=== PATIENT | male | born 1945 | race Caucasian/White ===

== ENCOUNTER 2020-12-05 18:53 | Inpatient (IN) | payer MEDICARE, SELFPAY ==
--- NOTE | ~2020-12-05 | XR_ITS ---
EXAMINATION: XR CHEST CLINICAL INFORMATION: Confusion, smoker, wheezing COMPARISON: None TECHNIQUE: Frontal view of the chest was obtained. FINDINGS: The lungs are clear. The vascularity is normal. There is no hyperinflation. The costophrenic sulci are clear. The heart is normal in size. The hilar and mediastinal contours are normal. No visible acute bony abnormality. XR/XR chest 1V IMPRESSION: Unremarkable examination.
--- NOTE | ~2020-12-05 | CT_ITS ---
EXAMINATION: CT HEAD WITHOUT CONTRAST CLINICAL INFORMATION: Confusion. Altered mental status. COMPARISON: None TECHNIQUE: Contiguous axial imaging was performed from the skull base to vertex without intravenous administration of contrast. This CT examination was performed using dose optimization techniques as appropriate, variously including the following: *Automated exposure control *Adjustment of mA and/or kV according to patient size (this includes techniques or standardized protocols for targeted exams where dose is matched to indication/reason for exam; i.e. extremities or head) *Use of iterative reconstruction technique DLP: 768 mGy-cm FINDINGS: There is no evidence of an extra-axial collection. There is no evidence for intra-axial or extra-axial hemorrhage. There is a 1.2 cm area of low attenuation seen in the left external capsule/claustrum questionable for subacute infarct. The ventricles and extra-axial CSF spaces are slightly prominent suggestive of mild generalized atrophy. There is mild nonspecific periventricular white matter disease. There are small polyps or cysts in the maxillary sinuses. Paranasal sinuses, mastoid air cells and middle ears are clear. There is mild generalized increased sclerosis of the skull. This may be related to metabolic bone disease or possibly anemia. No fracture or focal lesion is seen. CT/CT head/brain wo con IMPRESSION: 1.2 cm area of decreased attenuation seen in the left external capsule/claustrum questionable for subacute infarct. Mild generalized atrophy and nonspecific periventricular white matter disease.
--- NOTE | ~2020-12-05 | XR_ITS ---
EXAMINATION: XR ABDOMEN XR PELVIS CLINICAL INFORMATION: Pre-MRI COMPARISON: None TECHNIQUE: 1 view, 2 images of the abdomen. Single view of the pelvis. FINDINGS: Normal bowel gas pattern. No dilated loops of bowel. Gas and stool throughout the colon. The lung bases are clear. Degenerative changes of the spine. Degenerative changes of both hips with sclerosis noted. The pelvic rim is intact. There are no unexpected radiopaque foreign bodies in the abdomen or pelvis. XR/XR pelvis 1-2V IMPRESSION: No unexpected radiopaque foreign body.
--- NOTE | ~2020-12-05 | XR_ITS ---
EXAMINATION: XR ABDOMEN XR PELVIS CLINICAL INFORMATION: Pre-MRI COMPARISON: None TECHNIQUE: 1 view, 2 images of the abdomen. Single view of the pelvis. FINDINGS: Normal bowel gas pattern. No dilated loops of bowel. Gas and stool throughout the colon. The lung bases are clear. Degenerative changes of the spine. Degenerative changes of both hips with sclerosis noted. The pelvic rim is intact. There are no unexpected radiopaque foreign bodies in the abdomen or pelvis. XR/XR abdomen 1V IMPRESSION: No unexpected radiopaque foreign body.
--- NOTE | ~2020-12-05 | US_ITS ---
EXAMINATION: US EXTRACRANIAL CAROTID DUPLEX, BILATERAL CLINICAL INFORMATION: CVA. Confusion and altered mental status. COMPARISON: None TECHNIQUE: Real-time ultrasound and Doppler techniques (integrating B-mode 2-D vascular images, Doppler spectral analysis and color-flow Doppler imaging) were utilized to interrogate the extracranial carotid arteries, the vertebral arteries and proximal subclavian arteries bilaterally. The degree of stenosis is determined by criteria similar to NASCET. FINDINGS: Right Side: 1. There is mild atherosclerotic plaque seen in the bifurcation/proximal ICA region. 2. The common carotid artery PSV proximally is 100 cm/s and distally 91 cm/s. 3. The proximal internal carotid artery velocities are 63 cm/s systolic and 13 cm/s diastolic. 4. The proximal external carotid artery PSV is 116 cm/s. 5. The vertebral artery shows normal flow. 6. The subclavian artery waveforms are antegrade. Left Side: 1. There is mild atherosclerotic plaque seen in the bifurcation/proximal ICA region. 2. The common carotid artery PSV proximally is 95 cm/s and distally 63 cm/s. 3. The proximal internal carotid artery velocities are 53 cm/s systolic and 19 cm/s diastolic. 4. The proximal external carotid artery PSV is 77 cm/s. 5. The vertebral artery shows antegrade flow. 6. The subclavian artery waveforms are normal. US/US carotid duplex BI IMPRESSION: 1. RIGHT: Mild atherosclerotic plaque. 0-49% right ICA stenosis. 2. LEFT: Mild atherosclerotic plaque. 0-49% left ICA stenosis.
--- NOTE | ~2020-12-05 | MR_ITS ---
EXAMINATION: MR BRAIN WITHOUT AND WITH CONTRAST CLINICAL INFORMATION: Encephalopathy. COMPARISON: Head CT 12/06/2020. TECHNIQUE: Multiplanar, multisequence imaging of the brain was performed before and after the intravenous administration of 6 mL of Gadavist. FINDINGS: There is no acute infarction, mass, hemorrhage, or extra-axial collection. No abnormal or unexpected intracranial enhancement is seen. The ventricles and sulci are commensurate compatible with mild degree of diffuse brain parenchymal volume loss. A few minimal nonspecific foci of T2 hyperintensity are seen within the bilateral cerebral white matter. No definite external capsule abnormality is seen. The flow voids of the major intracranial arteries appear intact. The bones and extracranial soft tissues are within normal limits. There is prominent polypoid soft tissue in the right and left palatine tonsillar fossa with apparent small cystic lesions best defined on axial T2 series 8 image 06/30. A small retention cyst is seen within the right aspect of the nasopharynx. There is mild paranasal sinus mucosal thickening without fluid levels. The mastoids are clear. MR/MR head/brain wo/w con IMPRESSION: No mass lesion, acute infarction, or abnormal intracranial enhancement. Mild degree of diffuse brain parenchymal volume loss. Prominent polypoid soft tissue is seen within the right and left sided palatine tonsillar fossa for which direct visual inspection/ENT evaluation is recommended. Small mucosal retention cyst seen within the right aspect of the nasopharynx.
[2020-12-05 19:03] VITALS: BP 126/58; PULSE 64; O2SAT 99
[2020-12-05 19:05] VITALS: BP 112/55; PULSE 56; RESP 18; TEMP 36.7; O2SAT 98; BMI 18.9
--- NOTE | 2020-12-05 19:31 | ED_ITS ---
HPI - Medical Clearance General Chief complaint: Medical Clearance Stated complaint: evaluation Time Seen by Provider: 12/05/20 19:31 Source: patient and EMS Mode of arrival: EMS Limitations: no limitations History of Present Illness HPI Narrative: Patient is 75 years old male with no diagnosis of dementia or mental problems lives in a house which is very unkept police been to their house at least 3 - 4 times in last 1 year for patient's wellness found 1 month of cat's litter in the garage, 2 bodies of cats patient does not have any running water,throwing the feces in his back yard according to his neighbor please have tried elderly care services so for no placement. Patient is confabulating denies such stories says everything is fine at home Related Information Home Medications Medication Instructions Recorded Confirmed No Known Home Meds 12/05/20 12/05/20 Allergies Allergy/AdvReac Type Severity Reaction Status Date / Time No Known Allergies Allergy Verified 12/05/20 19:06 Review of Systems Review of Systems: Yes all other systems are reviewed and are negative PMFSH Past Medical History Medical History No acute medical problems Surgical History H/O knee surgery Social History Social History Alcohol intake: never Patient Tobacco Use Status: Refuse Tobacco use screen Use of substances other than those prescribed or required for medical reasons: No Advance Directives: No Physical Exam Vital Signs: Vital Signs: Last Vital Signs Temp 98.1 F 12/05/20 19:05 Pulse 48 L 12/05/20 21:56 Resp 18 12/06/20 01:49 BP 131/64 12/05/20 21:56 Pulse Ox 98 12/05/20 21:56 Body Mass Index 18.9 Appearance: Alert. Oriented X3. No acute distress unkept, Eyes: PERRLA, No Nystagmus, no pallor or icterus ENT: Pharynx normal. Oral Mucosa moist Neck: Normal inspection. Neck supple. CVS: Normal heart rate and rhythm. Pulses normal. Respiratory: No respiratory distress. Equal air entry bilateral, no wheezing/rales/rhonchi Abdomen: Soft and nontender. Bowel sounds are present, no mass palpable, no CVA tenderness Skin: Skin warm and dry. Normal skin color. Normal skin turgor. Extremities: No lower extremity edema. No calf tenderness Neuro: Oriented X 3. No motor deficit. No sensory deficit.No cerebellar signs , cranial nerves II-XII intact MDM - Medical Clearance MDM Narrative Medical decision making narrative: Patient to be seen by psychiatrist to check his mental capacity as he is not understanding the situation at home denies a problem at home unable to place him so far. Case management is involved in the case Lab Data Attestation: I reviewed the patient's lab results. Labs: Lab Results 12/05/20 Range/Units 22:43 Urine Color DARK YELLOW Urine Appearance CLEAR Urine pH 6.0 (5.0-8.0) Ur Specific [place] >= 1.030 H (1.005-1.025) Urine Protein NEG (NEG-TRACE) MG/DL Urine Glucose (UA) NEG (NEG) MG/DL Urine Ketones NEG (NEG) MG/DL Urine Blood NEG (NEG) Urine Nitrite NEG (NEG) Ur Leukocyte Esterase NEG (NEG) Discharge Plan Discharge Clinical Impression: Mental confusion Prescriptions: No Action No Known Home Meds RF: 0
--- NOTE | 2020-12-05 20:49 | PC.NURSE ---
AT APPROXIMATELY 2044; ERT APPROACHED THIS RN AND TOLD ME THE PATIENT WAS NO LONGER IN BED. ALL BATHROOMS IN ED CHECKED. NO SIGN OF PATIENT.
--- NOTE | 2020-12-05 20:51 | PC.NURSE ---
MARINE MACHINIST SUBSEUQENTLY NOTIFED.
--- NOTE | 2020-12-05 20:51 | PC.NURSE ---
AT APPROXIMATELY 2049, PT RETURNED TO ED PER PATIENT AND CM, PT BECAME CONFUSED AND BELIEVED HE ARRIVED [place] [facility] [place]. PT WAS FOUND BY CM WITH SECURITY SEEKING HELP TO FIND PRIVATE VEHICLE. PT DENIED TRAUMA. AT THIS TIME PT IS MEETING WITH CM. SALES SERVICE REPRESENTATIVE [email or web address].E
--- NOTE | 2020-12-05 21:15 | PC.NURSE ---
PT MOVED INTO DIRECT VIEW OF NURSES STATION AND PLACED ON BED ALARM.
--- NOTE | 2020-12-05 21:22 | PC.NURSE ---
PROVIDER AND CM AT BEDSIDE TO EXPLAIN THAT HE IS UNSAFE TO GO HOME.
--- NOTE | 2020-12-05 21:32 | PC.NURSE ---
ELOPEMENT TEACHING DISCUSSED WITH PATIENT. PT APPEARS TO BE INTERMITTENTLY CONFUSED, BUT ABLE TO VERBALIZE TEACHING.
--- NOTE | 2020-12-05 21:37 | PC.NURSE ---
LATE ENTRY 1955: CONTACT MADE TO [facility] REGARDING WHY PT WAS TRANSPORTED BY EMS. 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 REPORTEDLY PT HAS NO RUNNING WATER AT HOME. THERE HAVE BEEN FREQUENT 911 CALLS. [facility] HAS BEEN INVOLVED AND HAS MADE MULTIPLE UNSUCCESSFUL ATTEMPTS TO GET AHOLD OF THE PATIENT. HOUSE APPEARS TO BE UNSANITARY WITH FECES IN THE HOUSE. THIS RN WAS THEN TRANSFERRED TO OFFICER HECTOR WHO RESPONDED ON SCENE. PER OFFICER, THE PATIENT IS NOT QUITE THERE, HE CAN JOKE AND PUT ON A GOOD SHOW, BUT SOMETHING IS NOT RIGHT . THERE HAVE BEEN MULTIPLE CALLS FROM THE BANK IN [facility] WITH THE PATIENT ATTEMPTING TO WITHDRAW MONEY FROM HIS ACCOUNT. THESE BEHAVIORS HAVE INCREASED OVER THE LAST TWO- THREE WEEKS. THERE IS NO MONEY IN THIS ACCOUNT AND IT IS CLEARLY IN THE NEGATIVE. PT APPEARS TO HAVE NO DECERNABLE WAY TO OBTAIN INCOME. PER THE OFFICER, PT BELIEVES THAT THE CURRENT MONTH IS SEPTEMBER. PT HAS NOT BEEN ABLE TO TAKE CARE OF HIMSELF AND IT IS UNKNOWN WHEN HE LAST BATHED. THE OFFICER THEN FURTHER CONFIRMED THAT THE PATIENT DOES NOT HAVE RUNNING WATER, USE OF A TOILET. THERE ARE CONCERNS ABOUT THE PATIENT HAVING ACTIVE ELECTRICITY IN THE HOME. IT WAS FURTHER REPORTED THAT THE PATIENT HAS NOT ACCESS TO THESE SERVICES IN 5-7 YEARS[address] PT DOES NOT HAVE MEALS AT HOME. THERE IS NO FAMILY INVOLVED. PER OFFICER [facility] WAS TO ATTEMPT TO MAKE CONTACT AT 1 PM ON 12/06. PT APPEARS TO BE MALNOURISHED, DIRT CAKED UNDER HIS NAILS ON BOTH HIS HANDS AND FEET. THERE ARE OBVIOUS WHITEHEAD OF DIRT AND DISCOLORATION FROM LACK OF BATHING. HAIR IS UNKEPT AND GREASY IN APPEARANCE. DURING INITIAL SURFACER SKIN WAS NOTED TO BE INTACT AND NO EVIDENCE OF BRUSING OR ANY RECENT TRAUMA. PT OFFERED BATH CLOTHES TO WIPE HANDS FACE AND PT REFUSED.
[2020-12-05 21:56] VITALS: BP 131/64; PULSE 48; RESP 14; O2SAT 98
[2020-12-05 22:00] VITALS: RESP 18
--- NOTE | 2020-12-05 22:28 | PC.NURSE ---
PT MOVED TO HOSPITAL BED. RAILS UP X3 CALL BARRAZA IN HAND. LOCKED IN LOWEST POSITION
--- NOTE | 2020-12-05 22:33 | MHC.CM.ED ---
CM found patient in the waiting room with security. Pt convinced that his car has been stolen. Pt had eloped and was looking for his car. Went to security to report stolen car. CM alerted security that pt left without seeing MD. Explained to patient that the [facility] brought [facility] to the hospital, and that his car is at home. Pt did not remember that he came to the ED via ambulance.Pt escorted by CM back to his room. Cynthia RAY present. CM met with patient. Pt is very confused and cannot remember what he has told CM from one minute to the next. Pt is very unkept, with dirty clothing and greasy, stringy hair. Pt initially told CM that he had water at home, then upon further investigation, pt admitted that his water does not work in the house or in the bathroom toilet or shower. Pt tells me he has bottled water. Pt states he has electricity and a home phone. Pt states he has food in the home and cooks, however, pt is very thin. Pt denies having any family or children. Also denies having any friends. There is no contact information for this patient. Pt states he does not have any insurance and when he went through his wallet with CM, there was only a license and hair coupons. Pt does not have a HCP, nor does he want to complete one. Pt does not have a PCP and tells CM that he is very healthy. Denies taking any medications. Admits to occasional smoking and drinking [employer] . This data analyst report writer is concerned regarding pt capacity to make medical decisions and ability to accurately answer CM questions. This data analyst report writer called the [facility] to verify information and to learn more about this patient. Per Madeline Griggs, this patient is known to the police, but over the past year has become more confused and more unkept. The patient has been calling [employer] in [facility] daily to withdraw money. Sgt. Griggs is unsure if pt has funds to withdraw. He states the [employer] is concerned about this patient. Sgt. Griggs tells CM that [facility] has been contact at least twice in regards to this patients self-neglect, but [facility]'s attempts to reach him by phone have been unsuccessful. [facility] is supposed to visit the home tomorrow, 9/1/21 at 1pm. Sgt Griggs tells CM that in September, [facility] reported months of cat feces in the home on the floor to the [facility]. Sgt Griggs tells CM he has not heard back from [facility]. Sgt. Griggs tells CM that he visited the home recently and the stench coming from the garage was horrendous. He discovered 2 decomposed cats, to the point that bones were visible. In last month, pt has been wearing the same clothes. Sgt Griggs can verify that pt does have electricity and a working phone in the home. There is no running water. According to Sgt Griggs, the patient has been emptying stool and urine in a bucket on the lawn. Sgt. Griggs will check with water department to see if the water has been shut off and will call CM with any other information. Contact information given to [facility]. [facility] aware that pt will remain in ED and will have psych consult for capacity to make medical decisions. CORY and Dr. Sandoval aware of above. Dr. Sandoval met with pt with CM and CORY Marie. He explained that pt would stay overnight and could not go home if he has no running water and cat feces everywhere. Explained to pt that Doctor would meet with him tomorrow to see what we could do to help him. Pt moved to Bed 17 for more visibility and chair alarm placed on patient by Cynthia RAY. NORMA suggested to Dr. Sandoval that a psychiatry consult be made to determine capacity. May need to petition for guardianship for this patient. CM to follow for d/c needs.
[2020-12-05 22:49] LABS: Glucose Urine UA NEG (NEG); Leukocyte Esterase Urine NEG (NEG); Nitrite Urine NEG (NEG); Specific Gravity - Urine >= 1.030 (1.005-1.025); Urine Blood NEG (NEG); Urine Ketones NEG (NEG); Urine Protein NEG (NEG-TRACE)
[2020-12-05 22:50] LABS: Appearance Urine CLEAR; Color Urine DARK YELLOW
[2020-12-06] VITALS (9 sets, daily range): BP systolic 118–163; BP diastolic 64–78; PULSE 55–72; RESP 15–18; TEMP 36.1–37.1; O2SAT 99–100
--- NOTE | 2020-12-06 00:34 | PC.NURSE ---
PT FREQUENTLY ATTEMPTS TO GET OUT OF BED- PT BELIEVES AT THIS TIME THAT HE IS 26 YEARS OLD AND THAT HIS CATS ARE ALIVE. MULTIPLE ATTEMPTS ARE MADE TO REORIENTATE PATIENT, BUT HE IS HYPERFIXATED ON HIS CATS STARVING TO . EARLIER IN THE NIGHT, CM CONFIRMED THAT THERE ARE NO LIVE CATS ON THE PREMISIS. FLIGHT OF IDEAS CAN BE NOTED IN CONVERSATION, THE PATIENT IS EASILY DISTRACTED AND WILL FREQUENTLY LOSE HIS TRAIN OF THOUGHT MID SENTENCE. PT WILL PROVIDE WRONG ANSWERS AND THEN SAY HEY, I'M JUST JOKING . PT IS ENCOURAGED TO USE HIS CALL BARRAZA. BED ALARM IS ON AND 3 SIDE RAILS ARE UP AND LOCKED INTO POSITION.
[2020-12-06] MEDS: diphenhydrAMINE HCL 25 MG TABLET 50 MG PO (02:02)
[2020-12-06] MEDS: LORazepam 1 MG TABLET PO (02:42)
[2020-12-06 08:54] LABS: MANUAL DIFF FLAG NO
[2020-12-06 08:57] LABS: Basophils Percent Auto 0.3 % (0-2); Eosinophils Absolute Auto 0.1 X10*3/uL (0.0-0.4); Eosinophils Percent Auto 0.9 % (0-4); Hemoglobin 14.5 g/dl (14.0-18.0); Imm Gran Abs Auto 0.03 X10*3/uL (0.00-0.03); Imm Gran Pct Auto 0.3 % (0.0-0.4); Lymphocytes Absolute Auto 1.7 X10*3/uL (1.2-4.9); Lymphocytes Percent Auto 18.2 % (20-40); Mean Corpuscular Hemoglobin 30.7 pg (27.0-33.0); Mean Platelet Volume 11.7 fL (9.4-12.4); Monocytes Absolute Auto 0.8 X10*3/uL (0.1-1.2); Monocytes Percent Auto 8.3 % (2-11); Neutrophils Absolute Auto 6.9 X10*3/uL (2.0-8.3); Platelet Count 163 X10*3/uL (160-400); Red Blood Count 4.73 X10*6/uL (4.60-5.80); Red Cell Distribution Width 15.4 % (11.0-16.0); White Blood Count 9.6 X10*3/uL (4.8-10.8)
[2020-12-06 09:09] LABS: COVID-19 Test Negative (Negative)
[2020-12-06 09:14] LABS: Alanine Aminotransferase 8 U/L (0-40); Albumin Level 4.4 g/dL (3.5-5.0); Alkaline Phosphatase 63 U/L (39-117); Anion Gap 13 (12-20); Aspartate Amino Transferase 12 U/L (5-37); Bilirubin Direct 0.3 mg/dL (0.0-0.5); Bilirubin Total 0.8 mg/dL (0.0-1.0); Blood Urea Nitrogen 15 mg/dL (9-16); Calcium 9.3 mg/dL (8.4-10.2); Carbon Dioxide 26 mmol/L (22-29); Chloride 104 mmol/L (96-108); Creatinine Clr Calc Pharmacy 67.4; Estimated Glomerular Filt Rate > 60; Glucose Random 102 mg/dL (60-115); Magnesium 2.4 mg/dL (1.6-2.6); Potassium 4.5 mmol/L (3.3-5.1); Sodium 138 mmol/L (135-145)
[2020-12-06] MEDS: QUEtiapine Fumarate 25 MG TABLET PO ×2 (09:57→20:29)
--- NOTE | 2020-12-06 10:15 | MHC.CM.ED ---
Patient remains in ER. Waiting for psych consult to see if patient has capacity to make his own decisions. Karley Islas, Ase Certified Technician aware guardianship may be needed. Continue to monitor for d/c needs.
--- NOTE | 2020-12-06 10:41 | PC.NURSE ---
Elsi from [facility] called for update on patient. she can be reached at [phone] extension [phone].
--- NOTE | 2020-12-06 11:11 | MHC.CARE ---
CARE Team meets with pt, at the request of psychiatry. He is seemingly oriented to person, and otherwise disoriented. Responses to questions are nonsensical. He is mildly agitated and expresses a desire to leave. He has no insight regarding what brought him to the ED. He is well engaged with CARE Team, and is hyperverbal, though there is little content. CARE Team speaks with DARLENE Calzada, who reports it was just identified that pt has had a stroke. CARE Team communicates with Dr. Aguero from psychiatry about this, as he has also been consulted on this case.
[2020-12-06 11:59] LABS: Amphetamine Screen Urine Not Detected (Not Detect); Barbiturates, Urine Not Detected (Not Detect); Benzodiazepines Screen Urine Not Detected (Not Detect); Cannabinoid Screen Urine Not Detected (Not Detect); Cocaine Screen Urine Not Detected (Not Detect); Fentanyl, urine Not Detected (Not Detect); Opiate Screen Urine Not Detected (Not Detect); Phencyclidine Screen Urine Not Detected (Not Detect)
--- NOTE | 2020-12-06 12:00 | PM.IMHP ---
History of Present Illness Date of Service: 12/06/20 Patient is an unreliable historian due to his mental status. When I interview him, he is unsure as to why is here and wants to leave. He knows his name, states he is in a scientific facility , and thinks it is July 2020 . He has no relatives per CM report. He tells me he has a stepmother but refuses to give me her phone number. as per ED provider documentation 12/05-12/06/20: Patient is 75 years old male with no diagnosis of dementia or mental problems lives in a house which is very unkept police been to their house at least 3 - 4 times in last 1 year for patient's wellness found 1 month of cat's litter in the garage, 2 bodies of cats patient does not have any running water,throwing the feces in his back yard according to his neighbor please have tried elderly care services so for no placement.? Patient is confabulating denies such stories says everything is fine at home... ...Physician observation started last night at 9pm. He is confused and disoriented. He is focused on getting a price. He was reoriented twice and still cannot recall where he is. His VS are stable. He is steady on his feet, speaking in complete sentences. UA was negative for infection last night. Will get basic labs, COVID swab, CT head and CXR. Patient is pending psych evaluation. He was given Benadryl & Ativan overnight with apparent worsening of his confusion. Will avoid Benadryl and Ativan for now. Will start Seroquel 25 BID. Case management pending but patient needs to be medically cleared first... ... Labs are unremarkable. CT head done showing 1.2 cm area of decreased attenuation seen in the left external capsule/claustrum questionable for subacute infarct. Mild generalized atrophy and nonspecific periventricular white matter disease. Will plan to admit for further workup and monitoring. I do not appreciate any focal weakness. He is ambulatory. No documented medical problems. He says something about an Achilles tendon surgery but points to his abdomen, which has no surgical scars. He says he smokes a half pack a day. He is unclear about alcohol, stating he drinks 4 gallons of beer an hour but then recanting. Review of Systems Review of Systems: Yes Unobtainable due to mental status [facility] Medical History No acute medical problems Pertinent family history: unable to obtain Surgical History H/O knee surgery Social History Household Members: None Housing: House Do you presently have visiting nurse or other home services: No Alcohol intake: never Patient Tobacco Use Status: Refuse Tobacco use screen Use of substances other than those prescribed or required for medical reasons: Yes Substance Use Type: Marijuana Substance Use Frequency: Occasionally Currently Displaying Signs/Symptoms of Drug Intoxication Withdrawal: No Any prior treatment program specific to substance use: No Advance Directives: No Do you have thoughts of harming others: None Do you have a plan to hurt others: No Plan Recently lost weight without trying: Unsure Nutrition Risks: No Nutritional Risk Poor oral hygiene: No Meds Allergies Allergy/AdvReac Type Severity Reaction Status Date / Time No Known Allergies Allergy Verified 12/05/20 19:06 Active Medications: Current Medications Generic Name Dose Route Start Last Admin Trade Name Freq PRN Reason Stop Dose Admin Acetaminophen 650 mg 12/06/20 11:55 Acetaminophen 325 Mg Tablet PO Q6H PRN Pain, Mild (Pain Scale 1-3) Docusate Sodium 100 mg 12/06/20 11:55 Docusate Sodium 100 Mg Capsule PO BID PRN Constipation Enoxaparin Sodium 40 mg 12/06/20 12:00 Enoxaparin Sodium 40 Mg/0.4 Ml Syringe SUBCUT Q24H [facility] Pharmacy Consult 1 each 12/06/20 11:09 Consult Rx Perform Med Rec MISCELLANE ONCE PRN Consult order Quetiapine Fumarate 25 mg 12/06/20 09:00 12/06/20 09:57 Quetiapine Fumarate 25 Mg Tablet PO 25 mg BID AGGIE Administration Sodium Chloride 3 ml 12/06/20 16:00 0.9 % Sodium Chloride Flush 3 Ml Syringe IVFLUSH QSHIFT [facility] Home Medications Medication Instructions Recorded Confirmed Last Taken Type No Known Home Meds 12/05/20 12/05/20 Unknown History Physical Exam Vital Signs and Narrative: Vital Signs: Last Vital Signs Temp 97.6 F 12/06/20 11:26 Pulse 63 12/06/20 11:50 Resp 16 12/06/20 11:26 BP 132/78 12/06/20 11:50 Pulse Ox 99 12/06/20 11:50 Body Mass Index 18.9 Gen: in no acute distress, bitemporal wasting, somewhat unkempt HEENT: sclera anicteric, moist mucus membranes Neck: supple Lungs: clear to auscultation bilaterally Heart: regular rate and rhythm, no murmurs Abd: soft, non-tender, non-distended Ext: no edema Skin: warm/well-perfused Neuro: alert, disoriented, no pronator drift, no focal weakness, no incoordination Psych: impaired insight Results Labs CBC and Chem 7: 12/06/20 08:48 12/06/20 08:48 Labs: Laboratory Results - last 24 hr 12/05/20 12/06/20 12/06/20 22:43 08:48 08:48 MCV 93.0 MCH 30.7 MCHC 33.0 RDW 15.4 Plt Count 163 MPV 11.7 Immature Gran % (Auto) 0.3 Neut % (Auto) 72.0 Lymph % (Auto) 18.2 L [place] % (Auto) 8.3 Eos % (Auto) 0.9 Baso % (Auto) 0.3 Lymph # (Auto) 1.7 [place] # (Auto) 0.8 Eos # (Auto) 0.1 Baso # (Auto) 0.0 Abs Immat Gran (auto) 0.03 Absolute Neuts (auto) 6.9 Absolute Nucleated RBC 0.000 Nucleated RBC % (auto) 0.0 Anion Gap 13 Estim Creat Clear Calc 67.4 Estimated GFR > 60 Random Glucose 102 Calcium 9.3 Magnesium 2.4 Total Bilirubin 0.8 Direct Bilirubin 0.3 AST 12 ALT 8 Alkaline Phosphatase 63 Total Protein 7.0 Albumin 4.4 Urine Color DARK YELLOW Urine Appearance CLEAR Urine pH 6.0 Ur Specific [place] >= 1.030 H Urine Protein NEG Urine Glucose (UA) NEG Urine Ketones NEG Urine Blood NEG Urine Nitrite NEG Ur Leukocyte Esterase NEG Urine Opiates Screen Urine Fentanyl Screen Ur Barbiturates Screen Ur Phencyclidine Scrn Ur Amphetamines Screen U Benzodiazepines Scrn Urine Cocaine Screen U Marijuana (THC) Screen COVID-19 (FLORIAN) COVID-19 Clin Com 12/06/20 12/06/20 08:50 11:33 MCV MCH MCHC RDW Plt Count MPV Immature Gran % (Auto) Neut % (Auto) Lymph % (Auto) [place] % (Auto) Eos % (Auto) Baso % (Auto) Lymph # (Auto) [place] # (Auto) Eos # (Auto) Baso # (Auto) Abs Immat Gran (auto) Absolute Neuts (auto) Absolute Nucleated RBC Nucleated RBC % (auto) Anion Gap Estim Creat Clear Calc Estimated GFR Random Glucose Calcium Magnesium Total Bilirubin Direct Bilirubin AST ALT Alkaline Phosphatase Total Protein Albumin Urine Color Urine Appearance Urine pH Ur Specific [place] Urine Protein Urine Glucose (UA) Urine Ketones Urine Blood Urine Nitrite Ur Leukocyte Esterase Urine Opiates Screen Not Detected Urine Fentanyl Screen Not Detected Ur Barbiturates Screen Not Detected Ur Phencyclidine Scrn Not Detected Ur Amphetamines Screen Not Detected U Benzodiazepines Scrn Not Detected Urine Cocaine Screen Not Detected U Marijuana (THC) Screen Not Detected COVID-19 (FLORIAN) Negative COVID-19 Clin Com See Note Imaging Radiologist's Impressions: Impressions Chest X-Ray 12/06/20 08:17 IMPRESSION: Unremarkable examination. Head CT 12/06/20 08:25 IMPRESSION: 1.2 cm area of decreased attenuation seen in the left external capsule/claustrum questionable for subacute infarct. Mild generalized atrophy and nonspecific periventricular white matter disease. Assessment and Plan (1) Dementia: Status: Acute (2) Unable to care for self: Status: Acute (3) Stroke: Status: Acute 75yo male with no known medical history sent in for inadequate self-care, living in [facility], found to have CT evidence of subacute CVA. # subacute CVA - admit to IMC, EKG, telemetry, TTE, lipid panel. secondary prevention with ASA + atorvastatin # inadequate self-care # possible dementia - TSH normal. check thiamine, B12, T palldium EIA, HIV. neuro + psych consults # tobacco abuse - NRT # ?EtOH abuse - unable to corroborrate hx. no signs of withdrawal. follow CIWA scale. 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
[2020-12-06 12:07] LABS: Estimated Average Glucose 105 mg/dL; Hemoglobin A1c % 5.3 %
--- NOTE | 2020-12-06 12:09 | MHC.STROKE ---
Addendum entered by Emperatriz Aguero RN 12/08/20 13:55: MRI RESULTS FROM TODAY, NO ACUTE STROKE, REVIEW MRI REPORT. SEE DR ROMERO'S NOTE FROM 12/07/20. Original Note: 12/06/20 PATIENT BEING ADMITTED FOR SUBACUTE STROKE, NIHSS = 1, SOME CONFUSION. NO FOCAL NEURO DEFICITS. CONFIRMED THAT HE PASSED SWALLOW PRIOR TO PO MED AT 0200. SEE CASE MANAGEMENT NOTES/PSYCH. I WILL CONTINUE TO FOLLOW.
--- NOTE | 2020-12-06 12:11 | MHC.CM.ED ---
Patient will be admitted for subacute CVA. Psych consult still pending. Guardianship intake paperwork started and faxed to Main. Continue to monitor for d/c needs.
[2020-12-06 12:14] LABS: Thyroid Stimulating Hormone 0.88 uIU/mL (0.32-4.0)
--- NOTE | 2020-12-06 13:10 | PHA.MEDREC ---
Pharmacy Consult ? Medication Reconciliation Pharmacy has completed the medication reconciliation. Patient was not able to give a history of any medications, there is no contacts of family, outpatient pharmacy records or insurance companies/primary care office that I could call in order to obtain a history. Elsi Islas, PharmD [phone]
[2020-12-06] MEDS: Thiamine HCL 500 MG in 0.9 % Sodium Chloride 100 ML 210 MG IV ×2 (14:01→20:29)
--- NOTE | 2020-12-06 14:16 | MHC.SL.SWA ---
Speech Pathologist Impression: Risk of Aspiration Oral Phase Dysphagia Risk of Aspiration Due to: Neurological Condition Dysphasia Diet Status: Downgrade Liquid Consistency and Strategies for Safe Swallow: Liquid Intake Recommendation: Thin Liquid Intake Strategies: Small Sips Solid Food Consistency: Dietary Recommendations: Grnd/Mech Altered (NDD2) Additional Modifications to Solid Foods: No overt s/s of aspiration. Recommend soft diet due to oral phase dysphagia which is secondary to edentulous state and ill fitting dentures. Patient appeared to mash solids better without dentures as dentures were loose and often obstructed patient's ability to chew. Recommend food to be moistened in sauce and gravy. Recommend avoid tough and sticky consistencies. Aspiration precautions apply. Oral Medication Intake: Whole with Liquid Compensatory Strategies and Precautions to be Taken for Safe Swallow: Sitting Upright (90 deg) Small Bites and Sips Alternate Liquids/Solids Rate of Ingestion Change Avoid Specific Foods Supervision While Eating and Drinking for Safe Swallow: Intermittent Supervision Foods to Avoid: tough/sticky foods Swallowing Recommended Treatments: Compens. Strategy Educat. Recommendation for Speech: Inpatient Speech Therapy Comment: OUTPATIENT SCHEDULER will follow up 1x time Utility Bill Collection Clerk Clinican/Clinical Fellow: No Supervisory Statement: I have reviewed and agree with the student/clinical fellow's documentation: N/A Speech Language Pathologist: Ny Montesinos M.A., [facility]-OUTPATIENT SCHEDULER
[2020-12-06 14:36] LABS: Vitamin B12 245 pg/mL (200-900)
--- NOTE | 2020-12-06 14:38 | P.CNPS_ITS ---
History of Present Illness Date of Service: today Chief Complaint: Subacute CVA Reason for Consult: CTSP for capacity. HPI Narrative: on brief interview, pt was unable to indicate why he was at the hospital except in order to eat (he was interviewed during lunch) or because he works here (he does not). he denied any medical problems and reported he feels great. he confabulated throughout the interview and spontaneously [place] sometimes getting on the platform and harassing people. at one point he appeared to indicate that the burger he was eating was made from bear. in any event, in light of his subacute stroke and current mental status, pt is unable to make medical decisions for himself. he is unable to appreciate his current medical circumstance and is therefore necessarily lacking in capacity to manage it. Medical Evaluation Reviewed: Yes [facility] Medical History No acute medical problems Surgical History H/O knee surgery Diagnostics Vital Signs (24Hr): Vital Signs - 24 hr 12/05/20 19:05 12/05/20 21:56 12/05/20 22:00 Temperature 98.1 F Pulse Rate 56 48 L Respiratory Rate 18 14 18 Blood Pressure 112/55 L 131/64 Pulse Oximetry 98 98 12/06/20 01:49 12/06/20 09:56 12/06/20 11:26 Temperature 97.6 F Pulse Rate 55 63 Respiratory Rate 18 16 16 Blood Pressure 138/67 132/78 Pulse Oximetry 100 99 12/06/20 11:50 12/06/20 13:55 Temperature 97.3 F Pulse Rate 63 57 Respiratory Rate 16 Blood Pressure 132/78 140/72 H Pulse Oximetry 99 Body Mass Index 18.9 Labs Results: 12/06/20 08:48 12/06/20 08:48 Labs: Laboratory Results - last 48 hr 12/05/20 12/06/20 12/06/20 22:43 08:48 08:48 WBC 9.6 RBC 4.73 Hgb 14.5 Hct 44.0 MCV 93.0 MCH 30.7 MCHC 33.0 RDW 15.4 Plt Count 163 MPV 11.7 Immature Gran % (Auto) 0.3 Neut % (Auto) 72.0 Lymph % (Auto) 18.2 L [place] % (Auto) 8.3 Eos % (Auto) 0.9 Baso % (Auto) 0.3 Lymph # (Auto) 1.7 [place] # (Auto) 0.8 Eos # (Auto) 0.1 Baso # (Auto) 0.0 Abs Immat Gran (auto) 0.03 Absolute Neuts (auto) 6.9 Absolute Nucleated RBC 0.000 Nucleated RBC % (auto) 0.0 Sodium 138 Potassium 4.5 Chloride 104 Carbon Dioxide 26 Anion Gap 13 BUN 15 Creatinine 0.80 Estim Creat Clear Calc 67.4 Estimated GFR > 60 Random Glucose 102 Estimat Average Glucose Hemoglobin A1c % Calcium 9.3 Magnesium 2.4 Total Bilirubin 0.8 Direct Bilirubin 0.3 AST 12 ALT 8 Alkaline Phosphatase 63 Total Protein 7.0 Albumin 4.4 TSH 0.88 Urine Color DARK YELLOW Urine Appearance CLEAR Urine pH 6.0 Ur Specific [place] >= 1.030 H Urine Protein NEG Urine Glucose (UA) NEG Urine Ketones NEG Urine Blood NEG Urine Nitrite NEG Ur Leukocyte Esterase NEG Urine Opiates Screen Urine Fentanyl Screen Ur Barbiturates Screen Ur Phencyclidine Scrn Ur Amphetamines Screen U Benzodiazepines Scrn Urine Cocaine Screen U Marijuana (THC) Screen COVID-19 (FLORIAN) COVID-19 Clin Com 12/06/20 12/06/20 12/06/20 08:48 08:50 11:33 WBC RBC Hgb Hct MCV MCH MCHC RDW Plt Count MPV Immature Gran % (Auto) Neut % (Auto) Lymph % (Auto) [place] % (Auto) Eos % (Auto) Baso % (Auto) Lymph # (Auto) [place] # (Auto) Eos # (Auto) Baso # (Auto) Abs Immat Gran (auto) Absolute Neuts (auto) Absolute Nucleated RBC Nucleated RBC % (auto) Sodium Potassium Chloride Carbon Dioxide Anion Gap BUN Creatinine Estim Creat Clear Calc Estimated GFR Random Glucose Estimat Average Glucose 105 Hemoglobin A1c % 5.3 Calcium Magnesium Total Bilirubin Direct Bilirubin AST ALT Alkaline Phosphatase Total Protein Albumin TSH Urine Color Urine Appearance Urine pH Ur Specific [place] Urine Protein Urine Glucose (UA) Urine Ketones Urine Blood Urine Nitrite Ur Leukocyte Esterase Urine Opiates Screen Not Detected Urine Fentanyl Screen Not Detected Ur Barbiturates Screen Not Detected Ur Phencyclidine Scrn Not Detected Ur Amphetamines Screen Not Detected U Benzodiazepines Scrn Not Detected Urine Cocaine Screen Not Detected U Marijuana (THC) Screen Not Detected COVID-19 (FLORIAN) Negative COVID-19 Clin Com See Note Imaging Radiology Impressions: ITS Impressions Chest X-Ray 12/06/20 08:17 IMPRESSION: Unremarkable examination. Head CT 12/06/20 08:25 IMPRESSION: 1.2 cm area of decreased attenuation seen in the left external capsule/claustrum questionable for subacute infarct. Mild generalized atrophy and nonspecific periventricular white matter disease. Mental Status Exam Mental Status Exam Narrative: disheveled. cooperative. no PMA/PMR. speech fluent, voluble. thoughts tangential. confabulatory. affect flexible, appropriate, min-labile in a playful way (feigning shock at seeing MD appear in mask and respirator, feigning anger at end of conversation). mood mildly euphoric. no SI/HI/AVH expressed. Medications Medications Current Medications Generic Name Dose Route Start Last Admin Trade Name Freq PRN Reason Stop Dose Admin Acetaminophen 650 mg 12/06/20 11:55 Acetaminophen 325 Mg Tablet PO Q6H PRN Pain, Mild (Pain Scale 1-3) Aspirin 81 mg 12/06/20 12:45 Aspirin 81 Mg Tab.Chew PO DAILY [facility] Atorvastatin Calcium 40 mg 12/06/20 21:00 Atorvastatin Calcium 40 Mg Tablet PO BEDTIME [facility] Docusate Sodium 100 mg 12/06/20 11:55 Docusate Sodium 100 Mg Capsule PO BID PRN Constipation Enoxaparin Sodium 40 mg 12/06/20 12:00 Enoxaparin Sodium 40 Mg/0.4 Ml Syringe SUBCUT Q24H [facility] Thiamine HCl 500 mg/ Sodium 105 mls @ 210 mls/hr 12/06/20 12:45 12/06/20 14:01 Chloride IV 12/08/20 05:14 210 mls/hr Q8H [facility] Administration Thiamine HCl 250 mg/ Sodium 102.5 mls @ 202 mls/hr 12/08/20 09:00 Chloride IV 12/12/20 09:31 DAILY [facility] Multivitamins/Vitamin C 1 tab 12/06/20 12:45 Multivitamin Tablet PO DAILY [facility] Pharmacy Consult 1 each 12/06/20 11:09 Consult Rx Perform Med Rec MISCELLANE ONCE PRN Consult order Quetiapine Fumarate 25 mg 12/06/20 09:00 12/06/20 09:57 Quetiapine Fumarate 25 Mg Tablet PO 25 mg BID AGGIE Administration Sodium Chloride 3 ml 12/06/20 16:00 0.9 % Sodium Chloride Flush 3 Ml Syringe IVFLUSH QSHIFT [facility] Thiamine HCl 100 mg 12/13/20 09:00 Thiamine Hcl 100 Mg Tablet PO DAILY AGGIE Allergies Allergies Allergy/AdvReac Type Severity Reaction Status Date / Time No Known Allergies Allergy Verified 12/05/20 19:06 Assessment & Plan Assessment & Plan (1) Stroke: Status: Acute Code(s): I63.9 - Cerebral infarction, unspecified Assessment and Plan: per medical team/neurology (2) Delirium due to another medical condition: Status: Acute Code(s): F05 - Delirium due to known physiological condition Assessment and Plan: treat underlying medical cause. defer to neurology for management of pt experiencing subacute stroke Greater than 50% of the session was spent on counseling and/or coordination of care
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
[2020-12-06] MEDS: Aspirin 81 MG TAB.CHEW PO (15:54)
[2020-12-06] MEDS: Multivitamin TABLET 1 TAB PO (15:54)
[2020-12-06] MEDS: 0.9 % Sodium Chloride Flush 3 ML SYRINGE IVFLUSH ×2 (15:55→20:29)
[2020-12-06] MEDS: Enoxaparin Sodium 40 MG/0.4 ML SYRINGE SUBCUT (15:56)
--- NOTE | 2020-12-06 17:32 | PC.NURSE ---
Pt confused, taking off his cardiac care nurse and arjun in the room. Difficult to re-direct and restless at times.
[2020-12-06] MEDS: Atorvastatin Calcium 40 MG TABLET PO (20:29)
[2020-12-07] MEDS: Melatonin 3 MG TABLET 6 MG PO (00:15)
--- NOTE | 2020-12-07 01:30 | PC.NURSE ---
Addendum entered by Leah Drake RN 12/07/20 05:12: pt up oob being aggressive towards staff, security to the bedside, pt walking hallways entering other patients rooms, asking to staff to leave his house shutting door on staff, made aware, new order for po trazadone pt suspicious of staff and refusing trazadone. md up to see patient. no new orders. sitter remains with patient. Original Note: pt restless up out of bed constantly, leaving room, entering other patients room becoming aggressive with sitter when attempting to redirect. made aware, new order for 6mg melatonin PO,. admin as ordered. pt removed iv, refusing to wear monitoring manager. will continue to monitor
--- NOTE | 2020-12-07 09:31 | MHC.SLORD ---
Speech Language Pathology Order Status: MEDICAL FIELD REPRESENTATIVE spoke with RN and reviewed documentation. Patient is reportedly combative and noncompliant. There are no reported concerns regarding patient's current diet consistency [facility] (NDD2) solids and THIN liquids. Patient was sleeping when MEDICAL FIELD REPRESENTATIVE arrived and is not appropriate for PO trials. Recommend 1x follow up to ensure tolerance. Patient displays oral phase dysphagia.
--- NOTE | 2020-12-07 09:51 | P.CDIC_ITS ---
CDI Concurrent Query Service Date: 12/07/20 Documentation Clarification: Please clarify if you are treating a proba ble/suspected/likely or confirmed: Could you clarify which, if any of the following, is the most likely etiology of the confusion/altered mental status? -Encephalopathy - indicate type such as metabolic, toxic, septic, alcoholic, hypertensive, etc. -Dementia - indicate type of dementia, such as Alzheimer's, senile, vascular, Lewy body, etc. -Acute delirium - indicate known or suspected etiology, such as postoperative, due to narcotics or other drugs, etc. -Baseline dementia - indicate type, such as Alzheimer's, senile, vascular, Lewy body, etc., and any associated behavioral disturbances (aggressive, combative, or violent behavior) -Acute or subacute confusional state due to (specify known or suspected etiology) -Other -Unable to determine Use of terms such as suspected, likely, concern for, or probable (associated with a specific diagnosis that is being evaluated, monitored, or treated as if it exists) are acceptable and can be coded in the inpatient setting, when documented at the time of discharge. Provider Response: Other Other Diagnosis: unable to determine PLEASE DO NOT DELETE/MODIFY EXISTING CONTENT Additional information is needed in order to code to the highest accuracy and appropriate Severity of Illness (SOI). Please clarify the information noted below in your progress notes and discharge summary. Risk Factors/Clinical Indicators/Treatments 75 year old male admit with confusion, disoriented, unkept, home environment with cats, no running water CT Head: ? Subacute Infarct ED Impression: Mental confusion. Given Seroquel. Per H&P: Acute possible Dementia, Subacute CVA Per Psych: lacks decision making, delirium due to another medical condition. CDS: Teresa Overton RN Contact Number: [phone] Please Review the information above and exercise your independent professional judgment in responding to the query. If you concur, pleas document in the PROGRESS NOTES and DISCHARGE SUMMARY. If you do not agree with the query, please document in the query above. THIS QUERY IS PART OF THE PERMANENT MEDICAL RECORD
--- NOTE | 2020-12-07 10:00 | P.CDIC_ITS ---
CDI Concurrent Query Service Date: 12/07/20 Documentation Clarification: Please clarify if you are treating a proba ble/suspected/likely or confirmed: - Malnutrition (specify if mild, moderate, or severe) - Protein calorie malnutrition (specify if mild, moderate, or severe) - Cachexia without malnutrition - No nutritional deficiency - Other (please specify) - Unable to determine Use of terms such as suspected, likely, concern for, or probable (associated with a specific diagnosis that is being evaluated, monitored, or treated as if it exists) are acceptable and can be coded in the inpatient setting, when documented at the time of discharge. Provider Response: Moderate Protein-Calorie Malnutrition PLEASE DO NOT DELETE/MODIFY EXISTING CONTENT Additional information is needed in order to code to the highest accuracy and appropriate Severity of Illness (SOI). Please clarify the information noted below in your progress notes and discharge summary. Risk Factors/Clinical Indicators/Treatments HT 5'11 WT 61.7 BMI 19.0 Per MD note, bitemporal wasting No Nutrition Assessment in EMR CDS: Teresa Overton RN Contact Number: [phone] Please Review the information above and exercise your independent professional judgment in responding to the query. If you concur, pleas document in the PROGRESS NOTES and DISCHARGE SUMMARY. If you do not agree with the query, please document in the query above. THIS QUERY IS PART OF THE PERMANENT MEDICAL RECORD
[2020-12-07 10:26] LABS: Hematocrit 41.5 % (42-52); Hemoglobin 13.6 g/dl (14.0-18.0); Mean Corpuscular HGB Conc 32.8 g/dl (31.0-36.0); Mean Corpuscular Hemoglobin 30.3 pg (27.0-33.0); Mean Corpuscular Volume 92.4 fL (80-98); Mean Platelet Volume 11.8 fL (9.4-12.4); Platelet Count 158 X10*3/uL (160-400); Red Blood Count 4.49 X10*6/uL (4.60-5.80); Red Cell Distribution Width 15.3 % (11.0-16.0)
[2020-12-07 10:27] LABS: WBC ABN SCTR FOR CBC 1
[2020-12-07 10:42] LABS: Anion Gap 13 (12-20); Blood Urea Nitrogen 18 mg/dL (9-16); Calcium 9.1 mg/dL (8.4-10.2); Carbon Dioxide 24 mmol/L (22-29); Chloride 106 mmol/L (96-108); Cholesterol 118 mg/dL; Creatinine Clr Calc Pharmacy 67.4; Estimated Glomerular Filt Rate > 60; Glucose Random 91 mg/dL (60-115); HDL Cholesterol 42 mg/dL; LDL Cholesterol Calculated 62 mg/dl; Potassium 4.4 mmol/L (3.3-5.1); Sodium 139 mmol/L (135-145); Triglycerides 71 mg/dL
[2020-12-07 11:04] VITALS: BMI 18.9
[2020-12-07 11:06] VITALS: BP 123/66; PULSE 62; RESP 18; TEMP 36.3; O2SAT 100
--- NOTE | 2020-12-07 11:09 | MHC.CLN ---
PT IS MODERATELY MALNOURISHED PT WITH MILDLY DEPLETED SUBCUTANEOUS FAT AND MUSCLE MASS, BMI 18.9 WITH DEMENTIA AND CHRONIC POOR LIVING CONDITIONS. DIET RX: GRD M/S-APPROPRIATE MAINTENANCE MECHANIC TELEPHONE IS FOLLOWING FOR APPROPRIATE DIET CONSISTENCY RECOMMEND ADDING ENSURE TID TO INCREASE KCALS MONITOR PO INTAKE CLOSELY SEE ALSO CLINICAL NUTRITION ASSESSMENT
[2020-12-07] MEDS: QUEtiapine Fumarate 25 MG TABLET PO ×2 (11:15→20:04)
[2020-12-07] MEDS: Aspirin 81 MG TAB.CHEW PO (11:15)
[2020-12-07] MEDS: Multivitamin TABLET 1 TAB PO (11:15)
--- NOTE | 2020-12-07 11:25 | P.PNIM_ITS ---
Subjective Subjective Date of Service: 12/07/20 Interval History: Confused Confabulating Refusing IV Review of Systems Review of Systems: Yes Unobtainable due to mental status Physical Exam 2 Vital Signs: Vital Signs: Last Vital Signs Temp 97.4 F 12/07/20 11:06 Pulse 62 12/07/20 11:06 Resp 18 12/07/20 11:06 BP 123/66 12/07/20 11:06 Pulse Ox 100 12/07/20 11:06 Body Mass Index 18.9 Gen: in no acute distress, bitemporal wasting Neck: supple Lungs: clear to auscultation bilaterally Heart: regular rate and rhythm, no murmurs Abd: soft, non-tender, non-distended Ext: no edema Skin: warm/well-perfused Neuro: alert, disoriented, no pronator drift, no focal weakness, no incoordination Psych: impaired insight Objective Data Active Medications Acetaminophen (Acetaminophen 325 Mg Tablet) 650 mg PO Q6H PRN PRN Reason: Pain, Mild (Pain Scale 1-3) Aspirin (Aspirin 81 Mg Tab.Chew) 81 mg PO DAILY [facility] Last Admin: 12/07/20 11:15 Dose: 81 mg Documented by: ROSCOE Atorvastatin Calcium (Atorvastatin Calcium 40 Mg Tablet) 40 mg PO BEDTIME [facility] Last Admin: 12/06/20 20:29 Dose: 40 mg Documented by: NICOLE Docusate Sodium (Docusate Sodium 100 Mg Capsule) 100 mg PO BID PRN PRN Reason: Constipation Enoxaparin Sodium (Enoxaparin Sodium 40 Mg/0.4 Ml Syringe) 40 mg SUBCUT Q24H [facility] Last Admin: 12/06/20 15:56 Dose: 40 mg Documented by: EFRAIN Multivitamins/Vitamin C (Multivitamin Tablet) 1 tab PO DAILY [facility] Last Admin: 12/07/20 11:15 Dose: 1 tab Documented by: ROSCOE Pharmacy Consult (Consult Rx Perform Med Rec) 1 each MISCELLANE ONCE PRN PRN Reason: Consult order Quetiapine Fumarate (Quetiapine Fumarate 25 Mg Tablet) 25 mg PO BID [facility] Last Admin: 12/07/20 11:15 Dose: 25 mg Documented by: ROSCOE Sodium Chloride (0.9 % Sodium Chloride Flush 3 Ml Syringe) 3 ml IVFLUSH QSHIFT [facility] Last Admin: 12/07/20 11:15 Dose: Not Given Documented by: ROSCOE Non-Admin Reason: No Access Thiamine HCl (Thiamine Hcl 100 Mg Tablet) 100 mg PO DAILY [facility] Thiamine HCl (Thiamine Hcl 200 Mg/2 Ml Vial) 250 mg IM DAILY [facility] Labs CBC & Chem 7: 12/07/20 10:19 12/07/20 10:19 Labs: Laboratory Results - last 24 hr 12/06/20 12/06/20 12/06/20 08:48 08:48 08:48 MCV MCH MCHC RDW Plt Count MPV Immature Gran % (Auto) Neut % (Auto) Lymph % (Auto) Mcdonough % (Auto) Eos % (Auto) Baso % (Auto) Lymph # (Auto) Mcdonough # (Auto) Eos # (Auto) Baso # (Auto) Abs Immat Gran (auto) Absolute Neuts (auto) Absolute Nucleated RBC Nucleated RBC % (auto) Anion Gap Estim Creat Clear Calc Estimated GFR Random Glucose Estimat Average Glucose 105 Hemoglobin A1c % 5.3 Calcium Triglycerides Cholesterol LDL Cholesterol, Calc HDL Cholesterol Vitamin B12 245 TSH 0.88 Urine Opiates Screen Urine Fentanyl Screen Ur Barbiturates Screen Ur Phencyclidine Scrn Ur Amphetamines Screen U Benzodiazepines Scrn Urine Cocaine Screen U Marijuana (THC) Screen 12/06/20 12/07/20 12/07/20 11:33 10:19 10:19 MCV 92.4 MCH 30.3 MCHC 32.8 RDW 15.3 Plt Count 158 L MPV 11.8 Immature Gran % (Auto) Cancelled Neut % (Auto) Cancelled Lymph % (Auto) Cancelled Mcdonough % (Auto) Cancelled Eos % (Auto) Cancelled Baso % (Auto) Cancelled Lymph # (Auto) Cancelled Mcdonough # (Auto) Cancelled Eos # (Auto) Cancelled Baso # (Auto) Cancelled Abs Immat Gran (auto) Cancelled Absolute Neuts (auto) Cancelled Absolute Nucleated RBC 0.000 Nucleated RBC % (auto) 0.0 Anion Gap 13 Estim Creat Clear Calc 67.4 Estimated GFR > 60 Random Glucose 91 Estimat Average Glucose Hemoglobin A1c % Calcium 9.1 Triglycerides 71 Cholesterol 118 LDL Cholesterol, Calc 62 HDL Cholesterol 42 Vitamin B12 TSH Urine Opiates Screen Not Detected Urine Fentanyl Screen Not Detected Ur Barbiturates Screen Not Detected Ur Phencyclidine Scrn Not Detected Ur Amphetamines Screen Not Detected U Benzodiazepines Scrn Not Detected Urine Cocaine Screen Not Detected U Marijuana (THC) Screen Not Detected Assessment and Plan (1) Unable to care for self: Status: Acute (2) Dementia: Status: Acute (3) Mental confusion: Status: Acute Assessment and Plan: hospital d#2 75yo male with no known medical history sent in for inadequate self-care, living in [facility], found to have CT evidence of subacute CVA though no neurologic deficit appreciated # subacute CVA - refusing telemetry. pending: TTE, carotid dopplers, neuro consult. 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 ? no signs of withdrawal.? follow CIWA scale.? multivitamin + thiamine as above # moderate protein/calorie malnutrition - Ensure tid, multivitamin # VTE ppx - SCDs, LMWH Quality Stroke Does the patient have a stroke diagnosis?: Yes Reason for No Anti-thrombotic by Day Two: N/A - Med Ordered VTE Prior VTE?: No VTE Risk Level:: Medical - moderate - high VTE Device Contraindication: N/A - Device Ordered VTE Drug Contraindication: N/A - Med Ordered
[2020-12-07 12:05] LABS: Band Neutrophils Percent 8 % (3-5); Lymphocytes Percent Manual 21 % (20-40); Monocytes Percent Manual 5 % (2-11); Neutrophils Percent Manual 66 % (45-73); RBC Morphology NOTED
[2020-12-07 12:06] LABS: Acanthocytes 3+ (>5) /OIF
--- NOTE | 2020-12-07 12:19 | MHC.CM.PN ---
Medical Certificate for guardianship completed and sent to [facility]
--- NOTE | 2020-12-07 12:35 | PM.NEUROCN ---
History of Present Illness Data of Consult Service Date: 12/07/20 Primary Care Provider: None Physician 75 years old man I was asked to see for change in mental status. He was not a good historian and unable to provide any meaningful history. Apparently he was brought by police from home as he was unable to keep himself in help the situation. Details were listed on HPI. He was not known to have or at least there was no documentation of dementia. He said that he was seeing a physician but he could not name his primary care. He said that he did not have any relatives. Review of Systems Review of Systems: Unclear but no recent seizure trauma or cold or flu-like illness PMFSH Past Medical History Medical History No acute medical problems Surgical History Surgical History H/O knee surgery Social History Social History Household Members: None Housing: House Do you presently have visiting nurse or other home services: No Alcohol intake: never Patient Tobacco Use Status: Refuse Tobacco use screen Use of substances other than those prescribed or required for medical reasons: Yes Substance Use Type: Marijuana Substance Use Frequency: Occasionally Currently Displaying Signs/Symptoms of Drug Intoxication Withdrawal: No Any prior treatment program specific to substance use: No Advance Directives: No Do you have thoughts of harming others: None Do you have a plan to hurt others: No Plan Recently lost weight without trying: Unsure Nutrition Risks: No Nutritional Risk Poor oral hygiene: No service: No Current occupational status: disabled Meds Allergies Allergy/AdvReac Type Severity Reaction Status Date / Time No Known Allergies Allergy Verified 12/05/20 19:06 Active Medications: Current Medications Generic Name Dose Route Start Last Admin Trade Name Freq PRN Reason Stop Dose Admin Acetaminophen 650 mg 12/06/20 11:55 Acetaminophen 325 Mg Tablet PO Q6H PRN Pain, Mild (Pain Scale 1-3) Aspirin 81 mg 12/06/20 12:45 12/07/20 11:15 Aspirin 81 Mg Tab.Chew PO 81 mg DAILY AGGIE Administration Atorvastatin Calcium 40 mg 12/06/20 21:00 12/06/20 20:29 Atorvastatin Calcium 40 Mg Tablet PO 40 mg BEDTIME AGGIE Administration Docusate Sodium 100 mg 12/06/20 11:55 Docusate Sodium 100 Mg Capsule PO BID PRN Constipation Enoxaparin Sodium 40 mg 12/06/20 16:00 12/06/20 15:56 Enoxaparin Sodium 40 Mg/0.4 Ml Syringe SUBCUT 40 mg Q24H AGGIE Administration Thiamine HCl 250 mg/ Sodium 102.5 mls @ 202 mls/hr 12/07/20 12:00 Chloride IV DAILY AGGIE Melatonin 3 mg 12/07/20 21:00 Melatonin 3 Mg Tablet PO BEDTIME AGGIE Multivitamins/Vitamin C 1 tab 12/06/20 12:45 12/07/20 11:15 Multivitamin Tablet PO 1 tab DAILY AGGIE Administration Pharmacy Consult 1 each 12/06/20 11:09 Consult Rx Perform Med Rec MISCELLANE ONCE PRN Consult order Quetiapine Fumarate 25 mg 12/06/20 09:00 12/07/20 11:15 Quetiapine Fumarate 25 Mg Tablet PO 25 mg BID AGGIE Administration Sodium Chloride 3 ml 12/06/20 16:00 12/07/20 11:15 0.9 % Sodium Chloride Flush 3 Ml Syringe IVFLUSH Not Given QSHIFT AGGIE Thiamine HCl 100 mg 12/13/20 09:00 Thiamine Hcl 100 Mg Tablet PO DAILY AGGIE Trazodone HCl 25 mg 12/07/20 11:30 Trazodone Hcl 25 Mg Halftab PO BEDTIME PRN insomnia Home Medications Medication Instructions Recorded Confirmed Last Taken Type No Known Home Meds 12/05/20 12/05/20 Unknown History Physical Exam Vital Signs: Vital Signs: Last Vital Signs Temp 97.4 F 12/07/20 11:06 Pulse 62 12/07/20 11:06 Resp 18 12/07/20 11:06 BP 123/66 12/07/20 11:06 Pulse Ox 100 12/07/20 11:06 Body Mass Index 18.9 Neuro: Other: He was alert and awake with normal spontaneity of speech fluency comprehension and wake affect. He was able to follow simple commands and answered simple questions. He did not know the correct year and exactly where he was. He told me that he did not have any children and was never . He had not been working. Face was symmetrical. Extraocular muscles were intact. Visual cifunetes are full. There was no obvious focal weakness. Deep tendon reflexes were trace to absent with equivocal plantars. The skin was quite dirty. Results Labs CBC & Chem 7: 12/07/20 10:19 12/07/20 10:19 Labs: Short CBC 12/07/20 Range/Units 10:19 Hgb 13.6 L (14.0-18.0) g/dl Hct 41.5 L (42-52) % Plt Count 158 L (160-400) X10*3/uL BMP 12/07/20 10:19 Sodium 139 Potassium 4.4 Chloride 106 Carbon Dioxide 24 BUN 18 H Creatinine 0.80 Calcium 9.[address] revealed couple of hypodense signal abnormalities suggestive of chronic small ischemic infarctions, 1 in left frontoparietal area and the other 1 and right parieto-occipital area. Assessment and Plan (1) Encephalopathy: Status: Acute 75 years old man who was unable to take care of himself and his surroundings was brought to hospital by police. Precise history was unclear in apparently did not have any major and relatives. He was confused within mental status examination is suggestive of either chronic dementia or atypical encephalopathy. There was no focal finding. His head CT revealed minimal atrophy and couple of small hypodense lesions, which would not explain his mental status. I would recommend ruling out any treatable causes of encephalopathy and dementia and in that regard I suggest an MRI of brain with and without contrast, test for Lyme, syphilis, HIV, and lupus. Depending upon his testing, we might also consider lumbar puncture. An EEG is also recommended. Procedures Date of Service Date of Service: 12/07/20
[2020-12-07 12:57] LABS: Platelet Estimate SLIGHTLY DECREASED (NORMAL); Platelet Morphology Comment NORMAL
[2020-12-07 13:06] LABS: Lymphocytes Absolute Manual 1.8 X10*3/uL (0.6-4.8); Monocytes Absolute Manual 0.4 X10*3/uL (0.0-1.2); Neutrophils Absolute Manual 6.2 X10*3/uL (2.2-7.9); White Blood Count 8.4 X10*3/uL (4.8-10.8)
[2020-12-07] MEDS: Thiamine HCL 250 MG in 0.9 % Sodium Chloride 100 ML 202 MG IV (13:06)
[2020-12-07 14:00] VITALS: PULSE 29
[2020-12-07 14:08] VITALS: BP 98/55; PULSE 50; O2SAT 100
[2020-12-07 15:19] VITALS: BP 127/65; PULSE 56; RESP 18; TEMP 36.2; O2SAT 100
--- NOTE | 2020-12-07 15:51 | MHC.CM.PN ---
Per call received by administration from [facility] patient's home has been condemned.
[2020-12-07] MEDS: Enoxaparin Sodium 40 MG/0.4 ML SYRINGE SUBCUT (16:05)
[2020-12-07] MEDS: 0.9 % Sodium Chloride Flush 3 ML SYRINGE IVFLUSH ×2 (16:06→20:05)
[2020-12-07 19:11] VITALS: BP 139/55; PULSE 64; RESP 18; TEMP 36.2; O2SAT 100
--- NOTE | 2020-12-07 19:24 | PC.NURSE ---
pt went to get US of his carotid today, prior to leaving unit he was cleared to to be off unit without a nurse. While pt was in US he became bradycardic (junctional escape on tele) with HR of 29. Both myself and CORY Voss ran to check on his status. Upon arrival pt was asleep; Vitals were checked and pt was asymptomatic. MD was made aware and he noted that it maybe have been some hypersensitivity to the US on his carotid. pt HR did increase and he returned to has room still asymptomatic.
[2020-12-07] MEDS: Atorvastatin Calcium 40 MG TABLET PO (20:04)
[2020-12-07] MEDS: Melatonin 3 MG TABLET PO (20:04)
[2020-12-07] MEDS: traZODone HCL 25 MG HALFTAB PO (21:52)
[2020-12-08] VITALS: BP 94/59; PULSE 66; RESP 18; O2SAT 98
--- NOTE | 2020-12-08 | EEG_ITS ---
This is a 16-channel EEG with an EKG lead. The patient is reported awake and drowsy during the tracing. Background EEG rhythm is low amplitude, mixed theta, beta with no obvious asymmetry or paroxysmal tendency. Photic stimulation does not provide any driving. Hyperventilation is not performed. Cardiac lead does not reveal any significant abnormality. No sharp wave spikes or paroxysmal tendency noted. IMPRESSION: No significant abnormality noted other than mild slowing. MD KEIKO Hernandez/EMELI / [id number]
--- NOTE | 2020-12-08 07:56 | P.PNIM_ITS ---
Subjective Subjective Date of Service: 12/08/20 Interval History: encephalopathy-unclear etiology. Review of Systems Patient seems more awake today could able to tell his name, also that it is daytime now Denies any chest pain or shortness of breath or abdominal pain or fever or chills. Physical Exam Vital Signs: Vital Signs: Last Vital Signs Temp 97.2 F 12/07/20 19:11 Pulse 66 12/08/20 00:00 Resp 18 12/08/20 00:00 BP 94/59 L 12/08/20 00:00 Pulse Ox 98 12/08/20 00:00 Body Mass Index 18.9 Physical exam: Cvs: rrr, [id number] , no murmur res: clear to auscultation ,no rhonchii or wheezing abd: no rebound or guarding ,nt, bs present. ext pulses present , no cyanosis neuro:alert, disoriented, no pronator drift, no focal weakness, no incoordination Psych: impaired insight ? Objective Data Active Medications Acetaminophen (Acetaminophen 325 Mg Tablet) 650 mg PO Q6H PRN PRN Reason: Pain, Mild (Pain Scale 1-3) Aspirin (Aspirin 81 Mg Tab.Chew) 81 mg PO DAILY [facility] Last Admin: 12/07/20 11:15 Dose: 81 mg Documented by: ROSCOE Atorvastatin Calcium (Atorvastatin Calcium 40 Mg Tablet) 40 mg PO BEDTIME [facility] Last Admin: 12/07/20 20:04 Dose: 40 mg Documented by: FREDY Docusate Sodium (Docusate Sodium 100 Mg Capsule) 100 mg PO BID PRN PRN Reason: Constipation Enoxaparin Sodium (Enoxaparin Sodium 40 Mg/0.4 Ml Syringe) 40 mg SUBCUT Q24H [facility] Last Admin: 12/07/20 16:05 Dose: 40 mg Documented by: ROSCOE Thiamine HCl 250 mg/ Sodium (Chloride) 102.5 mls @ 202 mls/hr IV DAILY [facility] Last Infusion: 12/07/20 14:17 Dose: 0 mls/hr Documented by: ROSCOE Melatonin (Melatonin 3 Mg Tablet) 3 mg PO BEDTIME [facility] Last Admin: 12/07/20 20:04 Dose: 3 mg Documented by: FREDY Multivitamins/Vitamin C (Multivitamin Tablet) 1 tab PO DAILY [facility] Last Admin: 12/07/20 11:15 Dose: 1 tab Documented by: ROSCOE Pharmacy Consult (Consult Rx Perform Med Rec) 1 each MISCELLANE ONCE PRN PRN Reason: Consult order Quetiapine Fumarate (Quetiapine Fumarate 25 Mg Tablet) 25 mg PO BID [facility] Last Admin: 12/07/20 20:04 Dose: 25 mg Documented by: FREDY Sodium Chloride (0.9 % Sodium Chloride Flush 3 Ml Syringe) 3 ml IVFLUSH QSHIFT [facility] Last Admin: 12/07/20 20:05 Dose: 3 ml Documented by: FREDY Thiamine HCl (Thiamine Hcl 100 Mg Tablet) 100 mg PO DAILY [facility] Trazodone HCl (Trazodone Hcl 25 Mg Halftab) 25 mg PO BEDTIME PRN PRN Reason: insomnia Last Admin: 12/07/20 21:52 Dose: 25 mg Documented by: FREDY Labs CBC & Chem 7: 12/07/20 10:19 12/07/20 10:19 Labs: Laboratory Results - last 24 hr 12/07/20 12/07/20 10:19 10:19 MCV 92.4 MCH 30.3 MCHC 32.8 RDW 15.3 Plt Count 158 L MPV 11.8 Immature Gran % (Auto) Cancelled Neut % (Auto) Cancelled Lymph % (Auto) Cancelled Kimball % (Auto) Cancelled Eos % (Auto) Cancelled Baso % (Auto) Cancelled Lymph # (Auto) Cancelled Kimball # (Auto) Cancelled Eos # (Auto) Cancelled Baso # (Auto) Cancelled Abs Immat Gran (auto) Cancelled Absolute Neuts (auto) Cancelled Absolute Nucleated RBC 0.000 Nucleated RBC % (auto) 0.0 Neutrophils % (Manual) 66 Band Neutrophils % 8 H Lymphocytes % (Manual) 21 Monocytes % (Manual) 5 Abs Neuts (Manual) 6.2 Lymphocytes # (Manual) 1.8 Monocytes # (Manual) 0.4 Platelet Estimate SLIGHTLY DECREASED Plt Morphology Comment NORMAL RBC Morphology NOTED Acanthocytes (Spur) 3+ (>5) Anion Gap 13 Estim Creat Clear Calc 67.4 Estimated GFR > 60 Random Glucose 91 Calcium 9.1 Triglycerides 71 Cholesterol 118 LDL Cholesterol, Calc 62 HDL Cholesterol 42 Assessment and Plan (1) Encephalopathy: Status: Acute (2) Delirium due to another medical condition: Status: Acute Assessment and Plan: 75yo male with no known medical history sent in for inadequate self-care, living in [facility], found to have CT evidence of subacute CVA though no neurologic deficit appreciated 1.encephalopathy unclear etio vs subacute CVA - pending: TTE, carotid dopplers-seems fine , echo ,eeg, mri pending? cntinue ASA + atorvastatin Neuro evaluation noted-workup for encephalopathy including?T pallidum EIA, HIV, SARAH added 2. 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 ?EtOH abuse - unable to corroborrate hx. ? no signs of withdrawal.? follow CIWA scale.? mu ltivitamin + thiamine as above 5. moderate protein/calorie malnutrition - Ensure tid, multivitamin # VTE ppx - SCDs, LMWH Quality Stroke Does the patient have a stroke diagnosis?: Yes Reason for No Anti-thrombotic by Day Two: N/A - Med Ordered VTE Prior VTE?: No VTE Risk Level:: Medical - moderate - high VTE Device Contraindication: N/A - Device Ordered VTE Drug Contraindication: N/A - Med Ordered
[2020-12-08 08:00] VITALS: BP 115/54; PULSE 60; RESP 20; TEMP 36; O2SAT 99
[2020-12-08] MEDS: QUEtiapine Fumarate 25 MG TABLET PO ×2 (08:36→20:17)
[2020-12-08] MEDS: Multivitamin TABLET 1 TAB PO (08:36)
[2020-12-08] MEDS: Aspirin 81 MG TAB.CHEW PO (08:36)
[2020-12-08] MEDS: 0.9 % Sodium Chloride Flush 3 ML SYRINGE IVFLUSH (08:37)
[2020-12-08 08:57] LABS: HIV AB/AG Nonreactive (Nonreactive)
[2020-12-08 09:36] LABS: Lyme Abs Screen <0.90 index
[2020-12-08 10:14] LABS: HIV Num 1 0.08 S/CO (0.00-0.99)
[2020-12-08] MEDS: Thiamine HCL 250 MG in 0.9 % Sodium Chloride 100 ML 202 MG IV (10:34)
[2020-12-08] MEDS: Lactated Ringers 500 ML 80 ML IV (10:35)
[2020-12-08 10:58] VITALS: BP 109/57; PULSE 59; RESP 20; TEMP 36.4; O2SAT 99
--- NOTE | 2020-12-08 11:01 | MHC.CLN ---
F/U PO INTAKE 100% DIET RX: GRD M/S-APPROPRIATE SEWING TEACHER IS FOLLOWING FOR APPROPRIATE DIET CONSISTENCY PT RECEIVING ENSURE TID TO INCREASE KCALS PROVIDES 1050KCALS, 60G PROTEIN MONITOR PO INTAKE CLOSELY
--- NOTE | 2020-12-08 12:48 | MHC.CM.PN ---
CM is pursuing Guardianship and Conservatorship. Patient's house was condemned on 12/07/20. Patient appears like LTC placement will be needed and CM will follow for dc planning/changing needs.
[2020-12-08 15:16] VITALS: BP 141/72; PULSE 60; RESP 18; TEMP 36.9; O2SAT 98
--- NOTE | 2020-12-08 18:23 | P.EN_ITS ---
Event Note Date of Service: 12/08/20 Event Note: patient scoring 13 on CIWA, unclear if this is agitation or ETOH w ithdrawal as unable to give history, will empircially treat as etoh withdrawal and start phenobarbital
[2020-12-08] MEDS: PHENobarbitaL sodium 130 MG/ML VIAL 247 MG IM (18:56)
[2020-12-08 20:00] VITALS: BP 136/69; PULSE 54; RESP 18; TEMP 36.6; O2SAT 100
[2020-12-08] MEDS: Atorvastatin Calcium 40 MG TABLET PO (20:16)
[2020-12-08] MEDS: Melatonin 3 MG TABLET PO (20:17)
[2020-12-08] MEDS: PHENobarbitaL sodium 130 MG/ML VIAL 185 MG IM (22:13)
[2020-12-08 23:59] VITALS: BP 134/65; PULSE 58; RESP 18; TEMP 36.8; O2SAT 100
[2020-12-09] MEDS: PHENobarbitaL sodium 130 MG/ML VIAL 185 MG IM (00:54)
[2020-12-09 04:00] VITALS: BP 108/56; PULSE 58; RESP 18; TEMP 36.6; O2SAT 98
[2020-12-09 07:16] LABS: Anion Gap 12 (12-20); Blood Urea Nitrogen 17 mg/dL (9-16); Calcium 8.4 mg/dL (8.4-10.2); Carbon Dioxide 26 mmol/L (22-29); Chloride 106 mmol/L (96-108); Estimated Glomerular Filt Rate > 60; Glucose Random 72 mg/dL (60-115); Potassium 4.1 mmol/L (3.3-5.1); Sodium 140 mmol/L (135-145)
[2020-12-09 08:00] VITALS: BP 107/56; PULSE 63; RESP 18; TEMP 36.4; O2SAT 98
[2020-12-09] MEDS: PHENobarbitaL 15 MG TABLET 45 MG PO ×2 (10:30→21:08)
[2020-12-09] MEDS: Aspirin 81 MG TAB.CHEW PO (10:32)
[2020-12-09] MEDS: QUEtiapine Fumarate 25 MG TABLET PO ×2 (10:32→21:09)
[2020-12-09] MEDS: Multivitamin TABLET 1 TAB PO (10:32)
--- NOTE | 2020-12-09 13:00 | CA_ITS ---
Transthoracic Echocardiogram Patient (Last, First, Middle): Ole Perdomo, Gender: Male Date of : 1945 Age: 75 Procedure Date: 12/09/2020 Procedure Type: Transthoracic [place] [facility] [place]: 180.34 cm Weight: 61.69 kg BSA: 1.79 m2 Heart Rate: bpm BP: 132 / 78 mmHg Parking Meter Servicer: JULIAN Sharp MD: Alex Booker MD Solutions Market Consultant: Yung Ramirez MD Symptoms: cva Study Quality: Fair ECG Rhythm: Sinus Conclusions: - 1. Systolic function with impaired relaxation filling pattern with inferobasal wall motion abnormality 2. Mild to moderate aortic stenosis 3. Normal RV systolic pressure 4. no pericardial effusion Findings Left Ventricle Normal left ventricular size, thickness, and systolic function. The visually estimated ejection fraction is between 60-65%. Spectral Doppler is indicative of an impaired relaxation filling pattern. E/E prime ratio is between 8 and 15 consistent with indeterminate filling pressures. Wall Motion Rest Echo Findings The basal inferior segment is akinetic. All other scored wall segments showed normal motion. Right Ventricle Normal right ventricular cavity size and systolic function. Atria Both atria are normal in size. There is lipomatous hypertrophy of the interatrial septum. Interatrial shunt cannot be excluded. Aortic Valve There is mild calcification of the aortic valve. There is moderate thickening of the aortic valve. There is mild to moderate aortic valve stenosis. There is trace (trivial) aortic valve regurgitation. Mitral Valve There is mild anterior and posterior mitral leaflet thickening. There is mild mitral annular calcification. There is trace mitral valve regurgitation. There is no mitral valve stenosis. Pulmonic Valve The pulmonic valve was not well visualized. Tricuspid Valve Likely normal tricuspid valve structure and function. There is trace tricuspid valve regurgitation. The right ventricular systolic pressure is normal. The right ventricular systolic pressure is 22 mmHg. Normal right atrial pressure. There is no evidence of pulmonary hypertension. Great Vessels All visible segments of the aorta are normal in size. The pulmonary artery was not well visualized. Venous The inferior vena cava is normal in size and collapses greater than 50% with inspiration. Pericardium/Pleural There is no evidence of pericardial effusion. Prior Study Comparison No prior study available for comparison. Recommendations, Care & Conclusions Recommend contrast study to evaluate intracardiac shunting. Measurements 2D Linear Measurements IVSd: 1.08 0.6-0.9/0.6-1.0 cm LVIDd: 4.17 3.9-5.3/4.2-5.9 cm LVIDd Index: 2.33 2.4-3.2/2.2-3.1 cm/m2 LVIDs: 2.89 2.0-3.6 cm LVPWd: 1.11 0.7-1.1 cm Ao Root: 4.00 2.1-3.5 cm LA Diam: 3.10 2.7-3.8/3.0-4.0 cm LAIDs Index: 1.73 1.5-2.3 cm/m2 LV Mass: 192.14 67-162/88-224 g LV Mass Index: 107.34 43-95/49-115 g/m2 LVOT Diam: 2.40 3.0+(-)1.3 cm 2D Systolic Function EF 4C: 69.80 >55% EF 2C: 66.70 >55% EF BiP: 69.30 >55% Mitral Valve MV Pk E: 0.70 MV PK A: 0.86 MV Decel Time: 405.00 E/A: 0.80 E'Lateral: 9.46 E'Medial: 7.18 E/E' Med: 9.80 E/E' Lat: 7.40 PHT: 119.00 MVA PHT: 1.85 Decel [place]: 1.74 Aortic Valve AoV Pk Mode: 2.65 AoV Mn Mode: 1.72 AoV VTI: 0.55 AoV Pk Grad: 28.00 Aov Mn Grad: 14.00 JULEE Cont.VTI: 1.57 LVOT LVOT Pk Mode: 0.81 LVOT Mn Mode: 0.61 LVOT VTI: 0.19 LVOT Pk Grad: 3.00 LVOT Mn Grad: 2.00 LVOT Diam: 2.40 LVOT Area: 4.52 Diastolic Function MV Pk E: 0.70 MV Pk A: 0.86 E/A: 0.80 E'Medial: 7.18 E/E' Med: 9.80 E' Laterial: 9.46 E/E' Lat: 7.40 Right Ventricle TAPSE (mm): 2.44 TVS' Mode: 15.00 Tricuspid Valve TR Pk Mode: 2.19 TR Pk Grad: 19.00 RA Press: 3.00 RVSP: 22.00 Great Vessels Aorta Ao Root-2D: 4.00 2.0-3.7 cm Ao Asc: 4.20 2.1-3.4 cm Updated in Other Vendor System with Status of Final Yung Ramirez MD electronically signed on 12/09/2020 12:06:25 PM with status of Final
--- NOTE | 2020-12-09 13:44 | HO.PM.IMPN ---
Subjective Subjective Date of Service: 12/09/20 Interval History: seen in f/u for confusion, still with some confusion and some agiation Review of Systems Review of Systems: Yes Unobtainable due to mental status Physical Exam Vital Signs: Vital Signs: Last Vital Signs Temp 97.5 F 12/09/20 08:00 Pulse 63 12/09/20 08:00 Resp 18 12/09/20 08:00 BP 107/56 L 12/09/20 08:00 Pulse Ox 98 12/09/20 08:00 Body Mass Index 18.9 Objective Data Active Medications Acetaminophen (Acetaminophen 325 Mg Tablet) 650 mg PO Q6H PRN PRN Reason: Pain, Mild (Pain Scale 1-3) Aspirin (Aspirin 81 Mg Tab.Chew) 81 mg PO DAILY [facility] Last Admin: 12/09/20 10:32 Dose: 81 mg Documented by: HARDIK Atorvastatin Calcium (Atorvastatin Calcium 40 Mg Tablet) 40 mg PO BEDTIME [facility] Last Admin: 12/08/20 20:16 Dose: 40 mg Documented by: CARLA Docusate Sodium (Docusate Sodium 100 Mg Capsule) 100 mg PO BID PRN PRN Reason: Constipation Enoxaparin Sodium (Enoxaparin Sodium 40 Mg/0.4 Ml Syringe) 40 mg SUBCUT Q24H [facility] Last Admin: 12/08/20 17:45 Dose: Not Given Documented by: HUBER Non-Admin Reason: Patient Refused Thiamine HCl 250 mg/ Sodium (Chloride) 102.5 mls @ 202 mls/hr IV BID [facility] Last Admin: 12/09/20 10:33 Dose: Not Given Documented by: HARDIK Non-Admin Reason: Physician Approved Melatonin (Melatonin 3 Mg Tablet) 3 mg PO BEDTIME [facility] Last Admin: 12/08/20 20:17 Dose: 3 mg Documented by: CARLA Multivitamins/Vitamin C (Multivitamin Tablet) 1 tab PO DAILY [facility] Last Admin: 12/09/20 10:32 Dose: 1 tab Documented by: HARDIK Pharmacy Consult (Consult Rx Perform Med Rec) 1 each MISCELLANE ONCE PRN PRN Reason: Consult order Phenobarbital (Phenobarbital 15 Mg Tablet) 45 mg PO BID [facility]; Protocol Stop: 12/10/20 21:01 Last Admin: 12/09/20 10:30 Dose: 45 mg Documented by: HARDIK Phenobarbital (Phenobarbital 15 Mg Tablet) 15 mg PO BID [facility]; Protocol Stop: 12/12/20 21:01 Phenobarbital (Phenobarbital 15 Mg Tablet) 15 mg PO DAILY [facility]; Protocol Stop: 12/14/20 09:01 Quetiapine Fumarate (Quetiapine Fumarate 25 Mg Tablet) 25 mg PO BID [facility] Last Admin: 12/09/20 10:32 Dose: 25 mg Documented by: HARDIK Sodium Chloride (0.9 % Sodium Chloride Flush 3 Ml Syringe) 3 ml IVFLUSH QSHIFT [facility] Last Admin: 12/09/20 10:33 Dose: Not Given Documented by: HARDIK Non-Admin Reason: No Access Thiamine HCl (Thiamine Hcl 100 Mg Tablet) 100 mg PO DAILY [facility] Trazodone HCl (Trazodone Hcl 25 Mg Halftab) 25 mg PO BEDTIME PRN PRN Reason: insomnia Last Admin: 12/07/20 21:52 Dose: 25 mg Documented by: FREDY Labs CBC & Chem 7: 12/07/20 10:19 12/09/20 05:14 Labs: Laboratory Results - last 24 hr 12/09/20 05:14 Anion Gap 12 Estim Creat Clear Calc 76.0 Estimated GFR > 60 Random Glucose 72 Calcium 8.4 D Assessment and Plan (1) Encephalopathy: Status: Acute (2) Delirium due to another medical condition: Status: Acute Assessment and Plan: 75yo male with no known medical history sent in for inadequate self-care, living in [facility], found to have CT evidence of subacute CVA though no neurologic deficit appreciated 1.encephalopathy unclear etio vs subacute CVA - pending: TTE, carotid dopplers-seems fine , echo ,eeg, mri 12/08 No mass lesion, acute infarction, or abnormal intracranial enhancement. Mild degree of diffuse brain parenchymal volume loss. cntinue ASA + atorvastatin Neuro evaluation noted-workup for encephalopathy including?T pallidum EIA, HIV, SARAH added 2. 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 ?EtOH abuse - unable to corroborrate hx. ? no signs of withdrawal.? follow CIWA scale.? multivitamin + thiamine as above 5. moderate protein/calorie malnutrition - Ensure tid, multivitamin # VTE ppx - SCDs, LMWH Quality Stroke Does the patient have a stroke diagnosis?: Yes Reason for No Anti-thrombotic by Day Two: N/A - Med Ordered VTE Prior VTE?: No VTE Risk Level:: Medical - moderate - high VTE Device Contraindication: N/A - Device Ordered VTE Drug Contraindication: N/A - Med Ordered
[2020-12-09 15:21] VITALS: BP 112/52; PULSE 58; RESP 20; TEMP 36.7; O2SAT 97
[2020-12-09] MEDS: Enoxaparin Sodium 40 MG/0.4 ML SYRINGE SUBCUT (16:11)
[2020-12-09] MEDS: 0.9 % Sodium Chloride Flush 3 ML SYRINGE IVFLUSH (16:11)
[2020-12-09 20:00] VITALS: BP 142/66; PULSE 63; RESP 18; TEMP 36.8; O2SAT 99
[2020-12-09] MEDS: Thiamine HCL 100 MG TABLET 250 MG PO (21:09)
[2020-12-09] MEDS: Atorvastatin Calcium 40 MG TABLET PO (21:09)
[2020-12-09] MEDS: Melatonin 3 MG TABLET PO (21:09)
[2020-12-10 04:00] VITALS: BP 120/56; PULSE 61; RESP 18; TEMP 36.6; O2SAT 100
[2020-12-10 07:10] VITALS: BP 128/71; PULSE 52; RESP 16; O2SAT 100
[2020-12-10] MEDS: PHENobarbitaL 15 MG TABLET 45 MG PO ×2 (09:00→21:19)
[2020-12-10] MEDS: Thiamine HCL 100 MG TABLET 250 MG PO ×2 (09:01→21:20)
[2020-12-10] MEDS: QUEtiapine Fumarate 25 MG TABLET PO ×2 (09:01→21:20)
[2020-12-10] MEDS: Aspirin 81 MG TAB.CHEW PO (09:01)
[2020-12-10 10:10] LABS: Vitamin B1 <6 nmol/L (8-30)
[2020-12-10 11:48] VITALS: BP 133/59; PULSE 60; RESP 16; TEMP 36.6; O2SAT 99
--- NOTE | 2020-12-10 12:20 | HO.PM.IMPN ---
Subjective Subjective Date of Service: 12/10/20 Interval History: seen in f/u for confusion, still with some confusion and some agiation Review of Systems confused Physical Exam Vital Signs: Vital Signs: Last Vital Signs Temp 97.9 F 12/10/20 11:48 Pulse 60 12/10/20 11:48 Resp 16 12/10/20 11:48 BP 133/59 L 12/10/20 11:48 Pulse Ox 99 12/10/20 11:48 Body Mass Index 18.9 General: seem more calm today, Resp: CTA bilateral CVS: S1,S2,RRR GI: +BS, NT, no distention Skin: No rash Neuro: motor grossly intact Psych: flat affectg Objective Data Active Medications Acetaminophen (Acetaminophen 325 Mg Tablet) 650 mg PO Q6H PRN PRN Reason: Pain, Mild (Pain Scale 1-3) Aspirin (Aspirin 81 Mg Tab.Chew) 81 mg PO DAILY [facility] Last Admin: 12/10/20 09:01 Dose: 81 mg Documented by: ASYA Atorvastatin Calcium (Atorvastatin Calcium 40 Mg Tablet) 40 mg PO BEDTIME [facility] Last Admin: 12/09/20 21:09 Dose: 40 mg Documented by: CARLA Docusate Sodium (Docusate Sodium 100 Mg Capsule) 100 mg PO BID PRN PRN Reason: Constipation Enoxaparin Sodium (Enoxaparin Sodium 40 Mg/0.4 Ml Syringe) 40 mg SUBCUT Q24H [facility] Last Admin: 12/09/20 16:11 Dose: 40 mg Documented by: HARDIK Melatonin (Melatonin 3 Mg Tablet) 3 mg PO BEDTIME [facility] Last Admin: 12/09/20 21:09 Dose: 3 mg Documented by: CARLA Pharmacy Consult (Consult Rx Perform Med Rec) 1 each MISCELLANE ONCE PRN PRN Reason: Consult order Phenobarbital (Phenobarbital 15 Mg Tablet) 45 mg PO BID [facility]; Protocol Stop: 12/10/20 21:01 Last Admin: 12/10/20 09:00 Dose: 45 mg Documented by: ASYA Phenobarbital (Phenobarbital 15 Mg Tablet) 15 mg PO BID [facility]; Protocol Stop: 12/12/20 21:01 Phenobarbital (Phenobarbital 15 Mg Tablet) 15 mg PO DAILY [facility]; Protocol Stop: 12/14/20 09:01 Quetiapine Fumarate (Quetiapine Fumarate 25 Mg Tablet) 25 mg PO BID [facility] Last Admin: 12/10/20 09:01 Dose: 25 mg Documented by: ASYA Sodium Chloride (0.9 % Sodium Chloride Flush 3 Ml Syringe) 3 ml IVFLUSH QSHIFT [facility] Last Admin: 12/10/20 09:07 Dose: Not Given Documented by: ASYA Non-Admin Reason: No Access Thiamine HCl (Thiamine Hcl 100 Mg Tablet) 250 mg PO BID [facility] Stop: 12/10/20 21:01 Last Admin: 12/10/20 09:01 Dose: 250 mg Documented by: ASYA Trazodone HCl (Trazodone Hcl 25 Mg Halftab) 25 mg PO BEDTIME PRN PRN Reason: insomnia Last Admin: 12/07/20 21:52 Dose: 25 mg Documented by: FREDY Labs CBC & Chem 7: 12/07/20 10:19 12/09/20 05:14 Labs: Laboratory Results - last 24 hr 12/06/20 12/07/20 12:58 16:20 Vitamin B1 <6 L Lyme Progressive Test TNP Assessment and Plan (1) Encephalopathy: Status: Acute (2) Delirium due to another medical condition: Status: Acute Assessment and Plan: 75yo male with no known medical history sent in for inadequate self-care, living in [facility], found to have CT evidence of subacute CVA though no neurologic deficit appreciated 1.encephalopathy unclear etio vs subacute CVA - Echo: ?1. Systolic function with impaired relaxation filling pattern? with inferobasal wall motion abnormality ? 2. Mild to moderate aortic stenosis? 3. Normal RV systolic pressure ? 4. no pericardial effusion ? ? ? carotid dopplers-seems fine , echo ,eeg, mri 12/08 No mass lesion, acute infarction, or abnormal intracranial enhancement. Mild degree of diffuse brain parenchymal volume loss. cntinue ASA + atorvastatin Neuro evaluation noted-workup for encephalopathy including?T pallidum EIA, HIV, SARAH added 2. inadequate self-care- possible dementia, unable to determine cause vs possible Wernicke-Korsakoff encephalopathy might be contributing - TSH, B12 normal - pending: T pallidum EIA. negative HIV - treat empirically for Wernicke-Korsakoff with parenteral -> PO thiamine; B1 level pending - quetiapine, melatonin, prn trazodone 3.tobacco abuse - NRT 4. ?EtOH abuse - unable to corroborrate hx. ? no signs of withdrawal.? follow CIWA scale.? multivitamin + thiamine as above 5. moderate protein/calorie malnutrition - Ensure tid, multivitamin # VTE ppx - SCDs, LMWH Quality Stroke Does the patient have a stroke diagnosis?: Yes Reason for No Anti-thrombotic by Day Two: N/A - Med Ordered VTE Prior VTE?: No VTE Risk Level:: Medical - moderate - high VTE Device Contraindication: N/A - Device Ordered VTE Drug Contraindication: N/A - Med Ordered
[2020-12-10 15:49] VITALS: BP 128/63; PULSE 56; RESP 18; TEMP 36.9; O2SAT 100
[2020-12-10 19:32] VITALS: BP 109/66; PULSE 62; RESP 18; TEMP 37.6; O2SAT 97
[2020-12-10] MEDS: Atorvastatin Calcium 40 MG TABLET PO (21:19)
[2020-12-10] MEDS: Melatonin 3 MG TABLET PO (21:19)
[2020-12-10 22:27] LABS: Anti Nuclear Antibody Screen NEGATIVE (NEGATIVE)
[2020-12-11 04:00] VITALS: BP 148/76; PULSE 75; RESP 20; TEMP 36.8; O2SAT 98
[2020-12-11 06:56] VITALS: BP 126/69; PULSE 52; RESP 18; TEMP 36.6; O2SAT 100
[2020-12-11] MEDS: Aspirin 81 MG TAB.CHEW PO (10:12)
[2020-12-11] MEDS: PHENobarbitaL 15 MG TABLET PO ×2 (10:13→20:41)
[2020-12-11] MEDS: QUEtiapine Fumarate 25 MG TABLET PO ×2 (10:13→20:41)
[2020-12-11 10:56] VITALS: BP 98/50; PULSE 74; RESP 20; TEMP 36.1; O2SAT 96
--- NOTE | 2020-12-11 11:14 | HO.PM.IMPN ---
Subjective Subjective Date of Service: 12/11/20 Interval History: seen in f/u for confusion, still with some confusion, no agitation and fixated on going home Review of Systems no fever no sob Physical Exam Vital Signs: Vital Signs: Last Vital Signs Temp 97 F 12/11/20 10:56 Pulse 74 12/11/20 10:56 Resp 20 12/11/20 10:56 BP 98/50 L 12/11/20 10:56 Pulse Ox 96 12/11/20 10:56 Body Mass Index 18.9 General: AO X 1, no acute distress Resp: CTA bilateral CVS: S1,S2,RRR GI: +BS, NT, no distention Skin: No rash Neuro: motor grossly intact Psych: appropriate affect Objective Data Active Medications Acetaminophen (Acetaminophen 325 Mg Tablet) 650 mg PO Q6H PRN PRN Reason: Pain, Mild (Pain Scale 1-3) Aspirin (Aspirin 81 Mg Tab.Chew) 81 mg PO DAILY [facility] Last Admin: 12/11/20 10:12 Dose: 81 mg Documented by: DELPHINE Atorvastatin Calcium (Atorvastatin Calcium 40 Mg Tablet) 40 mg PO BEDTIME [facility] Last Admin: 12/10/20 21:19 Dose: 40 mg Documented by: CARLA Docusate Sodium (Docusate Sodium 100 Mg Capsule) 100 mg PO BID PRN PRN Reason: Constipation Enoxaparin Sodium (Enoxaparin Sodium 40 Mg/0.4 Ml Syringe) 40 mg SUBCUT Q24H [facility] Last Admin: 12/10/20 16:39 Dose: Not Given Documented by: ASYA Non-Admin Reason: Patient Refused Melatonin (Melatonin 3 Mg Tablet) 3 mg PO BEDTIME [facility] Last Admin: 12/10/20 21:19 Dose: 3 mg Documented by: CARLA Pharmacy Consult (Consult Rx Perform Med Rec) 1 each MISCELLANE ONCE PRN PRN Reason: Consult order Phenobarbital (Phenobarbital 15 Mg Tablet) 15 mg PO BID [facility]; Protocol Stop: 12/12/20 21:01 Last Admin: 12/11/20 10:13 Dose: 15 mg Documented by: DELPHINE Phenobarbital (Phenobarbital 15 Mg Tablet) 15 mg PO DAILY [facility]; Protocol Stop: 12/14/20 09:01 Quetiapine Fumarate (Quetiapine Fumarate 25 Mg Tablet) 25 mg PO BID [facility] Last Admin: 12/11/20 10:13 Dose: 25 mg Documented by: DELPHINE Sodium Chloride (0.9 % Sodium Chloride Flush 3 Ml Syringe) 3 ml IVFLUSH QSHIFT [facility] Last Admin: 12/11/20 10:15 Dose: Not Given Documented by: DELPHINE Non-Admin Reason: no IV access Trazodone HCl (Trazodone Hcl 25 Mg Halftab) 25 mg PO BEDTIME PRN PRN Reason: insomnia Last Admin: 12/07/20 21:52 Dose: 25 mg Documented by: FREDY Labs CBC & Chem 7: 12/07/20 10:19 12/09/20 05:14 Labs: Laboratory Results - last 24 hr 12/07/20 16:20 SARAH Screen NEGATIVE Assessment and Plan (1) Encephalopathy: Status: Acute (2) Delirium due to another medical condition: Status: Acute Assessment and Plan: 75yo male with no known medical history sent in for inadequate self-care, living in [facility], found to have CT evidence of subacute CVA though no neurologic deficit appreciated 1.encephalopathy unclear etio vs subacute CVA - Echo: ?1. Systolic function with impaired relaxation filling pattern? with inferobasal wall motion abnormality ? 2. Mild to moderate aortic stenosis? 3. Normal RV systolic pressure ? 4. no pericardial effusion ? ? ? carotid dopplers-seems fine , echo ,eeg, mri 12/08 No mass lesion, acute infarction, or abnormal intracranial enhancement. Mild degree of diffuse brain parenchymal volume loss. cntinue ASA + atorvastatin Neuro evaluation noted-workup for encephalopathy including?T pallidum EIA, HIV, SARAH added 2. Inadequate self-care- possible dementia, unable to determine cause vs possible Wernicke-Korsakoff encephalopathy might be contributing - TSH, B12 normal - pending: T pallidum EIA. negative HIV - treat empirically for Wernicke-Korsakoff with parenteral -> PO thiamine; B1 level is low at 6 - quetiapine, melatonin, prn trazodone 3.tobacco abuse - NRT 4. EtOH abuse - unable to corroborrate hx. ? no signs of withdrawal.? follow CIWA scale.? multivitamin + thiamine as above 5. moderate protein/calorie malnutrition - Ensure tid, multivitamin # VTE ppx - SCDs, LMWH Quality Stroke Does the patient have a stroke diagnosis?: Yes Reason for No Anti-thrombotic by Day Two: N/A - Med Ordered VTE Prior VTE?: No VTE Risk Level:: Medical - moderate - high VTE Device Contraindication: N/A - Device Ordered VTE Drug Contraindication: N/A - Med Ordered
[2020-12-11 16:02] LABS: Treponema pallidum Ab FTA ABS Nonreactive (Nonreactive)
[2020-12-11] MEDS: Enoxaparin Sodium 40 MG/0.4 ML SYRINGE SUBCUT (17:35)
[2020-12-11 19:25] VITALS: BP 116/80; PULSE 76; RESP 18; TEMP 36.7; O2SAT 98
[2020-12-11] MEDS: Melatonin 3 MG TABLET PO (20:41)
[2020-12-11] MEDS: Atorvastatin Calcium 40 MG TABLET PO (20:41)
[2020-12-11 23:13] VITALS: BP 110/54; PULSE 76; RESP 18; TEMP 37; O2SAT 98
[2020-12-12 06:46] VITALS: BP 139/61; PULSE 54; RESP 16; TEMP 36.1; O2SAT 98
[2020-12-12] MEDS: PHENobarbitaL 15 MG TABLET PO ×2 (09:52→20:33)
[2020-12-12] MEDS: Aspirin 81 MG TAB.CHEW PO (09:52)
[2020-12-12] MEDS: QUEtiapine Fumarate 25 MG TABLET PO ×2 (09:54→20:33)
--- NOTE | 2020-12-12 10:14 | P.PNIM_ITS ---
Subjective Subjective Date of Service: 12/12/20 Interval History: Seen in f/u for confusion, still with some confusion, no agitation and fixated on going home Review of Systems cooperative still confused Physical Exam Vital Signs: Vital Signs: Last Vital Signs Temp 97 F 12/12/20 06:46 Pulse 54 12/12/20 06:46 Resp 16 12/12/20 06:46 BP 139/61 12/12/20 06:46 Pulse Ox 98 12/12/20 06:46 Body Mass Index 18.9 General: AO X? 1, no acute distress Resp:? CTA bilateral CVS: S1,S2,RRR GI: +BS, NT, no distention Skin: No rash Neuro:? motor grossly intact Psych: appropriate affect Objective Data Active Medications Acetaminophen (Acetaminophen 325 Mg Tablet) 650 mg PO Q6H PRN PRN Reason: Pain, Mild (Pain Scale 1-3) Aspirin (Aspirin 81 Mg Tab.Chew) 81 mg PO DAILY [facility] Last Admin: 12/12/20 09:52 Dose: 81 mg Documented by: YARA Atorvastatin Calcium (Atorvastatin Calcium 40 Mg Tablet) 40 mg PO BEDTIME [facility] Last Admin: 12/11/20 20:41 Dose: 40 mg Documented by: VENKATESH Docusate Sodium (Docusate Sodium 100 Mg Capsule) 100 mg PO BID PRN PRN Reason: Constipation Enoxaparin Sodium (Enoxaparin Sodium 40 Mg/0.4 Ml Syringe) 40 mg SUBCUT Q24H [facility] Last Admin: 12/11/20 17:35 Dose: 40 mg Documented by: DELPHINE Melatonin (Melatonin 3 Mg Tablet) 3 mg PO BEDTIME [facility] Last Admin: 12/11/20 20:41 Dose: 3 mg Documented by: VENKATESH Pharmacy Consult (Consult Rx Perform Med Rec) 1 each MISCELLANE ONCE PRN PRN Reason: Consult order Phenobarbital (Phenobarbital 15 Mg Tablet) 15 mg PO BID [facility]; Protocol Stop: 12/12/20 21:01 Last Admin: 12/12/20 09:52 Dose: 15 mg Documented by: YARA Phenobarbital (Phenobarbital 15 Mg Tablet) 15 mg PO DAILY [facility]; Protocol Stop: 12/14/20 09:01 Quetiapine Fumarate (Quetiapine Fumarate 25 Mg Tablet) 25 mg PO BID [facility] Last Admin: 09/07/21 09:54 Dose: 25 mg Documented by: YARA Sodium Chloride (0.9 % Sodium Chloride Flush 3 Ml Syringe) 3 ml IVFLUSH QSHIFT [facility] Last Admin: 12/12/20 07:55 Dose: Not Given Documented by: YARA Non-Admin Reason: No Access Trazodone HCl (Trazodone Hcl 25 Mg Halftab) 25 mg PO BEDTIME PRN PRN Reason: insomnia Last Admin: 12/07/20 21:52 Dose: 25 mg Documented by: FREDY Labs CBC & Chem 7: 12/07/20 10:19 12/09/20 05:14 Labs: Laboratory Results - last 24 hr 12/07/20 12/07/20 10:19 16:20 SARHA Titer TNP SARAH Titer 2 TNP SARAH Titer 3 TNP SARAH Pattern TNP SARAH Pattern 2 TNP SARAH Pattern 3 TNP T.pallidum Ab (FTA-ABS) Nonreactive Assessment and Plan (1) Encephalopathy: Status: Acute (2) Delirium due to another medical condition: Status: Acute Assessment and Plan: 75yo male with no known medical history sent in for inadequate self-care, living in [facility], found to have CT evidence of subacute CVA though no neurologic deficit appreciated 1.encephalopathy unclear etio vs subacute CVA - Echo: ?1. Systolic function with impaired relaxation filling pattern? with inferobasal wall motion abnormality ? 2. Mild to moderate aortic stenosis? 3. Normal RV systolic pressure ? 4. no pericardial effusion ? ? ? carotid dopplers-seems fine , echo ,eeg, mri 12/08 No mass lesion, acute infarction, or abnormal intracranial enhancement. Mild degree of diffuse brain parenchymal volume loss. cntinue ASA + atorvastatin Neuro evaluation noted-workup for encephalopathy including?T pallidum EIA, HIV, SARAH added 2. Inadequate self-care- possible dementia, unable to determine cause vs possible Wernicke-Korsakoff encephalopathy might be contributing - TSH, B12 normal - pending: T pallidum EIA. negative HIV - treat empirically for Wernicke-Korsakoff with parenteral -> PO thiamine; B1 level is low at 6 - quetiapine, melatonin, prn trazodon -Thiamine deficiency--Oral replacement, has had IV earlie 3.tobacco abuse - NRT 4. EtOH abuse - unable to corroborrate hx. ? no signs of withdrawal.? follow CIWA scale.? multivitamin + thiamine as above 5. moderate protein/calorie malnutrition - Ensure tid, multivitamin Need guardianship # VTE ppx - SCDs, LMWH Quality Stroke Does the patient have a stroke diagnosis?: Yes Reason for No Anti-thrombotic by Day Two: N/A - Med Ordered VTE Prior VTE?: No VTE Risk Level:: Medical - moderate - high VTE Device Contraindication: N/A - Device Ordered VTE Drug Contraindication: N/A - Med Ordered
[2020-12-12 10:56] VITALS: BP 123/64; PULSE 52; RESP 16; O2SAT 99
--- NOTE | 2020-12-12 11:52 | MHC.SL.SWA ---
Speech Pathologist Impression: Risk of Aspiration Oral Phase Dysphagia Risk of Aspiration Due to: Neurological Condition Dysphasia Diet Status: No Change Liquid Consistency and Strategies for Safe Swallow: Liquid Intake Recommendation: Thin Liquid Intake Strategies: Small Sips Solid Food Consistency: Dietary Recommendations: Grnd/Mech Altered (NDD2) Additional Modifications to Solid Foods: No overt s/s of aspiration. Recommend soft diet due to oral phase dysphagia which is secondary to edentulous state and ill fitting dentures. Patient appeared to mash solids better without dentures as dentures were loose and often obstructed patient's ability to chew. Recommend food to be moistened in sauce and gravy. Recommend avoid tough and sticky consistencies. Aspiration precautions apply. Oral Medication Intake: Whole with Liquid Compensatory Strategies and Precautions to be Taken for Safe Swallow: Sitting Upright (90 deg) Small Bites and Sips Alternate Liquids/Solids Avoid Specific Foods Supervision While Eating and Drinking for Safe Swallow: None Needed Foods to Avoid: tough/sticky foods Recommendation for Speech: Further ST intervention is no longer warranted. Accounting Lecturer Clinican/Clinical Fellow: No Supervisory Statement: I have reviewed and agree with the student/clinical fellow's documentation: N/A Speech Language Pathologist: Ny Montesinos M.A., CCC-PSYCHOLOGY ASSISTANT
--- NOTE | 2020-12-12 13:14 | MHC.CLN ---
F/U PATIENT APPEARS TO BE EATING WELL, 100% MANY MEALS. SEEN BY ELECTRONIC NEWS GATHERING EDITOR 12/12 WITH RECOMMENDATION FOR NDD2 CONSISTENCY, THIN LIQUIDS. CONTINUE ENSURE [address] WILL FOLLOW.
[2020-12-12 15:02] VITALS: BP 148/69; PULSE 52; RESP 18; TEMP 36.6; O2SAT 100
[2020-12-12] MEDS: Enoxaparin Sodium 40 MG/0.4 ML SYRINGE SUBCUT (17:11)
[2020-12-12 19:08] VITALS: BP 118/54; PULSE 63; RESP 18; TEMP 36.6; O2SAT 100
[2020-12-12] MEDS: Melatonin 3 MG TABLET PO (20:33)
[2020-12-12] MEDS: Atorvastatin Calcium 40 MG TABLET PO (20:33)
[2020-12-12 23:33] VITALS: BP 86/48; PULSE 54; RESP 18; TEMP 36.6; O2SAT 97
[2020-12-13 03:16] VITALS: BP 96/59; PULSE 62; RESP 16; TEMP 36.6; O2SAT 97
[2020-12-13 06:56] VITALS: BP 123/58; PULSE 58; RESP 18; TEMP 36.6; O2SAT 96
[2020-12-13] MEDS: PHENobarbitaL 15 MG TABLET PO (08:30)
[2020-12-13] MEDS: QUEtiapine Fumarate 25 MG TABLET PO ×2 (08:31→21:14)
[2020-12-13] MEDS: Aspirin 81 MG TAB.CHEW PO (08:31)
--- NOTE | 2020-12-13 10:49 | P.PNIM_ITS ---
Subjective Subjective Date of Service: 12/13/20 Interval History: Seen in f/u for confusion, still with some confusion, cooperative this morning, no new issues. Review of Systems no fever confusion --baseline Physical Exam Vital Signs: Vital Signs: Last Vital Signs Temp 98 F 12/13/20 06:56 Pulse 58 12/13/20 06:56 Resp 18 12/13/20 06:56 BP 123/58 L 12/13/20 06:56 Pulse Ox 96 12/13/20 06:56 Body Mass Index 18.9 General: Oriented to self, aware of being in hospital, not sure why Resp:? CTA bilateral CVS: S1,S2,RRR GI: +BS, NT, no distention Skin: No rash Neuro:? motor grossly intact Psych: appropriate affect Objective Data Active Medications Acetaminophen (Acetaminophen 325 Mg Tablet) 650 mg PO Q6H PRN PRN Reason: Pain, Mild (Pain Scale 1-3) Aspirin (Aspirin 81 Mg Tab.Chew) 81 mg PO DAILY [facility] Last Admin: 12/13/20 08:31 Dose: 81 mg Documented by: YUMIKO Atorvastatin Calcium (Atorvastatin Calcium 40 Mg Tablet) 40 mg PO BEDTIME [facility] Last Admin: 12/12/20 20:33 Dose: 40 mg Documented by: BRYN Docusate Sodium (Docusate Sodium 100 Mg Capsule) 100 mg PO BID PRN PRN Reason: Constipation Enoxaparin Sodium (Enoxaparin Sodium 40 Mg/0.4 Ml Syringe) 40 mg SUBCUT Q24H [facility] Last Admin: 12/12/20 17:11 Dose: 40 mg Documented by: YARA Melatonin (Melatonin 3 Mg Tablet) 3 mg PO BEDTIME [facility] Last Admin: 12/12/20 20:33 Dose: 3 mg Documented by: BRYN Pharmacy Consult (Consult Rx Perform Med Rec) 1 each MISCELLANE ONCE PRN PRN Reason: Consult order Phenobarbital (Phenobarbital 15 Mg Tablet) 15 mg PO DAILY [facility]; Protocol Stop: 12/14/20 09:01 Last Admin: 12/13/20 08:30 Dose: 15 mg Documented by: YUMIKO Quetiapine Fumarate (Quetiapine Fumarate 25 Mg Tablet) 25 mg PO BID [facility] Last Admin: 12/13/20 08:31 Dose: 25 mg Documented by: YUMIKO Sodium Chloride (0.9 % Sodium Chloride Flush 3 Ml Syringe) 3 ml IVFLUSH QSHIFT [facility] Last Admin: 12/13/20 07:08 Dose: Not Given Documented by: YUMIKO Non-Admin Reason: No Access Trazodone HCl (Trazodone Hcl 25 Mg Halftab) 25 mg PO BEDTIME PRN PRN Reason: insomnia Last Admin: 12/07/20 21:52 Dose: 25 mg Documented by: FREDY Labs CBC & Chem 7: 12/07/20 10:19 12/09/20 05:14 Assessment and Plan (1) Encephalopathy: Status: Acute (2) Delirium due to another medical condition: Status: Acute Assessment and Plan: 75yo male with no known medical history sent in for inadequate self-care, living in [facility], found to have CT evidence of subacute CVA though no neurologic deficit appreciated 1.encephalopathy unclear etio vs subacute CVA vs Wernicke-Korsakoff - Echo: ? 1. Systolic function with impaired relaxation filling pattern? with inferobasal wall motion abnormality ? 2. Mild to moderate aortic stenosis? 3. Normal RV systolic pressure ? 4. no pericardial effusion ? ? ? carotid dopplers-seems fine mri 12/08 No mass lesion, acute infarction, or abnormal intracranial enhancement. Mild degree of diffuse brain parenchymal volume loss. EEG 12/08 no seizure cntinue ASA + atorvastatin Neuro evaluation noted-workup for encephalopathy including?T pallidum EIA, HIV, SARAH added-->all negative 2. Inadequate self-care- possible dementia, unable to determine cause vs possible Wernicke-Korsakoff encephalopathy might be contributing - TSH, B12 normal - treated empirically for Wernicke-Korsakoff with parenteral -> PO thiamine; B1 level is low at 6 - quetiapine for agiation, melatonin, prn trazodone 3-Thiamine deficiency--Oral replacement, has had IV earlier 3.tobacco abuse - NRT 4. EtOH abuse - unable to corroborrate hx. ? no signs of withdrawal.? follow CIWA scale.? mu ltivitamin + thiamine as above 5. moderate protein/calorie malnutrition - Ensure tid, multivitamin Need guardianship, in progress # VTE ppx - SCDs, LMWH Quality Stroke Does the patient have a stroke diagnosis?: Yes Reason for No Anti-thrombotic by Day Two: N/A - Med Ordered VTE Prior VTE?: No VTE Risk Level:: Medical - moderate - high VTE Device Contraindication: N/A - Device Ordered VTE Drug Contraindication: N/A - Med Ordered
[2020-12-13 10:56] VITALS: BP 122/64; PULSE 69; RESP 20; TEMP 36; O2SAT 100
--- NOTE | 2020-12-13 11:08 | MHC.CM.PN ---
Pursuit of Guardianship and Conservatory is in progress. House has been condemned and will need to be sold. LTC placement still appears likely. CM will follow.
--- NOTE | 2020-12-13 13:26 | MHC.CLN ---
F/U DIET CONTINUES NDD2, THIN LIQUIDS. ENSURE 20 ML TID PROVIDES 1050 KCAL, 60 G PROTEIN. INTAKE AT MEALS APPEARS GOOD, 50-100%. CONTINUE TO FOLLOW.
--- NOTE | 2020-12-13 14:54 | MHC.CM.PN ---
Per CM Administration, the hearing for Guardianship/Conservatorship is scheduled for 12/26/20 at 2PM. CM will follow.
[2020-12-13 15:14] VITALS: BP 104/60; PULSE 64; RESP 15; TEMP 37.2; O2SAT 98
[2020-12-13] MEDS: Enoxaparin Sodium 40 MG/0.4 ML SYRINGE SUBCUT (17:29)
[2020-12-13 19:16] VITALS: BP 138/72; PULSE 60; RESP 18; TEMP 36.8; O2SAT 100
[2020-12-13] MEDS: Melatonin 3 MG TABLET PO (21:14)
[2020-12-13] MEDS: Atorvastatin Calcium 40 MG TABLET PO (21:14)
[2020-12-13 23:48] VITALS: BP 139/64; PULSE 60; RESP 16; TEMP 36.2; O2SAT 99
[2020-12-13] MEDS: 0.9 % Sodium Chloride Flush 3 ML SYRINGE IVFLUSH (23:49)
[2020-12-14 03:15] VITALS: BP 106/49; PULSE 55; RESP 18; TEMP 36.2; O2SAT 99
[2020-12-14 07:17] VITALS: BP 110/64; PULSE 68; RESP 19; TEMP 36.4; O2SAT 98
[2020-12-14] MEDS: PHENobarbitaL 15 MG TABLET PO (09:55)
[2020-12-14] MEDS: QUEtiapine Fumarate 25 MG TABLET PO ×2 (09:55→20:39)
[2020-12-14] MEDS: Aspirin 81 MG TAB.CHEW PO (09:55)
[2020-12-14 11:04] VITALS: BP 133/71; PULSE 55; RESP 18; TEMP 36.4; O2SAT 100
--- NOTE | 2020-12-14 12:37 | HO.PM.IMPN ---
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 No specific complaints this morning Review of Systems Review of Systems: Yes all other systems are reviewed and are negative Constitutional Constitutional: Denies chills and Denies fever(s) Cardiovascular Cardiovascular: Denies chest pain Respiratory Respiratory: Denies cough Gastrointestinal Gastrointestinal: Denies abdominal pain Physical Exam Vital Signs: Vital Signs: Last Vital Signs Temp 97.6 F 12/14/20 11:04 Pulse 55 12/14/20 11:04 Resp 18 12/14/20 11:04 BP 133/71 12/14/20 11:04 Pulse Ox 100 12/14/20 11:04 Body Mass Index 18.9 Const: General: comfortable, alert and awake Nutritional Appearance: thin HENMT: Head: Yes normocephalic and Yes atraumatic Eyes: Sclerae: sclerae normal Chest: Chest palpation & inspection: normal inspection of the chest Resp: Effort & Inspection: normal respiratory effort and no respiratory distress Cardio: Rate: regular rate Rhythm: regular rhythm GI: Palpation (GI): Soft to palpation and nontender Neuro: Cranial nerves: Yes CN's II-XII intact bilaterally and Yes Bilaterally intact EOM present Objective Data Active Medications Acetaminophen (Acetaminophen 325 Mg Tablet) 650 mg PO Q6H PRN PRN Reason: Pain, Mild (Pain Scale 1-3) Aspirin (Aspirin 81 Mg Tab.Chew) 81 mg PO DAILY [facility] Last Admin: 12/14/20 09:55 Dose: 81 mg Documented by: AILYN Atorvastatin Calcium (Atorvastatin Calcium 40 Mg Tablet) 40 mg PO BEDTIME [facility] Last Admin: 12/13/20 21:14 Dose: 40 mg Documented by: VENKATESH Docusate Sodium (Docusate Sodium 100 Mg Capsule) 100 mg PO BID PRN PRN Reason: Constipation Enoxaparin Sodium (Enoxaparin Sodium 40 Mg/0.4 Ml Syringe) 40 mg SUBCUT Q24H [facility] Last Admin: 12/13/20 17:29 Dose: 40 mg Documented by: VENKATESH Melatonin (Melatonin 3 Mg Tablet) 3 mg PO BEDTIME [facility] Last Admin: 12/13/20 21:14 Dose: 3 mg Documented by: VENKATESH Pharmacy Consult (Consult Rx Perform Med Rec) 1 each MISCELLANE ONCE PRN PRN Reason: Consult order Quetiapine Fumarate (Quetiapine Fumarate 25 Mg Tablet) 25 mg PO BID [facility] Last Admin: 12/14/20 09:55 Dose: 25 mg Documented by: AILYN Sodium Chloride (0.9 % Sodium Chloride Flush 3 Ml Syringe) 3 ml IVFLUSH QSHIFT [facility] Last Admin: 12/14/20 09:55 Dose: Not Given Documented by: AILYN Non-Admin Reason: No Access Trazodone HCl (Trazodone Hcl 25 Mg Halftab) 25 mg PO BEDTIME PRN PRN Reason: insomnia Last Admin: 12/07/20 21:52 Dose: 25 mg Documented by: FREDY Labs CBC & Chem 7: 12/07/20 10:19 12/09/20 05:14 Assessment and Plan (1) Dementia: Status: Acute Assessment and Plan: 75yo male with no known medical history sent in for inadequate self-care, living in [facility], found to have CT evidence of subacute CVA though no neurologic deficit appreciated Inadequate self-care- possible dementia, unable to determine cause vs 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 ? carotid dopplers-no significant carotid disease echo done 12/09 with preserved EF MRI brain 12/08 No mass lesion, acute infarction, or abnormal intracranial enhancement. Mild degree of diffuse brain parenchymal volume loss. EEG 12/08 no seizure activity Seen by Neuro -workup including?T pallidum EIA, HIV, SARAH all negative Continue aspirin, statin Thiamine deficiency Oral replacement, s/p IV replacement tobacco abuse NRT EtOH abuse unable to corroborrate hx. ? no signs of withdrawal.?multivitamin + thiamine as above Status post treatment with phenobarbital moderate protein/calorie malnutrition Ensure tid, multivitamin Seen by psych. Does not have capacity to make medical decisions. Needs guardianship, in progress. Guardianship hearing scheduled for December 26. Case management following VTE ppx SCDs, LMWH Attending-Dr. Jay Quality Stroke Does the patient have a stroke diagnosis?: Yes Reason for No Anti-thrombotic by Day Two: N/A - Med Ordered VTE Prior VTE?: No VTE Risk Level:: Medical - moderate - high VTE Device Contraindication: N/A - Device Ordered VTE Drug Contraindication: N/A - Med Ordered
[2020-12-14 15:10] VITALS: BP 128/62; PULSE 60; RESP 18; TEMP 36.6; O2SAT 100
[2020-12-14] MEDS: Enoxaparin Sodium 40 MG/0.4 ML SYRINGE SUBCUT (15:22)
[2020-12-14 19:26] VITALS: BP 126/52; PULSE 60; RESP 18; TEMP 36.6; O2SAT 100
[2020-12-14] MEDS: Atorvastatin Calcium 40 MG TABLET PO (20:39)
[2020-12-14] MEDS: Melatonin 3 MG TABLET PO (20:39)
[2020-12-14] MEDS: 0.9 % Sodium Chloride Flush 3 ML SYRINGE IVFLUSH (20:39)
[2020-12-14 23:20] VITALS: BP 94/56; PULSE 55; RESP 18; TEMP 36.9; O2SAT 97
--- NOTE | 2020-12-15 | ECG_ITS ---
Test Reason : abnormal echo Blood Pressure : / mmHG Vent. Rate : 054 BPM Atrial Rate : 054 BPM P-R Int : 198 ms QRS Dur : 088 ms QT Int : 408 ms P-R-T Axes : 070 081 077 degrees QTc Int : 386 ms Sinus bradycardia Otherwise normal ECG No previous ECGs available Referred By: Brigida Moscoso Electronically Signed By:FRANKLIN DE JESUS
[2020-12-15 04:00] VITALS: BP 121/57; PULSE 56; RESP 18; TEMP 36.6; O2SAT 100
[2020-12-15 07:50] VITALS: BP 136/59; PULSE 56; RESP 20; TEMP 36.8; O2SAT 98
[2020-12-15 08:50] LABS: Hemoglobin 11.4 g/dl (14.0-18.0); Red Cell Distribution Width 15.8 % (11.0-16.0)
[2020-12-15 08:56] LABS: Hematocrit 34.9 % (42-52); Mean Corpuscular HGB Conc 32.7 g/dl (31.0-36.0); Mean Corpuscular Hemoglobin 30.6 pg (27.0-33.0); Mean Corpuscular Volume 93.6 fL (80-98); Mean Platelet Volume 12.4 fL (9.4-12.4); Platelet Count 163 X10*3/uL (160-400); Red Blood Count 3.73 X10*6/uL (4.60-5.80); White Blood Count 7.7 X10*3/uL (4.8-10.8)
[2020-12-15 09:15] LABS: Anion Gap 9 (12-20); Blood Urea Nitrogen 24 mg/dL (9-16); Calcium 8.6 mg/dL (8.4-10.2); Carbon Dioxide 28 mmol/L (22-29); Chloride 107 mmol/L (96-108); Creatinine Clr Calc Pharmacy 73.9; Estimated Glomerular Filt Rate > 60; Glucose Random 131 mg/dL (60-115); Potassium 4.4 mmol/L (3.3-5.1); Sodium 140 mmol/L (135-145)
[2020-12-15] MEDS: QUEtiapine Fumarate 25 MG TABLET PO ×2 (09:55→21:46)
[2020-12-15] MEDS: Aspirin 81 MG TAB.CHEW PO (09:55)
[2020-12-15] MEDS: Thiamine HCL 100 MG TABLET PO (09:55)
[2020-12-15 11:28] VITALS: BP 120/61; PULSE 60; RESP 20; TEMP 36.8; O2SAT 97
--- NOTE | 2020-12-15 13:03 | MHC.CM.PN ---
CM INFORMED NAWAF AMBROCIO WILL LIKELY BE ASSIGNED PTS GUARDIAN AT HIS UPCOMING COURT HEARING. NURYS RIOS WILL BE HIS LEGAL LICENSED NUCLEAR CONTROL ROOM OPERATOR AT THESE PROCEEDINGS.
--- NOTE | 2020-12-15 13:16 | MHC.CLN ---
F/U PO INTAKE EXCELLENT DIET RX: GRD M/S-APPROPRIATE PT RECEIVING ENSURE TID TO INCREASE KCALS PROVIDES 1050KCALS, 60G PROTEIN MONITOR PO INTAKE CLOSELY WEEKLY WEIGHTS
--- NOTE | 2020-12-15 14:56 | P.PNIM_ITS ---
Subjective Subjective Date of Service: 12/15/20 Interval History: seen and examined this morning awaiting guardianship Patient states that he feels great and that there is nothing wrong. Review of Systems Review of Systems: Yes all other systems are reviewed and are negative Constitutional Constitutional: Denies chills and Denies fever(s) Cardiovascular Cardiovascular: Denies chest pain Respiratory Respiratory: Denies cough Gastrointestinal Gastrointestinal: Denies abdominal pain Physical Exam Vital Signs: Vital Signs: Last Vital Signs Temp 98.3 F 12/15/20 11:28 Pulse 60 12/15/20 11:28 Resp 20 12/15/20 11:28 BP 120/61 12/15/20 11:28 Pulse Ox 97 12/15/20 11:28 Body Mass Index 18.9 Const: General: comfortable, alert and awake Nutritional Appearance: thin HENMT: Head: Yes normocephalic and Yes atraumatic Eyes: Sclerae: sclerae normal Chest: Chest palpation & inspection: normal inspection of the chest Resp: Effort & Inspection: normal respiratory effort and no respiratory di stress Cardio: Rate: regular rate Rhythm: regular rhythm GI: Palpation (GI): Soft to palpation and nontender Neuro: Cranial nerves: Yes CN's II-XII intact bilaterally and Yes Bilaterally intact EOM present Objective Data Active Medications Acetaminophen (Acetaminophen 325 Mg Tablet) 650 mg PO Q6H PRN PRN Reason: Pain, Mild (Pain Scale 1-3) Aspirin (Aspirin 81 Mg Tab.Chew) 81 mg PO DAILY [facility] Last Admin: 12/15/20 09:55 Dose: 81 mg Documented by: HUBER Atorvastatin Calcium (Atorvastatin Calcium 40 Mg Tablet) 40 mg PO BEDTIME [facility] Last Admin: 12/14/20 20:39 Dose: 40 mg Documented by: STEFAN Docusate Sodium (Docusate Sodium 100 Mg Capsule) 100 mg PO BID PRN PRN Reason: Constipation Enoxaparin Sodium (Enoxaparin Sodium 40 Mg/0.4 Ml Syringe) 40 mg SUBCUT Q24H [facility] Last Admin: 12/14/20 15:22 Dose: 40 mg Documented by: AILYN Melatonin (Melatonin 3 Mg Tablet) 3 mg PO BEDTIME [facility] Last Admin: 12/14/20 20:39 Dose: 3 mg Documented by: STEFAN Pharmacy Consult (Consult Rx Perform Med Rec) 1 each MISCELLANE ONCE PRN PRN Reason: Consult order Quetiapine Fumarate (Quetiapine Fumarate 25 Mg Tablet) 25 mg PO BID [facility] Last Admin: 12/15/20 09:55 Dose: 25 mg Documented by: HUBER Sodium Chloride (0.9 % Sodium Chloride Flush 3 Ml Syringe) 3 ml IVFLUSH QSHIFT [facility] Last Admin: 12/15/20 09:55 Dose: Not Given Documented by: HUBER Non-Admin Reason: No Access Thiamine HCl (Thiamine Hcl 100 Mg Tablet) 100 mg PO DAILY [facility] Last Admin: 12/15/20 09:55 Dose: 100 mg Documented by: HUBER Trazodone HCl (Trazodone Hcl 25 Mg Halftab) 25 mg PO BEDTIME PRN PRN Reason: insomnia Last Admin: 12/07/20 21:52 Dose: 25 mg Documented by: FREDY Labs CBC & Chem 7: 12/15/20 08:26 12/15/20 08:26 Labs: Laboratory Results - last 24 hr 12/15/20 12/15/20 08:26 08:26 MCV 93.6 MCH 30.6 MCHC 32.7 RDW 15.8 Plt Count 163 MPV 12.4 Absolute Nucleated RBC 0.000 Nucleated RBC % (auto) 0.0 Anion Gap 9 L Estim Creat Clear Calc 73.9 Estimated GFR > 60 Random Glucose 131 H D Calcium 8.6 Assessment and Plan (1) Unable to care for self: Status: Acute (2) Dementia: Status: Acute Assessment and Plan: 75yo male with no known medical history sent in for inadequate self-care, living in [facility], found to have CT evidence of subacute CVA though no neurologic deficit appreciated Inadequate self-care- possible dementia, unable to determine cause vs 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 ? carotid dopplers-no significant carotid disease echo done 12/09 with preserved EF MRI brain 12/08 No mass lesion, acute infarction, or abnormal intracranial enhancement. Mild degree of diffuse brain parenchymal volume loss. EEG 12/08 no seizure activity Seen by Neuro -workup including?T pallidum EIA, HIV, SARAH all negative Continue aspirin, statin Thiamine deficiency Oral replacement, s/p IV replacement tobacco abuse NRT EtOH abuse unable to corroborrate hx. ? no signs of withdrawal.?multivitamin + thiamine as above Status post treatment with phenobarbital moderate protein/calorie malnutrition Ensure tid, multivitamin Seen by psych. Does not have capacity to make medical decisions. Needs guardianship, in progress. Guardianship hearing scheduled for December 26. Case management following VTE ppx SCDs, LMWH Attending-Dr. Jay Quality Stroke Does the patient have a stroke diagnosis?: Yes Reason for No Anti-thrombotic by Day Two: N/A - Med Ordered VTE Prior VTE?: No VTE Risk Level:: Medical - moderate - high VTE Device Contraindication: N/A - Device Ordered VTE Drug Contraindication: N/A - Med Ordered
[2020-12-15 15:53] VITALS: BP 118/56; PULSE 60; RESP 15; TEMP 36.6; O2SAT 100
[2020-12-15] MEDS: Enoxaparin Sodium 40 MG/0.4 ML SYRINGE SUBCUT (18:03)
[2020-12-15 19:59] VITALS: BP 122/54; PULSE 56; RESP 18; TEMP 36.6; O2SAT 100
[2020-12-15] MEDS: Melatonin 3 MG TABLET PO (21:46)
[2020-12-15] MEDS: Atorvastatin Calcium 40 MG TABLET PO (21:46)
[2020-12-15 23:28] VITALS: BP 141/62; PULSE 50; RESP 18; TEMP 36.4; O2SAT 100
[2020-12-16 03:42] VITALS: BP 125/66; PULSE 50; RESP 18; TEMP 36.2; O2SAT 100
[2020-12-16 08:00] VITALS: BP 117/65; PULSE 57; RESP 17; TEMP 37; O2SAT 97
[2020-12-16] MEDS: QUEtiapine Fumarate 25 MG TABLET PO ×2 (09:08→20:24)
[2020-12-16] MEDS: Thiamine HCL 100 MG TABLET PO (09:08)
[2020-12-16] MEDS: Aspirin 81 MG TAB.CHEW PO (09:08)
[2020-12-16] MEDS: 0.9 % Sodium Chloride Flush 3 ML SYRINGE IVFLUSH ×2 (09:09→20:29)
[2020-12-16 12:00] VITALS: BP 131/60; PULSE 61; RESP 17; TEMP 36.4; O2SAT 100
--- NOTE | 2020-12-16 14:09 | P.PNIM_ITS ---
Subjective Subjective Date of Service: 12/16/20 Interval History: Seen and examined this morning No overnight events. No complaints this morning. Awaiting guardianship hearing Review of Systems Review of Systems: Yes all other systems are reviewed and are negative Constitutional Constitutional: Denies chills and Denies fever(s) Cardiovascular Cardiovascular: Denies chest pain Respiratory Respiratory: Denies cough Gastrointestinal Gastrointestinal: Denies abdominal pain Physical Exam Vital Signs: Vital Signs: Last Vital Signs Temp 97.5 F 12/16/20 12:00 Pulse 61 12/16/20 12:00 Resp 17 12/16/20 12:00 BP 131/60 12/16/20 12:00 Pulse Ox 100 12/16/20 12:00 Body Mass Index 18.9 Const: General: comfortable, alert and awake Nutritional Appearance: thin HENMT: Head: Yes normocephalic and Yes atraumatic Eyes: Sclerae: sclerae normal Chest: Chest palpation & inspection: normal inspection of the chest Resp: Effort & Inspection: normal respiratory effort and no respiratory distress Cardio: Rate: regular rate Rhythm: regular rhythm GI: Palpation (GI): Soft to palpation and nontender Neuro: Cranial nerves: Yes CN's II-XII intact bilaterally and Yes Bilaterally intact EOM present Objective Data Active Medications Acetaminophen (Acetaminophen 325 Mg Tablet) 650 mg PO Q6H PRN PRN Reason: Pain, Mild (Pain Scale 1-3) Aspirin (Aspirin 81 Mg Tab.Chew) 81 mg PO DAILY [facility] Last Admin: 12/16/20 09:08 Dose: 81 mg Documented by: KULWINDER Atorvastatin Calcium (Atorvastatin Calcium 40 Mg Tablet) 40 mg PO BEDTIME [facility] Last Admin: 12/15/20 21:46 Dose: 40 mg Documented by: BRYN Docusate Sodium (Docusate Sodium 100 Mg Capsule) 100 mg PO BID PRN PRN Reason: Constipation Enoxaparin Sodium (Enoxaparin Sodium 40 Mg/0.4 Ml Syringe) 40 mg SUBCUT Q24H [facility] Last Admin: 12/15/20 18:03 Dose: 40 mg Documented by: HUBER Melatonin (Melatonin 3 Mg Tablet) 3 mg PO BEDTIME [facility] Last Admin: 12/15/20 21:46 Dose: 3 mg Documented by: BRYN Pharmacy Consult (Consult Rx Perform Med Rec) 1 each MISCELLANE ONCE PRN PRN Reason: Consult order Quetiapine Fumarate (Quetiapine Fumarate 25 Mg Tablet) 25 mg PO BID [facility] Last Admin: 12/16/20 09:08 Dose: 25 mg Documented by: KULWINDER Sodium Chloride (0.9 % Sodium Chloride Flush 3 Ml Syringe) 3 ml IVFLUSH QSHIFT [facility] Last Admin: 12/16/20 09:09 Dose: 3 ml Documented by: KULWINDER Thiamine HCl (Thiamine Hcl 100 Mg Tablet) 100 mg PO DAILY [facility] Last Admin: 12/16/20 09:08 Dose: 100 mg Documented by: KULWINDER Trazodone HCl (Trazodone Hcl 25 Mg Halftab) 25 mg PO BEDTIME PRN PRN Reason: insomnia Last Admin: 12/07/20 21:52 Dose: 25 mg Documented by: FREDY Labs CBC & Chem 7: 12/15/20 08:26 12/15/20 08:26 Assessment and Plan (1) Stroke: Status: Acute (2) Unable to care for self: Status: Acute (3) Dementia: Status: Acute Assessment and Plan: 75yo male with no known medical history sent in for inadequate self-care, living in [facility], found to have CT evidence of subacute CVA though no neurologic deficit appreciated, deemed to not have capacity to make medical conditions and now awaiting guardianship hearing Inadequate self-care- possible dementia, unable to determine cause vs 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 ? carotid dopplers-no significant carotid disease echo done 12/09 with preserved EF, does show WMA - no chest pain, EKG changes. consider outpatient follow up MRI brain 12/08 No mass lesion, acute infarction, or abnormal intracranial enhancement. Mild degree of diffuse brain parenchymal volume loss. EEG 12/08 no seizure activity Seen by Neuro -workup including?T pallidum EIA, HIV, SARAH all negative Continue aspirin, statin Thiamine deficiency Oral replacement, s/p IV replacement tobacco abuse NRT EtOH abuse unable to corroborrate hx. ? no signs of withdrawal.?multivitamin + thiamine as above Status post treatment with phenobarbital moderate protein/calorie malnutrition Ensure tid, multivitamin Seen by psych. Does not have capacity to make medical decisions. Needs guardianship, in progress. Guardianship hearing scheduled for December 26. Case management following VTE ppx SCDs, LMWH Attending-Dr. Dubois Quality Stroke Does the patient have a stroke diagnosis?: Yes Reason for No Anti-thrombotic by Day Two: N/A - Med Ordered VTE Prior VTE?: No VTE Risk Level:: Medical - moderate - high VTE Device Contraindication: N/A - Device Ordered VTE Drug Contraindication: N/A - Med Ordered
[2020-12-16 15:35] VITALS: BP 101/61; PULSE 101; RESP 18; TEMP 36.7; O2SAT 100
[2020-12-16] MEDS: Enoxaparin Sodium 40 MG/0.4 ML SYRINGE SUBCUT (18:00)
[2020-12-16 19:47] VITALS: BP 147/77; PULSE 55; RESP 19; TEMP 37.1; O2SAT 100
[2020-12-16] MEDS: Melatonin 3 MG TABLET PO (20:24)
[2020-12-16] MEDS: Atorvastatin Calcium 40 MG TABLET PO (20:24)
[2020-12-17 03:40] VITALS: BP 112/69; PULSE 63; RESP 18; TEMP 36.4; O2SAT 100
[2020-12-17 07:10] VITALS: BP 108/56; PULSE 52; RESP 18; TEMP 36.3; O2SAT 98
[2020-12-17] MEDS: Aspirin 81 MG TAB.CHEW PO (08:16)
[2020-12-17] MEDS: Thiamine HCL 100 MG TABLET PO (08:16)
[2020-12-17] MEDS: QUEtiapine Fumarate 25 MG TABLET PO ×2 (08:16→20:16)
--- NOTE | 2020-12-17 10:43 | HO.PM.IMPN ---
Subjective Subjective Date of Service: 12/17/20 Interval History: seen and examined this morning Guardianship pending No overnight events. Patient reports feeling well this morning Worried about his car and his cats Review of Systems Review of Systems: Yes all other systems are reviewed and are negative Constitutional Constitutional: Denies chills and Denies fever(s) Cardiovascular Cardiovascular: Denies chest pain Respiratory Respiratory: Denies cough Gastrointestinal Gastrointestinal: Denies abdominal pain Physical Exam Vital Signs: Vital Signs: Last Vital Signs Temp 97.3 F 12/17/20 07:10 Pulse 52 12/17/20 07:10 Resp 18 12/17/20 07:10 BP 108/56 L 12/17/20 07:10 Pulse Ox 98 12/17/20 07:10 Body Mass Index 18.9 Const: General: comfortable, alert and awake Nutritional Appearance: thin HENMT: Head: Yes normocephalic and Yes atraumatic Eyes: Sclerae: sclerae normal Chest: Chest palpation & inspection: normal inspection of the chest Resp: Effort & Inspection: normal respiratory effort and no respiratory distress Cardio: Rate: regular rate Rhythm: regular rhythm GI: Palpation (GI): Soft to palpation and nontender Neuro: Cranial nerves: Yes CN's II-XII intact bilaterally and Yes Bilaterally intact EOM present Objective Data Active Medications Acetaminophen (Acetaminophen 325 Mg Tablet) 650 mg PO Q6H PRN PRN Reason: Pain, Mild (Pain Scale 1-3) Aspirin (Aspirin 81 Mg Tab.Chew) 81 mg PO DAILY [facility] Last Admin: 12/17/20 08:16 Dose: 81 mg Documented by: AILYN Atorvastatin Calcium (Atorvastatin Calcium 40 Mg Tablet) 40 mg PO BEDTIME [facility] Last Admin: 12/16/20 20:24 Dose: 40 mg Documented by: SONIDO Docusate Sodium (Docusate Sodium 100 Mg Capsule) 100 mg PO BID PRN PRN Reason: Constipation Enoxaparin Sodium (Enoxaparin Sodium 40 Mg/0.4 Ml Syringe) 40 mg SUBCUT Q24H [facility] Last Admin: 12/16/20 18:00 Dose: 40 mg Documented by: KULWINDER Melatonin (Melatonin 3 Mg Tablet) 3 mg PO BEDTIME [facility] Last Admin: 12/16/20 20:24 Dose: 3 mg Documented by: SONIDO Pharmacy Consult (Consult Rx Perform Med Rec) 1 each MISCELLANE ONCE PRN PRN Reason: Consult order Quetiapine Fumarate (Quetiapine Fumarate 25 Mg Tablet) 25 mg PO BID [facility] Last Admin: 12/17/20 08:16 Dose: 25 mg Documented by: AILYN Sodium Chloride (0.9 % Sodium Chloride Flush 3 Ml Syringe) 3 ml IVFLUSH QSHIFT [facility] Last Admin: 12/17/20 08:18 Dose: Not Given Documented by: AILYN Non-Admin Reason: No Access Thiamine HCl (Thiamine Hcl 100 Mg Tablet) 100 mg PO DAILY [facility] Last Admin: 12/17/20 08:16 Dose: 100 mg Documented by: AILYN Trazodone HCl (Trazodone Hcl 25 Mg Halftab) 25 mg PO BEDTIME PRN PRN Reason: insomnia Last Admin: 12/07/20 21:52 Dose: 25 mg Documented by: FREDY Labs CBC & Chem 7: 12/15/20 08:26 12/15/20 08:26 Assessment and Plan (1) Dementia: Status: Acute (2) Unable to care for self: Status: Acute Assessment and Plan: 75yo male with no known medical history sent in for inadequate self-care, living in [facility], found to have CT evidence of subacute CVA though no neurologic deficit appreciated, deemed to not have capacity to make medical conditions and now awaiting guardianship hearing Inadequate self-care- possible dementia, unable to determine cause vs 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 ? carotid dopplers-no significant carotid disease echo done 12/09 with preserved EF, with basal inferior segment akinesis. no chest pain, no EKG changes. - recommend outpatient cardiology follow up MRI brain 12/08 No mass lesion, acute infarction, or abnormal intracranial enhancement. Mild degree of diffuse brain parenchymal volume loss. EEG 12/08 no seizure activity Seen by Neuro -workup including?T pallidum EIA, HIV, SARAH all negative Continue aspirin, statin Thiamine deficiency Oral replacement, s/p IV replacement tobacco abuse NRT EtOH abuse unable to corroborrate hx. ? no signs of withdrawal.?multivitamin + thiamine as above Status post treatment with phenobarbital moderate protein/calorie malnutrition Ensure tid, multivitamin Prominent polypoid soft tissue is seen within the right and left sided palatine tonsillar fossa for which direct visual inspection/ENT evaluation is recommended Seen by psych. Does not have capacity to make medical decisions. Needs guardianship, in progress. Guardianship hearing scheduled for December 26. Case management following VTE ppx SCDs, LMWH Attending-Dr. Dubois Quality Stroke Does the patient have a stroke diagnosis?: Yes Reason for No Anti-thrombotic by Day Two: N/A - Med Ordered VTE Prior VTE?: No VTE Risk Level:: Medical - moderate - high VTE Device Contraindication: N/A - Device Ordered VTE Drug Contraindication: N/A - Med Ordered
[2020-12-17 10:56] VITALS: BP 142/66; PULSE 58; RESP 18; TEMP 36.4; O2SAT 98
[2020-12-17 15:03] VITALS: BP 111/62; PULSE 76; RESP 20; TEMP 36.6; O2SAT 98
[2020-12-17] MEDS: Enoxaparin Sodium 40 MG/0.4 ML SYRINGE SUBCUT (16:51)
[2020-12-17 19:00] VITALS: BP 131/62; PULSE 63; RESP 18; TEMP 36.6; O2SAT 100
[2020-12-17] MEDS: Atorvastatin Calcium 40 MG TABLET PO (20:16)
[2020-12-17] MEDS: 0.9 % Sodium Chloride Flush 3 ML SYRINGE IVFLUSH (20:16)
[2020-12-17] MEDS: traZODone HCL 25 MG HALFTAB PO (20:16)
[2020-12-17] MEDS: Melatonin 3 MG TABLET PO (20:16)
[2020-12-17 23:14] VITALS: BP 114/59; PULSE 55; RESP 17; TEMP 36.2; O2SAT 98
[2020-12-18 04:00] VITALS: RESP 18
[2020-12-18 06:57] VITALS: BP 115/58; PULSE 52; RESP 18; TEMP 36.9; O2SAT 99
[2020-12-18] MEDS: QUEtiapine Fumarate 25 MG TABLET PO ×2 (10:35→21:17)
[2020-12-18] MEDS: Aspirin 81 MG TAB.CHEW PO (10:35)
[2020-12-18] MEDS: Thiamine HCL 100 MG TABLET PO (10:35)
[2020-12-18 10:52] VITALS: BP 114/55; PULSE 61; RESP 18; TEMP 36.7; O2SAT 96
--- NOTE | 2020-12-18 11:47 | PM.IMPN ---
Progress Note: A&P (1) Encephalopathy: Status: Acute (2) Stroke: Status: Acute (3) Thiamine deficiency: Status: Acute Assessment and Plan: 75yo male with no known medical history sent in for inadequate self-care, living in [facility], found to have CT evidence of subacute CVA though no neurologic deficit appreciated, deemed to not have capacity to make medical conditions and now awaiting guardianship hearing Inadequate self-care- possible dementia, unable to determine cause vs? 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 ? carotid dopplers-no significant carotid disease echo done 12/09 with preserved EF, with basal inferior segment akinesis. no chest pain, no EKG changes. - recommend outpatient cardiology follow up MRI brain 12/08?No mass lesion, acute infarction, or abnormal intracranial enhancement. Mild degree of diffuse brain parenchymal volume loss. EEG 12/08 no seizure activity Seen by Neuro -workup including?T pallidum EIA, HIV, SARAH all negative Continue aspirin, statin Thiamine deficiency Oral replacement, s/p IV replacement ? tobacco abuse NRT EtOH abuse unable to corroborrate hx. ? no signs of withdrawal.?multivitamin + thiamine as above Status post treatment with phenobarbital moderate protein/calorie malnutrition Ensure tid, multivitamin Prominent polypoid soft tissue is seen within the right and left sided palatine tonsillar fossa for which direct visual inspection/ENT evaluation is recommended Seen by psych.? Does not have capacity to make medical decisions. Needs guardianship, in progress.? Guardianship hearing scheduled for December 26.? Case management following VTE ppx SCDs, LMWH Attending-Dr. Jay Subjective Subjective Date of Service: 12/18/20 Review of Systems Follow up alcohol related encephalopathy patient states that he feels well and everything is fine however he also feels like his hospital room is his home and he is worried about his cats Denies chest pain, shortness of breath, abdominal pain All other systems are reviewed and are negative Physical Exam Vital Signs: Vital Signs: Last Vital Signs Temp 98.0 F 12/18/20 10:52 Pulse 61 12/18/20 10:52 Resp 18 12/18/20 10:52 BP 114/55 L 09/13/21 10:52 Pulse Ox 96 12/18/20 10:52 Body Mass Index 18.9 Appearing in no acute distress lung sounds are clear to auscultation heart regular rate rhythm, clear S1, S2 positive bowel sounds, abdomen is soft, nontender neuro patient is alert x3, no focal deficits Objective Data Current Medications Generic Name Dose Route Start Last Admin Trade Name Freq PRN Reason Stop Dose Admin Acetaminophen 650 mg 12/06/20 11:55 Acetaminophen 325 Mg Tablet PO Q6H PRN Pain, Mild (Pain Scale 1-3) Aspirin 81 mg 12/06/20 12:45 12/18/20 10:35 Aspirin 81 Mg Tab.Chew PO 81 mg DAILY AGGIE Administration Atorvastatin Calcium 40 mg 12/06/20 21:00 12/17/20 20:16 Atorvastatin Calcium 40 Mg Tablet PO 40 mg BEDTIME AGGIE Administration Docusate Sodium 100 mg 12/06/20 11:55 Docusate Sodium 100 Mg Capsule PO BID PRN Constipation Enoxaparin Sodium 40 mg 12/06/20 16:00 12/17/20 16:51 Enoxaparin Sodium 40 Mg/0.4 Ml Syringe SUBCUT 40 mg Q24H AGGIE Administration Melatonin 3 mg 12/07/20 21:00 12/17/20 20:16 Melatonin 3 Mg Tablet PO 3 mg BEDTIME AGGIE Administration Pharmacy Consult 1 each 12/06/20 11:09 Consult Rx Perform Med Rec MISCELLANE ONCE PRN Consult order Quetiapine Fumarate 25 mg 12/06/20 09:00 12/18/20 10:35 Quetiapine Fumarate 25 Mg Tablet PO 25 mg BID AGGIE Administration Sodium Chloride 3 ml 12/06/20 16:00 12/18/20 10:36 0.9 % Sodium Chloride Flush 3 Ml Syringe IVFLUSH Not Given QSHIFT AGGIE Thiamine HCl 100 mg 12/15/20 09:00 12/18/20 10:35 Thiamine Hcl 100 Mg Tablet PO 100 mg DAILY AGGIE Administration Trazodone HCl 25 mg 12/07/20 11:30 12/17/20 20:16 Trazodone Hcl 25 Mg Halftab PO 25 mg BEDTIME PRN Administration insomnia Labs CBC & Chem 7: 12/15/20 08:26 12/15/20 08:26 Quality Stroke Does the patient have a stroke diagnosis?: Yes Reason for No Anti-thrombotic by Day Two: N/A - Med Ordered VTE Prior VTE?: No VTE Risk Level:: Medical - moderate - high VTE Device Contraindication: N/A - Device Ordered VTE Drug Contraindication: N/A - Med Ordered
--- NOTE | 2020-12-18 12:18 | MHC.CLN ---
F/U PO INTAKE REMAINS EXCELLENT DIET RX: GRD M/S-APPROPRIATE PT RECEIVING ENSURE TID TO INCREASE KCALS PROVIDES 1050KCALS, 60G PROTEIN MONITOR PO INTAKE CLOSELY CONTINUE WEEKLY WEIGHTS
[2020-12-18] MEDS: Enoxaparin Sodium 40 MG/0.4 ML SYRINGE SUBCUT (15:17)
[2020-12-18 15:30] VITALS: BP 117/56; PULSE 56; RESP 18; TEMP 36.9; O2SAT 99
[2020-12-18 19:03] VITALS: BP 114/61; PULSE 53; RESP 18; TEMP 36.9; O2SAT 100
[2020-12-18] MEDS: Atorvastatin Calcium 40 MG TABLET PO (21:17)
[2020-12-18] MEDS: 0.9 % Sodium Chloride Flush 3 ML SYRINGE IVFLUSH (21:17)
[2020-12-18] MEDS: Melatonin 3 MG TABLET PO (21:17)
[2020-12-18 23:18] VITALS: BP 128/57; PULSE 68; RESP 18; TEMP 37.2; O2SAT 98
[2020-12-19 03:36] VITALS: RESP 18
[2020-12-19 07:24] VITALS: BP 118/56; PULSE 56; RESP 20; TEMP 36.9; O2SAT 100
[2020-12-19] MEDS: QUEtiapine Fumarate 25 MG TABLET PO ×2 (08:40→20:54)
[2020-12-19] MEDS: Aspirin 81 MG TAB.CHEW PO (08:40)
[2020-12-19] MEDS: Thiamine HCL 100 MG TABLET PO (08:40)
[2020-12-19 10:46] VITALS: BP 122/58; PULSE 60; RESP 20; TEMP 36.6; O2SAT 100
--- NOTE | 2020-12-19 11:08 | PC.NURSE ---
Skin assessment completed today. Patient has bruising to bilateral arms and dry skin. No other skin issues noted at this time.
--- NOTE | 2020-12-19 11:40 | P.PNIM_ITS ---
Progress Note: A&P (1) Encephalopathy: Status: Acute (2) Stroke: Status: Acute (3) Dementia: Status: Acute Assessment and Plan: 75yo male with no known medical history sent in for inadequate self-care, living in [facility], found to have CT evidence of subacute CVA though no neurologic deficit appreciated, deemed to not have capacity to make medical conditions and now awaiting guardianship hearing Inadequate self-care- possible dementia, unable to determine cause vs? 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 ? carotid dopplers-no significant carotid disease echo done 12/09 with preserved EF, with basal inferior segment akinesis. no chest pain, no EKG changes. - recommend outpatient cardiology follow up MRI brain 12/08?No mass lesion, acute infarction, or abnormal intracranial enhancement. Mild degree of diffuse brain parenchymal volume loss. EEG 12/08 no seizure activity Seen by Neuro -workup including?T pallidum EIA, HIV, SARAH all negative Continue aspirin, statin Thiamine deficiency Oral replacement, s/p IV replacement ? tobacco abuse NRT EtOH abuse unable to corroborrate hx. ? no signs of withdrawal.?multivitamin + thiamine as above Status post treatment with phenobarbital moderate protein/calorie malnutrition Ensure tid, multivitamin Prominent polypoid soft tissue is seen within the right and left sided palatine tonsillar fossa for which direct visual inspection/ENT evaluation is recommended Seen by psych.? Does not have capacity to make medical decisions. Needs guardianship, in progress.? Guardianship hearing scheduled for December 26.? Case management following VTE ppx SCDs, LMWH Attending-Dr. Jay Subjective Subjective Date of Service: 12/19/20 Review of Systems Follow up? 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 Physical Exam Vital Signs: Vital Signs: Last Vital Signs Temp 97.8 F 12/19/20 10:46 Pulse 60 12/19/20 10:46 Resp 20 12/19/20 10:46 BP 122/58 L 12/19/20 10:46 Pulse Ox 100 12/19/20 10:46 Body Mass Index 18.9 Appearing in no acute distress lung sounds are clear to auscultation heart regular rate rhythm, clear S1, S2 positive bowel sounds, abdomen is soft, nontender neuro patient is alert, confused Objective Data Current Medications Generic Name Dose Route Start Last Admin Trade Name Hunterq PRN Reason Stop Dose Admin Acetaminophen 650 mg 12/06/20 11:55 Acetaminophen 325 Mg Tablet PO Q6H PRN Pain, Mild (Pain Scale 1-3) Aspirin 81 mg 12/06/20 12:45 12/19/20 08:40 Aspirin 81 Mg Tab.Chew PO 81 mg DAILY AGGIE Administration Atorvastatin Calcium 40 mg 12/06/20 21:00 12/18/20 21:17 Atorvastatin Calcium 40 Mg Tablet PO 40 mg BEDTIME AGGIE Administration Docusate Sodium 100 mg 12/06/20 11:55 Docusate Sodium 100 Mg Capsule PO BID PRN Constipation Enoxaparin Sodium 40 mg 12/06/20 16:00 12/18/20 15:17 Enoxaparin Sodium 40 Mg/0.4 Ml Syringe SUBCUT 40 mg Q24H AGGIE Administration Melatonin 3 mg 12/07/20 21:00 12/18/20 21:17 Melatonin 3 Mg Tablet PO 3 mg BEDTIME AGGIE Administration Pharmacy Consult 1 each 12/06/20 11:09 Consult Rx Perform Med Rec MISCELLANE ONCE PRN Consult order Quetiapine Fumarate 25 mg 12/06/20 09:00 12/19/20 08:40 Quetiapine Fumarate 25 Mg Tablet PO 25 mg BID AGGIE Administration Sodium Chloride 3 ml 12/06/20 16:00 12/19/20 08:40 0.9 % Sodium Chloride Flush 3 Ml Syringe IVFLUSH Not Given QSHIFT AGGIE Thiamine HCl 100 mg 12/15/20 09:00 12/19/20 08:40 Thiamine Hcl 100 Mg Tablet PO 100 mg DAILY AGGIE Administration Trazodone HCl 25 mg 12/07/20 11:30 12/17/20 20:16 Trazodone Hcl 25 Mg Halftab PO 25 mg BEDTIME PRN Administration insomnia Labs CBC & Chem 7: 12/15/20 08:26 12/15/20 08:26 Quality Stroke Does the patient have a stroke diagnosis?: Yes Reason for No Anti-thrombotic by Day Two: N/A - Med Ordered VTE Prior VTE?: No VTE Risk Level:: Medical - moderate - high VTE Device Contraindication: N/A - Device Ordered VTE Drug Contraindication: N/A - Med Ordered
[2020-12-19 15:14] VITALS: BP 129/60; PULSE 56; RESP 18; TEMP 36.6; O2SAT 99
[2020-12-19] MEDS: Enoxaparin Sodium 40 MG/0.4 ML SYRINGE SUBCUT (16:34)
[2020-12-19 19:57] VITALS: BP 125/60; PULSE 65; RESP 18; TEMP 36.6; O2SAT 99
[2020-12-19] MEDS: Atorvastatin Calcium 40 MG TABLET PO (20:54)
[2020-12-19] MEDS: Melatonin 3 MG TABLET PO (20:54)
[2020-12-20] MEDS: traZODone HCL 25 MG HALFTAB PO ×2 (02:18→20:39)
[2020-12-20 04:00] VITALS: PULSE 68; RESP 18
[2020-12-20 07:17] LABS: Hematocrit 34.4 % (42-52); Hemoglobin 11.3 g/dl (14.0-18.0); Mean Corpuscular HGB Conc 32.8 g/dl (31.0-36.0); Mean Corpuscular Hemoglobin 30.5 pg (27.0-33.0); Mean Corpuscular Volume 92.7 fL (80-98); Mean Platelet Volume 12.2 fL (9.4-12.4); Platelet Count 184 X10*3/uL (160-400); Red Blood Count 3.71 X10*6/uL (4.60-5.80); Red Cell Distribution Width 15.7 % (11.0-16.0); White Blood Count 7.5 X10*3/uL (4.8-10.8)
[2020-12-20 07:33] LABS: Anion Gap 11 (12-20); Blood Urea Nitrogen 24 mg/dL (9-16); Calcium 8.3 mg/dL (8.4-10.2); Carbon Dioxide 25 mmol/L (22-29); Chloride 107 mmol/L (96-108); Creatinine Clr Calc Pharmacy 68.3; Estimated Glomerular Filt Rate > 60; Glucose Random 131 mg/dL (60-115); Potassium 3.9 mmol/L (3.3-5.1); Sodium 139 mmol/L (135-145)
[2020-12-20 08:00] VITALS: BP 105/51; PULSE 56; RESP 18; TEMP 36.6; O2SAT 100
[2020-12-20] MEDS: Thiamine HCL 100 MG TABLET PO (08:25)
[2020-12-20] MEDS: QUEtiapine Fumarate 25 MG TABLET PO ×2 (08:25→20:39)
[2020-12-20] MEDS: Aspirin 81 MG TAB.CHEW PO (08:25)
--- NOTE | 2020-12-20 09:57 | P.PNIM_ITS ---
Progress Note: A&P (1) Encephalopathy: Status: Acute (2) Dementia: Status: Acute Assessment and Plan: 75yo male with no known medical history sent in for inadequate self-care, living in [facility], found to have CT evidence of subacute CVA though no neurologic deficit appreciated, deemed to not have capacity to make medical conditions and now awaiting guardianship hearing Inadequate self-care- possible dementia, unable to determine cause vs? 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 ? carotid dopplers-no significant carotid disease echo done 12/09 with preserved EF, with basal inferior segment akinesis. no chest pain, no EKG changes. - recommend outpatient cardiology follow up MRI brain 12/08?No mass lesion, acute infarction, or abnormal intracranial enhancement. Mild degree of diffuse brain parenchymal volume loss. EEG 12/08 no seizure activity Seen by Neuro -workup including?T pallidum EIA, HIV, SARAH all negative Continue aspirin, statin Thiamine deficiency Oral replacement, s/p IV replacement ? tobacco abuse NRT EtOH abuse unable to corroborrate hx. ? no signs of withdrawal.?multivitamin + thiamine as above Status post treatment with phenobarbital moderate protein/calorie malnutrition Ensure tid, multivitamin Prominent polypoid soft tissue is seen within the right and left sided palatine tonsillar fossa for which direct visual inspection/ENT evaluation is recommended Seen by psych.? Does not have capacity to make medical decisions. Needs guardianship, in progress.? Guardianship hearing scheduled for December 26.? Case management following VTE ppx SCDs, LMWH Attending-Dr. Jay Subjective Subjective Date of Service: 12/20/20 Review of Systems Follow up? alcohol related encephalopathy patient states that he feels well and everything is fine however he also feels like his hospital room is his home and he is worried about his cats Denies chest pain, shortness of breath, abdominal pain All other systems are reviewed and are negative Physical Exam Vital Signs: Vital Signs: Last Vital Signs Temp 97.8 F 12/20/20 08:00 Pulse 56 12/20/20 08:00 Resp 18 12/20/20 08:00 BP 105/51 L 12/20/20 08:00 Pulse Ox 100 12/20/20 08:00 Body Mass Index 18.9 Appearing in no acute distress lung sounds are clear to auscultation heart regular rate rhythm, clear S1, S2 positive bowel sounds, abdomen is soft, nontender neuro patient is alert x3, no focal deficits Objective Data Current Medications Generic Name Dose Route Start Last Admin Trade Name Iesha PRN Reason Stop Dose Admin Acetaminophen 650 mg 12/06/20 11:55 Acetaminophen 325 Mg Tablet PO Q6H PRN Pain, Mild (Pain Scale 1-3) Aspirin 81 mg 12/06/20 12:45 12/20/20 08:25 Aspirin 81 Mg Tab.Chew PO 81 mg DAILY AGGIE Administration Atorvastatin Calcium 40 mg 12/06/20 21:00 12/19/20 20:54 Atorvastatin Calcium 40 Mg Tablet PO 40 mg BEDTIME AGGIE Administration Docusate Sodium 100 mg 12/06/20 11:55 Docusate Sodium 100 Mg Capsule PO BID PRN Constipation Enoxaparin Sodium 40 mg 12/06/20 16:00 12/19/20 16:34 Enoxaparin Sodium 40 Mg/0.4 Ml Syringe SUBCUT 40 mg Q24H AGGIE Administration Melatonin 3 mg 12/07/20 21:00 12/19/20 20:54 Melatonin 3 Mg Tablet PO 3 mg BEDTIME AGGIE Administration Pharmacy Consult 1 each 12/06/20 11:09 Consult Rx Perform Med Rec MISCELLANE ONCE PRN Consult order Quetiapine Fumarate 25 mg 12/06/20 09:00 12/20/20 08:25 Quetiapine Fumarate 25 Mg Tablet PO 25 mg BID AGGIE Administration Sodium Chloride 3 ml 12/06/20 16:00 12/20/20 08:25 0.9 % Sodium Chloride Flush 3 Ml Syringe IVFLUSH Not Given QSHIFT AGGIE Thiamine HCl 100 mg 12/15/20 09:00 12/20/20 08:25 Thiamine Hcl 100 Mg Tablet PO 100 mg DAILY AGGIE Administration Trazodone HCl 25 mg 12/07/20 11:30 12/20/20 02:18 Trazodone Hcl 25 Mg Halftab PO 25 mg BEDTIME PRN Administration insomnia Labs CBC & Chem 7: 12/20/20 06:20 12/20/20 06:20 Labs: Laboratory Results - last 24 hr 12/20/20 12/20/20 06:20 06:20 MCV 92.7 MCH 30.5 MCHC 32.8 RDW 15.7 Plt Count 184 MPV 12.2 Absolute Nucleated RBC 0.000 Nucleated RBC % (auto) 0.0 Anion Gap 11 L Estim Creat Clear Calc 68.3 Estimated GFR > 60 Random Glucose 131 H Calcium 8.3 L Quality Stroke Does the patient have a stroke diagnosis?: Yes Reason for No Anti-thrombotic by Day Two: N/A - Med Ordered VTE Prior VTE?: No VTE Risk Level:: Medical - moderate - high VTE Device Contraindication: N/A - Device Ordered VTE Drug Contraindication: N/A - Med Ordered
[2020-12-20 11:46] VITALS: BP 112/60; PULSE 60; RESP 20; TEMP 35.9; O2SAT 98
--- NOTE | 2020-12-20 14:44 | MHC.CM.PN ---
Male 75 DX Sub acute CVA. A Guardianship is being sought. Court date later this month (December2020) CM will continue to follow.
[2020-12-20] MEDS: Enoxaparin Sodium 40 MG/0.4 ML SYRINGE SUBCUT (14:47)
[2020-12-20 15:18] VITALS: BP 145/64; PULSE 54; RESP 18; TEMP 36; O2SAT 100
--- NOTE | 2020-12-20 15:26 | MHC.CM.PN ---
This handbook writer spoke with Attn Earl Jeter. Patient's [employer] Grade [employer] representation for guardianship. He will be in tomorrow to meet with patient- late morning early afternoon.
[2020-12-20 19:41] VITALS: BP 120/60; PULSE 60; RESP 18; TEMP 36.6; O2SAT 99
[2020-12-20] MEDS: Atorvastatin Calcium 40 MG TABLET PO (20:39)
[2020-12-20] MEDS: Melatonin 3 MG TABLET PO (20:39)
[2020-12-21] VITALS (7 sets, daily range): BP systolic 105–131; BP diastolic 58–78; PULSE 58–69; RESP 18–20; TEMP 36.2–36.7; O2SAT 97–100
--- NOTE | 2020-12-21 09:29 | P.PNIM_ITS ---
Subjective Subjective Date of Service: 12/22/20 Interval History: F/u on confusio, no new issues Review of Systems no fever baseline confusion Physical Exam Vital Signs: Vital Signs: Last Vital Signs Temp 97.9 F 12/21/20 07:49 Pulse 58 12/21/20 07:49 Resp 20 12/21/20 07:49 BP 112/66 12/21/20 07:49 Pulse Ox 99 12/21/20 07:49 Body Mass Index 18.9 No acute distress, no agitation ?lung sounds are clear to auscultation ?heart regular rate rhythm, clear? S1, S2 ?positive bowel sounds, abdomen is soft, nontender ?neuro patient is alert x3, no focal deficits Objective Data Active Medications Acetaminophen (Acetaminophen 325 Mg Tablet) 650 mg PO Q6H PRN PRN Reason: Pain, Mild (Pain Scale 1-3) Aspirin (Aspirin 81 Mg Tab.Chew) 81 mg PO DAILY [facility] Last Admin: 12/20/20 08:25 Dose: 81 mg Documented by: MARILOU Atorvastatin Calcium (Atorvastatin Calcium 40 Mg Tablet) 40 mg PO BEDTIME [facility] Last Admin: 12/20/20 20:39 Dose: 40 mg Documented by: BRYN Docusate Sodium (Docusate Sodium 100 Mg Capsule) 100 mg PO BID PRN PRN Reason: Constipation Enoxaparin Sodium (Enoxaparin Sodium 40 Mg/0.4 Ml Syringe) 40 mg SUBCUT Q24H [facility] Last Admin: 12/20/20 14:47 Dose: 40 mg Documented by: MARILOU Melatonin (Melatonin 3 Mg Tablet) 3 mg PO BEDTIME [facility] Last Admin: 12/20/20 20:39 Dose: 3 mg Documented by: BRNY Pharmacy Consult (Consult Rx Perform Med Rec) 1 each MISCELLANE ONCE PRN PRN Reason: Consult order Quetiapine Fumarate (Quetiapine Fumarate 25 Mg Tablet) 25 mg PO BID [facility] Last Admin: 12/20/20 20:39 Dose: 25 mg Documented by: BRYN Sodium Chloride (0.9 % Sodium Chloride Flush 3 Ml Syringe) 3 ml IVFLUSH QSHIFT [facility] Last Admin: 12/20/20 20:39 Dose: Not Given Documented by: BRYN Non-Admin Reason: No Access Thiamine HCl (Thiamine Hcl 100 Mg Tablet) 100 mg PO DAILY [facility] Last Admin: 12/20/20 08:25 Dose: 100 mg Documented by: MARILOU Trazodone HCl (Trazodone Hcl 25 Mg Halftab) 25 mg PO BEDTIME PRN PRN Reason: insomnia Last Admin: 12/20/20 20:39 Dose: 25 mg Documented by: ANTOIC Labs CBC & Chem 7: 12/20/20 06:20 12/20/20 06:20 Assessment and Plan (1) Dementia: Status: Acute (2) Unable to care for self: Status: Acute Assessment and Plan: 75yo male with no known medical history sent in for inadequate self-care, living in [facility], found to have CT evidence of subacute CVA though no neurologic deficit appreciated, deemed to not have capacity to make medical conditions and now awaiting guardianship hearing Inadequate self-care- undiagnosed dementia, 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 ? carotid dopplers-no significant carotid disease echo done 12/09 with preserved EF, with basal inferior segment akinesis. no chest pain, no EKG changes. - recommend outpatient cardiology follow up MRI brain 12/08 No mass lesion, acute infarction, or abnormal intracranial enhancement. Mild degree of diffuse brain parenchymal volume loss. EEG 12/08 no seizure activity Seen by Neuro -workup including?T pallidum EIA, HIV, SARAH all negative Continue aspirin, statin Thiamine deficiency Oral replacement, s/p IV replacement tobacco abuse NRT EtOH abuse unable to corroborrate hx. ? no signs of withdrawal.?multivitamin + thiamine as above Status post treatment with phenobarbital moderate protein/calorie malnutrition Ensure tid, multivitamin Prominent polypoid soft tissue seen within the right and left sided palatine tonsillar fossa for which direct visual inspection/ENT evaluation is recommended--Not able to get this done inpatient and will need outpatient follow up for it. Seen by psych. Does not have capacity to make medical decisions. Needs guardianship, in progress. Guardianship hearing scheduled for December 26. Case management following VTE ppx SCDs, LMWH Attending-Dr. Dubois Quality Stroke Does the patient have a stroke diagnosis?: Yes Reason for No Anti-thrombotic by Day Two: N/A - Med Ordered VTE Prior VTE?: No VTE Risk Level:: Medical - moderate - high VTE Device Contraindication: N/A - Device Ordered VTE Drug Contraindication: N/A - Med Ordered
[2020-12-21] MEDS: Aspirin 81 MG TAB.CHEW PO (09:43)
[2020-12-21] MEDS: Thiamine HCL 100 MG TABLET PO (09:43)
[2020-12-21] MEDS: QUEtiapine Fumarate 25 MG TABLET PO ×2 (09:43→19:33)
[2020-12-21] MEDS: Enoxaparin Sodium 40 MG/0.4 ML SYRINGE SUBCUT (16:07)
--- NOTE | 2020-12-21 16:55 | P.EN_ITS ---
Event Note Date of Service: 12/21/20 Event Note: I met with patient today per request of Dr. Dubois, for re-evaluat ion regarding capacity. Patient had previously been seen by doctor Jose Aguero on 12/06/2020, and had been found to lack capacity at that time. Today patient continues with confusion, alert and oriented times 1-2. He was able to state his name, and the year is 2020, but was unable to state date, month, of day of week. When asked to tell me where he is, he stated ?[place]?. He then stated that he is in an office building he thinks, he later told me that he lives in this building, and that he has 2 cats that live with him but he does not know where they are today at this moment. When told he is in a hospital in asked if he knows why is he here, he stated that he does not know but that it could be related to the plague or something . He was pleasant and cooperative. He was slightly unkempt. He had good eye contact, in no involuntary movements were noted. His speech was fluent. His mood and affect appeared stable. He denied visual hallucinations at this time, but stated that couple of days ago he saw somebody in his room. When asked who this was, he stated ?Kristopher, and he was not very nice to me ?. Patient poor historian, appears to confabulate during encounter. Judgment and insight poor. Ambulation not observed. He denied any medical problems. He however is unable to understand any medical problems at this time, or any type of treatment he has received while here. He is unable to convey an understanding regarding his stay here, and displays no understanding of the treatments, etc. he therefore lacks capacity at this time. \ I have shared this conclusion with Dr. Dubois in person. Thank you.
[2020-12-21] MEDS: traZODone HCL 25 MG HALFTAB PO (19:33)
[2020-12-21] MEDS: Melatonin 3 MG TABLET PO (19:33)
[2020-12-21] MEDS: Atorvastatin Calcium 40 MG TABLET PO (19:34)
[2020-12-22 03:15] VITALS: BP 118/57; PULSE 62; RESP 18; TEMP 36.6; O2SAT 99
[2020-12-22 07:29] VITALS: BP 115/70; PULSE 76; RESP 18; TEMP 36.6; O2SAT 98
[2020-12-22] MEDS: Thiamine HCL 100 MG TABLET PO (09:34)
[2020-12-22] MEDS: QUEtiapine Fumarate 25 MG TABLET PO ×2 (09:34→20:13)
[2020-12-22] MEDS: Aspirin 81 MG TAB.CHEW PO (09:34)
--- NOTE | 2020-12-22 10:57 | HO.PM.IMPN ---
Subjective Subjective Date of Service: 12/22/20 Interval History: F/u on confusio, no new issues Review of Systems no fever baseline confusion Physical Exam Vital Signs: Vital Signs: Last Vital Signs Temp 97.9 F 12/22/20 07:29 Pulse 76 12/22/20 07:29 Resp 18 12/22/20 07:29 BP 115/70 12/22/20 07:29 Pulse Ox 98 12/22/20 07:29 Body Mass Index 18.9 General: Oriented to self, place. cooperative Resp: CTA bilateral CVS: S1,S2,RRR GI: +BS, NT, no distention Skin: No rash Neuro: motor grossly intact Psych: appropriate affect Objective Data Active Medications Acetaminophen (Acetaminophen 325 Mg Tablet) 650 mg PO Q6H PRN PRN Reason: Pain, Mild (Pain Scale 1-3) Aspirin (Aspirin 81 Mg Tab.Chew) 81 mg PO DAILY [facility] Last Admin: 12/22/20 09:34 Dose: 81 mg Documented by: SONU Atorvastatin Calcium (Atorvastatin Calcium 40 Mg Tablet) 40 mg PO BEDTIME [facility] Last Admin: 12/21/20 19:34 Dose: 40 mg Documented by: BRYN Docusate Sodium (Docusate Sodium 100 Mg Capsule) 100 mg PO BID PRN PRN Reason: Constipation Enoxaparin Sodium (Enoxaparin Sodium 40 Mg/0.4 Ml Syringe) 40 mg SUBCUT Q24H [facility] Last Admin: 12/21/20 16:07 Dose: 40 mg Documented by: VENKATESH Melatonin (Melatonin 3 Mg Tablet) 3 mg PO BEDTIME [facility] Last Admin: 12/21/20 19:33 Dose: 3 mg Documented by: BRYN Pharmacy Consult (Consult Rx Perform Med Rec) 1 each MISCELLANE ONCE PRN PRN Reason: Consult order Quetiapine Fumarate (Quetiapine Fumarate 25 Mg Tablet) 25 mg PO BID [facility] Last Admin: 12/22/20 09:34 Dose: 25 mg Documented by: SONU Sodium Chloride (0.9 % Sodium Chloride Flush 3 Ml Syringe) 3 ml IVFLUSH QSHIFT [facility] Last Admin: 12/22/20 09:29 Dose: Not Given Documented by: SONU Non-Admin Reason: No Access Thiamine HCl (Thiamine Hcl 100 Mg Tablet) 100 mg PO DAILY [facility] Last Admin: 12/22/20 09:34 Dose: 100 mg Documented by: SONU Trazodone HCl (Trazodone Hcl 25 Mg Halftab) 25 mg PO BEDTIME PRN PRN Reason: insomnia Last Admin: 12/21/20 19:33 Dose: 25 mg Documented by: ANTOIC Labs CBC & Chem 7: 12/20/20 06:20 12/20/20 06:20 Assessment and Plan (1) Dementia: Status: Acute (2) Unable to care for self: Status: Acute Assessment and Plan: 75yo male with no known medical history sent in for inadequate self-care, living in [facility], found to have CT evidence of subacute CVA though no neurologic deficit appreciated, deemed to not have capacity to make medical conditions and now awaiting guardianship hearing--Stable with no new issues Inability for self-care- undiagnosed dementia, 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 ? carotid dopplers-no significant carotid disease echo done 12/09 with preserved EF, with basal inferior segment akinesis. no chest pain, no EKG changes. - recommend outpatient cardiology follow up MRI brain 12/08 No mass lesion, acute infarction, or abnormal intracranial enhancement. Mild degree of diffuse brain parenchymal volume loss. EEG 12/08 no seizure activity Seen by Neuro -workup including?T pallidum EIA, HIV, SARAH all negative Continue aspirin, statin Thiamine deficiency Oral replacement, s/p IV replacement tobacco abuse NRT EtOH abuse unable to corroborrate hx. ? no signs of withdrawal.?multivitamin + thiamine as above Status post treatment with phenobarbital moderate protein/calorie malnutrition Ensure tid, multivitamin Prominent polypoid soft tissue seen within the right and left sided palatine tonsillar fossa for which direct visual inspection/ENT evaluation is recommended--Not able to get this done inpatient and will need outpatient follow up for it. Seen by psych. Does not have capacity to make medical decisions. Needs guardianship, in progress. Guardianship hearing scheduled for December 26. Case management following VTE ppx SCDs, LMWH Attending-Dr. Dubosi Quality Stroke Does the patient have a stroke diagnosis?: Yes Reason for No Anti-thrombotic by Day Two: N/A - Med Ordered VTE Prior VTE?: No VTE Risk Level:: Medical - moderate - high VTE Device Contraindication: N/A - Device Ordered VTE Drug Contraindication: N/A - Med Ordered
[2020-12-22 11:28] VITALS: BP 110/48; PULSE 55; RESP 18; TEMP 36.9; O2SAT 99
--- NOTE | 2020-12-22 12:39 | MHC.CM.PN ---
per multi dis rounds pt needs to be revaled by psych prior to court date for ,guardianship
--- NOTE | 2020-12-22 13:09 | MHC.CLN ---
F/U INTAKE CONTINUES USUALLY EXCELLENT. DIET=REGULAR, NDD2 WITH ENSURE TID. SUPPLEMENT PROVIDES 1050 KCAL, 60 G PROTEIN. NO NEW WEIGHT. CONTINUE TO FOLLOW WEIGHTS AND INTAKE.
[2020-12-22 13:11] VITALS: BMI 18.9
--- NOTE | 2020-12-22 14:58 | P.CNPS_ITS ---
History of Present Illness Date of Service: 12/22/2020 Chief Complaint: Subacute CVA Reason for Consult: decisional capacity HPI Narrative: per this narrative writer's 12/06 consult note: on brief interview, pt was unable to indicate why he was at the hospital except in order to eat (he was interviewed during lunch) or because he works here (he does not).? he denied any medical problems and reported he feels great.? he confabulated throughout the interview and [place] sometimes getting on the platform and harassing people.? at one point he appeared to indicate that the burger he was eating was made from bear.? in any event, in light of his subacute stroke and current mental status, pt is unable to make medical decisions for himself.? he is unable to appreciate his current medical circumstance and is therefore necessarily lacking in capacity to manage it. per today's [facility] hospitalist note: 75yo male with no known medical history sent in for inadequate self-care, living in [facility], found to have CT evidence of subacute CVA though no neurologic deficit appreciated, deemed to not have capacity to make medical conditions and now awaiting guardianship hearing--Stable with no new issues on interview with MD today, pt states the date as tuesday, november 17, 2020 (it is tuesday, december 22, 2020). he stated we were in [facility], no... not [facility]. office building. he reported he had been out this morning feeding the animals in the neighborhood, and lives here. MD later asked why he had been admitted to the hospital. he reported he came into the hospital for some kind of leg problem, which was fixed with a clamp. when asked how long he had been in the hospital (17 days), he responded, 6 or 7 hours. he stated he has no health problems and goes to the gym and lifts weights every day. he had no understanding of why this narrative writer might be asked to see him or why anyone might express concern about his ability to care for himself. he stated he lives independently quite fine, without trouble or concern. Medical Evaluation Reviewed: Yes [facility] Medical History No acute medical problems Surgical History H/O knee surgery Diagnostics Vital Signs (24Hr): Vital Signs - 24 hr 12/21/20 15:13 12/21/20 19:24 12/21/20 23:24 Temperature 97.8 F 97.8 F 97.9 F Pulse Rate 61 69 64 Respiratory Rate 19 18 18 Blood Pressure 128/66 128/78 105/59 L Pulse Oximetry 100 100 97 12/22/20 03:15 12/22/20 07:29 12/22/20 11:28 Temperature 97.9 F 97.9 F 98.5 F Pulse Rate 62 76 55 Respiratory Rate 18 18 18 Blood Pressure 118/57 L 115/70 110/48 L Pulse Oximetry 99 98 99 Body Mass Index 18.9 Labs Results: 12/20/20 06:20 12/20/20 06:20 Imaging Radiology Impressions: ITS Impressions Chest X-Ray 12/06/20 08:17 IMPRESSION: Unremarkable examination. Head CT 12/06/20 08:25 IMPRESSION: 1.2 cm area of decreased attenuation seen in the left external capsule/claustrum questionable for subacute infarct. Mild generalized atrophy and nonspecific periventricular white matter disease. Carotid Doppler Study 12/07/20 14:05 IMPRESSION: 1. RIGHT: Mild atherosclerotic plaque. 0-49% right ICA stenosis. 2. LEFT: Mild atherosclerotic plaque. 0-49% left ICA stenosis. Abdomen X-Ray 12/07/20 17:50 IMPRESSION: No unexpected radiopaque foreign body. Pelvis X-Ray 12/07/20 17:50 IMPRESSION: No unexpected radiopaque foreign body. Brain MRI 12/08/20 12:54 IMPRESSION: No mass lesion, acute infarction, or abnormal intracranial enhancement. Mild degree of diffuse brain parenchymal volume loss. Prominent polypoid soft tissue is seen within the right and left sided palatine tonsillar fossa for which direct visual inspection/ENT evaluation is recommended. Small mucosal retention cyst seen within the right aspect of the nasopharynx. Mental Status Exam Mental Status Exam Narrative: appropriately dressed and adequately groomed. cooperative with interview. no PMA/PMR. speech incr in amount, nml rate, nml loudness, decr latency. thoughts loose, marginally organized. circumstantial. affect full range, a bit hyper-intense, min-labile. mood good. denies SI/HI/AVH. short- term memory severely impaired. Medications Medications Current Medications Acetaminophen (Acetaminophen 325 Mg Tablet) 650 mg PO Q6H PRN PRN Reason: Pain, Mild (Pain Scale 1-3) Aspirin (Aspirin 81 Mg Tab.Chew) 81 mg PO DAILY [facility] Last Admin: 12/22/20 09:34 Dose: 81 mg Documented by: Atorvastatin Calcium (Atorvastatin Calcium 40 Mg Tablet) 40 mg PO BEDTIME [facility] Last Admin: 12/21/20 19:34 Dose: 40 mg Documented by: Docusate Sodium (Docusate Sodium 100 Mg Capsule) 100 mg PO BID PRN PRN Reason: Constipation Enoxaparin Sodium (Enoxaparin Sodium 40 Mg/0.4 Ml Syringe) 40 mg SUBCUT Q24H [facility] Last Admin: 12/21/20 16:07 Dose: 40 mg Documented by: Melatonin (Melatonin 3 Mg Tablet) 3 mg PO BEDTIME [facility] Last Admin: 12/21/20 19:33 Dose: 3 mg Documented by: Pharmacy Consult (Consult Rx Perform Med Rec) 1 each MISCELLANE ONCE PRN PRN Reason: Consult order Quetiapine Fumarate (Quetiapine Fumarate 25 Mg Tablet) 25 mg PO BID [facility] Last Admin: 12/22/20 09:34 Dose: 25 mg Documented by: Sodium Chloride (0.9 % Sodium Chloride Flush 3 Ml Syringe) 3 ml IVFLUSH QSHIFT [facility] Last Admin: 12/22/20 09:29 Dose: Not Given Documented by: Thiamine HCl (Thiamine Hcl 100 Mg Tablet) 100 mg PO DAILY [facility] Last Admin: 12/22/20 09:34 Dose: 100 mg Documented by: Trazodone HCl (Trazodone Hcl 25 Mg Halftab) 25 mg PO BEDTIME PRN PRN Reason: insomnia Last Admin: 12/21/20 19:33 Dose: 25 mg Documented by: Allergies Allergies Allergy/AdvReac Type Severity Reaction Status Date / Time No Known Allergies Allergy Verified 12/05/20 19:06 Assessment & Plan Assessment & Plan (1) Dementia: Status: Acute Code(s): F03.90 - Unspecified dementia without behavioral disturbance Assessment and Plan: pt is severely cognitively impaired. he is unable to retain any information even for a few minutes and is therefore incapable of making any complex decisions. he is unable to make medical decisions for himself or any decisions about disposition.? he is unable to appreciate his current medical circumstance and is therefore necessarily lacking in capacity to manage it. he is unable to appreciate his previous living circumstances and lacks any insight into his disability. this man requires an alternative decision maker, most likely permanently, as his condition has not changed at all since admission and he has no active medical problems. Assessment and Plan: per medical team Greater than 50% of the session was spent on counseling and/or coordination of care
[2020-12-22 15:49] VITALS: BP 122/57; PULSE 60; RESP 19; TEMP 37.2; O2SAT 98
[2020-12-22 19:21] VITALS: BP 146/76; PULSE 60; RESP 18; TEMP 36.9; O2SAT 98
[2020-12-22] MEDS: Melatonin 3 MG TABLET PO (20:13)
[2020-12-22] MEDS: Atorvastatin Calcium 40 MG TABLET PO (20:13)
[2020-12-22 23:27] VITALS: BP 120/70; PULSE 60; RESP 18; TEMP 37; O2SAT 97
[2020-12-23 03:47] VITALS: BP 137/66; PULSE 51; RESP 18; TEMP 36.6; O2SAT 99
[2020-12-23 07:29] VITALS: BP 119/53; PULSE 51; RESP 20; TEMP 36.4; O2SAT 99
--- NOTE | 2020-12-23 08:52 | HO.PM.IMPN ---
Subjective Subjective Date of Service: 12/23/20 Interval History: F/u on confusion and awaiting placment, no new issues, calm and cooperative at this time Review of Systems .confusion baseline no fever Physical Exam Vital Signs: Vital Signs: Last Vital Signs Temp 97.5 F 12/23/20 07:29 Pulse 51 12/23/20 07:29 Resp 20 12/23/20 07:29 BP 119/53 L 12/23/20 07:29 Pulse Ox 99 12/23/20 07:29 Body Mass Index 18.9 General: Oriented to self, place. cooperative Resp:? CTA bilateral CVS: S1,S2,RRR GI: +BS, NT, no distention Skin: No rash Neuro:? motor grossly intact Psych: appropriate affect Objective Data Active Medications Acetaminophen (Acetaminophen 325 Mg Tablet) 650 mg PO Q6H PRN PRN Reason: Pain, Mild (Pain Scale 1-3) Aspirin (Aspirin 81 Mg Tab.Chew) 81 mg PO DAILY [facility] Last Admin: 12/22/20 09:34 Dose: 81 mg Documented by: SONU Atorvastatin Calcium (Atorvastatin Calcium 40 Mg Tablet) 40 mg PO BEDTIME [facility] Last Admin: 12/22/20 20:13 Dose: 40 mg Documented by: HASMUKH Docusate Sodium (Docusate Sodium 100 Mg Capsule) 100 mg PO BID PRN PRN Reason: Constipation Enoxaparin Sodium (Enoxaparin Sodium 40 Mg/0.4 Ml Syringe) 40 mg SUBCUT Q24H [facility] Last Admin: 12/22/20 15:05 Dose: Not Given Documented by: SONU Non-Admin Reason: Patient Refused Melatonin (Melatonin 3 Mg Tablet) 3 mg PO BEDTIME [facility] Last Admin: 12/22/20 20:13 Dose: 3 mg Documented by: HASMUKH Pharmacy Consult (Consult Rx Perform Med Rec) 1 each MISCELLANE ONCE PRN PRN Reason: Consult order Quetiapine Fumarate (Quetiapine Fumarate 25 Mg Tablet) 25 mg PO BID [facility] Last Admin: 12/22/20 20:13 Dose: 25 mg Documented by: HASMUKH Sodium Chloride (0.9 % Sodium Chloride Flush 3 Ml Syringe) 3 ml IVFLUSH QSHIFT [facility] Last Admin: 12/22/20 20:13 Dose: Not Given Documented by: HASMUKH Non-Admin Reason: No Access Thiamine HCl (Thiamine Hcl 100 Mg Tablet) 100 mg PO DAILY [facility] Last Admin: 12/22/20 09:34 Dose: 100 mg Documented by: SONU Trazodone HCl (Trazodone Hcl 25 Mg Halftab) 25 mg PO BEDTIME PRN PRN Reason: insomnia Last Admin: 12/21/20 19:33 Dose: 25 mg Documented by: ANTOIC Labs CBC & Chem 7: 12/20/20 06:20 12/20/20 06:20 Assessment and Plan (1) Dementia: Status: Acute (2) Unable to care for self: Status: Acute Assessment and Plan: 75yo male with no known medical history sent in for inadequate self-care, living in [facility], found to have CT evidence of subacute CVA though no neurologic deficit appreciated, deemed to not have capacity to make medical conditions and now awaiting guardianship hearing--essentially no new issues and below issues are of no change Inability for self-care- undiagnosed dementia, 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 ? carotid dopplers-no significant carotid disease echo done 12/09 with preserved EF, with basal inferior segment akinesis. no chest pain, no EKG changes. - recommend outpatient cardiology follow up MRI brain 12/08 No mass lesion, acute infarction, or abnormal intracranial enhancement. Mild degree of diffuse brain parenchymal volume loss. EEG 12/08 no seizure activity Seen by Neuro -workup including?T pallidum EIA, HIV, SARAH all negative Continue aspirin, statin Thiamine deficiency Oral replacement, s/p IV replacement tobacco abuse NRT EtOH abuse unable to corroborrate hx. ? no signs of withdrawal.?multivitamin + thiamine as above Status post treatment with phenobarbital moderate protein/calorie malnutrition Ensure tid, multivitamin Prominent polypoid soft tissue seen within the right and left sided palatine tonsillar fossa for which direct visual inspection/ENT evaluation is recommended--Not able to get this done inpatient and will need outpatient follow up for it. Seen by psych. Does not have capacity to make medical decisions. Needs guardianship, in progress. Guardianship hearing scheduled for December 26. Case management following VTE ppx SCDs, LMWH Attending-Dr. Dubois Quality Stroke Does the patient have a stroke diagnosis?: Yes Reason for No Anti-thrombotic by Day Two: N/A - Med Ordered VTE Prior VTE?: No VTE Risk Level:: Medical - moderate - high VTE Device Contraindication: N/A - Device Ordered VTE Drug Contraindication: N/A - Med Ordered
[2020-12-23] MEDS: Aspirin 81 MG TAB.CHEW PO (11:03)
[2020-12-23] MEDS: Thiamine HCL 100 MG TABLET PO (11:04)
[2020-12-23] MEDS: QUEtiapine Fumarate 25 MG TABLET PO ×2 (11:04→20:04)
[2020-12-23 11:20] VITALS: BP 106/50; PULSE 57; RESP 20; TEMP 36.8; O2SAT 97
[2020-12-23 15:40] VITALS: BP 116/55; PULSE 61; RESP 18; TEMP 36.6; O2SAT 100
[2020-12-23] MEDS: Enoxaparin Sodium 40 MG/0.4 ML SYRINGE SUBCUT (16:44)
[2020-12-23 19:36] VITALS: BP 144/65; PULSE 58; RESP 16; TEMP 36.4; O2SAT 99
[2020-12-23] MEDS: Atorvastatin Calcium 40 MG TABLET PO (20:04)
[2020-12-23] MEDS: Melatonin 3 MG TABLET PO (20:04)
[2020-12-23 23:09] VITALS: BP 111/59; PULSE 49; RESP 12; TEMP 36.6; O2SAT 98
[2020-12-24 04:00] VITALS: BP 116/56; PULSE 48; RESP 16; TEMP 36.6; O2SAT 99
[2020-12-24 07:30] VITALS: BP 120/56; PULSE 48; RESP 20; TEMP 36.7; O2SAT 100
--- NOTE | 2020-12-24 08:52 | HO.PM.IMPN ---
Subjective Subjective Date of Service: 12/24/20 Interval History: F/u on confusion and awaiting placment, no new issues, calm and cooperative at this time Review of Systems confusion baseline no fever Physical Exam Vital Signs: Vital Signs: Last Vital Signs Temp 98.0 F 12/24/20 07:30 Pulse 48 L 12/24/20 07:30 Resp 20 12/24/20 07:30 BP 120/56 L 12/24/20 07:30 Pulse Ox 100 12/24/20 07:30 Body Mass Index 18.9 General: Oriented to self, place. cooperative Resp:? CTA bilateral CVS: S1,S2,RRR GI: +BS, NT, no distention Skin: No rash Neuro:? motor grossly intact Psych: appropriate affect Objective Data Active Medications Acetaminophen (Acetaminophen 325 Mg Tablet) 650 mg PO Q6H PRN PRN Reason: Pain, Mild (Pain Scale 1-3) Aspirin (Aspirin 81 Mg Tab.Chew) 81 mg PO DAILY [facility] Last Admin: 12/23/20 11:03 Dose: 81 mg Documented by: RAMO Atorvastatin Calcium (Atorvastatin Calcium 40 Mg Tablet) 40 mg PO BEDTIME [facility] Last Admin: 12/23/20 20:04 Dose: 40 mg Documented by: AMMY Docusate Sodium (Docusate Sodium 100 Mg Capsule) 100 mg PO BID PRN PRN Reason: Constipation Enoxaparin Sodium (Enoxaparin Sodium 40 Mg/0.4 Ml Syringe) 40 mg SUBCUT Q24H [facility] Last Admin: 12/23/20 16:44 Dose: 40 mg Documented by: IAIN-SCOTJ Melatonin (Melatonin 3 Mg Tablet) 3 mg PO BEDTIME [facility] Last Admin: 12/23/20 20:04 Dose: 3 mg Documented by: AMMY Pharmacy Consult (Consult Rx Perform Med Rec) 1 each MISCELLANE ONCE PRN PRN Reason: Consult order Quetiapine Fumarate (Quetiapine Fumarate 25 Mg Tablet) 25 mg PO BID [facility] Last Admin: 12/23/20 20:04 Dose: 25 mg Documented by: AMMY Sodium Chloride (0.9 % Sodium Chloride Flush 3 Ml Syringe) 3 ml IVFLUSH QSHIFT [facility] Last Admin: 12/24/20 01:07 Dose: Not Given Documented by: AMMY Non-Admin Reason: No Access Thiamine HCl (Thiamine Hcl 100 Mg Tablet) 100 mg PO DAILY [facility] Last Admin: 12/23/20 11:04 Dose: 100 mg Documented by: RAMO Trazodone HCl (Trazodone Hcl 25 Mg Halftab) 25 mg PO BEDTIME PRN PRN Reason: insomnia Last Admin: 12/21/20 19:33 Dose: 25 mg Documented by: BRYN Labs CBC & Chem 7: 12/20/20 06:20 12/20/20 06:20 Quality Stroke Does the patient have a stroke diagnosis?: Yes Reason for No Anti-thrombotic by Day Two: N/A - Med Ordered VTE Prior VTE?: No VTE Risk Level:: Medical - moderate - high VTE Device Contraindication: N/A - Device Ordered VTE Drug Contraindication: N/A - Med Ordered
[2020-12-24] MEDS: QUEtiapine Fumarate 25 MG TABLET PO ×2 (08:53→20:09)
[2020-12-24] MEDS: Thiamine HCL 100 MG TABLET PO (08:53)
[2020-12-24] MEDS: Aspirin 81 MG TAB.CHEW PO (08:53)
[2020-12-24 11:07] VITALS: BP 111/73; PULSE 57; RESP 20; TEMP 36.4; O2SAT 100
[2020-12-24] MEDS: Enoxaparin Sodium 40 MG/0.4 ML SYRINGE SUBCUT (15:21)
[2020-12-24] MEDS: 0.9 % Sodium Chloride Flush 3 ML SYRINGE IVFLUSH (15:21)
[2020-12-24 15:58] VITALS: BP 122/76; PULSE 54; RESP 18; TEMP 36.6; O2SAT 99
[2020-12-24 20:00] VITALS: BP 124/56; PULSE 59; RESP 18; TEMP 36.9
[2020-12-24] MEDS: Melatonin 3 MG TABLET PO (20:09)
[2020-12-24] MEDS: Atorvastatin Calcium 40 MG TABLET PO (20:09)
[2020-12-25 04:00] VITALS: BP 122/70; PULSE 52; RESP 18; TEMP 36.3; O2SAT 98
[2020-12-25 07:02] VITALS: BP 123/65; PULSE 54; RESP 18; TEMP 35.5; O2SAT 98
--- NOTE | 2020-12-25 07:58 | P.PNIM_ITS ---
Subjective Subjective Date of Service: 12/25/20 Interval History: F/u on confusion and awaiting placment, no new issues, calm and cooperative at this time, no new issues Review of Systems confusion baseline no fever Physical Exam Vital Signs: Vital Signs: Last Vital Signs Temp 96 F L 12/25/20 07:02 Pulse 54 12/25/20 07:02 Resp 18 12/25/20 07:02 BP 123/65 12/25/20 07:02 Pulse Ox 98 12/25/20 07:02 Body Mass Index 18.9 General: Oriented to self, place. cooperative Resp:? CTA bilateral CVS: S1,S2,RRR GI: +BS, NT, no distention Skin: No rash Neuro:? motor grossly intact Psych: appropriate affect Objective Data Active Medications Acetaminophen (Acetaminophen 325 Mg Tablet) 650 mg PO Q6H PRN PRN Reason: Pain, Mild (Pain Scale 1-3) Aspirin (Aspirin 81 Mg Tab.Chew) 81 mg PO DAILY [facility] Last Admin: 12/24/20 08:53 Dose: 81 mg Documented by: TASHA Atorvastatin Calcium (Atorvastatin Calcium 40 Mg Tablet) 40 mg PO BEDTIME [facility] Last Admin: 12/24/20 20:09 Dose: 40 mg Documented by: IGLESIA Docusate Sodium (Docusate Sodium 100 Mg Capsule) 100 mg PO BID PRN PRN Reason: Constipation Enoxaparin Sodium (Enoxaparin Sodium 40 Mg/0.4 Ml Syringe) 40 mg SUBCUT Q24H [facility] Last Admin: 12/24/20 15:21 Dose: 40 mg Documented by: TASHA Melatonin (Melatonin 3 Mg Tablet) 3 mg PO BEDTIME [facility] Last Admin: 12/24/20 20:09 Dose: 3 mg Documented by: IGLESIA Pharmacy Consult (Consult Rx Perform Med Rec) 1 each MISCELLANE ONCE PRN PRN Reason: Consult order Quetiapine Fumarate (Quetiapine Fumarate 25 Mg Tablet) 25 mg PO BID [facility] Last Admin: 12/24/20 20:09 Dose: 25 mg Documented by: IGLESIA Sodium Chloride (0.9 % Sodium Chloride Flush 3 Ml Syringe) 3 ml IVFLUSH QSHIFT [facility] Last Admin: 12/25/20 00:15 Dose: Not Given Documented by: IGLESIA Non-Admin Reason: No Access Thiamine HCl (Thiamine Hcl 100 Mg Tablet) 100 mg PO DAILY [facility] Last Admin: 12/24/20 08:53 Dose: 100 mg Documented by: TASHA Trazodone HCl (Trazodone Hcl 25 Mg Halftab) 25 mg PO BEDTIME PRN PRN Reason: insomnia Last Admin: 12/21/20 19:33 Dose: 25 mg Documented by: ANTOIC Labs CBC & Chem 7: 12/20/20 06:20 12/20/20 06:20 Assessment and Plan (1) Dementia: Status: Acute (2) Unable to care for self: Status: Acute Assessment and Plan: 75yo male with no known medical history sent in for inadequate self-care, living in [facility], found to have CT evidence of subacute CVA though no neurologic deficit appreciated, deemed to not have capacity to make medical conditions and now awaiting guardianship hearing--essentially no new issues and below issues are of no change Inability for self-care- undiagnosed dementia, 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 ? carotid dopplers-no significant carotid disease echo done 12/09 with preserved EF, with basal inferior segment akinesis. no chest pain, no EKG changes. - recommend outpatient cardiology follow up MRI brain 12/08 No mass lesion, acute infarction, or abnormal intracranial enhancement. Mild degree of diffuse brain parenchymal volume loss. EEG 12/08 no seizure activity Seen by Neuro -workup including?T pallidum EIA, HIV, SARAH all negative Continue aspirin, statin Thiamine deficiency Oral replacement, s/p IV replacement tobacco abuse NRT EtOH abuse unable to corroborrate hx. ? no signs of withdrawal.?multivitamin + thiamine as above Status post treatment with phenobarbital moderate protein/calorie malnutrition Ensure tid, multivitamin Prominent polypoid soft tissue seen within the right and left sided palatine tonsillar fossa for which direct visual inspection/ENT evaluation is recommended--Not able to get this done inpatient and will need outpatient follow up for it. Seen by psych. Does not have capacity to make medical decisions. Needs guardianship, in progress. Guardianship hearing scheduled for December 26. Case management following VTE ppx SCDs, LMWH Attending-Dr. Dubois Quality Stroke Does the patient have a stroke diagnosis?: Yes Reason for No Anti-thrombotic by Day Two: N/A - Med Ordered VTE Prior VTE?: No VTE Risk Level:: Medical - moderate - high VTE Device Contraindication: N/A - Device Ordered VTE Drug Contraindication: N/A - Med Ordered
[2020-12-25] MEDS: QUEtiapine Fumarate 25 MG TABLET PO ×2 (10:11→19:51)
[2020-12-25] MEDS: Thiamine HCL 100 MG TABLET PO (10:11)
[2020-12-25] MEDS: Aspirin 81 MG TAB.CHEW PO (10:11)
[2020-12-25 11:06] VITALS: BP 105/61; PULSE 64; RESP 18; TEMP 35.5; O2SAT 98
--- NOTE | 2020-12-25 11:07 | MHC.CLN ---
F/U PO INTAKE REMAINS EXCELLENT DIET RX: GRD M/S-APPROPRIATE PT RECEIVING ENSURE TID TO INCREASE KCALS PROVIDES 1050KCALS, 60G PROTEIN WEEKLY WEIGHTS IN PLACE R/T MALNUTRITION
--- NOTE | 2020-12-25 12:19 | MHC.CM.PN ---
pts guardianship /cnsevatorship hearing is scheduled for 12/26
[2020-12-25 15:19] VITALS: BP 113/51; PULSE 62; RESP 19; TEMP 37.2; O2SAT 98
[2020-12-25] MEDS: Enoxaparin Sodium 40 MG/0.4 ML SYRINGE SUBCUT (17:38)
[2020-12-25 19:15] VITALS: BP 133/59; PULSE 59; RESP 19; TEMP 37.2; O2SAT 99
[2020-12-25] MEDS: Atorvastatin Calcium 40 MG TABLET PO (19:51)
[2020-12-25] MEDS: Melatonin 3 MG TABLET PO (19:51)
[2020-12-25] MEDS: traZODone HCL 25 MG HALFTAB PO (19:51)
[2020-12-26] VITALS: BP 107/57; PULSE 63; RESP 20; TEMP 37.1; O2SAT 100
[2020-12-26 06:49] VITALS: BP 116/59; PULSE 60; RESP 18; TEMP 36.6; O2SAT 96
--- NOTE | 2020-12-26 09:22 | P.PNIM_ITS ---
Subjective Subjective Date of Service: 12/26/20 Interval History: seen in f/u guardianship, encephalopathy Review of Systems no fever sob no confusion at this time Physical Exam Vital Signs: Vital Signs: Last Vital Signs Temp 97.9 F 12/26/20 06:49 Pulse 60 12/26/20 06:49 Resp 18 12/26/20 06:49 BP 116/59 L 12/26/20 06:49 Pulse Ox 96 12/26/20 06:49 Body Mass Index 18.9 General: AO X 2, no acute distress Resp: CTA bilateral CVS: S1,S2,RRR GI: +BS, NT, no distention Skin: No rash Neuro: motor grossly intact Psych: appropriate affect Objective Data Active Medications Acetaminophen (Acetaminophen 325 Mg Tablet) 650 mg PO Q6H PRN PRN Reason: Pain, Mild (Pain Scale 1-3) Aspirin (Aspirin 81 Mg Tab.Chew) 81 mg PO DAILY [facility] Last Admin: 12/25/20 10:11 Dose: 81 mg Documented by: KULWINDER Atorvastatin Calcium (Atorvastatin Calcium 40 Mg Tablet) 40 mg PO BEDTIME [facility] Last Admin: 12/25/20 19:51 Dose: 40 mg Documented by: ANTADAN Docusate Sodium (Docusate Sodium 100 Mg Capsule) 100 mg PO BID PRN PRN Reason: Constipation Enoxaparin Sodium (Enoxaparin Sodium 40 Mg/0.4 Ml Syringe) 40 mg SUBCUT Q24H [facility] Last Admin: 12/25/20 17:38 Dose: 40 mg Documented by: KULWINDER Melatonin (Melatonin 3 Mg Tablet) 3 mg PO BEDTIME [facility] Last Admin: 12/25/20 19:51 Dose: 3 mg Documented by: ANTADAN Pharmacy Consult (Consult Rx Perform Med Rec) 1 each MISCELLANE ONCE PRN PRN Reason: Consult order Quetiapine Fumarate (Quetiapine Fumarate 25 Mg Tablet) 25 mg PO BID [facility] Last Admin: 12/25/20 19:51 Dose: 25 mg Documented by: ANTADAN Sodium Chloride (0.9 % Sodium Chloride Flush 3 Ml Syringe) 3 ml IVFLUSH QSHIFT [facility] Last Admin: 12/25/20 19:51 Dose: Not Given Documented by: ANTADAN Non-Admin Reason: No Access Thiamine HCl (Thiamine Hcl 100 Mg Tablet) 100 mg PO DAILY [facility] Last Admin: 12/25/20 10:11 Dose: 100 mg Documented by: KULWINDER Trazodone HCl (Trazodone Hcl 25 Mg Halftab) 25 mg PO BEDTIME PRN PRN Reason: insomnia Last Admin: 12/25/20 19:51 Dose: 25 mg Documented by: ANTOIC Labs CBC & Chem 7: 12/20/20 06:20 12/20/20 06:20 Assessment and Plan (1) Dementia: Status: Acute (2) Unable to care for self: Status: Acute Assessment and Plan: 75yo male with no known medical history sent in for inadequate self-care, living in [facility], found to have CT evidence of subacute CVA though no neurologic deficit appreciated, deemed to not have capacity to make medical conditions and now awaiting guardianship hearing--No new issues Inability for self-care- undiagnosed dementia, 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 ? carotid dopplers-no significant carotid disease echo done 12/09 with preserved EF, with basal inferior segment akinesis. no chest pain, no EKG changes. - recommend outpatient cardiology follow up MRI brain 12/08 No mass lesion, acute infarction, or abnormal intracranial enhancement. Mild degree of diffuse brain parenchymal volume loss. EEG 12/08 no seizure activity Seen by Neuro -workup including?T pallidum EIA, HIV, SARAH all negative Continue aspirin, statin Thiamine deficiency Oral replacement, s/p IV replacement tobacco abuse NRT EtOH abuse unable to corroborrate hx. ? no signs of withdrawal.?multivitamin + thiamine as above Status post treatment with phenobarbital moderate protein/calorie malnutrition Ensure tid, multivitamin Prominent polypoid soft tissue seen within the right and left sided palatine tonsillar fossa for which direct visual inspection/ENT evaluation is recommended--Not able to get this done inpatient and will need outpatient follow up for it. Seen by psych. Does not have capacity to make medical decisions. Needs guardianship, in progress. Guardianship hearing scheduled for December 26. Case management following VTE ppx SCDs, [facility] Attending-Dr. Dubois Quality Stroke Does the patient have a stroke diagnosis?: Yes Reason for No Anti-thrombotic by Day Two: N/A - Med Ordered VTE Prior VTE?: No VTE Risk Level:: Medical - moderate - high VTE Device Contraindication: N/A - Device Ordered VTE Drug Contraindication: N/A - Med Ordered
[2020-12-26] MEDS: Aspirin 81 MG TAB.CHEW PO (09:52)
[2020-12-26] MEDS: QUEtiapine Fumarate 25 MG TABLET PO ×2 (09:52→19:57)
[2020-12-26] MEDS: Thiamine HCL 100 MG TABLET PO (09:52)
[2020-12-26 10:54] VITALS: BP 142/64; PULSE 68; RESP 19; TEMP 36.1; O2SAT 98
[2020-12-26 15:15] VITALS: BP 116/50; PULSE 75; RESP 19; TEMP 36.6; O2SAT 100
[2020-12-26] MEDS: Enoxaparin Sodium 40 MG/0.4 ML SYRINGE SUBCUT (17:40)
[2020-12-26 19:38] VITALS: BP 109/62; PULSE 53; RESP 19; TEMP 36.6; O2SAT 100
[2020-12-26] MEDS: Atorvastatin Calcium 40 MG TABLET PO (19:58)
[2020-12-26] MEDS: 0.9 % Sodium Chloride Flush 3 ML SYRINGE IVFLUSH (20:00)
[2020-12-26 23:34] VITALS: BP 106/48; PULSE 53; RESP 18; TEMP 36.7; O2SAT 96
[2020-12-27 03:04] VITALS: BP 114/60; PULSE 62; RESP 18; TEMP 36.2; O2SAT 100
[2020-12-27 07:13] VITALS: BP 129/52; PULSE 52; RESP 18; TEMP 36.4; O2SAT 100
[2020-12-27 10:59] VITALS: BP 119/54; PULSE 62; RESP 18; TEMP 36.1; O2SAT 96
[2020-12-27] MEDS: Thiamine HCL 100 MG TABLET PO (11:37)
[2020-12-27] MEDS: QUEtiapine Fumarate 25 MG TABLET PO ×2 (11:38→20:48)
[2020-12-27] MEDS: Aspirin 81 MG TAB.CHEW PO (11:38)
--- NOTE | 2020-12-27 11:40 | MHC.CLN ---
F/U PO INTAKE REMAINS EXCELLENT DIET RX: GRD M/S-APPROPRIATE PT RECEIVING ENSURE TID TO INCREASE KCALS PROVIDES 1050KCALS, 60G PROTEIN OBTAIN CURRENT WEIGHT R/T MALNUTRITION
[2020-12-27 15:18] VITALS: BP 91/51; PULSE 70; RESP 16; TEMP 36.2; O2SAT 98
[2020-12-27] MEDS: Enoxaparin Sodium 40 MG/0.4 ML SYRINGE SUBCUT (15:57)
--- NOTE | 2020-12-27 16:56 | P.PNIM_ITS ---
Subjective Subjective Date of Service: 12/27/20 Interval History: seen in f/u guardianship, encephalopathy Review of Systems General no headache no dizziness no fever chills. CVS no chest pain, no palpitation. Respiratory no cough, no sob. Gastrointestinal no nausea no vomiting, no abdominal pain Physical Exam Vital Signs: Vital Signs: Last Vital Signs Temp 97.1 F 12/27/20 15:18 Pulse 70 12/27/20 15:18 Resp 16 12/27/20 15:18 BP 91/51 L 12/27/20 15:18 Pulse Ox 98 12/27/20 15:18 Body Mass Index 18.9 General no acute distress. Neck supple no JVD. CVS regular rate rhythm, Respiratory lungs clear to auscultation, no respiratory distress, no wheeze, no rhonchi. Gastrointestinal abdomen soft, nontender, bowel sounds audible, no guarding , no rigidity. Extremities no edema. Neuro nonfocal, patient moving all 4 extremity, speech clear. Skin no rash Objective Data Active Medications Acetaminophen (Acetaminophen 325 Mg Tablet) 650 mg PO Q6H PRN PRN Reason: Pain, Mild (Pain Scale 1-3) Aspirin (Aspirin 81 Mg Tab.Chew) 81 mg PO DAILY [facility] Last Admin: 12/27/20 11:38 Dose: 81 mg Documented by: NEVAEH Atorvastatin Calcium (Atorvastatin Calcium 40 Mg Tablet) 40 mg PO BEDTIME [facility] Last Admin: 12/26/20 19:58 Dose: 40 mg Documented by: STEFAN Docusate Sodium (Docusate Sodium 100 Mg Capsule) 100 mg PO BID PRN PRN Reason: Constipation Enoxaparin Sodium (Enoxaparin Sodium 40 Mg/0.4 Ml Syringe) 40 mg SUBCUT Q24H S Last Admin: 12/27/20 15:57 Dose: 40 mg Documented by: NEVAEH Melatonin (Melatonin 3 Mg Tablet) 3 mg PO BEDTIME [facility] Last Admin: 12/26/20 20:00 Dose: Not Given Documented by: STEFAN Non-Admin Reason: Patient Refused Pharmacy Consult (Consult Rx Perform Med Rec) 1 each MISCELLANE ONCE PRN PRN Reason: Consult order Quetiapine Fumarate (Quetiapine Fumarate 25 Mg Tablet) 25 mg PO BID [facility] Last Admin: 12/27/20 11:38 Dose: 25 mg Documented by: NEVAEH Sodium Chloride (0.9 % Sodium Chloride Flush 3 Ml Syringe) 3 ml IVFLUSH QSHIFT [facility] Last Admin: 12/27/20 15:55 Dose: Not Given Documented by: NEVAEH Non-Admin Reason: No Access Thiamine HCl (Thiamine Hcl 100 Mg Tablet) 100 mg PO DAILY [facility] Last Admin: 12/27/20 11:37 Dose: 100 mg Documented by: NEVAEH Trazodone HCl (Trazodone Hcl 25 Mg Halftab) 25 mg PO BEDTIME PRN PRN Reason: insomnia Last Admin: 12/25/20 19:51 Dose: 25 mg Documented by: ANTOIC Labs CBC & Chem 7: 12/20/20 06:20 12/20/20 06:20 Assessment and Plan (1) Encephalopathy: Status: Acute (2) Thiamine deficiency: Status: Acute (3) Unable to care for self: Status: Acute (4) Dementia: Status: Acute Assessment and Plan: 75yo male with no known medical history sent in for inadequate self-care, living in [facility], found to have CT evidence of subacute CVA though no neurologic deficit appreciated, deemed to not have capacity to make medical conditions and now awaiting guardianship hearing--No new issues Inability for self-care- undiagnosed dementia, ? 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 for Wernicke-Korsakoff with parenteral -> PO thiamine; B1 level was low at 6 cont.quetiapine for agitation, melatonin, prn trazodone Subacute stroke?? ? Patient denies any weakness, no speech impairment. carotid dopplers-no significant carotid disease echo done 12/09 with preserved EF, with basal inferior segment akinesis. no chest pain, no EKG changes. - recommend outpatient cardiology follow up MRI brain 12/08?No mass lesion, acute infarction, or abnormal intracranial enhancement. Mild degree of diffuse brain parenchymal volume loss. EEG 12/08 no seizure activity Seen by Neuro -workup including?T pallidum EIA, HIV, SARAH all negative Continue aspirin, statin Thiamine deficiency Oral thiamine replacement, s/p IV replacement ? tobacco abuse NRT EtOH abuse unable to corroborrate hx. ? no signs of withdrawal.?multivitamin + thiamine as above, Status post treatment with phenobarbital moderate protein/calorie malnutrition Ensure tid, multivitamin Prominent polypoid soft tissue? seen within the right and left sided palatine tonsillar fossa for which direct visual inspection/ENT evaluation is recommended--Not able to get this done inpatient and will need outpatient follow up for it. Seen by psych.? Does not have capacity to make medical decisions. Needs guardianship, in progress.? Guardianship hearing scheduled for December 26, case discussed with Case management they are waiting to hear the guardianship hearing report. VTE ppx SCDs, [facility] Quality Stroke Does the patient have a stroke diagnosis?: Yes Reason for No Anti-thrombotic by Day Two: N/A - Med Ordered VTE Prior VTE?: No VTE Risk Level:: Medical - moderate - high VTE Device Contraindication: N/A - Device Ordered VTE Drug Contraindication: N/A - Med Ordered
[2020-12-27 19:14] VITALS: BP 130/66; PULSE 18; RESP 18; TEMP 36.8; O2SAT 100
[2020-12-27] MEDS: Melatonin 3 MG TABLET PO (20:48)
[2020-12-27] MEDS: Atorvastatin Calcium 40 MG TABLET PO (20:48)
[2020-12-27 23:56] VITALS: BP 122/63; PULSE 65; RESP 18; TEMP 36.8; O2SAT 100
[2020-12-28] MEDS: 0.9 % Sodium Chloride Flush 3 ML SYRINGE IVFLUSH (00:19)
[2020-12-28 04:00] VITALS: BP 123/56; PULSE 67; RESP 18; TEMP 36.9; O2SAT 100
[2020-12-28 07:51] VITALS: BP 134/55; PULSE 56; RESP 18; TEMP 36.7; O2SAT 99
[2020-12-28] MEDS: QUEtiapine Fumarate 25 MG TABLET PO ×2 (10:52→20:39)
[2020-12-28] MEDS: Thiamine HCL 100 MG TABLET PO (10:53)
[2020-12-28] MEDS: Aspirin 81 MG TAB.CHEW PO (10:53)
[2020-12-28 11:32] VITALS: BP 112/54; PULSE 55; RESP 18; TEMP 36.7; O2SAT 99
[2020-12-28] MEDS: Enoxaparin Sodium 40 MG/0.4 ML SYRINGE SUBCUT (15:03)
--- NOTE | 2020-12-28 15:07 | MHC.CM.PN ---
PT CONTINUES TO REQUIRE PLACEMENT/GUARDIANSHIP. GUARDIAN WORKING ON SPENDING DOWN ASSETS SO THAT PT CAN OBTAIN [facility] FOR LT PLACEMENT
[2020-12-28 15:14] VITALS: BP 128/58; PULSE 50; RESP 18; TEMP 37; O2SAT 100
--- NOTE | 2020-12-28 15:37 | P.PNIM_ITS ---
Subjective Subjective Date of Service: 12/28/20 Interval History: Patient being followed for episode of encephalopathy and guardianship, he offers no complaints, no acute issues overnight Review of Systems General no headache no dizziness no fever chills.? CVS no chest pain, no palpitation.? Respiratory no cough, no sob.? Gastrointestinal no nausea no vomiting, no abdominal pain Physical Exam Vital Signs: Vital Signs: Last Vital Signs Temp 98.6 F 12/28/20 15:14 Pulse 50 12/28/20 15:14 Resp 18 12/28/20 15:14 BP 128/58 L 12/28/20 15:14 Pulse Ox 100 12/28/20 15:14 Body Mass Index 18.9 General? no acute distress.? Neck? s upple no JVD. CVS? regular rate rhyt hm, Respiratory phani ngs clear to auscu ltation, no respir atory distress, no wheeze, no rhonch i. Gastrointestina l abdomen soft, no ntender, bowel fr[place] nds audible, no gu arding , no rigidi ty. Extremities no edema. Neuro nonf ocal, patient movi ng all 4 extremity , speech clear. Sk in no rash Objective Data Active Medications Acetaminophen (Acetaminophen 325 Mg Tablet) 650 mg PO Q6H PRN PRN Reason: Pain, Mild (Pain Scale 1-3) Aspirin (Aspirin 81 Mg Tab.Chew) 81 mg PO DAILY [facility] Last Admin: 12/28/20 10:53 Dose: 81 mg Documented by: TENZIN Atorvastatin Calcium (Atorvastatin Calcium 40 Mg Tablet) 40 mg PO BEDTIME [facility] Last Admin: 12/27/20 20:48 Dose: 40 mg Documented by: TIMOTHY Docusate Sodium (Docusate Sodium 100 Mg Capsule) 100 mg PO BID PRN PRN Reason: Constipation Enoxaparin Sodium (Enoxaparin Sodium 40 Mg/0.4 Ml Syringe) 40 mg SUBCUT Q24H [facility] Last Admin: 12/28/20 15:03 Dose: 40 mg Documented by: TENZIN Melatonin (Melatonin 3 Mg Tablet) 3 mg PO BEDTIME [facility] Last Admin: 12/27/20 20:48 Dose: 3 mg Documented by: TIMOTHY Pharmacy Consult (Consult Rx Perform Med Rec) 1 each MISCELLANE ONCE PRN PRN Reason: Consult order Quetiapine Fumarate (Quetiapine Fumarate 25 Mg Tablet) 25 mg PO BID [facility] Last Admin: 12/28/20 10:52 Dose: 25 mg Documented by: TENZIN Sodium Chloride (0.9 % Sodium Chloride Flush 3 Ml Syringe) 3 ml IVFLUSH QSHIFT [facility] Last Admin: 12/28/20 15:03 Dose: Not Given Documented by: TENZIN Non-Admin Reason: No Access Thiamine HCl (Thiamine Hcl 100 Mg Tablet) 100 mg PO DAILY [facility] Last Admin: 12/28/20 10:53 Dose: 100 mg Documented by: TENZIN Trazodone HCl (Trazodone Hcl 25 Mg Halftab) 25 mg PO BEDTIME PRN PRN Reason: insomnia Last Admin: 12/25/20 19:51 Dose: 25 mg Documented by: ANTOIC Labs CBC & Chem 7: 12/20/20 06:20 12/20/20 06:20 Assessment and Plan (1) Thiamine deficiency: Status: Acute (2) Unable to care for self: Status: Acute (3) Dementia: Status: Acute Assessment and Plan: 75yo male with no known medical history sent in for inadequate self-care, living in [facility], found to have CT evidence of subacute CVA though no neurologic d eficit appreciated, deemed to not have capacity to make medical conditions and now awaiting guardianship hearing--No new issues Inability for self-care- undiagnosed dementia, ? 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 Patient denies any weakness, no speech impairment. carotid dopplers-no significant carotid disease echo done 12/09 with preserved EF, with basal inferior segment akinesis. no chest pain, no EKG changes. - recommend outpatient cardiology follow up MRI brain 12/08?No mass lesion, acute infarction, or abnormal intracranial enhancement. Mild degree of diffuse brain parenchymal volume loss. EEG 12/08 no seizure activity Seen by Neuro ,workup including?T pallidum EIA, HIV, SARAH all negative Continue aspirin, statin Thiamine deficiency Oral thiamine replacement, s/p IV replacement ? EtOH abuse unable to corroborrate hx. ? no signs of withdrawal.?multivitamin + thiamine as above, Status post treatment with phenobarbital moderate protein/calorie malnutrition Ensure tid, multivitamin Prominent polypoid soft tissue? seen within the right and left sided palatine tonsillar fossa for which direct visual inspection/ENT evaluation is recommended--Not able to get this done inpatient and will need outpatient follow up for it. Seen by psych.? Does not have capacity to make medical decisions. Needs g uardianship, case discussed with Case management they are waiting to hear? the guardianship hearing report. VTE ppx SCDs, [facility] Quality Stroke Does the patient have a stroke diagnosis?: Yes Reason for No Anti-thrombotic by Day Two: N/A - Med Ordered VTE Prior VTE?: No VTE Risk Level:: Medical - moderate - high VTE Device Contraindication: N/A - Device Ordered VTE Drug Contraindication: N/A - Med Ordered
[2020-12-28 19:11] VITALS: BP 110/53; PULSE 55; RESP 18; TEMP 36.1; O2SAT 100
[2020-12-28] MEDS: Melatonin 3 MG TABLET PO (20:39)
[2020-12-28] MEDS: Atorvastatin Calcium 40 MG TABLET PO (20:39)
[2020-12-29] VITALS (7 sets, daily range): BP systolic 100–148; BP diastolic 50–74; PULSE 54–73; RESP 18; TEMP 36.1–36.8; O2SAT 94–100; BMI 18.7
[2020-12-29] MEDS: Thiamine HCL 100 MG TABLET PO (07:49)
[2020-12-29] MEDS: QUEtiapine Fumarate 25 MG TABLET PO ×2 (07:49→21:51)
[2020-12-29] MEDS: Aspirin 81 MG TAB.CHEW PO (07:49)
--- NOTE | 2020-12-29 11:44 | MHC.CLN ---
F/U PO INTAKE REMAINS EXCELLENT DIET RX: GRD M/S-APPROPRIATE PT RECEIVING ENSURE TID TO INCREASE KCALS PROVIDES 1050KCALS, 60G PROTEIN OBTAIN CURRENT WEIGHT R/T MALNUTRITION LAST KNOWN WT 135.7# (12/22/20) NO CHANGE
--- NOTE | 2020-12-29 12:38 | MHC.CM.PN ---
message left for court appt guardian carlos stepan [phone] re [place] of pts financial situation to qualify for [facility] or [facility]
--- NOTE | 2020-12-29 13:10 | HO.PM.IMPN ---
Subjective Subjective Date of Service: 12/29/20 Interval History: being followed for episode of encephalopathy and guardianship, he offers no complaints, no acute issues overnight, tolerating diet, admits that he is happy being here. Review of Systems General no headache, no dizziness, no fever chills.? CVS no chest pain, no palpitation.? Respiratory no cough, no sob.? Gastrointestinal no nausea, no vomiting, no abdominal pain Physical Exam Vital Signs: Vital Signs: Last Vital Signs Temp 97 F 12/29/20 10:49 Pulse 55 12/29/20 10:49 Resp 18 12/29/20 10:49 BP 105/50 L 12/29/20 10:49 Pulse Ox 98 12/29/20 10:49 Body Mass Index 18.9 General? no acutedistress.? Neck? supple no JVD. CVS??regular rate rhythm, Respiratory lungs clear to auscultation, no respiratory distress, no?wheeze, no rhonchi. Gastrointestinal abdomen soft, nontender, bowel sounds audible, no guarding , no rigidity. Extremities no?edema. Neuro nonfocal, patient moving all 4 extremity, speech clear. Skin no rash Objective Data Active Medications Acetaminophen (Acetaminophen 325 Mg Tablet) 650 mg PO Q6H PRN PRN Reason: Pain, Mild (Pain Scale 1-3) Aspirin (Aspirin 81 Mg Tab.Chew) 81 mg PO DAILY [facility] Last Admin: 12/29/20 07:49 Dose: 81 mg Documented by: TENZIN Atorvastatin Calcium (Atorvastatin Calcium 40 Mg Tablet) 40 mg PO BEDTIME [facility] Last Admin: 12/28/20 20:39 Dose: 40 mg Documented by: PRASANNA Docusate Sodium (Docusate Sodium 100 Mg Capsule) 100 mg PO BID PRN PRN Reason: Constipation Enoxaparin Sodium (Enoxaparin Sodium 40 Mg/0.4 Ml Syringe) 40 mg SUBCUT Q24H [facility] Last Admin: 12/28/20 15:03 Dose: 40 mg Documented by: TENZIN Melatonin (Melatonin 3 Mg Tablet) 3 mg PO BEDTIME [facility] Last Admin: 12/28/20 20:39 Dose: 3 mg Documented by: PRASANNA Pharmacy Consult (Consult Rx Perform Med Rec) 1 each MISCELLANE ONCE PRN PRN Reason: Consult order Quetiapine Fumarate (Quetiapine Fumarate 25 Mg Tablet) 25 mg PO BID [facility] Last Admin: 12/29/20 07:49 Dose: 25 mg Documented by: TENZIN Sodium Chloride (0.9 % Sodium Chloride Flush 3 Ml Syringe) 3 ml IVFLUSH QSHIFT [facility] Last Admin: 12/29/20 07:49 Dose: Not Given Documented by: TENZIN Non-Admin Reason: No Access Thiamine HCl (Thiamine Hcl 100 Mg Tablet) 100 mg PO DAILY [facility] Last Admin: 12/29/20 07:49 Dose: 100 mg Documented by: TENZIN Trazodone HCl (Trazodone Hcl 25 Mg Halftab) 25 mg PO BEDTIME PRN PRN Reason: insomnia Last Admin: 12/25/20 19:51 Dose: 25 mg Documented by: ANTOIC Labs CBC & Chem 7: 12/20/20 06:20 12/20/20 06:20 Assessment and Plan (1) Thiamine deficiency: Status: Acute (2) Encephalopathy: Status: Acute (3) Stroke: Status: Acute (4) Delirium due to another medical condition: Status: Acute (5) Unable to care for self: Status: Acute (6) Dementia: Status: Acute Assessment and Plan: 75yo male with no known medical history sent in for inadequate self-care, living in [facility], found to have CT evidence of subacute CVA though no neurologic deficit appreciated, deemed to not have capacity to make medical conditions and now awaiting guardianship hearing--No new issues Inability for self-care [facility] due to undiagnosed dementia, ? 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 Patient denies any weakness, no speech impairment. carotid dopplers-no significant carotid disease echo done 12/09 with preserved EF, with basal inferior segment akinesis. no chest pain, no EKG changes. - recommend outpatient cardiology follow up MRI brain 12/08?No mass lesion, acute infarction, or abnormal intracranial enhancement. Mild degree of diffuse brain parenchymal volume loss. EEG 12/08 no seizure activity Seen by Neuro ,workup including?T pallidum EIA, HIV, SARAH all negative Continue aspirin, statin Thiamine deficiency Oral thiamine replacement, s/p IV replacement ? EtOH abuse unable to corroborrate hx. ? no signs of withdrawal.?multivitamin + thiamine as above, Status post treatment with phenobarbital moderate protein/calorie malnutrition Continue Ensure tid, multivitamin Prominent polypoid soft tissue? seen within the right and left sided palatine tonsillar fossa for which direct visual inspection/ENT evaluation is recommended--Not able to get this done inpatient and will need outpatient follow up for it. Seen by psych.? Does not have capacity to make medical decisions. Guardianship obtained, case discussed with Case management they are arranging for safe discharge. VTE ppx SCDs, [facility] Quality Stroke Does the patient have a stroke diagnosis?: Yes Reason for No Anti-thrombotic by Day Two: N/A - Med Ordered VTE Prior VTE?: No VTE Risk Level:: Medical - moderate - high VTE Device Contraindication: N/A - Device Ordered VTE Drug Contraindication: N/A - Med Ordered
--- NOTE | 2020-12-29 15:55 | MHC.CM.PN ---
received call back from guardian carlosclifton ying requesting a call back attempted 2x to re call carlos was unable to connect with her due to cell service problem was also unable to leave a t/m
[2020-12-29] MEDS: Enoxaparin Sodium 40 MG/0.4 ML SYRINGE SUBCUT (16:18)
[2020-12-29] MEDS: traZODone HCL 25 MG HALFTAB PO (21:51)
[2020-12-29] MEDS: Atorvastatin Calcium 40 MG TABLET PO (21:51)
[2020-12-29] MEDS: Melatonin 3 MG TABLET PO (21:51)
[2020-12-30 07:16] VITALS: BP 113/57; PULSE 50; RESP 18; TEMP 36.1; O2SAT 98
[2020-12-30] MEDS: Aspirin 81 MG TAB.CHEW PO (08:31)
[2020-12-30] MEDS: 0.9 % Sodium Chloride Flush 3 ML SYRINGE IVFLUSH (08:32)
[2020-12-30] MEDS: Thiamine HCL 100 MG TABLET PO (08:32)
[2020-12-30] MEDS: QUEtiapine Fumarate 25 MG TABLET PO ×2 (08:32→21:11)
[2020-12-30 10:57] VITALS: BP 117/58; PULSE 59; RESP 18; TEMP 36.1; O2SAT 100
--- NOTE | 2020-12-30 14:05 | P.PNIM_ITS ---
Subjective Subjective Date of Service: 12/30/20 Interval History: being followed for episode of encephalopathy and guardianship, he offers no complaints, no acute issues overnight, tolerating diet, admits that he is happy being here. Review of Systems General no headache, no dizziness, no fever chills.? CVS no chest pain, no palpitation.? Respiratory no cough, no sob.? Gastrointestinal no nausea, no vomiting, no abdominal pain Physical Exam Vital Signs: Vital Signs: Last Vital Signs Temp 97 F 12/30/20 10:57 Pulse 59 12/30/20 10:57 Resp 18 12/30/20 10:57 BP 117/58 L 12/30/20 10:57 Pulse Ox 100 12/30/20 10:57 Body Mass Index 18.7 General? no acute distress.? Neck? supple no JVD. CVS??regular rate rhythm, Respiratory lungs clear to auscultation, no respiratory distress, no?wheeze, no rhonchi. Gastrointestinal abdomen soft, nontender, bowel sounds audible, no guarding , no rigidity. Extremities no?edema. Neuro nonfocal, patient moving all 4 extremity, speech clear. Skin no rash Objective Data Active Medications Acetaminophen (Acetaminophen 325 Mg Tablet) 650 mg PO Q6H PRN PRN Reason: Pain, Mild (Pain Scale 1-3) Aspirin (Aspirin 81 Mg Tab.Chew) 81 mg PO DAILY [facility] Last Admin: 12/30/20 08:31 Dose: 81 mg Documented by: SUSAN Atorvastatin Calcium (Atorvastatin Calcium 40 Mg Tablet) 40 mg PO BEDTIME [facility] Last Admin: 12/29/20 21:51 Dose: 40 mg Documented by: PRASANNA Docusate Sodium (Docusate Sodium 100 Mg Capsule) 100 mg PO BID PRN PRN Reason: Constipation Enoxaparin Sodium (Enoxaparin Sodium 40 Mg/0.4 Ml Syringe) 40 mg SUBCUT Q24H [facility] Last Admin: 12/29/20 16:18 Dose: 40 mg Documented by: TENZIN Melatonin (Melatonin 3 Mg Tablet) 3 mg PO BEDTIME [facility] Last Admin: 12/29/20 21:51 Dose: 3 mg Documented by: PRASANNA Pharmacy Consult (Consult Rx Perform Med Rec) 1 each MISCELLANE ONCE PRN PRN Reason: Consult order Quetiapine Fumarate (Quetiapine Fumarate 25 Mg Tablet) 25 mg PO BID [facility] Last Admin: 12/30/20 08:32 Dose: 25 mg Documented by: SUSAN Sodium Chloride (0.9 % Sodium Chloride Flush 3 Ml Syringe) 3 ml IVFLUSH QSHIFT [facility] Last Admin: 12/30/20 08:32 Dose: 3 ml Documented by: SUSAN Thiamine HCl (Thiamine Hcl 100 Mg Tablet) 100 mg PO DAILY [facility] Last Admin: 12/30/20 08:32 Dose: 100 mg Documented by: SUSAN Trazodone HCl (Trazodone Hcl 25 Mg Halftab) 25 mg PO BEDTIME PRN PRN Reason: insomnia Last Admin: 12/29/20 21:51 Dose: 25 mg Documented by: PRASANNA Labs CBC & Chem 7: 12/20/20 06:20 12/20/20 06:20 Assessment and Plan (1) Thiamine deficiency: Status: Acute (2) Stroke: Status: Acute (3) Unable to care for self: Status: Acute (4) Dementia: Status: Acute Assessment and Plan: 75yo male with no known medical history sent in for inadequate self-care, living in [facility], found to have CT evidence of subacute CVA though no neurologic deficit appreciated, deemed to not have capacity to make medical conditions and now awaiting guardianship hearing- No new issues in last several days. Inability for self-care [facility] due to undiagnosed dementia, ? 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 Patient denied any weakness,had no speech impairment. carotid dopplers-no significant carotid disease echo done 12/09 with preserved EF, with basal inferior segment akinesis. no chest pain, no EKG changes. - recommend outpatient cardiology follow up MRI brain 12/08?No mass lesion, acute infarction, or abnormal intracranial enhancement. Mild degree of diffuse brain parenchymal volume loss. EEG 12/08 no seizure activity Seen by Neuro ,workup including?T pallidum EIA, HIV, SARAH all negative Continue aspirin, statin Thiamine deficiency Oral thiamine replacement, s/p IV replacement ? EtOH abuse unable to corroborrate hx. ? no signs of withdrawal.?multivitamin + thiamine as above, Status post treatment with phenobarbital moderate protein/calorie malnutrition Continue Ensure tid, multivitamin Prominent polypoid soft tissue? seen within the right and left sided palatine tonsillar fossa for which direct visual inspection/ENT evaluation is recommended--Not able to get this done inpatient and will need outpatient follow up for it. Seen by psych.? Does not have capacity to make medical decisions.? Guardianship obtained, case discussed with Case management they are arranging for safe discharge. VTE ppx SCDs, LMWH Quality Stroke Does the patient have a stroke diagnosis?: Yes Reason for No Anti-thrombotic by Day Two: N/A - Med Ordered VTE Prior VTE?: No VTE Risk Level:: Medical - moderate - high VTE Device Contraindication: N/A - Device Ordered VTE Drug Contraindication: N/A - Med Ordered
[2020-12-30 15:36] VITALS: BP 145/66; PULSE 54; RESP 19; TEMP 37.2; O2SAT 100
[2020-12-30] MEDS: Enoxaparin Sodium 40 MG/0.4 ML SYRINGE SUBCUT (16:49)
[2020-12-30 19:44] VITALS: BP 102/45; PULSE 112; RESP 19; TEMP 37.1; O2SAT 100
[2020-12-30] MEDS: Atorvastatin Calcium 40 MG TABLET PO (21:10)
[2020-12-30] MEDS: Melatonin 3 MG TABLET PO (21:11)
[2020-12-30] MEDS: traZODone HCL 25 MG HALFTAB PO (21:11)
[2020-12-31] VITALS: BP 113/57; PULSE 56; RESP 18; TEMP 37.3; O2SAT 99
--- NOTE | 2020-12-31 06:19 | PC.NURSE ---
Pt urinating in different areas of the room all throughout the night. Unable to redirect patient to urinate in bathroom due to impaired memory.
[2020-12-31 06:55] VITALS: BP 131/71; PULSE 54; RESP 18; TEMP 36.6; O2SAT 99
[2020-12-31] MEDS: Thiamine HCL 100 MG TABLET PO (10:20)
[2020-12-31] MEDS: Aspirin 81 MG TAB.CHEW PO (10:20)
[2020-12-31] MEDS: QUEtiapine Fumarate 25 MG TABLET PO ×2 (10:20→20:18)
[2020-12-31 11:06] VITALS: BP 110/58; PULSE 57; RESP 18; TEMP 36; O2SAT 99
--- NOTE | 2020-12-31 14:12 | P.PNIM_ITS ---
Subjective Subjective Date of Service: 12/31/20 Interval History: being followed for episode of encephalopathy and guardianship, he offers no complaints, no acute issues overnight, tolerating diet, wants to remain in hospital. Review of Systems General no headache, no dizziness, no fever chills.? CVS no chest pain, no palpitation.? Respiratory no cough, no sob.? Gastrointestinal no nausea, no vomiting, no abdominal pain Review of Systems: Yes all other systems are reviewed and are negative Physical Exam Vital Signs: Vital Signs: Last Vital Signs Temp 96.8 F 12/31/20 11:06 Pulse 57 12/31/20 11:06 Resp 18 12/31/20 11:06 BP 110/58 L 12/31/20 11:06 Pulse Ox 99 12/31/20 11:06 Body Mass Index 18.7 General? no acute distress.? Neck? supple no JVD. CVS??regular rate rhythm, Respiratory lungs clear to auscultation, no respiratory distress, no?wheeze, no rhonchi. Gastrointestinal abdomen soft, nontender, bowel sounds audible, no guarding , no rigidity. Extremities no?edema. Neuro nonfocal, patient moving all 4 extremity, speech clear. Skin no rash Objective Data Active Medications Acetaminophen (Acetaminophen 325 Mg Tablet) 650 mg PO Q6H PRN PRN Reason: Pain, Mild (Pain Scale 1-3) Aspirin (Aspirin 81 Mg Tab.Chew) 81 mg PO DAILY [facility] Last Admin: 12/31/20 10:20 Dose: 81 mg Documented by: PRASAD Atorvastatin Calcium (Atorvastatin Calcium 40 Mg Tablet) 40 mg PO BEDTIME [facility] Last Admin: 12/30/20 21:10 Dose: 40 mg Documented by: PRASANNA Docusate Sodium (Docusate Sodium 100 Mg Capsule) 100 mg PO BID PRN PRN Reason: Constipation Enoxaparin Sodium (Enoxaparin Sodium 40 Mg/0.4 Ml Syringe) 40 mg SUBCUT Q24H [facility] Last Admin: 12/30/20 16:49 Dose: 40 mg Documented by: SUSAN Melatonin (Melatonin 3 Mg Tablet) 3 mg PO BEDTIME [facility] Last Admin: 12/30/20 21:11 Dose: 3 mg Documented by: PRASANNA Pharmacy Consult (Consult Rx Perform Med Rec) 1 each MISCELLANE ONCE PRN PRN Reason: Consult order Quetiapine Fumarate (Quetiapine Fumarate 25 Mg Tablet) 25 mg PO BID [facility] Last Admin: 12/31/20 10:20 Dose: 25 mg Documented by: PRASAD Sodium Chloride (0.9 % Sodium Chloride Flush 3 Ml Syringe) 3 ml IVFLUSH QSHIFT [facility] Last Admin: 12/31/20 10:22 Dose: Not Given Documented by: PRASAD Non-Admin Reason: No Access Thiamine HCl (Thiamine Hcl 100 Mg Tablet) 100 mg PO DAILY [facility] Last Admin: 12/31/20 10:20 Dose: 100 mg Documented by: PRASAD Trazodone HCl (Trazodone Hcl 25 Mg Halftab) 25 mg PO BEDTIME PRN PRN Reason: insomnia Last Admin: 12/30/20 21:11 Dose: 25 mg Documented by: PRASANNA Labs CBC & Chem 7: 12/20/20 06:20 12/20/20 06:20 Assessment and Plan (1) Thiamine deficiency: Status: Acute (2) Unable to care for self: Status: Acute (3) Dementia: Status: Acute Assessment and Plan: 75yo male with no known medical history sent in for inadequate self-care, living in [facility], found to have CT evidence of subacute CVA though no neurologic deficit appreciated, deemed to not have capacity to make medical conditions and now awaiting guardianship hearing- No new issues in last several days. Inability for self-care [facility] due to undiagnosed dementia, ? 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 Patient denied any weakness,had no speech impairment,1.2 cm area of decreased attenuation seen in the left external capsule/claustrum questionable for subacute infarct. carotid dopplers-no significant carotid disease echo done 12/09 with preserved EF, with basal inferior segment akinesis. no chest pain, no EKG changes. - recommend outpatient cardiology follow up MRI brain 12/08?No mass lesion, acute infarction, or abnormal intracranial enhan cement. Mild degree of diffuse brain parenchymal volume loss. EEG 9/3 no seizure activity Seen by Neuro ,workup including?T pallidum EIA, HIV, SARAH all negative Continue aspirin, statin Thiamine deficiency Oral thiamine replacement, s/p IV replacement ? EtOH abuse unable to corroborate hx. ? no signs of withdrawal.?multivitamin + thiamine as above, Status post treatment with phenobarbital moderate protein/calorie malnutrition Continue Ensure tid, multivitamin Prominent polypoid soft tissue? seen within the right and left sided palatine tonsillar fossa for which direct visual inspection/ENT evaluation is recommended--Not able to get this done inpatient and will need outpatient follow up for it. Seen by psych.? Does not have capacity to make medical decisions.? Guardianship obtained, case discussed with Case management they are arranging for safe discha rge. VTE ppx SCDs, [facility] Quality Stroke Does the patient have a stroke diagnosis?: Yes Reason for No Anti-thrombotic by Day Two: N/A - Med Ordered VTE Prior VTE?: No VTE Risk Level:: Medical - moderate - high VTE Device Contraindication: N/A - Device Ordered VTE Drug Contraindication: N/A - Med Ordered
[2020-12-31 15:32] VITALS: BP 135/65; PULSE 55; RESP 18; TEMP 36.2; O2SAT 100
[2020-12-31] MEDS: Enoxaparin Sodium 40 MG/0.4 ML SYRINGE SUBCUT (15:46)
[2020-12-31 19:43] VITALS: BP 116/56; PULSE 70; RESP 20; TEMP 37.2; O2SAT 98
[2020-12-31] MEDS: Atorvastatin Calcium 40 MG TABLET PO (20:18)
[2020-12-31] MEDS: Melatonin 3 MG TABLET PO (20:18)
[2020-12-31 23:14] VITALS: BP 125/63; PULSE 98; RESP 18; TEMP 37; O2SAT 98
[2021-01-01 04:00] VITALS: BP 120/64; PULSE 54; RESP 18; TEMP 36.7; O2SAT 100
[2021-01-01 07:30] VITALS: BP 131/65; PULSE 54; RESP 18; TEMP 36.3; O2SAT 100
[2021-01-01] MEDS: Thiamine HCL 100 MG TABLET PO (08:56)
[2021-01-01] MEDS: Aspirin 81 MG TAB.CHEW PO (08:56)
[2021-01-01] MEDS: QUEtiapine Fumarate 25 MG TABLET PO ×2 (08:56→21:03)
[2021-01-01 10:54] VITALS: BP 135/66; PULSE 56; RESP 18; TEMP 36.6; O2SAT 99
--- NOTE | 2021-01-01 12:13 | MHC.CM.PN ---
PER ROUNDS PT MEDICALLY READY FOR DC ,PT OWNS HO ME WHICH NEEDS TO BE SOLD AND THEN QUALIFY FOR [facility] VS PP
--- NOTE | 2021-01-01 12:13 | MHC.CLN ---
F/U PO INTAKE REMAINS EXCELLENT DIET RX: GRD M/S-APPROPRIATE PT RECEIVING ENSURE TID TO INCREASE KCALS PROVIDES 1050KCALS, 60G PROTEIN WT REMAINS STABLE CONTINUE WEEKLY WEIGHTS R/T HIGH NUTRITION RISK
--- NOTE | 2021-01-01 12:49 | HO.PM.IMPN ---
Subjective Subjective Date of Service: 01/01/21 Interval History: being followed for episode of encephalopathy and guardianship, he offers no complaints, feels everything is good, no acute issues overnight, tolerating diet, wants to remain in hospital. Review of Systems General no headache, no dizziness, no fever chills.? CVS no chest pain, no palpitation.? Respiratory no cough, no sob.? Gastrointestinal no nausea, no vomiting, no abdominal pain Physical Exam Vital Signs: Vital Signs: Last Vital Signs Temp 97.9 F 01/01/21 10:54 Pulse 56 01/01/21 10:54 Resp 18 01/01/21 10:54 BP 135/66 01/01/21 10:54 Pulse Ox 99 01/01/21 10:54 Body Mass Index 18.7 General? no acute distress.? Neck? supple no JVD. CVS??regular rate rhythm, Respiratory lungs clear to auscultation, no respiratory distress, no?wheeze, no rhonchi. Gastrointestinal abdomen soft, nontender, bowel sounds audible, no guarding , no rigidity. Extremities no?edema. Neuro nonfocal, patient moving all 4 extremity, speech clear. Skin no rash Objective Data Active Medications Acetaminophen (Acetaminophen 325 Mg Tablet) 650 mg PO Q6H PRN PRN Reason: Pain, Mild (Pain Scale 1-3) Aspirin (Aspirin 81 Mg Tab.Chew) 81 mg PO DAILY [facility] Last Admin: 01/01/21 08:56 Dose: 81 mg Documented by: EFRAIN Atorvastatin Calcium (Atorvastatin Calcium 40 Mg Tablet) 40 mg PO BEDTIME [facility] Last Admin: 12/31/20 20:18 Dose: 40 mg Documented by: SAFIA Docusate Sodium (Docusate Sodium 100 Mg Capsule) 100 mg PO BID PRN PRN Reason: Constipation Enoxaparin Sodium (Enoxaparin Sodium 40 Mg/0.4 Ml Syringe) 40 mg SUBCUT Q24H [facility] Last Admin: 12/31/20 15:46 Dose: 40 mg Documented by: PRASAD Melatonin (Melatonin 3 Mg Tablet) 3 mg PO BEDTIME [facility] Last Admin: 12/31/20 20:18 Dose: 3 mg Documented by: SAFIA Pharmacy Consult (Consult Rx Perform Med Rec) 1 each MISCELLANE ONCE PRN PRN Reason: Consult order Quetiapine Fumarate (Quetiapine Fumarate 25 Mg Tablet) 25 mg PO BID [facility] Last Admin: 01/01/21 08:56 Dose: 25 mg Documented by: EFRAIN Sodium Chloride (0.9 % Sodium Chloride Flush 3 Ml Syringe) 3 ml IVFLUSH QSHIFT [facility] Last Admin: 01/01/21 08:56 Dose: Not Given Documented by: EFRAIN Non-Admin Reason: No Access Thiamine HCl (Thiamine Hcl 100 Mg Tablet) 100 mg PO DAILY [facility] Last Admin: 01/01/21 08:56 Dose: 100 mg Documented by: EFRAIN Trazodone HCl (Trazodone Hcl 25 Mg Halftab) 25 mg PO BEDTIME PRN PRN Reason: insomnia Last Admin: 12/30/20 21:11 Dose: 25 mg Documented by: PRASANNA Labs CBC & Chem 7: 12/20/20 06:20 12/20/20 06:20 Assessment and Plan (1) Thiamine deficiency: Status: Acute (2) Unable to care for self: Status: Acute (3) Dementia: Status: Acute Assessment and Plan: 75yo male with no known medical history sent in for inadequate self-care, living in [facility], found to have CT evidence of subacute CVA though no neurologic deficit appreciated, deemed to not have capacity to make medical conditions and now awaiting guardianship hearing- No new issues in last several days. [facility], ? 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 Patient denied any weakness,had no speech impairment,1.2 cm area of decreased attenuation seen in the left external capsule/claustrum questionable for subacute infarct. carotid dopplers-no significant carotid disease echo done 12/09 with preserved EF, with basal inferior segment akinesis. no chest pain, no EKG changes. - recommend outpatient cardiology follow up MRI brain 12/08?No mass lesion, acute infarction, or abnormal intracranial enhancement. Mild degree of diffuse brain parenchymal volume loss. EEG 12/08 no seizure activity Seen by Neuro ,workup including?T pallidum EIA, HIV, SARAH all negative Continue aspirin, statin Thiamine deficiency Oral thiamine replacement, s/p IV replacement ? EtOH abuse unable to corroborate hx. ? no signs of withdrawal.?multivitamin + thiamine as above, Status post treatment with phenobarbital moderate protein/calorie malnutrition Continue Ensure tid, multivitamin Prominent polypoid soft tissue? seen within the right and left sided palatine tonsillar fossa for which direct visual inspection/ENT evaluation is recommended--Not able to get this done inpatient and will need outpatient follow up for it. Seen by psych.? Does not have capacity to make medical decisions.? Guardianship obtained, case discussed with Case management they are arranging for safe discharge. VTE ppx SCDs, [facility] Quality Stroke Does the patient have a stroke diagnosis?: Yes Reason for No Anti-thrombotic by Day Two: N/A - Med Ordered VTE Prior VTE?: No VTE Risk Level:: Medical - moderate - high VTE Device Contraindication: N/A - Device Ordered VTE Drug Contraindication: N/A - Med Ordered
[2021-01-01 15:34] VITALS: BP 149/77; PULSE 58; RESP 18; TEMP 36.9; O2SAT 97
[2021-01-01] MEDS: Enoxaparin Sodium 40 MG/0.4 ML SYRINGE SUBCUT (17:31)
[2021-01-01 19:26] VITALS: BP 122/63; PULSE 53; RESP 18; TEMP 37; O2SAT 98
[2021-01-01] MEDS: Melatonin 3 MG TABLET PO (21:03)
[2021-01-01] MEDS: Atorvastatin Calcium 40 MG TABLET PO (21:03)
[2021-01-02 07:15] VITALS: BP 101/60; PULSE 53; RESP 18; TEMP 36.6; O2SAT 100
[2021-01-02] MEDS: Thiamine HCL 100 MG TABLET PO (09:03)
[2021-01-02] MEDS: QUEtiapine Fumarate 25 MG TABLET PO ×2 (09:03→20:17)
[2021-01-02] MEDS: Aspirin 81 MG TAB.CHEW PO (09:03)
[2021-01-02 11:25] VITALS: BP 106/66; PULSE 55; RESP 18; TEMP 36.8; O2SAT 98
--- NOTE | 2021-01-02 12:24 | HO.PM.IMPN ---
Subjective Subjective Date of Service: 01/02/21 Interval History: being followed for episode of encephalopathy and guardianship, no complaints, feels everything is good, no acute issues overnight. Review of Systems General no headache, no dizziness, no fever chills.? CVS no chest pain, no palpitation.? Respiratory no cough, no sob.? Gastrointestinal no nausea, no vomiting, no abdominal pain Physical Exam Vital Signs: Vital Signs: Last Vital Signs Temp 98.3 F 01/02/21 11:25 Pulse 55 01/02/21 11:25 Resp 18 01/02/21 11:25 BP 106/66 01/02/21 11:25 Pulse Ox 98 01/02/21 11:25 Body Mass Index 18.7 General?awake alert,no acute distress.? Neck? supple no JVD. CVS??regular rate rhythm, Respiratory lungs clear to auscultation, no respiratory distress, no?wheeze, no rhonchi. Gastrointestinal abdomen soft, nontender, bowel sounds audible, no guarding , no rigidity. Extremities no?edema. Neuro nonfocal, patient moving all 4 extremity, speech clear. Skin no rash Objective Data Active Medications Acetaminophen (Acetaminophen 325 Mg Tablet) 650 mg PO Q6H PRN PRN Reason: Pain, Mild (Pain Scale 1-3) Aspirin (Aspirin 81 Mg Tab.Chew) 81 mg PO DAILY [facility] Last Admin: 01/02/21 09:03 Dose: 81 mg Documented by: EFRAIN Atorvastatin Calcium (Atorvastatin Calcium 40 Mg Tablet) 40 mg PO BEDTIME [facility] Last Admin: 01/01/21 21:03 Dose: 40 mg Documented by: SAFIA Docusate Sodium (Docusate Sodium 100 Mg Capsule) 100 mg PO BID PRN PRN Reason: Constipation Enoxaparin Sodium (Enoxaparin Sodium 40 Mg/0.4 Ml Syringe) 40 mg SUBCUT Q24H [facility] Last Admin: 01/01/21 17:31 Dose: 40 mg Documented by: EFRAIN Melatonin (Melatonin 3 Mg Tablet) 3 mg PO BEDTIME [facility] Last Admin: 01/01/21 21:03 Dose: 3 mg Documented by: SAFIA Pharmacy Consult (Consult Rx Perform Med Rec) 1 each MISCELLANE ONCE PRN PRN Reason: Consult order Quetiapine Fumarate (Quetiapine Fumarate 25 Mg Tablet) 25 mg PO BID [facility] Last Admin: 01/02/21 09:03 Dose: 25 mg Documented by: EFRAIN Sodium Chloride (0.9 % Sodium Chloride Flush 3 Ml Syringe) 3 ml IVFLUSH QSHIFT [facility] Last Admin: 01/02/21 09:03 Dose: Not Given Documented by: EFRAIN Non-Admin Reason: No Access Thiamine HCl (Thiamine Hcl 100 Mg Tablet) 100 mg PO DAILY [facility] Last Admin: 01/02/21 09:03 Dose: 100 mg Documented by: EFRAIN Trazodone HCl (Trazodone Hcl 25 Mg Halftab) 25 mg PO BEDTIME PRN PRN Reason: insomnia Last Admin: 12/30/20 21:11 Dose: 25 mg Documented by: PRASANNA Labs CBC & Chem 7: 12/20/20 06:20 12/20/20 06:20 Assessment and Plan (1) Thiamine deficiency: Status: Acute (2) Unable to care for self: Status: Acute (3) Dementia: Status: Acute Assessment and Plan: 75yo male with no known medical history sent in for inadequate self-care, living in [facility], found to have CT evidence of subacute CVA though no neurologic deficit appreciated, deemed to not have capacity to make medical conditions and now awaiting guardianship hearing- No new issues Inability for self-care [facility] due to dementia, ? 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 for Wernicke-Korsakoff with parenteral thiamine; B1 level was low at 6 ,continue by mouth thiamine supplement cont.quetiapine for agitation, continue melatonin, and prn trazodone for insomnia Subacute stroke? Patient denied any weakness,had no speech impairment,1.2 cm area of decreased attenuation seen in the left external capsule/claustrum questionable for subacute infarct. carotid dopplers-no significant carotid disease echo done 12/09 with preserved EF, with basal inferior segment akinesis. no chest pain, no EKG changes. - recommend outpatient cardiology follow up MRI brain 12/08?No mass lesion, acute infarction, or abnormal intracranial enhancement. Mild degree of diffuse brain parenchymal volume loss. EEG 12/08 no seizure activity Seen by Neuro ,workup including?T pallidum EIA, HIV, SARAH all negative Continue aspirin, statin Thiamine deficiency on Oral thiamine replacement, s/p IV replacement ? EtOH abuse unable to corroborate hx. ? no signs of withdrawal.?multivitamin + thiamine as above, Status post treatment with phenobarbital moderate protein/calorie malnutrition Continue Ensure tid, multivitamin Prominent polypoid soft tissue? seen within the right and left sided palatine tonsillar fossa for which direct visual inspection/ENT evaluation is recommended--Not able to get this done inpatient and will need outpatient follow up for it. Seen by psych.? Does not have capacity to make medical decisions.? Guardianship obtained, case discussed with Case management they are arranging for safe discharge. VTE ppx SCDs, [facility]WH Quality Stroke Does the patient have a stroke diagnosis?: Yes Reason for No Anti-thrombotic by Day Two: N/A - Med Ordered VTE Prior VTE?: No VTE Risk Level:: Medical - moderate - high VTE Device Contraindication: N/A - Device Ordered VTE Drug Contraindication: N/A - Med Ordered
[2021-01-02 15:58] VITALS: BP 115/45; PULSE 85; RESP 20; TEMP 36.4; O2SAT 99
[2021-01-02] MEDS: Enoxaparin Sodium 40 MG/0.4 ML SYRINGE SUBCUT (16:35)
[2021-01-02 20:00] VITALS: BP 110/61; PULSE 72; RESP 18; TEMP 36.2; O2SAT 98
[2021-01-02] MEDS: Atorvastatin Calcium 40 MG TABLET PO (20:17)
[2021-01-02] MEDS: Melatonin 3 MG TABLET PO (20:17)
[2021-01-02 23:59] VITALS: BP 120/61; PULSE 63; RESP 18; TEMP 36.4; O2SAT 98
[2021-01-03 07:31] VITALS: BP 124/62; PULSE 52; RESP 20; TEMP 37; O2SAT 96
[2021-01-03] MEDS: QUEtiapine Fumarate 25 MG TABLET PO ×2 (08:34→19:57)
[2021-01-03] MEDS: Thiamine HCL 100 MG TABLET PO (08:34)
[2021-01-03] MEDS: Aspirin 81 MG TAB.CHEW PO (08:34)
[2021-01-03 11:24] VITALS: BP 112/57; PULSE 52; RESP 20; TEMP 36.3; O2SAT 98
--- NOTE | 2021-01-03 11:34 | MHC.CLN ---
F/U PO INTAKE REMAINS EXCELLENT DIET RX: GRD M/S-APPROPRIATE PT RECEIVING ENSURE TID TO INCREASE KCALS PROVIDES 1050KCALS, 60G PROTEIN WT REMAINS STABLE SPOKE WITH PATIENT WHO APPEARS PLEASANTLY CONFUSED. PT STATED HE ENJOYS THE [employer]; REQUESTED ALL FLAVORS CONTINUE WEEKLY WEIGHTS R/T HIGH NUTRITION RISK
--- NOTE | 2021-01-03 11:43 | P.PNIM_ITS ---
Subjective Subjective Date of Service: 01/03/21 Interval History: being followed for episode of encephalopathy and guardianship, no complaints,Admits that he is eating well , denies bowel or bladder issues, no acute issues overnight. Review of Systems General no headache, no dizziness, no fever chills.? CVS no chest pain, no palpitation.? Respiratory no cough, no sob.? Gastrointestinal no nausea, no vomiting, no abdominal pain Physical Exam Vital Signs: Vital Signs: Last Vital Signs Temp 97.3 F 01/03/21 11:24 Pulse 52 01/03/21 11:24 Resp 20 01/03/21 11:24 BP 112/57 L 01/03/21 11:24 Pulse Ox 98 01/03/21 11:24 Body Mass Index 18.7 General?awake aler t,no acute distres s.? Neck? supple n o JVD. CVS??regula r rate rhythm, Res piratory lungs kelly ar to auscultation , no respiratory d istress, no?wheeze , no rhonchi. Mei rointestinal abdom en soft, nontender , bowel sounds aud ible, no guarding , no rigidity. Ext remities no?edema. Neuro nonfocal, p atient moving all 4 extremity, speec h clear. Skin no r jt Objective Data Active Medications Acetaminophen (Acetaminophen 325 Mg Tablet) 650 mg PO Q6H PRN PRN Reason: Pain, Mild (Pain Scale 1-3) Aspirin (Aspirin 81 Mg Tab.Chew) 81 mg PO DAILY [facility] Last Admin: 01/03/21 08:34 Dose: 81 mg Documented by: WINIFRED Atorvastatin Calcium (Atorvastatin Calcium 40 Mg Tablet) 40 mg PO BEDTIME [facility] Last Admin: 01/02/21 20:17 Dose: 40 mg Documented by: NICOLE Docusate Sodium (Docusate Sodium 100 Mg Capsule) 100 mg PO BID PRN PRN Reason: Constipation Enoxaparin Sodium (Enoxaparin Sodium 40 Mg/0.4 Ml Syringe) 40 mg SUBCUT Q24H [facility] Last Admin: 01/02/21 16:35 Dose: 40 mg Documented by: EFRAIN Melatonin (Melatonin 3 Mg Tablet) 3 mg PO BEDTIME [facility] Last Admin: 01/02/21 20:17 Dose: 3 mg Documented by: NICOLE Pharmacy Consult (Consult Rx Perform Med Rec) 1 each MISCELLANE ONCE PRN PRN Reason: Consult order Quetiapine Fumarate (Quetiapine Fumarate 25 Mg Tablet) 25 mg PO BID [facility] Last Admin: 01/03/21 08:34 Dose: 25 mg Documented by: WINIFRED Sodium Chloride (0.9 % Sodium Chloride Flush 3 Ml Syringe) 3 ml IVFLUSH QSHIFT [facility] Last Admin: 01/03/21 08:34 Dose: Not Given Documented by: WINIFRED Non-Admin Reason: No Access Thiamine HCl (Thiamine Hcl 100 Mg Tablet) 100 mg PO DAILY [facility] Last Admin: 01/03/21 08:34 Dose: 100 mg Documented by: WINIFRED Trazodone HCl (Trazodone Hcl 25 Mg Halftab) 25 mg PO BEDTIME PRN PRN Reason: insomnia Last Admin: 12/30/20 21:11 Dose: 25 mg Documented by: PRASANNA Labs CBC & Chem 7: 12/20/20 06:20 12/20/20 06:20 Assessment and Plan (1) Thiamine deficiency: Status: Acute (2) Dementia: Status: Acute (3) Unable to care for self: Status: Acute Assessment and Plan: 75yo male with no known medical history sent in for inadequate self-care, living in [facility], found to have CT evidence of subacute CVA though no neurologic deficit appreciated, deemed to not have capacity to make medical conditions and now awaiting guardianship hearing- No new issues Inability for self-care [facility] due to dementia, ? 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 for Wernicke-Korsakoff with parenteral thiamine; B1 level was low at 6 ,continue by mouth thiamine supplement cont.quetiapine for agitation, continue melatonin, and prn trazodone for insomnia Subacute stroke? Patient denied any weakness,had no speech impairment,1.2 cm area of decreased attenuation seen in the left external capsule/claustrum questionable for subacute infarct. carotid dopplers-no significant carotid disease echo done 12/09 with preserved EF, with basal inferior segment akinesis. no chest pain, no EKG changes. - recommend outpatient cardiology follow up MRI brain 12/08?No mass lesion, acute infarction, or abnormal intracranial enhancement. Mild degree of diffuse brain parenchymal volume loss. EEG 12/08 no seizure activity Seen by Neuro ,workup including?T pallidum EIA, HIV, SARAH all negative Continue aspirin, statin Thiamine deficiency on Oral thiamine replacement, s/p IV replacement ? EtOH abuse unable to corroborate hx. ? no signs of withdrawal.?multivitamin + thiamine as above, Status post treatment with phenobarbital moderate protein/calorie malnutrition Continue Ensure tid, multivitamin Prominent polypoid soft tissue? seen within the right and left sided palatine tonsillar fossa for which direct visual inspection/ENT evaluation is recommended--Not able to get this done inpatient and will need outpatient follow up for it. Seen by psych.? Does not have capacity to make medical decisions.? Guardianship obtained, case discussed with Case management they are arranging for safe discharge. VTE ppx SCDs, [facility]WH Quality Stroke Does the patient have a stroke diagnosis?: Yes Reason for No Anti-thrombotic by Day Two: N/A - Med Ordered VTE Prior VTE?: No VTE Risk Level:: Medical - moderate - high VTE Device Contraindication: N/A - Device Ordered VTE Drug Contraindication: N/A - Med Ordered
[2021-01-03 15:15] VITALS: BP 113/56; PULSE 54; RESP 15; TEMP 36.6; O2SAT 100
[2021-01-03] MEDS: Enoxaparin Sodium 40 MG/0.4 ML SYRINGE SUBCUT (17:00)
[2021-01-03 19:24] VITALS: BP 148/78; PULSE 50; RESP 16; TEMP 37.1; O2SAT 92
[2021-01-03] MEDS: Atorvastatin Calcium 40 MG TABLET PO (19:57)
[2021-01-03] MEDS: Melatonin 3 MG TABLET PO (19:57)
[2021-01-04] VITALS (7 sets, daily range): BP systolic 103–149; BP diastolic 54–67; PULSE 50–60; RESP 17–18; TEMP 36.4–36.8; O2SAT 97–100
[2021-01-04] MEDS: Aspirin 81 MG TAB.CHEW PO (07:44)
[2021-01-04] MEDS: Thiamine HCL 100 MG TABLET PO (07:44)
[2021-01-04] MEDS: QUEtiapine Fumarate 25 MG TABLET PO ×2 (07:45→21:37)
--- NOTE | 2021-01-04 14:16 | HO.PM.IMPN ---
Subjective Subjective Date of Service: 01/04/21 Interval History: being followed for episode of encephalopathy and guardianship, offers no complaints, eating well , denies bowel or bladder issues, no acute issues overnight. Review of Systems General no headache, no dizziness, no fever chills.? CVS no chest pain, no palpitation.? Respiratory no cough, no sob.? Gastrointestinal no nausea, no vomiting, no abdominal pain Physical Exam Vital Signs: Vital Signs: Last Vital Signs Temp 98.0 F 01/04/21 11:11 Pulse 53 01/04/21 11:11 Resp 18 01/04/21 11:11 BP 140/67 H 01/04/21 11:11 Pulse Ox 99 01/04/21 11:11 Body Mass Index 18.7 General?awake alert,no acute distress.? Neck? supple no JVD. CVS??regular rate rhythm, Respiratory lungs clear to auscultation, no respiratory distress, no?wheeze, no rhonchi. Gastrointestinal abdomen soft, nontender, bowel sounds audible, no guarding, no rigidity. Extremities no?edema. Neuro nonfocal, patient moving all4 extremity, speech clear. Skin no rash Objective Data Active Medications Acetaminophen (Acetaminophen 325 Mg Tablet) 650 mg PO Q6H PRN PRN Reason: Pain, Mild (Pain Scale 1-3) Aspirin (Aspirin 81 Mg Tab.Chew) 81 mg PO DAILY [facility] Last Admin: 01/04/21 07:44 Dose: 81 mg Documented by: IGLESIA Atorvastatin Calcium (Atorvastatin Calcium 40 Mg Tablet) 40 mg PO BEDTIME [facility] Last Admin: 01/03/21 19:57 Dose: 40 mg Documented by: VENKATESH Docusate Sodium (Docusate Sodium 100 Mg Capsule) 100 mg PO BID PRN PRN Reason: Constipation Enoxaparin Sodium (Enoxaparin Sodium 40 Mg/0.4 Ml Syringe) 40 mg SUBCUT Q24H [facility] Last Admin: 01/03/21 17:00 Dose: 40 mg Documented by: VENKATESH Melatonin (Melatonin 3 Mg Tablet) 3 mg PO BEDTIME [facility] Last Admin: 01/03/21 19:57 Dose: 3 mg Documented by: VENKATESH Pharmacy Consult (Consult Rx Perform Med Rec) 1 each MISCELLANE ONCE PRN PRN Reason: Consult order Quetiapine Fumarate (Quetiapine Fumarate 25 Mg Tablet) 25 mg PO BID [facility] Last Admin: 01/04/21 07:45 Dose: 25 mg Documented by: IGLESIA Sodium Chloride (0.9 % Sodium Chloride Flush 3 Ml Syringe) 3 ml IVFLUSH QSHIFT [facility] Last Admin: 01/04/21 07:42 Dose: Not Given Documented by: IGLESIA Non-Admin Reason: No Access Thiamine HCl (Thiamine Hcl 100 Mg Tablet) 100 mg PO DAILY [facility] Last Admin: 01/04/21 07:44 Dose: 100 mg Documented by: IGLESIA Trazodone HCl (Trazodone Hcl 25 Mg Halftab) 25 mg PO BEDTIME PRN PRN Reason: insomnia Last Admin: 12/30/20 21:11 Dose: 25 mg Documented by: PRASANNA Labs CBC & Chem 7: 12/20/20 06:20 12/20/20 06:20 Assessment and Plan (1) Thiamine deficiency: Status: Acute (2) Dementia: Status: Acute (3) Unable to care for self: Status: Acute Assessment and Plan: 75yo male with no known medical history sent in for inadequate self-care, living in [facility], found to have CT evidence of subacute CVA though no neurologic deficit appreciated, deemed to not have capacity to make medical conditions and now awaiting guardianship hearing- No new issues [facility] for self[facility]care [facility] due to [facility], ? 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 Patient denied any weakness,had no speech impairment,1.2 cm area of decreased attenuation seen in the left external capsule/claustrum questionable for subacute infarct. carotid dopplers-no significant carotid disease echo done 12/09 with preserved EF, with basal inferior segment akinesis. no chest pain, no EKG changes. - recommend outpatient cardiology follow up MRI brain 12/08?No mass lesion, acute infarction, or abnormal intracranial enhancement. Mild degree of diffuse brain parenchymal volume loss. EEG 12/08 no seizure activity Seen by Neuro ,workup including?T pallidum EIA, HIV, SARAH all negative Continue aspirin, statin Thiamine deficiency on Oral thiamine replacement, s/p IV replacement ? EtOH abuse unable to corroborate hx. ? no signs of withdrawal.?multivitamin + thiamine as above, Status post treatment with phenobarbital moderate protein/calorie malnutrition Continue Ensure tid, multivitamin Prominent polypoid soft tissue? seen within the right and left sided palatine tonsillar fossa for which direct visual inspection/ENT evaluation is recommended--Not able to get this done inpatient and will need outpatient follow up for it. Seen by psych.? Does not have capacity to make medical decisions.? Guardianship obtained, case discussed with Case management they are arranging for safe discharge. VTE ppx SCDs, [facility] Quality Stroke Does the patient have a stroke diagnosis?: Yes Reason for No Anti-thrombotic by Day Two: N/A - Med Ordered VTE Prior VTE?: No VTE Risk Level:: Medical - moderate - high VTE Device Contraindication: N/A - Device Ordered VTE Drug Contraindication: N/A - Med Ordered
[2021-01-04] MEDS: Enoxaparin Sodium 40 MG/0.4 ML SYRINGE SUBCUT (17:46)
[2021-01-04] MEDS: Atorvastatin Calcium 40 MG TABLET PO (21:37)
[2021-01-04] MEDS: Melatonin 3 MG TABLET PO (21:37)
[2021-01-05 03:29] VITALS: BP 113/57; PULSE 49; RESP 17; TEMP 36.2; O2SAT 99
[2021-01-05 08:00] VITALS: BP 130/62; PULSE 52; RESP 18; TEMP 36.4; O2SAT 98
[2021-01-05] MEDS: QUEtiapine Fumarate 25 MG TABLET PO ×2 (08:55→21:52)
[2021-01-05] MEDS: Aspirin 81 MG TAB.CHEW PO (08:56)
[2021-01-05] MEDS: Thiamine HCL 100 MG TABLET PO (08:57)
--- NOTE | 2021-01-05 10:19 | MHC.CM.PN ---
Male 75 DX Sub acute CVA. Spoke with Almaz Lucas, the pts guardian this am. She requested information needed for the [employer] application. All information that she requested was provided. She is requesting placement be local to her, in [place]. Pts dispo will be discussed at MD rounds. The plan is to touch base later today re level of care and placement preferences.
--- NOTE | 2021-01-05 10:38 | HO.PM.IMPN ---
Subjective Subjective Date of Service: 01/05/21 Interval History: Being followed for episode of encephalopathy and guardianship, offers no complaints, eating well , denies bowel or bladder issues, no acute issues overnight. Review of Systems General no headache, no dizziness, no fever chills.? CVS no chest pain, no palpitation.? Respiratory no cough, no sob.? Gastrointestinal no nausea, no vomiting, no abdominal pain Physical Exam Vital Signs: Vital Signs: Last Vital Signs Temp 97.6 F 01/05/21 08:00 Pulse 52 01/05/21 08:00 Resp 18 01/05/21 08:00 BP 130/62 01/05/21 08:00 Pulse Ox 98 01/05/21 08:00 Body Mass Index 18.7 General?awake alert,no acute distress.? Neck? supple no JVD. CVS??regular rate rhythm, Respiratory lungs clear to auscultation, no respiratory distress, no?wheeze, no rhonchi. Gastrointestinal abdomen soft, nontender, bowel sounds audible, no guarding, no rigidity. Extremities no?edema. Neuro nonfocal, patient moving all4 extremity, speech clear. Skin no rash Objective Data Active Medications Acetaminophen (Acetaminophen 325 Mg Tablet) 650 mg PO Q6H PRN PRN Reason: Pain, Mild (Pain Scale 1-3) Aspirin (Aspirin 81 Mg Tab.Chew) 81 mg PO DAILY [facility] Last Admin: 01/05/21 08:56 Dose: 81 mg Documented by: ELLIOT-ASKEP Atorvastatin Calcium (Atorvastatin Calcium 40 Mg Tablet) 40 mg PO BEDTIME [facility] Last Admin: 01/04/21 21:37 Dose: 40 mg Documented by: HASMUKH Docusate Sodium (Docusate Sodium 100 Mg Capsule) 100 mg PO BID PRN PRN Reason: Constipation Enoxaparin Sodium (Enoxaparin Sodium 40 Mg/0.4 Ml Syringe) 40 mg SUBCUT Q24H [facility] Last Admin: 01/04/21 17:46 Dose: 40 mg Documented by: CHASEIANM Melatonin (Melatonin 3 Mg Tablet) 3 mg PO BEDTIME [facility] Last Admin: 01/04/21 21:37 Dose: 3 mg Documented by: HASMUKH Pharmacy Consult (Consult Rx Perform Med Rec) 1 each MISCELLANE ONCE PRN PRN Reason: Consult order Quetiapine Fumarate (Quetiapine Fumarate 25 Mg Tablet) 25 mg PO BID [facility] Last Admin: 01/05/21 08:55 Dose: 25 mg Documented by: VELIAASKKEREN Sodium Chloride (0.9 % Sodium Chloride Flush 3 Ml Syringe) 3 ml IVFLUSH QSHIFT [facility] Last Admin: 01/05/21 08:58 Dose: Not Given Documented by: ELLIOT-SYLVIE Non-Admin Reason: No Access Thiamine HCl (Thiamine Hcl 100 Mg Tablet) 100 mg PO DAILY [facility] Last Admin: 01/05/21 08:57 Dose: 100 mg Documented by: VELIAASKKEREN Trazodone HCl (Trazodone Hcl 25 Mg Halftab) 25 mg PO BEDTIME PRN PRN Reason: insomnia Last Admin: 12/30/20 21:11 Dose: 25 mg Documented by: ZEBROWJ Labs CBC & Chem 7: 12/20/20 06:20 12/20/20 06:20 Assessment and Plan (1) Thiamine deficiency: Status: Acute (2) Dementia: Status: Acute (3) Unable to care for self: Status: Acute Assessment and Plan: 75yo male with no known medical history sent in for inadequate self-care, living in [facility], found to have CT evidence of subacute CVA though no neurologic deficit appreciated, deemed to not have capacity to make medical conditions and now awaiting guardianship hearing. No new issues identified Inability for self-care likley due to dementia, ? 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 Patient denied any weakness,had no speech impairment,1.2 cm area of decreased attenuation seen in the left external capsule/claustrum questionable for subacute infarct. carotid dopplers-no significant carotid disease echo done 12/09 with preserved EF, with basal inferior segment akinesis. no chest pain, no EKG changes. - recommend outpatient cardiology follow up MRI brain 12/08?No mass lesion, acute infarction, or abnormal intracranial enhancement. Mild degree of diffuse brain parenchymal volume loss. EEG 12/08 no seizure activity Seen by Neuro ,workup including?T pallidum EIA, HIV, SARAH all negative Continue aspirin, statin Thiamine deficiency on Oral thiamine replacement, s/p IV replacement ? EtOH abuse unable to corroborate hx. ? no signs of withdrawal.?multivitamin + thiamine as above, Status post treatment with phenobarbital moderate protein/calorie malnutrition Continue Ensure tid, multivitamin Prominent polypoid soft tissue? seen within the right and left sided palatine tonsillar fossa for which direct visual inspection/ENT evaluation is recommended--Not able to get this done inpatient and will need outpatient follow up for it. Seen by psych.? Does not have capacity to make medical decisions.? Guardianship obtained, case discussed with Case management they are arranging for safe discharge. VTE ppx SCDs, [facility] Quality Stroke Does the patient have a stroke diagnosis?: Yes Reason for No Anti-thrombotic by Day Two: N/A - Med Ordered VTE Prior VTE?: No VTE Risk Level:: Medical - moderate - high VTE Device Contraindication: N/A - Device Ordered VTE Drug Contraindication: N/A - Med Ordered
[2021-01-05 11:24] VITALS: BP 114/54; PULSE 64; RESP 18; TEMP 37.1; O2SAT 99
--- NOTE | 2021-01-05 11:30 | MHC.CLN ---
F/U PO INTAKE REMAINS EXCELLENT DIET RX: GRD M/S-APPROPRIATE PT RECEIVING ENSURE TID TO INCREASE KCALS PROVIDES 1050KCALS, 60G PROTEIN PT REPORTS HE ENJOYS THE [employer]; REQUESTED ALL FLAVORS CONTINUE WEEKLY WEIGHTS R/T HIGH NUTRITION RISK WILL CHANGE FOLLOW UP TO WEEKLY
--- NOTE | 2021-01-05 14:38 | MHC.CM.PN ---
Per MD rounds, Dispo is a locked unit. Notified the Pts Guardian, Almaz Lucas. Informed her of Dispo @ [place]. She provided 4 preferences for locked unit facilities in [place]. The referrals have been sent. She is documenting the [facility] [place]. CM office Fax # has been provided. She plans to fax the application for placement purposes,[facility] pending. CM will continue to follow.
[2021-01-05 16:00] VITALS: BP 98/53; PULSE 59; RESP 20; TEMP 35.9; O2SAT 100
[2021-01-05] MEDS: Enoxaparin Sodium 40 MG/0.4 ML SYRINGE SUBCUT (19:07)
[2021-01-05 19:59] VITALS: BP 100/58; PULSE 87; RESP 18; TEMP 36.1; O2SAT 98
[2021-01-05] MEDS: Melatonin 3 MG TABLET PO (21:52)
[2021-01-05] MEDS: Atorvastatin Calcium 40 MG TABLET PO (21:52)
[2021-01-06 04:00] VITALS: BP 122/56; PULSE 53; RESP 18; TEMP 36.6; O2SAT 100
--- NOTE | 2021-01-06 05:12 | P.PNIM_ITS ---
Subjective Subjective Date of Service: 01/06/21 Interval History: Being followed for encephalopathy/likely dementia, unable to care for self and guardianship in process, offers no complaints, eating well , denies bowel or bladder issues, no acute issues overnight. Review of Systems General no headache, no dizziness, no fever chills.? CVS no chest pain, no palpitation.? Respiratory no cough, no sob.? baseline confusion Physical Exam Vital Signs: Vital Signs: Last Vital Signs Temp 97.8 F 01/06/21 04:00 Pulse 53 01/06/21 04:00 Resp 18 01/06/21 04:00 BP 122/56 L 01/06/21 04:00 Pulse Ox 100 01/06/21 04:00 Body Mass Index 18.7 General?awake alert,no acute distress.? Neck? supple no JVD. CVS??regular rate rhythm, Respiratory lungs clear to auscultation, no respiratory distress, no?wheeze, no rhonchi. Gastrointestinal abdomen soft, nontender, bowel sounds audible, no guarding, no rigidity. Extremities no?edema. Neuro nonfocal, patient moving all 4 extremity, speech clear. Skin no rash Objective Data Active Medications Acetaminophen (Acetaminophen 325 Mg Tablet) 650 mg PO Q6H PRN PRN Reason: Pain, Mild (Pain Scale 1-3) Aspirin (Aspirin 81 Mg Tab.Chew) 81 mg PO DAILY [facility] Last Admin: 01/05/21 08:56 Dose: 81 mg Documented by: LESLIE Atorvastatin Calcium (Atorvastatin Calcium 40 Mg Tablet) 40 mg PO BEDTIME [facility] Last Admin: 01/05/21 21:52 Dose: 40 mg Documented by: CARLA Docusate Sodium (Docusate Sodium 100 Mg Capsule) 100 mg PO BID PRN PRN Reason: Constipation Enoxaparin Sodium (Enoxaparin Sodium 40 Mg/0.4 Ml Syringe) 40 mg SUBCUT Q24H [facility] Last Admin: 01/05/21 19:07 Dose: 40 mg Documented by: LESLIE Melatonin (Melatonin 3 Mg Tablet) 3 mg PO BEDTIME [facility] Last Admin: 01/05/21 21:52 Dose: 3 mg Documented by: CARLA Pharmacy Consult (Consult Rx Perform Med Rec) 1 each MISCELLANE ONCE PRN PRN Reason: Consult order Quetiapine Fumarate (Quetiapine Fumarate 25 Mg Tablet) 25 mg PO BID [facility] Last Admin: 01/05/21 21:52 Dose: 25 mg Documented by: CARLA Sodium Chloride (0.9 % Sodium Chloride Flush 3 Ml Syringe) 3 ml IVFLUSH QSHIFT [facility] Last Admin: 01/05/21 21:53 Dose: Not Given Documented by: CARLA Non-Admin Reason: No IV access Thiamine HCl (Thiamine Hcl 100 Mg Tablet) 100 mg PO DAILY [facility] Last Admin: 01/05/21 08:57 Dose: 100 mg Documented by: N-ASKEP Trazodone HCl (Trazodone Hcl 25 Mg Halftab) 25 mg PO BEDTIME PRN PRN Reason: insomnia Last Admin: 12/30/20 21:11 Dose: 25 mg Documented by: PRASANNA Labs CBC & Chem 7: 12/20/20 06:20 12/20/20 06:20 Assessment and Plan (1) Thiamine deficiency: Status: Acute (2) Dementia: Status: Acute (3) Unable to care for self: Status: Acute Assessment and Plan: 75yo male with no known medical history sent in for inadequate self-care, living in [facility], found to have CT evidence of subacute CVA though no neurologic deficit appreciated, deemed to not have capacity to make medical conditions and now awaiting guardianship hearing. Essentially no clinical change and below management remains unchanged Inability for self-care likley due to dementia, ? 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 Patient denied any weakness,had no speech impairment,1.2 cm area of decreased attenuation seen in the left external capsule/claustrum questionable for subacute infarct. carotid dopplers-no significant carotid disease echo done 12/09 with preserved EF, with basal inferior segment akinesis. no chest pain, no EKG changes. - recommend outpatient cardiology follow up MRI brain 12/08?No mass lesion, acute infarction, or abnormal intracranial enhancement. Mild degree of diffuse brain parenchymal volume loss. EEG 12/08 no seizure activity Seen by Neuro ,workup including?T pallidum EIA, HIV, SARAH all negative Continue aspirin, statin Thiamine deficiency on Oral thiamine replacement, s/p IV replacement ? EtOH abuse unable to corroborate hx. ? no signs of withdrawal.?multivitamin + thiamine as above, Status post treatment with phenobarbital moderate protein/calorie malnutrition Continue Ensure tid, multivitamin Prominent polypoid soft tissue? seen within the right and left sided palatine tonsillar fossa for which direct visual inspection/ENT evaluation is recommended--Not able to get this done inpatient and will need outpatient follow up for it. Seen by psych.? Does not have capacity to make medical decisions.? Guardianship obtained, case discussed with Case management they are arranging for safe discharge. VTE ppx SCDs, [facility] Quality Stroke Does the patient have a stroke diagnosis?: Yes Reason for No Anti-thrombotic by Day Two: N/A - Med Ordered VTE Prior VTE?: No VTE Risk Level:: Medical - moderate - high VTE Device Contraindication: N/A - Device Ordered VTE Drug Contraindication: N/A - Med Ordered
[2021-01-06 08:00] VITALS: BP 109/50; PULSE 54; RESP 16; TEMP 36.2; O2SAT 100
[2021-01-06] MEDS: QUEtiapine Fumarate 25 MG TABLET PO ×2 (08:51→21:07)
[2021-01-06] MEDS: Aspirin 81 MG TAB.CHEW PO (08:51)
[2021-01-06] MEDS: Thiamine HCL 100 MG TABLET PO (08:51)
[2021-01-06 11:11] VITALS: BP 104/58; PULSE 60; RESP 18; O2SAT 100
[2021-01-06 15:50] VITALS: BP 92/52; PULSE 75; RESP 20; TEMP 36.4; O2SAT 99
[2021-01-06] MEDS: Enoxaparin Sodium 40 MG/0.4 ML SYRINGE SUBCUT (17:49)
[2021-01-06 19:30] VITALS: BP 124/61; PULSE 58; RESP 16; TEMP 36.9; O2SAT 100
[2021-01-06] MEDS: Atorvastatin Calcium 40 MG TABLET PO (21:07)
[2021-01-06] MEDS: Melatonin 3 MG TABLET PO (21:07)
[2021-01-06] MEDS: traZODone HCL 25 MG HALFTAB PO (21:07)
[2021-01-06] MEDS: 0.9 % Sodium Chloride Flush 3 ML SYRINGE IVFLUSH (21:09)
[2021-01-06 23:20] VITALS: BP 100/57; PULSE 54; RESP 16; TEMP 36.4; O2SAT 100
--- NOTE | 2021-01-07 05:18 | HO.PM.IMPN ---
Subjective Subjective Date of Service: 01/07/21 Interval History: Being followed for encephalopathy/likely dementia, unable to care for self and guardianship in process, offers no complaints, eating well , denies bowel or bladder issues, no acute issues overnight. cooperative Review of Systems General no headache, no dizziness, no fever chills.? CVS no chest pain, no palpitation.? Respiratory no cough, no sob.? baseline confusion Physical Exam Vital Signs: Vital Signs: Selected Entries 01/07/21 07:35 Temperature 98.4 F Pulse Rate 60 Respiratory Rate 18 Blood Pressure 105/64 Pulse Oximetry 100 Oxygen Delivery Me thod Room Air Body Mass Index 18.7 General: AO X 2, no acute distress Resp: CTA bilateral CVS: S1,S2,RRR GI: +BS, NT, no distention Skin: No rash Neuro: motor grossly intact Psych: poor insight Objective Data Active Medications Acetaminophen (Acetaminophen 325 Mg Tablet) 650 mg PO Q6H PRN PRN Reason: Pain, Mild (Pain Scale 1-3) Aspirin (Aspirin 81 Mg Tab.Chew) 81 mg PO DAILY [facility] Last Admin: 01/06/21 08:51 Dose: 81 mg Documented by: EFRAIN Atorvastatin Calcium (Atorvastatin Calcium 40 Mg Tablet) 40 mg PO BEDTIME [facility] Last Admin: 01/06/21 21:07 Dose: 40 mg Documented by: STEFAN Docusate Sodium (Docusate Sodium 100 Mg Capsule) 100 mg PO BID PRN PRN Reason: Constipation Enoxaparin Sodium (Enoxaparin Sodium 40 Mg/0.4 Ml Syringe) 40 mg SUBCUT Q24H [facility] Last Admin: 01/06/21 17:49 Dose: 40 mg Documented by: EFRAIN Melatonin (Melatonin 3 Mg Tablet) 3 mg PO BEDTIME [facility] Last Admin: 01/06/21 21:07 Dose: 3 mg Documented by: STEFAN Pharmacy Consult (Consult Rx Perform Med Rec) 1 each MISCELLANE ONCE PRN PRN Reason: Consult order Quetiapine Fumarate (Quetiapine Fumarate 25 Mg Tablet) 25 mg PO BID [facility] Last Admin: 01/06/21 21:07 Dose: 25 mg Documented by: STEFAN Sodium Chloride (0.9 % Sodium Chloride Flush 3 Ml Syringe) 3 ml IVFLUSH QSHIFT [facility] Last Admin: 01/06/21 21:09 Dose: 3 ml Documented by: STEFAN Thiamine HCl (Thiamine Hcl 100 Mg Tablet) 100 mg PO DAILY [facility] Last Admin: 01/06/21 08:51 Dose: 100 mg Documented by: DOBROB Trazodone HCl (Trazodone Hcl 25 Mg Halftab) 25 mg PO BEDTIME PRN PRN Reason: insomnia Last Admin: 01/06/21 21:07 Dose: 25 mg Documented by: STEFAN Labs CBC & Chem 7: 12/20/20 06:20 12/20/20 06:20 Assessment and Plan (1) Thiamine deficiency: Status: Acute (2) Dementia: Status: Acute (3) Unable to care for self: Status: Acute Assessment and Plan: 75yo male with no known medical history sent in for inadequate self-care, living in [facility], found to have CT evidence of subacute CVA though no neurologic deficit appreciated, deemed to not have capacity to make medical conditions and now awaiting guardianship hearing. Essentially no clinical developement, continue curent care as below Inability for self-care [place] due to dementia, ? 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 Patient denied any weakness,had no speech impairment,1.2 cm area of decreased attenuation seen in the left external capsule/claustrum questionable for subacute infarct. carotid dopplers-no significant carotid disease echo done 12/09 with preserved EF, with basal inferior segment akinesis. no chest pain, no EKG changes. - recommend outpatient cardiology follow up MRI brain 12/08?No mass lesion, acute infarction, or abnormal intracranial enhancement. Mild degree of diffuse brain parenchymal volume loss. EEG 12/08 no seizure activity Seen by Neuro ,workup including?T pallidum EIA, HIV, SARAH all negative Continue aspirin, statin Thiamine deficiency on Oral thiamine replacement, s/p IV replacement ? EtOH abuse unable to corroborate hx. ? no signs of withdrawal.?multivitamin + thiamine as above, Status post treatment with phenobarbital moderate protein/calorie malnutrition Continue Ensure tid, multivitamin Prominent polypoid soft tissue? seen within the right and left sided palatine tonsillar fossa for which direct visual inspection/ENT evaluation is recommended--Not able to get this done inpatient and will need outpatient follow up for it. Seen by psych.? Does not have capacity to make medical decisions.? Guardianship obtained, case discussed with Case management they are arranging for safe discharge. VTE ppx SCDs, [facility] Quality Stroke Does the patient have a stroke diagnosis?: Yes Reason for No Anti-thrombotic by Day Two: N/A - Med Ordered VTE Prior VTE?: No VTE Risk Level:: Medical - moderate - high VTE Device Contraindication: N/A - Device Ordered VTE Drug Contraindication: N/A - Med Ordered
[2021-01-07 07:35] VITALS: BP 105/64; PULSE 60; RESP 18; TEMP 36.9; O2SAT 100
[2021-01-07] MEDS: Aspirin 81 MG TAB.CHEW PO (10:44)
[2021-01-07] MEDS: QUEtiapine Fumarate 25 MG TABLET PO ×2 (10:44→21:32)
[2021-01-07] MEDS: Thiamine HCL 100 MG TABLET PO (10:47)
[2021-01-07 11:42] VITALS: BP 109/55; PULSE 56; RESP 18; TEMP 36.7; O2SAT 100
[2021-01-07 14:54] VITALS: BP 125/67; PULSE 55; RESP 20; TEMP 36.4; O2SAT 100
[2021-01-07] MEDS: Enoxaparin Sodium 40 MG/0.4 ML SYRINGE SUBCUT (17:07)
[2021-01-07] MEDS: Melatonin 3 MG TABLET PO (21:32)
[2021-01-07] MEDS: Atorvastatin Calcium 40 MG TABLET PO (21:32)
[2021-01-07 23:13] VITALS: BP 108/55; PULSE 62; RESP 18; TEMP 36.5; O2SAT 99
[2021-01-08 07:27] VITALS: BP 116/58; PULSE 52; RESP 18; TEMP 36.4; O2SAT 99
[2021-01-08] MEDS: Thiamine HCL 100 MG TABLET PO (08:59)
[2021-01-08] MEDS: QUEtiapine Fumarate 25 MG TABLET PO ×2 (08:59→20:33)
[2021-01-08] MEDS: Aspirin 81 MG TAB.CHEW PO (08:59)
[2021-01-08 11:14] VITALS: BP 106/54; PULSE 61; RESP 18; TEMP 36.7; O2SAT 99
--- NOTE | 2021-01-08 12:48 | MHC.CM.PN ---
Per ROUNDS discussion, Patient now has an appointed Guardian, who is involved with the [facility] application.CM will follow.
[2021-01-08 15:13] VITALS: BP 91/50; PULSE 79; RESP 19; TEMP 37.2; O2SAT 98
[2021-01-08] MEDS: Enoxaparin Sodium 40 MG/0.4 ML SYRINGE SUBCUT (16:06)
[2021-01-08 19:39] VITALS: BP 108/54; PULSE 62; RESP 19; TEMP 37.2; O2SAT 100
[2021-01-08 19:50] VITALS: BP 137/89; PULSE 98; RESP 19; TEMP 36.3; O2SAT 96
[2021-01-08] MEDS: Melatonin 3 MG TABLET PO (20:33)
[2021-01-08] MEDS: Atorvastatin Calcium 40 MG TABLET PO (20:33)
[2021-01-08 23:53] VITALS: BP 99/50; PULSE 62; RESP 18; TEMP 36.9; O2SAT 97
[2021-01-09] MEDS: traZODone HCL 25 MG HALFTAB PO (02:29)
[2021-01-09 07:03] VITALS: BP 125/57; PULSE 68; RESP 16; TEMP 36.8; O2SAT 98
[2021-01-09] MEDS: Aspirin 81 MG TAB.CHEW PO (10:50)
[2021-01-09] MEDS: Thiamine HCL 100 MG TABLET PO (10:50)
[2021-01-09] MEDS: QUEtiapine Fumarate 25 MG TABLET PO ×2 (10:50→19:18)
[2021-01-09 11:22] VITALS: BP 97/60; PULSE 68; RESP 18; TEMP 36.7; O2SAT 98
--- NOTE | 2021-01-09 13:28 | P.PNIM_ITS ---
Subjective Subjective Date of Service: 01/09/21 Interval History: ?encephalopathy/likely dementia, Review of Systems No acute issues overnight, seems happy just eat breakfast. Cooperative Denies any headache or chest pain or shortness of breath. Physical Exam Vital Signs: Vital Signs: Last Vital Signs Temp 98.1 F 01/09/21 11:22 Pulse 68 01/09/21 11:22 Resp 18 01/09/21 11:22 BP 97/60 01/09/21 11:22 Pulse Ox 98 01/09/21 11:22 Body Mass Index 18.7 General: AO X 2, no acute distress Resp:? CTA bilateral CVS: S1,S2,RRR GI: +BS, NT, no distention Skin: No rash Neuro:? motor grossly intact Psych: poor insight Objective Data Active Medications Acetaminophen (Acetaminophen 325 Mg Tablet) 650 mg PO Q6H PRN PRN Reason: Pain, Mild (Pain Scale 1-3) Aspirin (Aspirin 81 Mg Tab.Chew) 81 mg PO DAILY [facility] Last Admin: 01/09/21 10:50 Dose: 81 mg Documented by: MARILOU Atorvastatin Calcium (Atorvastatin Calcium 40 Mg Tablet) 40 mg PO BEDTIME [facility] Last Admin: 01/08/21 20:33 Dose: 40 mg Documented by: ESTELLA Docusate Sodium (Docusate Sodium 100 Mg Capsule) 100 mg PO BID PRN PRN Reason: Constipation Enoxaparin Sodium (Enoxaparin Sodium 40 Mg/0.4 Ml Syringe) 40 mg SUBCUT Q24H [facility] Last Admin: 01/08/21 16:06 Dose: 40 mg Documented by: COTEMA Melatonin (Melatonin 3 Mg Tablet) 3 mg PO BEDTIME [facility] Last Admin: 01/08/21 20:33 Dose: 3 mg Documented by: ESTELLA Pharmacy Consult (Consult Rx Perform Med Rec) 1 each MISCELLANE ONCE PRN PRN Reason: Consult order Quetiapine Fumarate (Quetiapine Fumarate 25 Mg Tablet) 25 mg PO BID [facility] Last Admin: 01/09/21 10:50 Dose: 25 mg Documented by: MARILOU Sodium Chloride (0.9 % Sodium Chloride Flush 3 Ml Syringe) 3 ml IVFLUSH QSHIFT [facility] Last Admin: 01/09/21 09:43 Dose: Not Given Documented by: MARILOU Non-Admin Reason: no IV Thiamine HCl (Thiamine Hcl 100 Mg Tablet) 100 mg PO DAILY [facility] Last Admin: 01/09/21 10:50 Dose: 100 mg Documented by: MARILOU Trazodone HCl (Trazodone Hcl 25 Mg Halftab) 25 mg PO BEDTIME PRN PRN Reason: insomnia Last Admin: 01/09/21 02:29 Dose: 25 mg Documented by: ESTELLA Labs CBC & Chem 7: 12/20/20 06:20 12/20/20 06:20 Assessment and Plan (1) Thiamine deficiency: Status: Acute (2) Encephalopathy: Status: Acute Assessment and Plan: 75yo male with no known medical history sent in for inadequate self-care, living in [facility], found to have CT evidence of subacute CVA though no neurologic deficit appreciated, deemed to not have capacity to make medical conditions and now awaiting guardianship hearing.? Essentially no clinical developement, continue curent care as below 1.Inability for self-care likley due to dementia, ? 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 for Wernicke-Korsakoff with parenteral thiamine; B1 level was low at 6 ,continue by mouth thiamine supplement cont.quetiapine for agitation, continue melatonin, and prn trazodone for insomnia 2.Subacute stroke? Patient denied any weakness,had no speech impairment,1.2 cm area of decreased a ttenuation seen in the left external capsule/claustrum questionable for subacute infarct. carotid dopplers-no significant carotid disease echo done 12/09 with preserved EF, with basal inferior segment akinesis. no chest pain, no EKG changes. - recommend outpatient cardiology follow up MRI brain 12/08?No mass lesion, acute infarction, or abnormal intracranial enhancement. Mild degree of diffuse brain parenchymal volume loss. EEG 12/08 no seizure activity Seen by Neuro ,workup including?T pallidum EIA, HIV, SARAH all negative Continue aspirin, statin 3.Thiamine deficiency on Oral thiamine replacement, s/p IV replacement ? 4.EtOH abuse: unable to corroborate hx. ? no signs of withdrawal.?multivitamin + thiamine as above, Status post treatment with phenobarbital 5.moderate protein/calorie malnutrition Continue Ensure tid, multivitamin 6.Prominent polypoid soft tissue? seen within the right and left sided palatine tonsillar fossa for which direct visual inspection/ENT evaluation is recommended--Not able to get this done inpatient and will need outpatient follow up for it. Seen by psych.? Does not have capacity to make medical decisions.? Guardianship obtained, case discussed with Case management they are arranging for safe discharge. VTE ppx SCDs, [facility] Quality Stroke Does the patient have a stroke diagnosis?: Yes Reason for No Anti-thrombotic by Day Two: N/A - Med Ordered VTE Prior VTE?: No VTE Risk Level:: Medical - moderate - high VTE Device Contraindication: N/A - Device Ordered VTE Drug Contraindication: N/A - Med Ordered
[2021-01-09 15:13] VITALS: BP 126/57; PULSE 63; RESP 20; TEMP 36.7; O2SAT 100
[2021-01-09] MEDS: Enoxaparin Sodium 40 MG/0.4 ML SYRINGE SUBCUT (15:55)
[2021-01-09] MEDS: Atorvastatin Calcium 40 MG TABLET PO (19:18)
[2021-01-09] MEDS: Melatonin 3 MG TABLET PO (19:18)
[2021-01-09 19:28] VITALS: BP 126/60; PULSE 56; RESP 18; TEMP 36.6; O2SAT 100
[2021-01-10] VITALS: BP 122/62; PULSE 87; RESP 16; TEMP 36.4; O2SAT 99
[2021-01-10 07:33] VITALS: BP 135/63; PULSE 61; RESP 18; TEMP 36.3; O2SAT 100
[2021-01-10 11:02] VITALS: BP 141/69; PULSE 59; RESP 18; TEMP 36.3; O2SAT 97
[2021-01-10] MEDS: QUEtiapine Fumarate 25 MG TABLET PO ×2 (11:11→21:02)
[2021-01-10] MEDS: Thiamine HCL 100 MG TABLET PO (11:11)
[2021-01-10] MEDS: Aspirin 81 MG TAB.CHEW PO (11:11)
--- NOTE | 2021-01-10 12:29 | MHC.CM.PN ---
referrals made to [facility] per guardians request
[2021-01-10 16:00] VITALS: BP 126/65; PULSE 60; RESP 18; TEMP 36.4; O2SAT 100
--- NOTE | 2021-01-10 16:05 | P.PNIM_ITS ---
Subjective Subjective Date of Service: 01/10/21 Interval History: encephalopathy/likely dementia, Review of Systems No acute issues overnight, having breakfast.? Denies any headache or chest pain or shortness of breath.Cooperative Physical Exam Vital Signs: Vital Signs: Last Vital Signs Temp 97.5 F 01/10/21 16:00 Pulse 60 01/10/21 16:00 Resp 18 01/10/21 16:00 BP 126/65 01/10/21 16:00 Pulse Ox 100 01/10/21 16:00 Body Mass Index 18.7 General: AO X 2, no acute distress Resp:? CTA bilateral CVS: S1,S2,RRR GI: +BS, NT, no distention Skin: No rash Neuro:? motor grossly intact Psych: poor insight Objective Data Active Medications Acetaminophen (Acetaminophen 325 Mg Tablet) 650 mg PO Q6H PRN PRN Reason: Pain, Mild (Pain Scale 1-3) Aspirin (Aspirin 81 Mg Tab.Chew) 81 mg PO DAILY [facility] Last Admin: 01/10/21 11:11 Dose: 81 mg Documented by: MARILOU Atorvastatin Calcium (Atorvastatin Calcium 40 Mg Tablet) 40 mg PO BEDTIME [facility] Last Admin: 01/09/21 19:18 Dose: 40 mg Documented by: ULISES Docusate Sodium (Docusate Sodium 100 Mg Capsule) 100 mg PO BID PRN PRN Reason: Constipation Enoxaparin Sodium (Enoxaparin Sodium 40 Mg/0.4 Ml Syringe) 40 mg SUBCUT Q24H [facility] Last Admin: 01/09/21 15:55 Dose: 40 mg Documented by: TIMOTHY Melatonin (Melatonin 3 Mg Tablet) 3 mg PO BEDTIME [facility] Last Admin: 01/09/21 19:18 Dose: 3 mg Documented by: ULISES Pharmacy Consult (Consult Rx Perform Med Rec) 1 each MISCELLANE ONCE PRN PRN Reason: Consult order Quetiapine Fumarate (Quetiapine Fumarate 25 Mg Tablet) 25 mg PO BID [facility] Last Admin: 01/10/21 11:11 Dose: 25 mg Documented by: MARILOU Sodium Chloride (0.9 % Sodium Chloride Flush 3 Ml Syringe) 3 ml IVFLUSH QSHIFT [facility] Last Admin: 01/10/21 09:29 Dose: Not Given Documented by: MARILOU Non-Admin Reason: no IV present Thiamine HCl (Thiamine Hcl 100 Mg Tablet) 100 mg PO DAILY [facility] Last Admin: 01/10/21 11:11 Dose: 100 mg Documented by: MARILOU Trazodone HCl (Trazodone Hcl 25 Mg Halftab) 25 mg PO BEDTIME PRN PRN Reason: insomnia Last Admin: 01/09/21 02:29 Dose: 25 mg Documented by: ESTELLA Labs CBC & Chem 7: 12/20/20 06:20 12/20/20 06:20 Assessment and Plan (1) Encephalopathy: Status: Acute Assessment and Plan: 75yo male with no known medical history sent in for inadequate self-care, living in [facility], found to have CT evidence of subacute CVA though no neurologic deficit appreciated, deemed to not have capacity to make medical conditions and now awaiting guardianship hearing.? Essentially no clinical developement, continue curent care as below 1.[facility], ? 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 for Wernicke-Korsakoff with parenteral thiamine; B1 level was low at 6 ,continue by mouth thiamine supplement cont.quetiapine for agitation, continue melatonin, and prn trazodone for insom yocasta 2.Subacute stroke? Patient denied any weakness,had no speech impairment,1.2 cm area of decreased attenuation seen in the left external capsule/claustrum questionable for subacute infarct. carotid dopplers-no significant carotid disease echo done 12/09 with preserved EF, with basal inferior segment akinesis. no chest pain, no EKG changes. - recommend outpatient cardiology follow up MRI brain 12/08?No mass lesion, acute infarction, or abnormal intracranial enhancement. Mild degree of diffuse brain parenchymal volume loss. EEG 12/08 no seizure activity Seen by Neuro ,workup including?T pallidum EIA, HIV, SARAH all negative Continue aspirin, statin 3.Thiamine deficiency on Oral thiamine replacement, s/p IV replacement ? 4.EtOH abuse: unable to corroborate hx. ? no signs of withdrawal.?multivitamin + thiamine as above, Status post treatment with phenobarbital 5.moderate protein/calorie malnutrition Continue Ensure tid, multivitamin 6.Prominent polypoid soft tissue? seen within the right and left sided palatine tonsillar fossa for which direct visual inspection/ENT evaluation is recommended--Not able to get this done inpatient and will need outpatient follow up for it. Seen by psych.? Does not have capacity to make medical decisions.? Guardianship obtained, case discussed with Case management they are arranging for safe discharge. VTE ppx SCDs, [facility] Quality Stroke Does the patient have a stroke diagnosis?: Yes Reason for No Anti-thrombotic by Day Two: N/A - Med Ordered VTE Prior VTE?: No VTE Risk Level:: Medical - moderate - high VTE Device Contraindication: N/A - Device Ordered VTE Drug Contraindication: N/A - Med Ordered
[2021-01-10] MEDS: Enoxaparin Sodium 40 MG/0.4 ML SYRINGE SUBCUT (16:44)
[2021-01-10 19:50] VITALS: BP 139/66; PULSE 65; RESP 18; TEMP 36.6; O2SAT 99
[2021-01-10] MEDS: Melatonin 3 MG TABLET PO (21:02)
[2021-01-10] MEDS: Atorvastatin Calcium 40 MG TABLET PO (21:02)
[2021-01-10 23:24] VITALS: BP 104/57; PULSE 71; RESP 18; TEMP 36.7; O2SAT 98
[2021-01-11 08:00] VITALS: BP 113/56; PULSE 67; RESP 18; TEMP 36.6; O2SAT 98
[2021-01-11] MEDS: Aspirin 81 MG TAB.CHEW PO (09:12)
[2021-01-11] MEDS: QUEtiapine Fumarate 25 MG TABLET PO ×2 (09:12→22:15)
[2021-01-11] MEDS: Thiamine HCL 100 MG TABLET PO (09:12)
[2021-01-11 11:29] VITALS: BP 118/65; PULSE 75; RESP 18; TEMP 35.9; O2SAT 99
--- NOTE | 2021-01-11 11:29 | P.PNIM_ITS ---
Subjective Subjective Date of Service: 01/11/21 Interval History: encephalopathy/likely dementia, Review of Systems Denies any new complaint of chest pain or shortness of breath or abdominal pain or fever or chills or nausea or vomiting Denies any cough Denies any weakness or numbness. Physical Exam Vital Signs: Vital Signs: Last Vital Signs Temp 97.9 F 01/11/21 08:00 Pulse 67 01/11/21 08:00 Resp 18 01/11/21 08:00 BP 113/56 L 01/11/21 08:00 Pulse Ox 98 01/11/21 08:00 Body Mass Index 18.7 General: AO X 2, no acute distress Resp:? CTA bilateral CVS: S1,S2,RRR GI: +BS, NT, no distention Skin: No rash Neuro:? motor grossly intact Psych: poor insight Objective Data Active Medications Acetaminophen (Acetaminophen 325 Mg Tablet) 650 mg PO Q6H PRN PRN Reason: Pain, Mild (Pain Scale 1-3) Aspirin (Aspirin 81 Mg Tab.Chew) 81 mg PO DAILY [facility] Last Admin: 01/11/21 09:12 Dose: 81 mg Documented by: TENZIN Atorvastatin Calcium (Atorvastatin Calcium 40 Mg Tablet) 40 mg PO BEDTIME [facility] Last Admin: 01/10/21 21:02 Dose: 40 mg Documented by: CARLA Docusate Sodium (Docusate Sodium 100 Mg Capsule) 100 mg PO BID PRN PRN Reason: Constipation Enoxaparin Sodium (Enoxaparin Sodium 40 Mg/0.4 Ml Syringe) 40 mg SUBCUT Q24H [facility] Last Admin: 01/10/21 16:44 Dose: 40 mg Documented by: YUMIKO Melatonin (Melatonin 3 Mg Tablet) 3 mg PO BEDTIME [facility] Last Admin: 01/10/21 21:02 Dose: 3 mg Documented by: CARLA Pharmacy Consult (Consult Rx Perform Med Rec) 1 each MISCELLANE ONCE PRN PRN Reason: Consult order Quetiapine Fumarate (Quetiapine Fumarate 25 Mg Tablet) 25 mg PO BID [facility] Last Admin: 01/11/21 09:12 Dose: 25 mg Documented by: TENZIN Sodium Chloride (0.9 % Sodium Chloride Flush 3 Ml Syringe) 3 ml IVFLUSH QSHIFT [facility] Last Admin: 01/11/21 09:09 Dose: Not Given Documented by: TENZIN Non-Admin Reason: No Access Thiamine HCl (Thiamine Hcl 100 Mg Tablet) 100 mg PO DAILY [facility] Last Admin: 01/11/21 09:12 Dose: 100 mg Documented by: TENZIN Trazodone HCl (Trazodone Hcl 25 Mg Halftab) 25 mg PO BEDTIME PRN PRN Reason: insomnia Last Admin: 01/09/21 02:29 Dose: 25 mg Documented by: ESTELLA Labs CBC & Chem 7: 12/20/20 06:20 12/20/20 06:20 Assessment and Plan (1) Encephalopathy: Status: Acute Assessment and Plan: 75yo male with no known medical history sent in for inadequate self-care, living in [facility], found to have CT evidence of subacute CVA though no neurologic deficit appreciated, deemed to not have capacity to make medical conditions and now awaiting guardianship hearing.? Essentially no clinical developement, continue curent care as below 1.Inability for self-care likley due to dementia, ? 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 for Wernicke-Korsakoff with parenteral thiamine; B1 level was low at 6 ,continue by mouth thiamine supplement cont.quetiapine for agitation, continue melatonin, and prn trazodone for insomnia 2.Subacute stroke? Patient denied any weakness,had no speech impairment,1.2 cm area of decreased attenuation seen in the left external capsule/claustrum questionable for subacute infarct. carotid dopplers-no significant carotid disease echo done 12/09 with preserved EF, with basal inferior segment akinesis. no chest pain, no EKG changes. - recommend outpatient cardiology follow up MRI brain 12/08?No mass lesion, acute infarction, or abnormal intracranial enhancement. Mild degree of diffuse brain parenchymal volume loss. EEG 12/08 no seizure activity Seen by Neuro ,workup including?T pallidum EIA, HIV, SARAH all negative Continue aspirin, statin 3.Thiamine deficiency on Oral thiamine replacement, s/p IV replacement ? 4.EtOH abuse: unable to corroborate hx. ? no signs of withdrawal.?multivitamin + thiamine as above, Status post treatment with phenobarbital 5.moderate protein/calorie malnutrition Continue Ensure tid, multivitamin 6.Prominent polypoid soft tissue? seen within the right and left sided palatine tonsillar fossa for which direct visual inspection/ENT evaluation is recommended --Not able to get this done inpatient and will need outpatient follow up for it. Seen by psych.? Does not have capacity to make medical decisions.? Guardianship obtained, case discussed with Case management they are arranging for safe discharge. VTE ppx SCDs, [facility] Quality Stroke Does the patient have a stroke diagnosis?: Yes Reason for No Anti-thrombotic by Day Two: N/A - Med Ordered VTE Prior VTE?: No VTE Risk Level:: Medical - moderate - high VTE Device Contraindication: N/A - Device Ordered VTE Drug Contraindication: N/A - Med Ordered
[2021-01-11] MEDS: Enoxaparin Sodium 40 MG/0.4 ML SYRINGE SUBCUT (15:26)
[2021-01-11] MEDS: Melatonin 3 MG TABLET PO (22:15)
[2021-01-11] MEDS: Atorvastatin Calcium 40 MG TABLET PO (22:16)
[2021-01-11 23:13] VITALS: BP 100/50; PULSE 59; RESP 18; TEMP 36.3; O2SAT 99
[2021-01-12] MEDS: Thiamine HCL 100 MG TABLET PO (07:20)
[2021-01-12] MEDS: Aspirin 81 MG TAB.CHEW PO (07:21)
[2021-01-12] MEDS: QUEtiapine Fumarate 25 MG TABLET PO ×2 (07:21→20:24)
[2021-01-12 07:34] VITALS: BP 125/69; PULSE 58; RESP 17; TEMP 36.2; O2SAT 98
--- NOTE | 2021-01-12 10:17 | MHC.CLN ---
F/U PO INTAKE GOOD DIET RX: [facility]D M/S-APPROPRIATE PT RECEIVING ENSURE TID TO INCREASE KCALS PROVIDES 1050KCALS, 60G PROTEIN LAST KNOWN WT 12/29 CONTINUE WEEKLY WEIGHTS R/T HIGH NUTRITION RISK FOLLOW UP WEEKLY TO CHECK WEIGHT R/T MALNUTRITION
--- NOTE | 2021-01-12 10:57 | P.PNIM_ITS ---
Subjective Subjective Date of Service: 01/12/21 Interval History: encephalopathy/likely dementia, Review of Systems Denies any complaint abdominal pain or fever or chills or nausea or vomiting Denies any cough Denies any weakness or numbness. Physical Exam Vital Signs: Vital Signs: Last Vital Signs Temp 97.2 F 01/12/21 07:34 Pulse 58 01/12/21 07:34 Resp 17 01/12/21 07:34 BP 125/69 01/12/21 07:34 Pulse Ox 98 01/12/21 07:34 Body Mass Index 18.7 General: AO X 2, no acute distress Resp:? CTA bilateral CVS: S1,S2,RRR GI: +BS, NT, no distention Skin: No rash Neuro:? motor grossly intact Psych: poor insight Objective Data Active Medications Acetaminophen (Acetaminophen 325 Mg Tablet) 650 mg PO Q6H PRN PRN Reason: Pain, Mild (Pain Scale 1-3) Aspirin (Aspirin 81 Mg Tab.Chew) 81 mg PO DAILY [facility] Last Admin: 01/12/21 07:21 Dose: 81 mg Documented by: TENZIN Atorvastatin Calcium (Atorvastatin Calcium 40 Mg Tablet) 40 mg PO BEDTIME [facility] Last Admin: 01/11/21 22:16 Dose: 40 mg Documented by: CARLA Docusate Sodium (Docusate Sodium 100 Mg Capsule) 100 mg PO BID PRN PRN Reason: Constipation Enoxaparin Sodium (Enoxaparin Sodium 40 Mg/0.4 Ml Syringe) 40 mg SUBCUT Q24H [facility] Last Admin: 01/11/21 15:26 Dose: 40 mg Documented by: KULWINDER Melatonin (Melatonin 3 Mg Tablet) 3 mg PO BEDTIME [facility] Last Admin: 01/11/21 22:15 Dose: 3 mg Documented by: CARLA Pharmacy Consult (Consult Rx Perform Med Rec) 1 each MISCELLANE ONCE PRN PRN Reason: Consult order Quetiapine Fumarate (Quetiapine Fumarate 25 Mg Tablet) 25 mg PO BID [facility] Last Admin: 01/12/21 07:21 Dose: 25 mg Documented by: TENZIN Sodium Chloride (0.9 % Sodium Chloride Flush 3 Ml Syringe) 3 ml IVFLUSH QSHIFT [facility] Last Admin: 01/12/21 07:21 Dose: Not Given Documented by: TENZIN Non-Admin Reason: No Access Thiamine HCl (Thiamine Hcl 100 Mg Tablet) 100 mg PO DAILY [facility] Last Admin: 01/12/21 07:20 Dose: 100 mg Documented by: TENZIN Trazodone HCl (Trazodone Hcl 25 Mg Halftab) 25 mg PO BEDTIME PRN PRN Reason: insomnia Last Admin: 01/09/21 02:29 Dose: 25 mg Documented by: ESTELLA Labs CBC & Chem 7: 12/20/20 06:20 12/20/20 06:20 Assessment and Plan (1) Encephalopathy: Status: Acute Assessment and Plan: 75yo male with no known medical history sent in for inadequate self-care, living in [facility], found to have CT evidence of subacute CVA though no neurologic deficit appreciated, deemed to not have capacity to make medical conditions and now awaiting guardianship hearing.? Essentially no clinical developement, continue curent care as below 1.Inability for self-care likley due to dementia, ? 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 for Wernicke-Korsakoff with parenteral thiamine; B1 level was low at 6 ,continue by mouth thiamine supplement cont.quetiapine for agitation, continue melatonin, and prn trazodone for ins omnia 2.Subacute stroke? Patient denied any weakness,had no speech impairment,1.2 cm area of decreased attenuation seen in the left external capsule/claustrum questionable for subacute infarct. carotid dopplers-no significant carotid disease echo done 12/09 with preserved EF, with basal inferior segment akinesis. no chest pain, no EKG changes. - recommend outpatient cardiology follow up MRI brain 12/08?No mass lesion, acute infarction, or abnormal intracranial enhanc ement. Mild degree of diffuse brain parenchymal volume loss. EEG 12/08 no seizure activity Seen by Neuro ,workup including?T pallidum EIA, HIV, SARAH all negative Continue aspirin, statin 3.Thiamine deficiency on Oral thiamine replacement, s/p IV replacement ? 4.EtOH abuse: unable to corroborate hx. ? no signs of withdrawal.?multivitamin + thiamine as above, Status post treatment with phenobarbital 5.moderate protein/calorie malnutrition Continue Ensure tid, multivitamin 6.Prominent polypoid soft tissue? seen within the right and left sided palatine tonsillar fossa for which direct visual inspection/ENT evaluation is recommended--Not able to get this done inpatient and will need outpatient follow up for it. Seen by psych.? Does not have capacity to make medical decisions.? Guardianship obtained, case discussed with Case management they are arranging for safe discharge. VTE ppx SCDs, [facility]WH Quality Stroke Does the patient have a stroke diagnosis?: Yes Reason for No Anti-thrombotic by Day Two: N/A - Med Ordered VTE Prior VTE?: No VTE Risk Level:: Medical - moderate - high VTE Device Contraindication: N/A - Device Ordered VTE Drug Contraindication: N/A - Med Ordered
[2021-01-12 13:00] VITALS: BMI 18.9
[2021-01-12] MEDS: Enoxaparin Sodium 40 MG/0.4 ML SYRINGE SUBCUT (15:38)
[2021-01-12 15:41] VITALS: BP 101/63; PULSE 67; RESP 19; TEMP 36.6; O2SAT 100
[2021-01-12] MEDS: Atorvastatin Calcium 40 MG TABLET PO (20:24)
[2021-01-12] MEDS: Melatonin 3 MG TABLET PO (20:24)
[2021-01-13 07:19] VITALS: BP 127/60; PULSE 58; RESP 18; TEMP 36.4; O2SAT 98
--- NOTE | 2021-01-13 11:11 | HO.PM.IMPN ---
Subjective Subjective Date of Service: 01/13/21 Interval History: encephalopathy/likely dementia, Review of Systems Denies any? complaint abdominal pain or fever or chills or nausea or vomiting Denies any cough Denies any weakness or numbness. Physical Exam Vital Signs: Vital Signs: Last Vital Signs Temp 97.5 F 01/13/21 07:19 Pulse 58 01/13/21 07:19 Resp 18 01/13/21 07:19 BP 127/60 01/13/21 07:19 Pulse Ox 98 01/13/21 07:19 Body Mass Index 18.9 General: AO X 2, no acute distress Resp:? CTA bilateral CVS: S1,S2,RRR GI: +BS, NT, no distention Skin: No rash Neuro:? motor grossly intact Psych: poor insight Objective Data Active Medications Acetaminophen (Acetaminophen 325 Mg Tablet) 650 mg PO Q6H PRN PRN Reason: Pain, Mild (Pain Scale 1-3) Aspirin (Aspirin 81 Mg Tab.Chew) 81 mg PO DAILY [facility] Last Admin: 01/12/21 07:21 Dose: 81 mg Documented by: TENZIN Atorvastatin Calcium (Atorvastatin Calcium 40 Mg Tablet) 40 mg PO BEDTIME [facility] Last Admin: 01/12/21 20:24 Dose: 40 mg Documented by: SONIDO Docusate Sodium (Docusate Sodium 100 Mg Capsule) 100 mg PO BID PRN PRN Reason: Constipation Enoxaparin Sodium (Enoxaparin Sodium 40 Mg/0.4 Ml Syringe) 40 mg SUBCUT Q24H [facility] Last Admin: 01/12/21 15:38 Dose: 40 mg Documented by: TENZIN Melatonin (Melatonin 3 Mg Tablet) 3 mg PO BEDTIME [facility] Last Admin: 01/12/21 20:24 Dose: 3 mg Documented by: SONIDO Pharmacy Consult (Consult Rx Perform Med Rec) 1 each MISCELLANE ONCE PRN PRN Reason: Consult order Quetiapine Fumarate (Quetiapine Fumarate 25 Mg Tablet) 25 mg PO BID [facility] Last Admin: 01/12/21 20:24 Dose: 25 mg Documented by: SONIDO Sodium Chloride (0.9 % Sodium Chloride Flush 3 Ml Syringe) 3 ml IVFLUSH QSHIFT [facility] Last Admin: 01/12/21 20:24 Dose: Not Given Documented by: HO.DESROA Non-Admin Reason: No Access Thiamine HCl (Thiamine Hcl 100 Mg Tablet) 100 mg PO DAILY [facility] Last Admin: 01/12/21 07:20 Dose: 100 mg Documented by: TENZIN Trazodone HCl (Trazodone Hcl 25 Mg Halftab) 25 mg PO BEDTIME PRN PRN Reason: insomnia Last Admin: 01/09/21 02:29 Dose: 25 mg Documented by: MARCOSASY Labs CBC & Chem 7: 12/20/20 06:20 12/20/20 06:20 Assessment and Plan (1) Thiamine deficiency: Status: Acute (2) Encephalopathy: Status: Acute Assessment and Plan: 75yo male with no known medical history sent in for inadequate self-care, living in [facility], found to have CT evidence of subacute CVA though no neurologic deficit appreciated, deemed to not have capacity to make medical conditions and now awaiting guardianship hearing.? Essentially no clinical developement, continue curent care as below 1.Inability for self-care likley due to dementia, ? 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 for Wernicke-Korsakoff with parenteral thiamine; B1 level was low at 6 ,continue by mouth thiamine supplement cont.quetiapine for agitation, continue melatonin, and prn trazodone for insomnia 2.Subacute stroke? Patient denied any weakness,had no speech impairment,1.2 cm area of decreased attenuation seen in the left external capsule/claustrum questionable for subacute infarct. carotid dopplers-no significant carotid disease echo done 12/09 with preserved EF, with basal inferior segment akinesis. no chest pain, no EKG changes. - recommend outpatient cardiology follow up MRI brain 12/08?No mass lesion, acute infarction, or abnormal intracranial enhancement. Mild degree of diffuse brain parenchymal volume loss. EEG 12/08 no seizure activity Seen by Neuro ,workup including?T pallidum EIA, HIV, SARAH all negative Continue aspirin, statin 3.Thiamine deficiency on Oral thiamine replacement, s/p IV replacement ? 4.EtOH abuse: unable to corroborate hx. ? no signs of withdrawal.?multivitamin + thiamine as above, Status post treatment with phenobarbital 5.moderate protein/calorie malnutrition Continue Ensure tid, multivitamin 6.Prominent polypoid soft tissue? seen within the right and left sided palatine tonsillar fossa for which direct visual inspection/ENT evaluation is recommended--Not able to get this done inpatient and will need outpatient follow up for it. Seen by psych.? Does not have capacity to make medical decisions.? Guardianship obtained, case discussed with Case management they are arranging for safe discharge. VTE ppx SCDs, [facility] Quality Stroke Does the patient have a stroke diagnosis?: Yes Reason for No Anti-thrombotic by Day Two: N/A - Med Ordered VTE Prior VTE?: No VTE Risk Level:: Medical - moderate - high VTE Device Contraindication: N/A - Device Ordered VTE Drug Contraindication: N/A - Med Ordered
[2021-01-13] MEDS: Thiamine HCL 100 MG TABLET PO (11:53)
[2021-01-13] MEDS: Aspirin 81 MG TAB.CHEW PO (11:53)
[2021-01-13] MEDS: QUEtiapine Fumarate 25 MG TABLET PO ×2 (11:53→20:32)
[2021-01-13 15:31] VITALS: BP 107/53; PULSE 63; RESP 18; TEMP 36.6; O2SAT 100
[2021-01-13] MEDS: Enoxaparin Sodium 40 MG/0.4 ML SYRINGE SUBCUT (17:50)
[2021-01-13] MEDS: Melatonin 3 MG TABLET PO (20:32)
[2021-01-13] MEDS: Atorvastatin Calcium 40 MG TABLET PO (20:32)
[2021-01-14 03:08] VITALS: BP 130/63; PULSE 63; RESP 18; O2SAT 98
[2021-01-14 07:33] VITALS: BP 113/53; PULSE 58; RESP 20; TEMP 37.1; O2SAT 98
--- NOTE | 2021-01-14 09:45 | P.PNIM_ITS ---
Subjective Subjective Date of Service: 01/14/21 Interval History: encephalopathy/likely dementia, Review of Systems Denies any? complaint abdominal pain or fever or chills or nausea or vomiting Denies any cough Denies any weakness or numbness. Physical Exam Vital Signs: Vital Signs: Last Vital Signs Temp 98.7 F 01/14/21 07:33 Pulse 58 01/14/21 07:33 Resp 20 01/14/21 07:33 BP 113/53 L 01/14/21 07:33 Pulse Ox 98 01/14/21 07:33 Body Mass Index 18.9 General: AO X 2, no acute distress Resp:? CTA bilateral CVS: S1,S2,RRR GI: +BS, NT, no distention Skin: No rash Neuro:? motor grossly intact Psych: poor insight Objective Data Active Medications Acetaminophen (Acetaminophen 325 Mg Tablet) 650 mg PO Q6H PRN PRN Reason: Pain, Mild (Pain Scale 1-3) Aspirin (Aspirin 81 Mg Tab.Chew) 81 mg PO DAILY [facility] Last Admin: 01/13/21 11:53 Dose: 81 mg Documented by: REJI Atorvastatin Calcium (Atorvastatin Calcium 40 Mg Tablet) 40 mg PO BEDTIME [facility] Last Admin: 01/13/21 20:32 Dose: 40 mg Documented by: SONIDO Docusate Sodium (Docusate Sodium 100 Mg Capsule) 100 mg PO BID PRN PRN Reason: Constipation Enoxaparin Sodium (Enoxaparin Sodium 40 Mg/0.4 Ml Syringe) 40 mg SUBCUT Q24H [facility] Last Admin: 01/13/21 17:50 Dose: 40 mg Documented by: REJI Melatonin (Melatonin 3 Mg Tablet) 3 mg PO BEDTIME [facility] Last Admin: 01/13/21 20:32 Dose: 3 mg Documented by: SONIDO Pharmacy Consult (Consult Rx Perform Med Rec) 1 each MISCELLANE ONCE PRN PRN Reason: Consult order Quetiapine Fumarate (Quetiapine Fumarate 25 Mg Tablet) 25 mg PO BID [facility] Last Admin: 01/13/21 20:32 Dose: 25 mg Documented by: SONIDO Sodium Chloride (0.9 % Sodium Chloride Flush 3 Ml Syringe) 3 ml IVFLUSH QSHIFT [facility] Last Admin: 01/14/21 00:48 Dose: Not Given Documented by: HO.DESROA Non-Admin Reason: No Access Thiamine HCl (Thiamine Hcl 100 Mg Tablet) 100 mg PO DAILY [facility] Last Admin: 01/13/21 11:53 Dose: 100 mg Documented by: REJI Trazodone HCl (Trazodone Hcl 25 Mg Halftab) 25 mg PO BEDTIME PRN PRN Reason: insomnia Last Admin: 01/09/21 02:29 Dose: 25 mg Documented by: MARCOSASY Labs CBC & Chem 7: 12/20/20 06:20 12/20/20 06:20 Assessment and Plan (1) Thiamine deficiency: Status: Acute (2) Encephalopathy: Status: Acute (3) Stroke: Status: Acute Assessment and Plan: 75yo male with no known medical history sent in for inadequate self-care, living in [facility], found to have CT evidence of subacute CVA though no neurologic deficit appreciated, deemed to not have capacity to make medical conditions and now awaiting guardianship hearing.? Essentially no clinical developement, continue curent care as below 1.[facility], ? 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 for Wernicke-Korsakoff with parenteral thiamine; B1 level was low at 6 ,continue by mouth thiamine supplement cont.quetiapine for agitation, continue melatonin, and prn trazodone for insomnia 2.Subacute stroke? Patient denied any weakness,had no speech impairment,1.2 cm area of decreased attenuation seen in the left external capsule/claustrum questionable for subacute infarct. carotid dopplers-no significant carotid disease echo done 12/09 with preserved EF, with basal inferior segment akinesis. no chest pain, no EKG changes. - recommend outpatient cardiology follow up MRI brain 12/08?No mass lesion, acute infarction, or abnormal intracranial enhancement. Mild degree of diffuse brain parenchymal volume loss. EEG 12/08 no seizure activity Seen by Neuro ,workup including?T pallidum EIA, HIV, SARAH all negative Continue aspirin, statin 3.Thiamine deficiency on Oral thiamine replacement, s/p IV replacement ? 4.EtOH abuse: unable to corroborate hx. ? no signs of withdrawal.?multivitamin + thiamine as above, Status post treatment with phenobarbital 5.moderate protein/calorie malnutrition Continue Ensure tid, multivitamin 6.Prominent polypoid soft tissue? seen within the right and left sided palatine tonsillar fossa for which direct visual inspection/ENT evaluation is recommended--Not able to get this done inpatient and will need outpatient follow up for it. Seen by psych.? Does not have capacity to make medical decisions.? Guardianship obtained, case discussed with Case management they are arranging for safe discharge. VTE ppx SCDs, [facility] Quality Stroke Does the patient have a stroke diagnosis?: Yes Reason for No Anti-thrombotic by Day Two: N/A - Med Ordered VTE Prior VTE?: No VTE Risk Level:: Medical - moderate - high VTE Device Contraindication: N/A - Device Ordered VTE Drug Contraindication: N/A - Med Ordered
[2021-01-14] MEDS: Aspirin 81 MG TAB.CHEW PO (10:13)
[2021-01-14] MEDS: QUEtiapine Fumarate 25 MG TABLET PO ×2 (10:14→21:10)
[2021-01-14] MEDS: Thiamine HCL 100 MG TABLET PO (10:14)
[2021-01-14 15:15] VITALS: BP 110/57; PULSE 67; RESP 19; TEMP 36.6; O2SAT 100
[2021-01-14] MEDS: Enoxaparin Sodium 40 MG/0.4 ML SYRINGE SUBCUT (17:59)
[2021-01-14] MEDS: Atorvastatin Calcium 40 MG TABLET PO (21:10)
[2021-01-14] MEDS: Melatonin 3 MG TABLET PO (21:10)
[2021-01-15] VITALS: BP 100/58; PULSE 77; RESP 18; TEMP 36.8; O2SAT 97
--- NOTE | 2021-01-15 11:21 | HO.PM.IMPN ---
Subjective Subjective Date of Service: 01/15/21 Interval History: encephalopathy/likely dementia, Review of Systems Denies any cough or abdominal pain or fever or chills or nausea or vomiting Physical Exam Vital Signs: Vital Signs: Last Vital Signs Temp 98.2 F 01/15/21 00:00 Pulse 77 01/15/21 00:00 Resp 18 01/15/21 00:00 BP 100/58 L 01/15/21 00:00 Pulse Ox 97 01/15/21 00:00 Body Mass Index 18.9 General: AO X 2, no acute distress Resp:? CTA bilateral CVS: S1,S2,RRR GI: +BS, NT, no distention Skin: No rash Neuro:? motor grossly intact Psych: poor insight Objective Data Active Medications Acetaminophen (Acetaminophen 325 Mg Tablet) 650 mg PO Q6H PRN PRN Reason: Pain, Mild (Pain Scale 1-3) Aspirin (Aspirin 81 Mg Tab.Chew) 81 mg PO DAILY [facility] Last Admin: 01/14/21 10:13 Dose: 81 mg Documented by: REJI Atorvastatin Calcium (Atorvastatin Calcium 40 Mg Tablet) 40 mg PO BEDTIME [facility] Last Admin: 01/14/21 21:10 Dose: 40 mg Documented by: HASMUKH Docusate Sodium (Docusate Sodium 100 Mg Capsule) 100 mg PO BID PRN PRN Reason: Constipation Enoxaparin Sodium (Enoxaparin Sodium 40 Mg/0.4 Ml Syringe) 40 mg SUBCUT Q24H [facility] Last Admin: 01/14/21 17:59 Dose: 40 mg Documented by: REJI Melatonin (Melatonin 3 Mg Tablet) 3 mg PO BEDTIME [facility] Last Admin: 01/14/21 21:10 Dose: 3 mg Documented by: HASMUKH Pharmacy Consult (Consult Rx Perform Med Rec) 1 each MISCELLANE ONCE PRN PRN Reason: Consult order Quetiapine Fumarate (Quetiapine Fumarate 25 Mg Tablet) 25 mg PO BID [facility] Last Admin: 01/14/21 21:10 Dose: 25 mg Documented by: HASMUKH Sodium Chloride (0.9 % Sodium Chloride Flush 3 Ml Syringe) 3 ml IVFLUSH QSHIFT [facility] Last Admin: 01/15/21 09:17 Dose: Not Given Documented by: KULWINDER Non-Admin Reason: No Access Thiamine HCl (Thiamine Hcl 100 Mg Tablet) 100 mg PO DAILY [facility] Last Admin: 01/14/21 10:14 Dose: 100 mg Documented by: REJI Trazodone HCl (Trazodone Hcl 25 Mg Halftab) 25 mg PO BEDTIME PRN PRN Reason: insomnia Last Admin: 01/09/21 02:29 Dose: 25 mg Documented by: MARCOSASY Labs CBC & Chem 7: 12/20/20 06:20 12/20/20 06:20 Assessment and Plan (1) Encephalopathy: Status: Acute Assessment and Plan: 5yo male with no known medical history sent in for inadequate self-care, living in [facility], found to have CT evidence of subacute CVA though no neurologic deficit appreciated, deemed to not have capacity to make medical conditions and now awaiting guardianship hearing.? Essentially no clinical developement, continue curent care as below 1.Inability for self-care likley due to dementia, ? 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 for Wernicke-Korsakoff with parenteral thiamine; B1 level was low at 6 ,continue by mouth thiamine supplement cont.quetiapine for agitation, continue melatonin, and prn trazodone for insomnia 2.Subacute stroke? Patient denied any weakness,had no speech impairment,1.2 cm area of decreased attenuation seen in the left external capsule/claustrum questionable for subacute infarct. carotid dopplers-no significant carotid disease echo done 12/09 with preserved EF, with basal inferior segment akinesis. no chest pain, no EKG changes. - recommend outpatient cardiology follow up MRI brain 12/08?No mass lesion, acute infarction, or abnormal intracranial enhancement. Mild degree of diffuse brain parenchymal volume loss. EEG 12/08 no seizure activity Seen by Neuro ,workup including?T pallidum EIA, HIV, SARAH all negative Continue aspirin, statin 3.Thiamine deficiency on Oral thiamine replacement, s/p IV replacement ? 4.EtOH abuse: unable to corroborate hx. ? no signs of withdrawal.?multivitamin + thiamine as above, Status post treatment with phenobarbital 5.moderate protein/calorie malnutrition Continue Ensure tid, multivitamin 6.Prominent polypoid soft tissue? seen within the right and left sided palatine tonsillar fossa for which direct visual inspection/ENT evaluation is recommended--Not able to get this done inpatient and will need outpatient follow up for it. Seen by psych.? Does not have capacity to make medical decisions.? Guardianship obtained, case discussed with Case management they are arranging for safe discharge. VTE ppx SCDs, [facility]WH Quality Stroke Does the patient have a stroke diagnosis?: Yes Reason for No Anti-thrombotic by Day Two: N/A - Med Ordered VTE Prior VTE?: No VTE Risk Level:: Medical - moderate - high VTE Device Contraindication: N/A - Device Ordered VTE Drug Contraindication: N/A - Med Ordered
[2021-01-15 11:25] VITALS: BP 123/63; PULSE 65; RESP 18; TEMP 36.7; O2SAT 98
[2021-01-15] MEDS: QUEtiapine Fumarate 25 MG TABLET PO ×2 (11:37→20:21)
[2021-01-15] MEDS: Thiamine HCL 100 MG TABLET PO (11:37)
[2021-01-15] MEDS: Aspirin 81 MG TAB.CHEW PO (11:37)
[2021-01-15 15:28] VITALS: BP 123/68; PULSE 67; RESP 18; TEMP 36.2; O2SAT 100
[2021-01-15] MEDS: Enoxaparin Sodium 40 MG/0.4 ML SYRINGE SUBCUT (16:41)
[2021-01-15] MEDS: traZODone HCL 25 MG HALFTAB PO (20:21)
[2021-01-15] MEDS: Melatonin 3 MG TABLET PO (20:21)
[2021-01-15] MEDS: Atorvastatin Calcium 40 MG TABLET PO (20:21)
[2021-01-16] VITALS: BP 109/54; PULSE 70; RESP 18; TEMP 36.3; O2SAT 98
[2021-01-16 07:15] VITALS: BP 134/63; PULSE 66; RESP 18; TEMP 36.5; O2SAT 100
[2021-01-16] MEDS: QUEtiapine Fumarate 25 MG TABLET PO ×2 (08:07→20:19)
[2021-01-16] MEDS: Thiamine HCL 100 MG TABLET PO (08:07)
[2021-01-16] MEDS: Aspirin 81 MG TAB.CHEW PO (08:07)
--- NOTE | 2021-01-16 14:11 | HO.PM.IMPN ---
Subjective Subjective Date of Service: 01/16/21 Interval History: f/u confusion, incompentence and awaiting guardianship Review of Systems Gen: no fever Resp: no sob, no cough CV: no chest, no ZAMBRANO, no leg edema GI: No n/v, no abd pain Neuro: baseline confusion Physical Exam Vital Signs: Vital Signs: Last Vital Signs Temp 97.7 F 01/16/21 07:15 Pulse 66 01/16/21 07:15 Resp 18 01/16/21 07:15 BP 134/63 01/16/21 07:15 Pulse Ox 100 01/16/21 07:15 Body Mass Index 18.9 General: AO 1, no acute distress Resp: CTA bilateral CVS: S1,S2,RRR GI: +BS, NT, no distention Skin: No rash Neuro: motor grossly intact Psych: appropriate affect Objective Data Active Medications Acetaminophen (Acetaminophen 325 Mg Tablet) 650 mg PO Q6H PRN PRN Reason: Pain, Mild (Pain Scale 1-3) Aspirin (Aspirin 81 Mg Tab.Chew) 81 mg PO DAILY [facility] Last Admin: 01/16/21 08:07 Dose: 81 mg Documented by: KULWINDER Atorvastatin Calcium (Atorvastatin Calcium 40 Mg Tablet) 40 mg PO BEDTIME [facility] Last Admin: 01/15/21 20:21 Dose: 40 mg Documented by: HASMUKH Docusate Sodium (Docusate Sodium 100 Mg Capsule) 100 mg PO BID PRN PRN Reason: Constipation Enoxaparin Sodium (Enoxaparin Sodium 40 Mg/0.4 Ml Syringe) 40 mg SUBCUT Q24H [facility] Last Admin: 01/15/21 16:41 Dose: 40 mg Documented by: KULWINDER Melatonin (Melatonin 3 Mg Tablet) 3 mg PO BEDTIME [facility] Last Admin: 01/15/21 20:21 Dose: 3 mg Documented by: HASMUKH Pharmacy Consult (Consult Rx Perform Med Rec) 1 each MISCELLANE ONCE PRN PRN Reason: Consult order Quetiapine Fumarate (Quetiapine Fumarate 25 Mg Tablet) 25 mg PO BID [facility] Last Admin: 01/16/21 08:07 Dose: 25 mg Documented by: KULWINDER Sodium Chloride (0.9 % Sodium Chloride Flush 3 Ml Syringe) 3 ml IVFLUSH QSHIFT [facility] Last Admin: 01/16/21 08:07 Dose: Not Given Documented by: KULWINDER Non-Admin Reason: No Access Thiamine HCl (Thiamine Hcl 100 Mg Tablet) 100 mg PO DAILY [facility] Last Admin: 01/16/21 08:07 Dose: 100 mg Documented by: KULWINDER Trazodone HCl (Trazodone Hcl 25 Mg Halftab) 25 mg PO BEDTIME PRN PRN Reason: insomnia Last Admin: 01/15/21 20:21 Dose: 25 mg Documented by: HASMUKH Labs CBC & Chem 7: 12/20/20 06:20 12/20/20 06:20 Assessment and Plan (1) Encephalopathy: Status: Acute Assessment and Plan: 75yo male with no known medical history sent in for inadequate self-care, living in [facility], found to have CT evidence of subacute CVA though no neurologic deficit appreciated, deemed to not have capacity to make medical conditions and now awaiting guardianship hearing.? Essentially no new clinical developement, continue curent care as below 1.Inability for self-care likley due to dementia, ? 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 for Wernicke-Korsakoff with parenteral thiamine; B1 level was low at 6 ,continue by mouth thiamine supplement cont.quetiapine for agitation, continue melatonin, and prn trazodone for insomnia 2.Subacute stroke? Patient denied any weakness,had no speech impairment,1.2 cm area of decreased attenuation seen in the left external capsule/claustrum questionable for subacute infarct. carotid dopplers-no significant carotid disease echo done 12/09 with preserved EF, with basal inferior segment akinesis. no chest pain, no EKG changes. - recommend outpatient cardiology follow up MRI brain 12/08?No mass lesion, acute infarction, or abnormal intracranial enhancement. Mild degree of diffuse brain parenchymal volume loss. EEG 12/08 no seizure activity Seen by Neuro ,workup including?T pallidum EIA, HIV, SARAH all negative Continue aspirin, statin 3.Thiamine deficiency on Oral thiamine replacement, s/p IV replacement ? 4.EtOH abuse: unable to corroborate hx. ? no signs of withdrawal.?multivitamin + thiamine as above, Status post treatment with phenobarbital 5.moderate protein/calorie malnutrition Continue Ensure tid, multivitamin 6.Prominent polypoid soft tissue? seen within the right and left sided palatine tonsillar fossa for which direct visual inspection/ENT evaluation is recommended--Not able to get this done inpatient and will need outpatient follow up for it. Seen by psych.? Does not have capacity to make medical decisions.? Guardianship obtained, case discussed with Case management they are arranging for safe discharge. VTE ppx SCDs, LMWH Quality Stroke Does the patient have a stroke diagnosis?: Yes Reason for No Anti-thrombotic by Day Two: N/A - Med Ordered VTE Prior VTE?: No VTE Risk Level:: Medical - moderate - high VTE Device Contraindication: N/A - Device Ordered VTE Drug Contraindication: N/A - Med Ordered
[2021-01-16 15:25] VITALS: BP 112/64; PULSE 68; RESP 16; TEMP 36.6; O2SAT 95
[2021-01-16] MEDS: Enoxaparin Sodium 40 MG/0.4 ML SYRINGE SUBCUT (17:47)
[2021-01-16] MEDS: Melatonin 3 MG TABLET PO (20:19)
[2021-01-16] MEDS: Atorvastatin Calcium 40 MG TABLET PO (20:19)
[2021-01-16 23:32] VITALS: BP 124/57; PULSE 66; RESP 18; TEMP 36.2; O2SAT 98
[2021-01-17 07:58] VITALS: BP 118/53; PULSE 61; RESP 18; TEMP 36.7; O2SAT 96
[2021-01-17] MEDS: Aspirin 81 MG TAB.CHEW PO (09:34)
[2021-01-17] MEDS: QUEtiapine Fumarate 25 MG TABLET PO ×2 (09:34→22:28)
[2021-01-17] MEDS: Thiamine HCL 100 MG TABLET PO (09:34)
--- NOTE | 2021-01-17 13:46 | MHC.CM.PN ---
called and spoke with guardian carlosclifton ying [phone] asking for an update re kavya banguraa explins that she completed the [employer] shama 2 weeks ago she hasnt heard back from [employer] as far as the list of verifivcation needed to complete shama.she reprots pt has no assests except for a condemmed house that she will be required to put on the market put she says that pt will be approved as long as home is up for sale referrals have been placed
--- NOTE | 2021-01-17 14:32 | P.PNIM_ITS ---
Subjective Subjective Date of Service: 01/17/21 Interval History: ? f/u confusion, incompentence and awaiting guardianship Review of Systems no fever no sob Physical Exam Vital Signs: Vital Signs: Last Vital Signs Temp 98.0 F 01/17/21 07:58 Pulse 61 01/17/21 07:58 Resp 18 01/17/21 07:58 BP 118/53 L 01/17/21 07:58 Pulse Ox 96 01/17/21 07:58 Body Mass Index 18.9 General: AO X 1, no acute distress Resp: CTA bilateral CVS: S1,S2,RRR GI: +BS, NT, no distention Skin: No rash Neuro: motor grossly intact Psych: appropriate affect Objective Data Active Medications Acetaminophen (Acetaminophen 325 Mg Tablet) 650 mg PO Q6H PRN PRN Reason: Pain, Mild (Pain Scale 1-3) Aspirin (Aspirin 81 Mg Tab.Chew) 81 mg PO DAILY [facility] Last Admin: 01/17/21 09:34 Dose: 81 mg Documented by: EFRAIN Atorvastatin Calcium (Atorvastatin Calcium 40 Mg Tablet) 40 mg PO BEDTIME [facility] Last Admin: 01/16/21 20:19 Dose: 40 mg Documented by: ARNOLD Docusate Sodium (Docusate Sodium 100 Mg Capsule) 100 mg PO BID PRN PRN Reason: Constipation Enoxaparin Sodium (Enoxaparin Sodium 40 Mg/0.4 Ml Syringe) 40 mg SUBCUT Q24H [facility] Last Admin: 01/16/21 17:47 Dose: 40 mg Documented by: KULWINDER Melatonin (Melatonin 3 Mg Tablet) 3 mg PO BEDTIME [facility] Last Admin: 01/16/21 20:19 Dose: 3 mg Documented by: ARNOLD Pharmacy Consult (Consult Rx Perform Med Rec) 1 each MISCELLANE ONCE PRN PRN Reason: Consult order Quetiapine Fumarate (Quetiapine Fumarate 25 Mg Tablet) 25 mg PO BID [facility] Last Admin: 01/17/21 09:34 Dose: 25 mg Documented by: EFRAIN Sodium Chloride (0.9 % Sodium Chloride Flush 3 Ml Syringe) 3 ml IVFLUSH QSHIFT [facility] Last Admin: 01/17/21 09:36 Dose: Not Given Documented by: EFRAIN Non-Admin Reason: No Access Thiamine HCl (Thiamine Hcl 100 Mg Tablet) 100 mg PO DAILY [facility] Last Admin: 01/17/21 09:34 Dose: 100 mg Documented by: DOBROB Trazodone HCl (Trazodone Hcl 25 Mg Halftab) 25 mg PO BEDTIME PRN PRN Reason: insomnia Last Admin: 01/15/21 20:21 Dose: 25 mg Documented by: ANDERM Labs CBC & Chem 7: 12/20/20 06:20 12/20/20 06:20 Assessment and Plan (1) Encephalopathy: Status: Acute Assessment and Plan: 75yo male with no known medical history sent in for inadequate self-care, living in [facility], found to have CT evidence of subacute CVA though no neurologic deficit appreciated, deemed to not have capacity to make medical conditions and now awaiting guardianship hearing.? Essentially no new clinical developement tody, continue curent care as below 1.Inability for self-care likley due to dementia, ? 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 for Wernicke-Korsakoff with parenteral thiamine; B1 level was low at 6 ,continue by mouth thiamine supplement cont.quetiapine for agitation, continue melatonin, and prn trazodone for insomnia 2.Subacute stroke? Patient denied any weakness,had no speech impairment,1.2 cm area of decreased attenuation seen in the left external capsule/claustrum questionable for subacute infarct. carotid dopplers-no significant carotid disease echo done 12/09 with preserved EF, with basal inferior segment akinesis. no chest pain, no EKG changes. - recommend outpatient cardiology follow up MRI brain 12/08?No mass lesion, acute infarction, or abnormal intracranial enhancement. Mild degree of diffuse brain parenchymal volume loss. EEG 12/08 no seizure activity Seen by Neuro ,workup including?T pallidum EIA, HIV, SARAH all negative Continue aspirin, statin 3.Thiamine deficiency on Oral thiamine replacement, s/p IV replacement ? 4.EtOH abuse: unable to corroborate hx. ? no signs of withdrawal.?multivitamin + thiamine as above, Status post treatment with phenobarbital 5.moderate protein/calorie malnutrition Continue Ensure tid, multivitamin 6.Prominent polypoid soft tissue? seen within the right and left sided palatine tonsillar fossa for which direct visual inspection/ENT evaluation is recommended--Not able to get this done inpatient and will need outpatient follow up for it. Seen by psych.? Does not have capacity to make medical decisions.? Guardianship obtained, case discussed with Case management they are arranging for safe dis charge. VTE ppx SCDs, LMWH Quality Stroke Does the patient have a stroke diagnosis?: Yes Reason for No Anti-thrombotic by Day Two: N/A - Med Ordered VTE Prior VTE?: No VTE Risk Level:: Medical - moderate - high VTE Device Contraindication: N/A - Device Ordered VTE Drug Contraindication: N/A - Med Ordered
[2021-01-17 15:33] VITALS: BP 104/63; PULSE 65; RESP 20; TEMP 36.8; O2SAT 100
[2021-01-17] MEDS: Atorvastatin Calcium 40 MG TABLET PO (22:28)
[2021-01-17] MEDS: Melatonin 3 MG TABLET PO (22:28)
[2021-01-18] VITALS: RESP 16
[2021-01-18 07:07] VITALS: BP 105/47; PULSE 54; RESP 17; TEMP 36.9; O2SAT 98
[2021-01-18] MEDS: Aspirin 81 MG TAB.CHEW PO (10:54)
[2021-01-18] MEDS: Thiamine HCL 100 MG TABLET PO (10:54)
[2021-01-18] MEDS: QUEtiapine Fumarate 25 MG TABLET PO ×2 (10:54→20:22)
--- NOTE | 2021-01-18 11:07 | P.EN_ITS ---
Event Note Date of Service: 01/18/21 Event Note: Seen in f/u for placement. No new issues overnight, vitals reviewed, alert, baseline confusion, CVRRR, lungs CTA A/P 75yo male with no known medical history sent in for inadequate self-care, living in [facility], found to have CT evidence of subacute CVA though no neurologic deficit appreciated, deemed to not have capacity to make medical conditions and now awaiting guardianship hearing.? Essentially no new clinical developement tody, continue curent care as below 1.Inability for self-care likley due to dementia, ? 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 for Wernicke-Korsakoff with parenteral thiamine; B1 level was low at 6 ,continue by mouth thiamine supplement cont.quetiapine for agitation, continue melatonin, and prn trazodone for insomnia 2.Subacute stroke? Patient denied any weakness,had no speech impairment,1.2 cm area of decreased attenuation seen in the left external capsule/claustrum questionable for subacute infarct. carotid dopplers-no significant carotid disease echo done 12/09 with preserved EF, with basal inferior segment akinesis. no chest pain, no EKG changes. - recommend outpatient cardiology follow up MRI brain 12/08?No mass lesion, acute infarction, or abnormal intracranial enhancement. Mild degree of diffuse brain parenchymal volume loss. EEG 12/08 no seizure activity Seen by Neuro ,workup including?T pallidum EIA, HIV, SARAH all negative Continue aspirin, statin 3.Thiamine deficiency on Oral thiamine replacement, s/p IV replacement ? 4.EtOH abuse: unable to corroborate hx. ? no signs of withdrawal.?multivitamin + thiamine as above, Status post treatment with phenobarbital 5.moderate protein/calorie malnutrition Continue Ensure tid, multivitamin 6.Prominent polypoid soft tissue? seen within the right and left sided palatine tonsillar fossa for which direct visual inspection/ENT evaluation is recommended--Not able to get this done inpatient and will need outpatient follow up for it. Seen by psych.? Does not have capacity to make medical decisions.? Guardianship obtained, case discussed with Case management they are arranging for safe d ischarge.
[2021-01-18 15:28] VITALS: BP 123/66; PULSE 63; RESP 16; TEMP 37; O2SAT 99
[2021-01-18] MEDS: Melatonin 3 MG TABLET PO (20:22)
[2021-01-18] MEDS: Atorvastatin Calcium 40 MG TABLET PO (20:22)
[2021-01-18 23:37] VITALS: BP 119/60; PULSE 56; RESP 18; TEMP 36.6; O2SAT 95
[2021-01-19 07:01] VITALS: BP 106/60; PULSE 58; RESP 18; TEMP 36.1; O2SAT 99
--- NOTE | 2021-01-19 10:53 | PM.EVENT ---
Event Note Date of Service: 01/19/21 Event Note: Seen in f/u for prolonged stay d/t placment, has no new isses vitals reviewed Selected Entries 01/19/21 07:01 Pulse Rate 58 Respiratory Rate 18 Blood Pressure 106/60 Pulse Oximetry 99 Oxygen Delivery Method Room Air exam: alert, pleasant yet confused [id number] lung cta neuro: no focal deficit No new data to review A/P 75yo male with no known medical history sent in for inadequate self-care, living in [facility], found to have CT evidence of subacute CVA though no neurologic deficit appreciated, deemed to not have capacity to make medical conditions and now awaiting guardianship hearing.? Essentially no new clinical developement tody, continue curent care as below 1.Inability for self-care likley due to dementia, ? 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 for Wernicke-Korsakoff with parenteral thiamine; B1 level was low at 6 ,continue by mouth thiamine supplement cont.quetiapine for agitation, continue melatonin, and prn trazodone for insomnia 2.Subacute stroke? Patient denied any weakness,had no speech impairment,1.2 cm area of decreased attenuation seen in the left external capsule/claustrum questionable for subacute infarct. carotid dopplers-no significant carotid disease echo done 12/09 with preserved EF, with basal inferior segment akinesis. no chest pain, no EKG changes. - recommend outpatient cardiology follow up MRI brain 12/08?No mass lesion, acute infarction, or abnormal intracranial enhancement. Mild degree of diffuse brain parenchymal volume loss. EEG 12/08 no seizure activity Seen by Neuro ,workup including?T pallidum EIA, HIV, SARAH all negative Continue aspirin, statin 3.Thiamine deficiency on Oral thiamine replacement, s/p IV replacement ? 4.EtOH abuse: unable to corroborate hx. ? no signs of withdrawal.?multivitamin + thiamine as above, Status post treatment with phenobarbital 5.moderate protein/calorie malnutrition Continue Ensure tid, multivitamin 6.Prominent polypoid soft tissue? seen within the right and left sided palatine tonsillar fossa for which direct visual inspection/ENT evaluation is recommended--Not able to get this done inpatient and will need outpatient follow up for it. Seen by psych.? Does not have capacity to make medical decisions.? Guardianship obtained, case discussed with Case management they are arranging for safe discharge. check routine labs once in a while
[2021-01-19 11:15] LABS: Hematocrit 38.4 % (42-52); Hemoglobin 12.7 g/dl (14.0-18.0); Mean Corpuscular HGB Conc 33.1 g/dl (31.0-36.0); Mean Corpuscular Hemoglobin 30.9 pg (27.0-33.0); Mean Corpuscular Volume 93.4 fL (80-98); Mean Platelet Volume 11.8 fL (9.4-12.4); Platelet Count 180 X10*3/uL (160-400); Red Blood Count 4.11 X10*6/uL (4.60-5.80); Red Cell Distribution Width 15.4 % (11.0-16.0); White Blood Count 8.3 X10*3/uL (4.8-10.8)
[2021-01-19 11:17] VITALS: BP 100/52; PULSE 65; RESP 18; TEMP 35.5; O2SAT 98
[2021-01-19] MEDS: Thiamine HCL 100 MG TABLET PO (11:20)
[2021-01-19] MEDS: Aspirin 81 MG TAB.CHEW PO (11:20)
[2021-01-19] MEDS: QUEtiapine Fumarate 25 MG TABLET PO ×2 (11:21→19:53)
[2021-01-19 11:36] VITALS: BP 100/52; PULSE 65; O2SAT 98
[2021-01-19 11:36] LABS: Anion Gap 11 (12-20); Blood Urea Nitrogen 27 mg/dL (9-16); Calcium 8.6 mg/dL (8.4-10.2); Carbon Dioxide 26 mmol/L (22-29); Chloride 107 mmol/L (96-108); Creatinine Clr Calc Pharmacy 71.8; Estimated Glomerular Filt Rate > 60; Glucose Random 93 mg/dL (60-115); Potassium 4.4 mmol/L (3.3-5.1); Sodium 140 mmol/L (135-145)
[2021-01-19 13:00] VITALS: BMI 20.1
--- NOTE | 2021-01-19 13:06 | MHC.CLN ---
Addendum entered by Justine Gallardo, MASON 01/19/21 13:47: AGREE WITH PROVIDER'S ASSESSMENT BELOW Original Note: F/U PO INTAKE GOOD DIET RX: GRD M/S-APPROPRIATE PT RECEIVING ENSURE TID TO INCREASE KCALS PROVIDES 1050KCALS, 60G PROTEIN LAST KNOWN WT 01/12 CONTINUE WEEKLY WEIGHTS R/T HIGH NUTRITION RISK FOLLOW UP WEEKLY TO CHECK WEIGHT R/T MALNUTRITION
[2021-01-19 16:00] VITALS: BP 105/52; PULSE 82; RESP 18; TEMP 37.2; O2SAT 100
[2021-01-19] MEDS: Atorvastatin Calcium 40 MG TABLET PO (19:53)
[2021-01-19] MEDS: Melatonin 3 MG TABLET PO (19:53)
[2021-01-19] MEDS: 0.9 % Sodium Chloride Flush 3 ML SYRINGE IVFLUSH (19:56)
[2021-01-20 03:26] VITALS: BP 117/56; PULSE 60; RESP 18; TEMP 36.7; O2SAT 100
[2021-01-20 07:44] VITALS: BP 108/62; PULSE 61; RESP 16; TEMP 36.1; O2SAT 100
--- NOTE | 2021-01-20 08:07 | P.EN_ITS ---
Event Note Date of Service: 01/20/21 Event Note: Progress note ?Seen in f/u for prolonged stay d/t placment, has no new isses vitals reviewed Selected Entries 01/20/21 07:44 Temperature 97.0 F Pulse Rate 61 Respiratory Rate 16 Blood Pressure 108/62 Pulse Oximetry 100 exam: alert, pleasant yet confused [id number] lung cta neuro: no focal deficit No new data to review A/P 75yo male with no known medical history sent in for inadequate self-care, living in [facility], found to have CT evidence of subacute CVA though no neurologic deficit appreciated, deemed to not have capacity to make medical conditions and now awaiting guardianship hearing.? Essentially no new clinical developement tody, continue curent care as below 1.Inability for self-care likley due to dementia, ? 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 for Wernicke-Korsakoff with parenteral thiamine; B1 level was low at 6 ,continue by mouth thiamine supplement cont.quetiapine for agitation, continue melatonin, and prn trazodone for insomnia 2.Subacute stroke? Patient denied any weakness,had no speech impairment,1.2 cm area of decreased attenuation seen in the left external capsule/claustrum questionable for subacute infarct. carotid dopplers-no significant carotid disease echo done 12/09 with preserved EF, with basal inferior segment akinesis. no chest pain, no EKG changes. - recommend outpatient cardiology follow up MRI brain 12/08?No mass lesion, acute infarction, or abnormal intracranial enhancement. Mild degree of diffuse brain parenchymal volume loss. EEG 12/08 no seizure activity Seen by Neuro ,workup including?T pallidum EIA, HIV, SARAH all negative Continue aspirin, statin 3.Thiamine deficiency on Oral thiamine replacement, s/p IV replacement ? 4.EtOH abuse: unable to corroborate hx. ? no signs of withdrawal.?multivitamin + thiamine as above, Status post treatment with phenobarbital 5.moderate protein/calorie malnutrition Continue Ensure tid, multivitamin 6.Prominent polypoid soft tissue? seen within the right and left sided palatine tonsillar fossa for which direct visual inspection/ENT evaluation is recommended--Not able to get this done inpatient and will need outpatient follow up for it. Seen by psych.? Does not have capacity to make medical decisions.? Guardianship obtained, case discussed with Case management they are arranging for safe discharge. routine labs from 01/19/21 reviewed and unremarkable.
[2021-01-20] MEDS: Aspirin 81 MG TAB.CHEW PO (11:35)
[2021-01-20] MEDS: QUEtiapine Fumarate 25 MG TABLET PO ×2 (11:35→20:41)
[2021-01-20] MEDS: Thiamine HCL 100 MG TABLET PO (11:35)
[2021-01-20 15:17] VITALS: BP 122/68; PULSE 60; RESP 16; TEMP 36.4; O2SAT 99
[2021-01-20] MEDS: Enoxaparin Sodium 40 MG/0.4 ML SYRINGE SUBCUT (15:31)
[2021-01-20] MEDS: Melatonin 3 MG TABLET PO (20:40)
[2021-01-20] MEDS: Atorvastatin Calcium 40 MG TABLET PO (20:40)
[2021-01-20 23:07] VITALS: BP 100/50; PULSE 65; RESP 20; TEMP 36.5; O2SAT 100
[2021-01-21 07:33] VITALS: BP 100/54; PULSE 82; RESP 18; TEMP 36.4; O2SAT 100
[2021-01-21] MEDS: Aspirin 81 MG TAB.CHEW PO (08:27)
[2021-01-21] MEDS: QUEtiapine Fumarate 25 MG TABLET PO ×2 (08:27→20:19)
[2021-01-21] MEDS: Thiamine HCL 100 MG TABLET PO (08:27)
--- NOTE | 2021-01-21 10:30 | PM.EVENT ---
Event Note Date of Service: 01/21/21 Event Note: S/ Seen in f/uf prolong stay d/t placemena and guardianship issues, no acute issues at present. He is pleasantly confused, cooperative. BP100/54, P82, RR20, 100% on room air exam: alert, pleasant yet confused [id number] lung cta neuro: no focal deficit No new data to review A/P 75yo male with no known medical history sent in for inadequate self-care, living in [facility], found to have CT evidence of subacute CVA though no neurologic deficit appreciated, deemed to not have capacity to make medical conditions and now awaiting guardianship hearing.? Essentially no new clinical developement tody, continue curent care as below 1.Inability for self-care likley due to dementia, ? 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 for Wernicke-Korsakoff with parenteral thiamine; B1 level was low at 6 ,continue by mouth thiamine supplement cont.quetiapine for agitation, continue melatonin, and prn trazodone for insomnia 2.Subacute stroke? Patient denied any weakness,had no speech impairment,1.2 cm area of decreased attenuation seen in the left external capsule/claustrum questionable for subacute infarct. carotid dopplers-no significant carotid disease echo done 12/09 with preserved EF, with basal inferior segment akinesis. no chest pain, no EKG changes. - recommend outpatient cardiology follow up MRI brain 12/08?No mass lesion, acute infarction, or abnormal intracranial enhancement. Mild degree of diffuse brain parenchymal volume loss. EEG 12/08 no seizure activity Seen by Neuro ,workup including?T pallidum EIA, HIV, SARAH all negative Continue aspirin, statin 3.Thiamine deficiency on Oral thiamine replacement, s/p IV replacement ? 4.EtOH abuse: unable to corroborate hx. ? no signs of withdrawal.?multivitamin + thiamine as above, Status post treatment with phenobarbital 5.moderate protein/calorie malnutrition Continue Ensure tid, multivitamin 6.Prominent polypoid soft tissue? seen within the right and left sided palatine tonsillar fossa for which direct visual inspection/ENT evaluation is recommended--Not able to get this done inpatient and will need outpatient follow up for it. Seen by psych.? Does not have capacity to make medical decisions.? Guardianship obtained, case discussed with Case management they are arranging for safe discharge. continue to monitor routine labs from 01/19/21 reviewed and unremarkable. Billing code, follow up 1
[2021-01-21] MEDS: Enoxaparin Sodium 40 MG/0.4 ML SYRINGE SUBCUT (15:11)
[2021-01-21 15:57] VITALS: BP 116/63; PULSE 63; RESP 17; TEMP 36.4; O2SAT 100
[2021-01-21] MEDS: Melatonin 3 MG TABLET PO (20:19)
[2021-01-21] MEDS: Atorvastatin Calcium 40 MG TABLET PO (20:19)
[2021-01-22 08:00] VITALS: BP 118/53; PULSE 76; RESP 20; TEMP 36.4; O2SAT 100
[2021-01-22] MEDS: Aspirin 81 MG TAB.CHEW PO (08:33)
[2021-01-22] MEDS: QUEtiapine Fumarate 25 MG TABLET PO ×2 (08:33→20:07)
[2021-01-22] MEDS: Thiamine HCL 100 MG TABLET PO (08:33)
--- NOTE | 2021-01-22 11:06 | PM.EVENT ---
Event Note Date of Service: 01/22/21 Event Note: S/ Seen in f/uf prolong stay d/t placemena and guardianship issues, no acute issues at present. He is pleasantly confused, cooperative. BP118/53, P76, RR20, 100% on room air exam: alert, pleasant yet confused [id number] lung cta neuro: no focal deficit No new data to review A/P 75yo male with no known medical history sent in for inadequate self-care, living in [facility], found to have CT evidence of subacute CVA though no neurologic deficit appreciated, deemed to not have capacity to make medical conditions and now awaiting guardianship hearing.? Essentially no new clinical developement tody, continue curent care as below 1.Inability for self-care likley due to dementia, ? 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 for Wernicke-Korsakoff with parenteral thiamine; B1 level was low at 6 ,continue by mouth thiamine supplement cont.quetiapine for agitation, continue melatonin, and prn trazodone for insomnia 2.Subacute stroke? Patient denied any weakness,had no speech impairment,1.2 cm area of decreased attenuation seen in the left external capsule/claustrum questionable for subacute infarct. carotid dopplers-no significant carotid disease echo done 12/09 with preserved EF, with basal inferior segment akinesis. no chest pain, no EKG changes. - recommend outpatient cardiology follow up MRI brain 12/08?No mass lesion, acute infarction, or abnormal intracranial enhancement. Mild degree of diffuse brain parenchymal volume loss. EEG 12/08 no seizure activity Seen by Neuro ,workup including?T pallidum EIA, HIV, SARAH all negative Continue aspirin, statin 3.Thiamine deficiency on Oral thiamine replacement, s/p IV replacement ? 4.EtOH abuse: unable to corroborate hx. ? no signs of withdrawal.?multivitamin + thiamine as above, Status post treatment with phenobarbital 5.moderate protein/calorie malnutrition Continue Ensure tid, multivitamin 6.Prominent polypoid soft tissue? seen within the right and left sided palatine tonsillar fossa for which direct visual inspection/ENT evaluation is recommended--Not able to get this done inpatient and will need outpatient follow up for it. Seen by psych.? Does not have capacity to make medical decisions.? Guardianship obtained, case discussed with Case management they are arranging for safe discharge.? continue to monitor, discussed with case management and no new development. routine labs from 01/19/21 reviewed and unremarkable.
--- NOTE | 2021-01-22 12:45 | MHC.CM.PN ---
pt has guardian dc plan rem[facility] placemnt in [facility] pending SCREEMO shama
[2021-01-22 16:00] VITALS: BP 110/45; PULSE 82; RESP 18; TEMP 36.6; O2SAT 100
[2021-01-22] MEDS: Enoxaparin Sodium 40 MG/0.4 ML SYRINGE SUBCUT (16:30)
[2021-01-22] MEDS: Atorvastatin Calcium 40 MG TABLET PO (20:07)
[2021-01-22] MEDS: Melatonin 3 MG TABLET PO (20:08)
--- NOTE | 2021-01-23 07:12 | P.PNIM_ITS ---
Subjective Subjective Date of Service: 01/23/21 Interval History: f/u confusion, incompentence and awaiting guardianship, no new issues Review of Systems no fever no sob Physical Exam Vital Signs: Vital Signs: Last Vital Signs Temp 97.8 F 01/22/21 16:00 Pulse 82 01/22/21 16:00 Resp 18 01/22/21 16:00 BP 110/45 L 01/22/21 16:00 Pulse Ox 100 01/22/21 16:00 Body Mass Index 20.1 General: Alert, no acute distress, cooperative Resp: CTA bilateral CVS: S1,S2,RRR GI: +BS, NT, no distention Skin: No rash Neuro: motor grossly intact Psych: appropriate affect Objective Data Active Medications Acetaminophen (Acetaminophen 325 Mg Tablet) 650 mg PO Q6H PRN PRN Reason: Pain, Mild (Pain Scale 1-3) Aspirin (Aspirin 81 Mg Tab.Chew) 81 mg PO DAILY [facility] Last Admin: 01/22/21 08:33 Dose: 81 mg Documented by: MARILOU Atorvastatin Calcium (Atorvastatin Calcium 40 Mg Tablet) 40 mg PO BEDTIME [facility] Last Admin: 01/22/21 20:07 Dose: 40 mg Documented by: VENKATESH Docusate Sodium (Docusate Sodium 100 Mg Capsule) 100 mg PO BID PRN PRN Reason: Constipation Enoxaparin Sodium (Enoxaparin Sodium 40 Mg/0.4 Ml Syringe) 40 mg SUBCUT Q24H [facility] Last Admin: 01/22/21 16:30 Dose: 40 mg Documented by: VENKATESH Melatonin (Melatonin 3 Mg Tablet) 3 mg PO BEDTIME [facility] Last Admin: 01/22/21 20:08 Dose: 3 mg Documented by: VENKATESH Pharmacy Consult (Consult Rx Perform Med Rec) 1 each MISCELLANE ONCE PRN PRN Reason: Consult order Quetiapine Fumarate (Quetiapine Fumarate 25 Mg Tablet) 25 mg PO BID [facility] Last Admin: 01/22/21 20:07 Dose: 25 mg Documented by: VENKATESH Sodium Chloride (0.9 % Sodium Chloride Flush 3 Ml Syringe) 3 ml IVFLUSH QSHIFT [facility] Last Admin: 01/23/21 01:23 Dose: Not Given Documented by: ARNALDO Non-Admin Reason: No Access Thiamine HCl (Thiamine Hcl 100 Mg Tablet) 100 mg PO DAILY [facility] Last Admin: 01/22/21 08:33 Dose: 100 mg Documented by: MARILOU Trazodone HCl (Trazodone Hcl 25 Mg Halftab) 25 mg PO BEDTIME PRN PRN Reason: insomnia Last Admin: 01/15/21 20:21 Dose: 25 mg Documented by: HASMUKH Labs CBC & Chem 7: 01/19/21 10:59 01/19/21 10:59 Assessment and Plan (1) Encephalopathy: Status: Acute Assessment and Plan: 75yo male with no known medical history sent in for inadequate self-care, living in [facility], found to have CT evidence of subacute CVA though no neurologic deficit appreciated, deemed to not have capacity to make medical conditions and now awaiting guardianship hearing.? Essentially no new clinical developement tody, continue curent care as below with no changes needed today 1.[facility], ? 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 for Wernicke-Korsakoff with parenteral thiamine; B1 level was low at 6 ,continue by mouth thiamine supplement cont.quetiapine for agitation, continue melatonin, and prn trazodone for insomnia 2.Subacute stroke? Patient denied any weakness,had no speech impairment,1.2 cm area of decreased attenuation seen in the left external capsule/claustrum questionable for subacute infarct. carotid dopplers-no significant carotid disease echo done 12/09 with preserved EF, with basal inferior segment akinesis. no chest pain, no EKG changes. - recommend outpatient cardiology follow up MRI brain 12/08?No mass lesion, acute infarction, or abnormal intracranial enhancement. Mild degree of diffuse brain parenchymal volume loss. EEG 12/08 no seizure activity Seen by Neuro ,workup including?T pallidum EIA, HIV, SARAH all negative Continue aspirin, statin 3.Thiamine deficiency on Oral thiamine replacement, s/p IV replacement ? 4.EtOH abuse: unable to corroborate hx. ? no signs of withdrawal.?multivitamin + thiamine as above, Status post treatment with phenobarbital 5.moderate protein/calorie malnutrition Continue Ensure tid, multivitamin 6.Prominent polypoid soft tissue? seen within the right and left sided palatine tonsillar fossa for which direct visual inspection/ENT evaluation is recommended--Not able to get this done inpatient and will need outpatient follow up for it. Seen by psych.? Does not have capacity to make medical decisions.? Guardianship obtained, case discussed with Case management they are arranging for safe discharge. VTE ppx SCDs, LMWH Quality Stroke Does the patient have a stroke diagnosis?: Yes Reason for No Anti-thrombotic by Day Two: N/A - Med Ordered VTE Prior VTE?: No VTE Risk Level:: Medical - moderate - high VTE Device Contraindication: N/A - Device Ordered VTE Drug Contraindication: N/A - Med Ordered
[2021-01-23 08:00] VITALS: BP 128/75; PULSE 67; RESP 17; TEMP 36.5; O2SAT 99
[2021-01-23] MEDS: Aspirin 81 MG TAB.CHEW PO (13:50)
[2021-01-23] MEDS: QUEtiapine Fumarate 25 MG TABLET PO ×2 (13:50→19:55)
[2021-01-23] MEDS: Thiamine HCL 100 MG TABLET PO (13:50)
[2021-01-23 15:29] VITALS: BP 110/85; PULSE 112; RESP 18; TEMP 37.1; O2SAT 100
[2021-01-23] MEDS: Enoxaparin Sodium 40 MG/0.4 ML SYRINGE SUBCUT (17:41)
[2021-01-23] MEDS: Atorvastatin Calcium 40 MG TABLET PO (19:55)
[2021-01-23] MEDS: Melatonin 3 MG TABLET PO (19:55)
[2021-01-23 23:42] VITALS: BP 136/64; PULSE 68; RESP 16; TEMP 36.6; O2SAT 99
[2021-01-24 07:03] VITALS: BP 120/59; PULSE 65; RESP 18; TEMP 36.4; O2SAT 98
[2021-01-24] MEDS: Aspirin 81 MG TAB.CHEW PO (10:29)
[2021-01-24] MEDS: Thiamine HCL 100 MG TABLET PO (10:29)
[2021-01-24] MEDS: QUEtiapine Fumarate 25 MG TABLET PO ×2 (10:30→21:49)
[2021-01-24 11:10] VITALS: BP 104/76; PULSE 62; RESP 18; TEMP 36.2; O2SAT 98
--- NOTE | 2021-01-24 12:10 | P.PNIM_ITS ---
Subjective Subjective Date of Service: 01/24/21 Interval History: f/u confusion, incompentence and awaiting guardianship, no new issues Review of Systems baseline confusion no fever, no sob, Physical Exam Vital Signs: Vital Signs: Last Vital Signs Temp 97.2 F 01/24/21 11:10 Pulse 62 01/24/21 11:10 Resp 18 01/24/21 11:10 BP 104/76 01/24/21 11:10 Pulse Ox 98 01/24/21 11:10 Body Mass Index 20.1 General: Alert, no acute distress, cooperative Resp:? CTA bilateral CVS: S1,S2,RRR GI: +BS, NT, no distention Skin: No rash Neuro:? motor grossly intact Psych: appropriate affect Objective Data Active Medications Acetaminophen (Acetaminophen 325 Mg Tablet) 650 mg PO Q6H PRN PRN Reason: Pain, Mild (Pain Scale 1-3) Aspirin (Aspirin 81 Mg Tab.Chew) 81 mg PO DAILY [facility] Last Admin: 01/24/21 10:29 Dose: 81 mg Documented by: AWILDA Atorvastatin Calcium (Atorvastatin Calcium 40 Mg Tablet) 40 mg PO BEDTIME [facility] Last Admin: 01/23/21 19:55 Dose: 40 mg Documented by: ULISES Docusate Sodium (Docusate Sodium 100 Mg Capsule) 100 mg PO BID PRN PRN Reason: Constipation Enoxaparin Sodium (Enoxaparin Sodium 40 Mg/0.4 Ml Syringe) 40 mg SUBCUT Q24H [facility] Last Admin: 01/23/21 17:41 Dose: 40 mg Documented by: KULWINDER Melatonin (Melatonin 3 Mg Tablet) 3 mg PO BEDTIME [facility] Last Admin: 01/23/21 19:55 Dose: 3 mg Documented by: ULISES Pharmacy Consult (Consult Rx Perform Med Rec) 1 each MISCELLANE ONCE PRN PRN Reason: Consult order Quetiapine Fumarate (Quetiapine Fumarate 25 Mg Tablet) 25 mg PO BID [facility] Last Admin: 01/24/21 10:30 Dose: 25 mg Documented by: AWILDA Sodium Chloride (0.9 % Sodium Chloride Flush 3 Ml Syringe) 3 ml IVFLUSH QSHIFT [facility] Last Admin: 01/24/21 10:32 Dose: Not Given Documented by: AWILDA Non-Admin Reason: No Access Thiamine HCl (Thiamine Hcl 100 Mg Tablet) 100 mg PO DAILY [facility] Last Admin: 01/24/21 10:29 Dose: 100 mg Documented by: AWILDA Trazodone HCl (Trazodone Hcl 25 Mg Halftab) 25 mg PO BEDTIME PRN PRN Reason: insomnia Last Admin: 01/15/21 20:21 Dose: 25 mg Documented by: HASMUKH Labs CBC & Chem 7: 01/19/21 10:59 01/19/21 10:59 Assessment and Plan (1) Encephalopathy: Status: Acute Assessment and Plan: 75yo male with no known medical history sent in for inadequate self-care, living in [facility], found to have CT evidence of subacute CVA though no neurologic deficit appreciated, deemed to not have capacity to make medical conditions and now awaiting guardianship hearing.? Essentially no new clinical developement tody, continue curent care as below with no changes needed today 1.[facility], ? 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 for Wernicke-Korsakoff with parenteral thiamine; B1 level was low at 6 ,continue by mouth thiamine supplement cont.quetiapine for agitation, continue melatonin, and prn trazodone for insomnia 2.Subacute stroke? Patient denied any weakness,had no speech impairment,1.2 cm area of decreased attenuation seen in the left external capsule/claustrum questionable for subacute infarct. carotid dopplers-no significant carotid disease echo done 12/09 with preserved EF, with basal inferior segment akinesis. no chest pain, no EKG changes. - recommend outpatient cardiology follow up MRI brain 12/08?No mass lesion, acute infarction, or abnormal intracranial enhancement. Mild degree of diffuse brain parenchymal volume loss. EEG 12/08 no seizure activity Seen by Neuro ,workup including?T pallidum EIA, HIV, SARAH all negative Continue aspirin, statin 3.Thiamine deficiency on Oral thiamine replacement, s/p IV replacement ? 4.EtOH abuse: unable to corroborate hx. ? no signs of withdrawal.?multivitamin + thiamine as above, Status post treatment with phenobarbital 5.moderate protein/calorie malnutrition Continue Ensure tid, multivitamin 6.Prominent polypoid soft tissue? seen within the right and left sided palatine tonsillar fossa for which direct visual inspection/ENT evaluation is recom mended--Not able to get this done inpatient and will need outpatient follow up for it. Seen by psych.? Does not have capacity to make medical decisions.? Guardianship obtained, case discussed with Case management they are arranging for safe discharge. VTE ppx SCDs, [facility]WH Quality Stroke Does the patient have a stroke diagnosis?: Yes Reason for No Anti-thrombotic by Day Two: N/A - Med Ordered VTE Prior VTE?: No VTE Risk Level:: Medical - moderate - high VTE Device Contraindication: N/A - Device Ordered VTE Drug Contraindication: N/A - Med Ordered
--- NOTE | 2021-01-24 14:03 | MHC.CM.PN ---
per multi dis pt remAINS READY FOR DC FINANCIAL STATUS IS STILL UNRERSOLVED
[2021-01-24 15:13] VITALS: BP 119/59; PULSE 63; RESP 18; TEMP 36.7; O2SAT 96
[2021-01-24] MEDS: Enoxaparin Sodium 40 MG/0.4 ML SYRINGE SUBCUT (17:38)
[2021-01-24] MEDS: Atorvastatin Calcium 40 MG TABLET PO (21:49)
[2021-01-24] MEDS: Melatonin 3 MG TABLET PO (21:49)
[2021-01-24 23:12] VITALS: BP 107/50; PULSE 73; RESP 18; TEMP 36.4; O2SAT 94
[2021-01-25 07:37] VITALS: BP 108/68; PULSE 70; RESP 17; TEMP 36.4; O2SAT 98
--- NOTE | 2021-01-25 10:50 | P.PNIM_ITS ---
Subjective Subjective Date of Service: 01/25/21 Interval History: f/u confusion, incompentence and awaiting guardianship, no new issues. Doing well, no new issues Review of Systems no fever, no agitation, baseline confusion Physical Exam Vital Signs: Vital Signs: Last Vital Signs Temp 97.6 F 01/25/21 07:37 Pulse 70 01/25/21 07:37 Resp 17 01/25/21 07:37 BP 108/68 01/25/21 07:37 Pulse Ox 98 01/25/21 07:37 Body Mass Index 20.1 Objective Data Active Medications Acetaminophen (Acetaminophen 325 Mg Tablet) 650 mg PO Q6H PRN PRN Reason: Pain, Mild (Pain Scale 1-3) Aspirin (Aspirin 81 Mg Tab.Chew) 81 mg PO DAILY [facility] Last Admin: 01/24/21 10:29 Dose: 81 mg Documented by: AWILDA Atorvastatin Calcium (Atorvastatin Calcium 40 Mg Tablet) 40 mg PO BEDTIME [facility] Last Admin: 01/24/21 21:49 Dose: 40 mg Documented by: TORIE Docusate Sodium (Docusate Sodium 100 Mg Capsule) 100 mg PO BID PRN PRN Reason: Constipation Enoxaparin Sodium (Enoxaparin Sodium 40 Mg/0.4 Ml Syringe) 40 mg SUBCUT Q24H [facility] Last Admin: 01/24/21 17:38 Dose: 40 mg Documented by: AWILDA Melatonin (Melatonin 3 Mg Tablet) 3 mg PO BEDTIME [facility] Last Admin: 01/24/21 21:49 Dose: 3 mg Documented by: TORIE Pharmacy Consult (Consult Rx Perform Med Rec) 1 each MISCELLANE ONCE PRN PRN Reason: Consult order Quetiapine Fumarate (Quetiapine Fumarate 25 Mg Tablet) 25 mg PO BID [facility] Last Admin: 01/24/21 21:49 Dose: 25 mg Documented by: TORIE Sodium Chloride (0.9 % Sodium Chloride Flush 3 Ml Syringe) 3 ml IVFLUSH QSHIFT [facility] Last Admin: 01/24/21 21:49 Dose: Not Given Documented by: TORIE Non-Admin Reason: No Access Thiamine HCl (Thiamine Hcl 100 Mg Tablet) 100 mg PO DAILY [facility] Last Admin: 01/24/21 10:29 Dose: 100 mg Documented by: AWILDA Trazodone HCl (Trazodone Hcl 25 Mg Halftab) 25 mg PO BEDTIME PRN PRN Reason: insomnia Last Admin: 01/15/21 20:21 Dose: 25 mg Documented by: HASMUKH Labs CBC & Chem 7: 01/19/21 10:59 01/19/21 10:59 Assessment and Plan (1) Encephalopathy: Status: Acute Assessment and Plan: 75yo male with no known medical history sent in for inadequate self-care, living in [facility], found to have CT evidence of subacute CVA though no neurologic deficit appreciated, deemed to not have capacity to make medical conditions and now awaiting guardianship hearing.? Essentially no new clinical developement tody, continue curent care as below with no changes needed today 1.Inability for self-care likley due to dementia, ? 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 for Wernicke-Korsakoff with parenteral thiamine; B1 level was low at 6 ,continue by mouth thiamine supplement cont.quetiapine for agitation, continue melatonin, and prn trazodone for insomnia 2.Subacute stroke? Patient denied any weakness,had no speech impairment,1.2 cm area of decreased attenuation seen in the left external capsule/claustrum questionable for subacute infarct. carotid dopplers-no significant carotid disease echo done 12/09 with preserved EF, with basal inferior segment akinesis. no chest pain, no EKG changes. - recommend outpatient cardiology follow up MRI brain 12/08?No mass lesion, acute infarction, or abnormal intracranial enhancement. Mild degree of diffuse brain parenchymal volume loss. EEG 12/08 no seizure activity Seen by Neuro ,workup including?T pallidum EIA, HIV, SARAH all negative Continue aspirin, statin 3.Thiamine deficiency on Oral thiamine replacement, s/p IV replacement ? 4.EtOH abuse: unable to corroborate hx. ? no signs of withdrawal.?multivitamin + thiamine as above, Status post treatment with phenobarbital 5.moderate protein/calorie malnutrition Continue Ensure tid, multivitamin 6.Prominent polypoid soft tissue? seen within the right and left sided palatine tonsillar fossa for which direct visual inspection/ENT evaluation is recommended--Not able to get this done inpatient and will need outpatient follow up for it. Seen by psych.? Does not have capacity to make medical decisions.? Guardianship obtained, case discussed with Case management they are arranging for safe discharge. VTE ppx SCDs, [facility] Quality Stroke Does the patient have a stroke diagnosis?: Yes Reason for No Anti-thrombotic by Day Two: N/A - Med Ordered VTE Prior VTE?: No VTE Risk Level:: Medical - moderate - high VTE Device Contraindication: N/A - Device Ordered VTE Drug Contraindication: N/A - Med Ordered
[2021-01-25] MEDS: QUEtiapine Fumarate 25 MG TABLET PO ×2 (11:05→19:38)
[2021-01-25] MEDS: Aspirin 81 MG TAB.CHEW PO (11:06)
[2021-01-25] MEDS: Thiamine HCL 100 MG TABLET PO (11:06)
[2021-01-25 15:38] VITALS: BP 115/63; PULSE 60; RESP 14; TEMP 37.1; O2SAT 99
[2021-01-25] MEDS: Enoxaparin Sodium 40 MG/0.4 ML SYRINGE SUBCUT (16:28)
[2021-01-25] MEDS: Melatonin 3 MG TABLET PO (19:37)
[2021-01-25] MEDS: Atorvastatin Calcium 40 MG TABLET PO (19:37)
[2021-01-25] MEDS: 0.9 % Sodium Chloride Flush 3 ML SYRINGE IVFLUSH (19:38)
[2021-01-26 08:00] VITALS: BP 126/60; PULSE 60; RESP 18; TEMP 36.9; O2SAT 100
[2021-01-26] MEDS: Aspirin 81 MG TAB.CHEW PO (08:56)
[2021-01-26] MEDS: QUEtiapine Fumarate 25 MG TABLET PO ×2 (08:56→21:03)
[2021-01-26] MEDS: Thiamine HCL 100 MG TABLET PO (08:56)
--- NOTE | 2021-01-26 10:10 | HO.PM.IMPN ---
Subjective Subjective Date of Service: 01/26/21 Interval History: f/u confusion, incompentence and awaiting guardianship, no new issues, a bit agitated this morning Review of Systems no fever, no agitation, baseline confusion Physical Exam Vital Signs: Vital Signs: Last Vital Signs Temp 98.4 F 01/26/21 08:00 Pulse 60 01/26/21 08:00 Resp 18 01/26/21 08:00 BP 126/60 01/26/21 08:00 Pulse Ox 100 01/26/21 08:00 Body Mass Index 20.1 Const: Other: General: alert, confused Resp: CTA bilateral CVS: S1,S2,RRR GI: +BS, NT, no distention Skin: No rash Neuro: motor grossly intact Psych: appropriate affect Objective Data Active Medications Acetaminophen (Acetaminophen 325 Mg Tablet) 650 mg PO Q6H PRN PRN Reason: Pain, Mild (Pain Scale 1-3) Aspirin (Aspirin 81 Mg Tab.Chew) 81 mg PO DAILY [facility] Last Admin: 01/26/21 08:56 Dose: 81 mg Documented by: KULWINDER Atorvastatin Calcium (Atorvastatin Calcium 40 Mg Tablet) 40 mg PO BEDTIME [facility] Last Admin: 01/25/21 19:37 Dose: 40 mg Documented by: BRYN Docusate Sodium (Docusate Sodium 100 Mg Capsule) 100 mg PO BID PRN PRN Reason: Constipation Enoxaparin Sodium (Enoxaparin Sodium 40 Mg/0.4 Ml Syringe) 40 mg SUBCUT Q24H [facility] Last Admin: 01/25/21 16:28 Dose: 40 mg Documented by: CUONG Melatonin (Melatonin 3 Mg Tablet) 3 mg PO BEDTIME [facility] Last Admin: 01/25/21 19:37 Dose: 3 mg Documented by: BRYN Pharmacy Consult (Consult Rx Perform Med Rec) 1 each MISCELLANE ONCE PRN PRN Reason: Consult order Quetiapine Fumarate (Quetiapine Fumarate 25 Mg Tablet) 25 mg PO BID [facility] Last Admin: 01/26/21 08:56 Dose: 25 mg Documented by: KULWINDER Sodium Chloride (0.9 % Sodium Chloride Flush 3 Ml Syringe) 3 ml IVFLUSH QSHIFT [facility] Last Admin: 01/26/21 08:56 Dose: Not Given Documented by: KULWINDER Non-Admin Reason: No Access Thiamine HCl (Thiamine Hcl 100 Mg Tablet) 100 mg PO DAILY [facility] Last Admin: 01/26/21 08:56 Dose: 100 mg Documented by: KULWINDER Trazodone HCl (Trazodone Hcl 25 Mg Halftab) 25 mg PO BEDTIME PRN PRN Reason: insomnia Last Admin: 01/15/21 20:21 Dose: 25 mg Documented by: HASMUKH Labs CBC & Chem 7: 01/19/21 10:59 01/19/21 10:59 Assessment and Plan (1) Encephalopathy: Status: Acute Assessment and Plan: 75yo male with no known medical history sent in for inadequate self-care, living in [facility], found to have CT evidence of subacute CVA though no neurologic deficit appreciated, deemed to not have capacity to make medical conditions and now awaiting guardianship hearing.? Essentially no new clinical developement tody, continue curent care as below with no changes needed today, continue monitoring the agitation 1.[facility], ? 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 for Wernicke-Korsakoff with parenteral thiamine; B1 level was low at 6 ,continue by mouth thiamine supplement cont.quetiapine for agitation, continue melatonin, and prn trazodone for insomnia 2.Subacute stroke? Patient denied any weakness,had no speech impairment,1.2 cm area of decreased attenuation seen in the left external capsule/claustrum questionable for subacute infarct. carotid dopplers-no significant carotid disease echo done 12/09 with preserved EF, with basal inferior segment akinesis. no chest pain, no EKG changes. - recommend outpatient cardiology follow up MRI brain 12/08?No mass lesion, acute infarction, or abnormal intracranial enhancement. Mild degree of diffuse brain parenchymal volume loss. EEG 12/08 no seizure activity Seen by Neuro ,workup including?T pallidum EIA, HIV, SARAH all negative Continue aspirin, statin 3.Thiamine deficiency on Oral thiamine replacement, s/p IV replacement ? 4.EtOH abuse: unable to corroborate hx. ? no signs of withdrawal.?multivitamin + thiamine as above, Status post treatment with phenobarbital 5.moderate protein/calorie malnutrition Continue Ensure tid, multivitamin 6.Prominent polypoid soft tissue? seen within the right and left sided palatine tonsillar fossa for which direct visual inspection/ENT evaluation is recommended--Not able to get this done inpatient and will need outpatient follow up for it. Seen by psych.? Does not have capacity to make medical decisions.? Guardianship obtained, case discussed with Case management they are arranging for safe discharge. VTE ppx SCDs, [facility] Quality Stroke Does the patient have a stroke diagnosis?: Yes Reason for No Anti-thrombotic by Day Two: N/A - Med Ordered VTE Prior VTE?: No VTE Risk Level:: Medical - moderate - high VTE Device Contraindication: N/A - Device Ordered VTE Drug Contraindication: N/A - Med Ordered
[2021-01-26 13:00] VITALS: BMI 20.2
--- NOTE | 2021-01-26 13:41 | MHC.CLN ---
Addendum entered by Caitlin Salcido, MASON 01/26/21 13:45: WEIGHT 01/26/21=60.2 KG. Original Note: F/U PO INTAKE USUALLY GOOD, 50-100% WITH MOST MEALS 100%. DIET=REGULAR, NDD2 WITH SUPPLEMENT ENSURE TID. SUPPLEMENT PROVIDES 1050 KCAL, 60 G PROTEIN. PT RECEIVING ENSURE TID TO INCREASE KCALS PROVIDES 1050KCALS, 60G PROTEIN. WEIGHT APPEARS STABLE WITH MOST RECENT WEIGHT=60 KG. FOLLOW UP WEEKLY TO CHECK WEIGHT R/T MALNUTRITION
[2021-01-26 15:17] VITALS: BP 95/57; PULSE 68; RESP 18; TEMP 36.4; O2SAT 98
[2021-01-26] MEDS: Enoxaparin Sodium 40 MG/0.4 ML SYRINGE SUBCUT (16:57)
[2021-01-26] MEDS: Atorvastatin Calcium 40 MG TABLET PO (21:03)
[2021-01-26] MEDS: Melatonin 3 MG TABLET PO (21:03)
[2021-01-26 23:39] VITALS: BP 107/61; PULSE 69; RESP 18; TEMP 36.4; O2SAT 98
[2021-01-27 08:00] VITALS: BP 122/56; PULSE 65; RESP 20; TEMP 36.9; O2SAT 97
[2021-01-27] MEDS: QUEtiapine Fumarate 25 MG TABLET PO ×2 (09:03→23:44)
[2021-01-27] MEDS: Thiamine HCL 100 MG TABLET PO (09:03)
[2021-01-27] MEDS: Aspirin 81 MG TAB.CHEW PO (09:04)
--- NOTE | 2021-01-27 10:23 | P.PNIM_ITS ---
Subjective Subjective Date of Service: 01/27/21 Interval History: F/u on prolong stay for guardianship, incompentent to make decisions, no new issues Review of Systems baseline confusion, no fever Physical Exam Vital Signs: Vital Signs: Last Vital Signs Temp 98.4 F 01/27/21 08:00 Pulse 65 01/27/21 08:00 Resp 20 01/27/21 08:00 BP 122/56 L 01/27/21 08:00 Pulse Ox 97 01/27/21 08:00 Body Mass Index 20.2 Const: Other: General: alert, confused Resp:? CTA bilateral CVS: S1,S2,RRR GI: +BS, NT, no distention Skin: No rash Neuro:? motor grossly intact Psych: appropriate affect Objective Data Active Medications Acetaminophen (Acetaminophen 325 Mg Tablet) 650 mg PO Q6H PRN PRN Reason: Pain, Mild (Pain Scale 1-3) Aspirin (Aspirin 81 Mg Tab.Chew) 81 mg PO DAILY [facility] Last Admin: 01/27/21 09:04 Dose: 81 mg Documented by: HUBER Atorvastatin Calcium (Atorvastatin Calcium 40 Mg Tablet) 40 mg PO BEDTIME [facility] Last Admin: 01/26/21 21:03 Dose: 40 mg Documented by: BRYN Docusate Sodium (Docusate Sodium 100 Mg Capsule) 100 mg PO BID PRN PRN Reason: Constipation Enoxaparin Sodium (Enoxaparin Sodium 40 Mg/0.4 Ml Syringe) 40 mg SUBCUT Q24H [facility] Last Admin: 01/26/21 16:57 Dose: 40 mg Documented by: BRYANT Melatonin (Melatonin 3 Mg Tablet) 3 mg PO BEDTIME [facility] Last Admin: 01/26/21 21:03 Dose: 3 mg Documented by: BRYN Pharmacy Consult (Consult Rx Perform Med Rec) 1 each MISCELLANE ONCE PRN PRN Reason: Consult order Quetiapine Fumarate (Quetiapine Fumarate 25 Mg Tablet) 25 mg PO BID [facility] Last Admin: 01/27/21 09:03 Dose: 25 mg Documented by: HUBER Sodium Chloride (0.9 % Sodium Chloride Flush 3 Ml Syringe) 3 ml IVFLUSH QSHIFT [facility] Last Admin: 01/27/21 09:03 Dose: Not Given Documented by: HUBER Non-Admin Reason: No Access Thiamine HCl (Thiamine Hcl 100 Mg Tablet) 100 mg PO DAILY [facility] Last Admin: 01/27/21 09:03 Dose: 100 mg Documented by: CHICOIC Trazodone HCl (Trazodone Hcl 25 Mg Halftab) 25 mg PO BEDTIME PRN PRN Reason: insomnia Last Admin: 01/15/21 20:21 Dose: 25 mg Documented by: ANDERM Labs CBC & Chem 7: 01/19/21 10:59 01/19/21 10:59 Assessment and Plan (1) Encephalopathy: Status: Acute Assessment and Plan: 75yo male with no known medical history sent in for inadequate self-care, living in [facility], found to have CT evidence of subacute CVA though no neurologic deficit appreciated, deemed to not have capacity to make medical conditions and now awaiting guardianship hearing.? Essentially no new clinical developement tody, continue curent care as below with no changes needed today, continue monitoring the agitation 1.Inability for self-care likley due to dementia, ? 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 for Wernicke-Korsakoff with parenteral thiamine; B1 level was low at 6 ,continue by mouth thiamine supplement cont.quetiapine for agitation, continue melatonin, and prn trazodone for insomni a 2.Subacute stroke? Patient denied any weakness,had no speech impairment,1.2 cm area of decreased attenuation seen in the left external capsule/claustrum questionable for subacute infarct. carotid dopplers-no significant carotid disease echo done 12/09 with preserved EF, with basal inferior segment akinesis. no chest pain, no EKG changes. - recommend outpatient cardiology follow up MRI brain 12/08?No mass lesion, acute infarction, or abnormal intracranial enhancement. Mild degree of diffuse brain parenchymal volume loss. EEG 12/08 no seizure activity Seen by Neuro ,workup including?T pallidum EIA, HIV, SARAH all negative Continue aspirin, statin 3.Thiamine deficiency on Oral thiamine replacement, s/p IV replacement ? 4.EtOH abuse: unable to corroborate hx. ? no signs of withdrawal.?multivitamin + thiamine as above, Status post treatment with phenobarbital 5.moderate protein/calorie malnutrition Continue Ensure tid, multivitamin 6.Prominent polypoid soft tissue? seen within the right and left sided palatine tonsillar fossa for which direct visual inspection/ENT evaluation is recommended--Not able to get this done inpatient and will need outpatient follow up for it. Seen by psych.? Does not have capacity to make medical decisions.? Guardianship obtained, case discussed with Case management they are arranging for safe discharge. VTE ppx SCDs, [facility] Quality Stroke Does the patient have a stroke diagnosis?: Yes Reason for No Anti-thrombotic by Day Two: N/A - Med Ordered VTE Prior VTE?: No VTE Risk Level:: Medical - moderate - high VTE Device Contraindication: N/A - Device Ordered VTE Drug Contraindication: N/A - Med Ordered
[2021-01-27 15:20] VITALS: BP 124/64; PULSE 68; RESP 16; TEMP 36.8; O2SAT 98
[2021-01-27] MEDS: Enoxaparin Sodium 40 MG/0.4 ML SYRINGE SUBCUT (16:30)
[2021-01-27 23:44] VITALS: BP 108/53; PULSE 68; RESP 18; TEMP 36.6; O2SAT 97
[2021-01-27] MEDS: Melatonin 3 MG TABLET PO (23:44)
[2021-01-27] MEDS: Atorvastatin Calcium 40 MG TABLET PO (23:44)
[2021-01-28 08:00] VITALS: BP 125/69; PULSE 53; RESP 17; TEMP 36.6; O2SAT 99
[2021-01-28] MEDS: Aspirin 81 MG TAB.CHEW PO (12:09)
[2021-01-28] MEDS: QUEtiapine Fumarate 25 MG TABLET PO ×2 (12:09→20:09)
[2021-01-28] MEDS: Thiamine HCL 100 MG TABLET PO (12:09)
--- NOTE | 2021-01-28 13:39 | HO.PM.IMPN ---
Subjective Subjective Date of Service: 01/28/21 Interval History: no complaints awaiting placement not fully oriented Review of Systems Review of Systems: Yes Unobtainable due to mental status Physical Exam Vital Signs: Vital Signs: Last Vital Signs Temp 97.8 F 01/28/21 08:00 Pulse 53 01/28/21 08:00 Resp 17 01/28/21 08:00 BP 125/69 01/28/21 08:00 Pulse Ox 99 01/28/21 08:00 Body Mass Index 20.2 Gen: in no acute distress HEENT: sclera anicteric, moist mucus membranes Neck: supple Lungs: clear to auscultation bilaterally Heart: regular rate and rhythm, no murmurs Abd: soft, non-tender, non-distended Ext: no edema Skin: warm/well-perfused Neuro: disoriented Psych: impaired insight Objective Data Active Medications Acetaminophen (Acetaminophen 325 Mg Tablet) 650 mg PO Q6H PRN PRN Reason: Pain, Mild (Pain Scale 1-3) Aspirin (Aspirin 81 Mg Tab.Chew) 81 mg PO DAILY [facility] Last Admin: 01/28/21 12:09 Dose: 81 mg Documented by: HUBER Atorvastatin Calcium (Atorvastatin Calcium 40 Mg Tablet) 40 mg PO BEDTIME [facility] Last Admin: 01/27/21 23:44 Dose: 40 mg Documented by: BRYN Docusate Sodium (Docusate Sodium 100 Mg Capsule) 100 mg PO BID PRN PRN Reason: Constipation Enoxaparin Sodium (Enoxaparin Sodium 40 Mg/0.4 Ml Syringe) 40 mg SUBCUT Q24H [facility] Last Admin: 01/27/21 16:30 Dose: 40 mg Documented by: HUBER Melatonin (Melatonin 3 Mg Tablet) 3 mg PO BEDTIME [facility] Last Admin: 01/27/21 23:44 Dose: 3 mg Documented by: BRYN Pharmacy Consult (Consult Rx Perform Med Rec) 1 each MISCELLANE ONCE PRN PRN Reason: Consult order Quetiapine Fumarate (Quetiapine Fumarate 25 Mg Tablet) 25 mg PO BID [facility] Last Admin: 01/28/21 12:09 Dose: 25 mg Documented by: HUBER Sodium Chloride (0.9 % Sodium Chloride Flush 3 Ml Syringe) 3 ml IVFLUSH QSHIFT [facility] Last Admin: 01/28/21 12:08 Dose: Not Given Documented by: HUBER Non-Admin Reason: No Access Thiamine HCl (Thiamine Hcl 100 Mg Tablet) 100 mg PO DAILY [facility] Last Admin: 01/28/21 12:09 Dose: 100 mg Documented by: HUBER Trazodone HCl (Trazodone Hcl 25 Mg Halftab) 25 mg PO BEDTIME PRN PRN Reason: insomnia Last Admin: 01/15/21 20:21 Dose: 25 mg Documented by: HASMUKH Labs CBC & Chem 7: 01/19/21 10:59 01/19/21 10:59 Assessment and Plan (1) Encephalopathy: Status: Acute Assessment and Plan: hospital d#54 75yo M with no known medical history sent in for inadequate self-care, living in [facility], found to have CT evidence of subacute CVA though no neurologic deficit appreciated, deemed to not have capacity to make medical conditions, obtained court-appointed guardian and awaiting SNF placement # 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 # thiamine deficiency - no acute behavioral issues in several days; prn quetiapine + trazodone, melatonin - TSH + B12 normal, T pallidum EIA + HIV negative - EEG 12/08 with no seizure - treated with parenteral -> PO thiamine and indeed vitamin B1 level was low at 6 # subacute CVA - 1.2 cm area of decreased attenuation in the L external capsule/claustrum - no significant carotid disease on Dopplers - TTE 12/09 with preserved EF, akinetic basal inferior segment; no chest pain, no EKG changes; outpt Cardiology f/u - MRI 12/08 with no mass lesion, acute infarction, or abnormal enhancement; mild diffuse parenchymal volume loss - secondary prevention with ASA + statin # possible EtOH abuse - unable to corroborate hx - no signs of withdrawal -?multivitamin + thiamine as above - status post treatment with phenobarbital # moderate protein/calorie malnutrition - continue Ensure tid, multivitamin # prominent polypoid soft tissue?seen within the right and left sided palatine tonsillar fossa for which direct visual inspection/ENT evaluation is recommended - unable to able to get this done inpatient and will need outpatient follow up for it. # dispo - seen by Psych. no capacity to make medical decisions. guardianship obtained, awaiting SNF placement # VTE ppx - [facility] Quality Stroke Does the patient have a stroke diagnosis?: Yes Reason for No Anti-thrombotic by Day Two: N/A - Med Ordered VTE Prior VTE?: No VTE Risk Level:: Medical - moderate - high VTE Device Contraindication: N/A - Device Ordered VTE Drug Contraindication: N/A - Med Ordered
[2021-01-28 15:42] VITALS: BP 122/60; PULSE 60; RESP 15; TEMP 36.6; O2SAT 100
[2021-01-28] MEDS: Enoxaparin Sodium 40 MG/0.4 ML SYRINGE SUBCUT (18:16)
[2021-01-28] MEDS: Melatonin 3 MG TABLET PO (20:09)
[2021-01-28] MEDS: Atorvastatin Calcium 40 MG TABLET PO (20:09)
[2021-01-28 23:09] VITALS: BP 111/57; PULSE 58; RESP 16; TEMP 36.6; O2SAT 98
[2021-01-29 08:00] VITALS: BP 105/51; PULSE 69; RESP 18; TEMP 36.7; O2SAT 98
[2021-01-29] MEDS: Aspirin 81 MG TAB.CHEW PO (09:01)
[2021-01-29] MEDS: Thiamine HCL 100 MG TABLET PO (09:01)
[2021-01-29] MEDS: QUEtiapine Fumarate 25 MG TABLET PO ×2 (09:01→20:37)
--- NOTE | 2021-01-29 11:10 | HO.PM.IMPN ---
Subjective Subjective Date of Service: 01/29/21 Interval History: no complaints awaiting placement not fully oriented Review of Systems no fever baseline confusio Physical Exam Vital Signs: Vital Signs: Last Vital Signs Temp 98.0 F 01/29/21 08:00 Pulse 69 01/29/21 08:00 Resp 18 01/29/21 08:00 BP 105/51 L 01/29/21 08:00 Pulse Ox 98 01/29/21 08:00 Body Mass Index 20.2 Const: Other: General: alert, confused Resp:? CTA bilateral CVS: S1,S2,RRR GI: +BS, NT, no distention Skin: No rash Neuro:? motor grossly intact Psych: appropriate affect Objective Data Active Medications Acetaminophen (Acetaminophen 325 Mg Tablet) 650 mg PO Q6H PRN PRN Reason: Pain, Mild (Pain Scale 1-3) Aspirin (Aspirin 81 Mg Tab.Chew) 81 mg PO DAILY [facility] Last Admin: 01/29/21 09:01 Dose: 81 mg Documented by: MARILOU Atorvastatin Calcium (Atorvastatin Calcium 40 Mg Tablet) 40 mg PO BEDTIME [facility] Last Admin: 01/28/21 20:09 Dose: 40 mg Documented by: KAN Docusate Sodium (Docusate Sodium 100 Mg Capsule) 100 mg PO BID PRN PRN Reason: Constipation Enoxaparin Sodium (Enoxaparin Sodium 40 Mg/0.4 Ml Syringe) 40 mg SUBCUT Q24H [facility] Last Admin: 01/28/21 18:16 Dose: 40 mg Documented by: HUBER Melatonin (Melatonin 3 Mg Tablet) 3 mg PO BEDTIME [facility] Last Admin: 01/28/21 20:09 Dose: 3 mg Documented by: KAN Pharmacy Consult (Consult Rx Perform Med Rec) 1 each MISCELLANE ONCE PRN PRN Reason: Consult order Quetiapine Fumarate (Quetiapine Fumarate 25 Mg Tablet) 25 mg PO BID [facility] Last Admin: 01/29/21 09:01 Dose: 25 mg Documented by: MARILOU Sodium Chloride (0.9 % Sodium Chloride Flush 3 Ml Syringe) 3 ml IVFLUSH QSHIFT [facility] Last Admin: 01/29/21 09:01 Dose: Not Given Documented by: MARILOU Non-Admin Reason: no IV Thiamine HCl (Thiamine Hcl 100 Mg Tablet) 100 mg PO DAILY [facility] Last Admin: 01/29/21 09:01 Dose: 100 mg Documented by: MARILOU Trazodone HCl (Trazodone Hcl 25 Mg Halftab) 25 mg PO BEDTIME PRN PRN Reason: insomnia Last Admin: 01/15/21 20:21 Dose: 25 mg Documented by: HASMUKH Labs CBC & Chem 7: 01/19/21 10:59 01/19/21 10:59 Assessment and Plan (1) Thiamine deficiency: Status: Acute (2) Encephalopathy: Status: Acute (3) Delirium due to another medical condition: Status: Acute Assessment and Plan: hospital d#55 75yo M with no known medical history sent in for inadequate self-care, living in 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 # thiamine deficiency - no acute behavioral issues in several days; prn quetiapine + trazodone, melatonin - TSH + B12 normal, T pallidum EIA + HIV negative - EEG 12/08 with no seizure - treated with parenteral -> PO thiamine and indeed vitamin B1 level was low at 6 # subacute CVA - 1.2 cm area of decreased attenuation in the L external capsule/claustrum - no significant carotid disease on Dopplers - TTE 12/09 with preserved EF, akinetic basal inferior segment; no chest pain, no EKG changes; outpt Cardiology f/u - MRI 12/08 with no mass lesion, acute infarction, or abnormal enhancement; mild diffuse parenchymal volume loss - secondary prevention with ASA + statin # possible EtOH abuse - unable to corroborate hx - no signs of withdrawal -?multivitamin + thiamine as above - status post treatment with phenobarbital # moderate protein/calorie malnutrition - continue Ensure tid, multivitamin # prominent polypoid soft tissue?seen within the right and left sided palatine tonsillar fossa for which direct visual inspection/ENT evaluation is recommended - unable to able to get this done inpatient and will need outpatient follow up for it. # dispo - seen by Psych. no capacity to make medical decisions. guardianship obtained, awaiting SNF placement # VTE ppx - [facility] Quality Stroke Does the patient have a stroke diagnosis?: Yes Reason for No Anti-thrombotic by Day Two: N/A - Med Ordered VTE Prior VTE?: No VTE Risk Level:: Medical - moderate - high VTE Device Contraindication: N/A - Device Ordered VTE Drug Contraindication: N/A - Med Ordered
[2021-01-29 15:09] VITALS: BP 121/67; PULSE 66; RESP 18; TEMP 36.6; O2SAT 98
[2021-01-29] MEDS: Melatonin 3 MG TABLET PO (20:37)
[2021-01-29] MEDS: Atorvastatin Calcium 40 MG TABLET PO (20:37)
[2021-01-29 23:23] VITALS: BP 111/58; PULSE 63; RESP 18; TEMP 36.4; O2SAT 99
[2021-01-30 08:00] VITALS: BP 119/70; PULSE 63; RESP 18; TEMP 37.1; O2SAT 100
--- NOTE | 2021-01-30 08:46 | HO.PM.IMPN ---
Subjective Subjective Date of Service: 01/30/21 Interval History: F/u on dementia, encephalopathy and awaiting placement Review of Systems no fever baseline confusion Physical Exam Vital Signs: Vital Signs: Last Vital Signs Temp 98.8 F 01/30/21 08:00 Pulse 63 01/30/21 08:00 Resp 18 01/30/21 08:00 BP 119/70 01/30/21 08:00 Pulse Ox 100 01/30/21 08:00 Body Mass Index 20.2 Const: Other: Other:?General: alert, confused Resp:? CTA bilateral CVS: S1,S2,RRR GI: +BS, NT, no distention Skin: No rash Neuro:? motor grossly intact Psych: appropriate affect Objective Data Active Medications Acetaminophen (Acetaminophen 325 Mg Tablet) 650 mg PO Q6H PRN PRN Reason: Pain, Mild (Pain Scale 1-3) Aspirin (Aspirin 81 Mg Tab.Chew) 81 mg PO DAILY [facility] Last Admin: 01/29/21 09:01 Dose: 81 mg Documented by: MARILOU Atorvastatin Calcium (Atorvastatin Calcium 40 Mg Tablet) 40 mg PO BEDTIME [facility] Last Admin: 01/29/21 20:37 Dose: 40 mg Documented by: SAFIA Docusate Sodium (Docusate Sodium 100 Mg Capsule) 100 mg PO BID PRN PRN Reason: Constipation Enoxaparin Sodium (Enoxaparin Sodium 40 Mg/0.4 Ml Syringe) 40 mg SUBCUT Q24H [facility] Last Admin: 01/29/21 14:53 Dose: Not Given Documented by: MARILOU Non-Admin Reason: Patient Refused Melatonin (Melatonin 3 Mg Tablet) 3 mg PO BEDTIME [facility] Last Admin: 01/29/21 20:37 Dose: 3 mg Documented by: SAFIA Pharmacy Consult (Consult Rx Perform Med Rec) 1 each MISCELLANE ONCE PRN PRN Reason: Consult order Quetiapine Fumarate (Quetiapine Fumarate 25 Mg Tablet) 25 mg PO BID [facility] Last Admin: 01/29/21 20:37 Dose: 25 mg Documented by: SAFIA Sodium Chloride (0.9 % Sodium Chloride Flush 3 Ml Syringe) 3 ml IVFLUSH QSHIFT [facility] Last Admin: 01/30/21 00:39 Dose: Not Given Documented by: SAFIA Non-Admin Reason: No Access Thiamine HCl (Thiamine Hcl 100 Mg Tablet) 100 mg PO DAILY [facility] Last Admin: 01/29/21 09:01 Dose: 100 mg Documented by: MARILOU Trazodone HCl (Trazodone Hcl 25 Mg Halftab) 25 mg PO BEDTIME PRN PRN Reason: insomnia Last Admin: 01/15/21 20:21 Dose: 25 mg Documented by: HASMUKH Labs CBC & Chem 7: 01/19/21 10:59 01/19/21 10:59 Assessment and Plan (1) Thiamine deficiency: Status: Acute (2) Encephalopathy: Status: Acute (3) Delirium due to another medical condition: Status: Acute Assessment and Plan: hospital d#55 75yo M with no known medical history sent in for inadequate self-care, living in 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 # thiamine deficiency - no acute behavioral issues in several days; prn quetiapine + trazodone, melatonin - TSH + B12 normal, T pallidum EIA + HIV negative - EEG 12/08 with no seizure - treated with parenteral -> PO thiamine and indeed vitamin B1 level was low at 6 # subacute CVA - 1.2 cm area of decreased attenuation in the L external capsule/claustrum - no significant carotid disease on Dopplers - TTE 12/09 with preserved EF, akinetic basal inferior segment; no chest pain, no EKG changes; outpt Cardiology f/u - MRI 12/08 with no mass lesion, acute infarction, or abnormal enhancement; mild diffuse parenchymal volume loss - secondary prevention with ASA + statin # possible EtOH abuse - unable to corroborate hx - no signs of withdrawal -?multivitamin + thiamine as above - status post treatment with phenobarbital # moderate protein/calorie malnutrition - continue Ensure tid, multivitamin # prominent polypoid soft tissue?seen within the right and left sided palatine tonsillar fossa for which direct visual inspection/ENT evaluation is recommended - unable to able to get this done inpatient and will need outpatient follow up for it. # dispo - seen by Psych. no capacity to make medical decisions. guardianship obtained, awaiting SNF placement # VTE ppx - [facility] Quality Stroke Does the patient have a stroke diagnosis?: Yes Reason for No Anti-thrombotic by Day Two: N/A - Med Ordered VTE Prior VTE?: No VTE Risk Level:: Medical - moderate - high VTE Device Contraindication: N/A - Device Ordered VTE Drug Contraindication: N/A - Med Ordered
[2021-01-30] MEDS: Aspirin 81 MG TAB.CHEW PO (10:11)
[2021-01-30] MEDS: QUEtiapine Fumarate 25 MG TABLET PO ×2 (10:11→20:06)
[2021-01-30] MEDS: Thiamine HCL 100 MG TABLET PO (10:11)
[2021-01-30 15:55] VITALS: BP 116/62; PULSE 85; RESP 18; TEMP 36.7; O2SAT 96
[2021-01-30] MEDS: Enoxaparin Sodium 40 MG/0.4 ML SYRINGE SUBCUT (16:47)
[2021-01-30] MEDS: Melatonin 3 MG TABLET PO (20:06)
[2021-01-30] MEDS: Atorvastatin Calcium 40 MG TABLET PO (20:07)
[2021-01-30 23:28] VITALS: BP 138/68; PULSE 61; RESP 18; TEMP 36.2; O2SAT 98
[2021-01-31 08:00] VITALS: BP 122/56; PULSE 64; RESP 16; TEMP 36.6; O2SAT 98
[2021-01-31] MEDS: Aspirin 81 MG TAB.CHEW PO (09:52)
[2021-01-31] MEDS: Thiamine HCL 100 MG TABLET PO (09:52)
[2021-01-31] MEDS: QUEtiapine Fumarate 25 MG TABLET PO ×2 (09:52→22:25)
--- NOTE | 2021-01-31 10:27 | P.PNIM_ITS ---
Subjective Subjective Date of Service: 01/31/21 Interval History: F/u on dementia, encephalopathy and awaiting placement, no new issue today Physical Exam Vital Signs: Vital Signs: Last Vital Signs Temp 97.8 F 01/31/21 08:00 Pulse 64 01/31/21 08:00 Resp 16 01/31/21 08:00 BP 122/56 L 01/31/21 08:00 Pulse Ox 98 01/31/21 08:00 Body Mass Index 20.2 Const: Other: Other:?General: alert, confused Resp:? CTA bilateral CVS: S1,S2,RRR GI: +BS, NT, no distention Skin: No rash Neuro:? motor grossly intact Psych: appropriate affect Objective Data Active Medications Acetaminophen (Acetaminophen 325 Mg Tablet) 650 mg PO Q6H PRN PRN Reason: Pain, Mild (Pain Scale 1-3) Aspirin (Aspirin 81 Mg Tab.Chew) 81 mg PO DAILY [facility] Last Admin: 01/31/21 09:52 Dose: 81 mg Documented by: EFRAIN Atorvastatin Calcium (Atorvastatin Calcium 40 Mg Tablet) 40 mg PO BEDTIME [facility] Last Admin: 01/30/21 20:07 Dose: 40 mg Documented by: SAFIA Docusate Sodium (Docusate Sodium 100 Mg Capsule) 100 mg PO BID PRN PRN Reason: Constipation Enoxaparin Sodium (Enoxaparin Sodium 40 Mg/0.4 Ml Syringe) 40 mg SUBCUT Q24H [facility] Last Admin: 01/30/21 16:47 Dose: 40 mg Documented by: EFRAIN Melatonin (Melatonin 3 Mg Tablet) 3 mg PO BEDTIME [facility] Last Admin: 01/30/21 20:06 Dose: 3 mg Documented by: SAFIA Pharmacy Consult (Consult Rx Perform Med Rec) 1 each MISCELLANE ONCE PRN PRN Reason: Consult order Quetiapine Fumarate (Quetiapine Fumarate 25 Mg Tablet) 25 mg PO BID [facility] Last Admin: 01/31/21 09:52 Dose: 25 mg Documented by: EFRAIN Sodium Chloride (0.9 % Sodium Chloride Flush 3 Ml Syringe) 3 ml IVFLUSH QSHIFT [facility] Last Admin: 01/31/21 09:06 Dose: Not Given Documented by: EFRAIN Non-Admin Reason: No Access Thiamine HCl (Thiamine Hcl 100 Mg Tablet) 100 mg PO DAILY [facility] Last Admin: 01/31/21 09:52 Dose: 100 mg Documented by: DOBROB Trazodone HCl (Trazodone Hcl 25 Mg Halftab) 25 mg PO BEDTIME PRN PRN Reason: insomnia Last Admin: 01/15/21 20:21 Dose: 25 mg Documented by: ANDERM Labs CBC & Chem 7: 01/19/21 10:59 01/19/21 10:59 Assessment and Plan (1) Thiamine deficiency: Status: Acute (2) Encephalopathy: Status: Acute Assessment and Plan: hospital d#55 75yo M with no known medical history sent in for inadequate self-care, [facility], found to have CT evidence of subacute CVA though no neurologic deficit appreciated, deemed to not have capacity to make medical conditions, obtained court-appointed guardian and awaiting SNF placement, no change in care today # 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 # thiamine deficiency - no acute behavioral issues in several days; prn quetiapine + trazodone, melatonin - TSH + B12 normal, T pallidum EIA + HIV negative - EEG 12/08 with no seizure - treated with parenteral -> PO thiamine and indeed vitamin B1 level was low at 6 # subacute CVA - 1.2 cm area of decreased attenuation in the L external capsule/claustrum - no significant carotid disease on Dopplers - TTE 12/09 with preserved EF, akinetic basal inferior segment; no chest pain, no EKG changes; outpt Cardiology f/u - MRI 12/08 with no mass lesion, acute infarction, or abnormal enhancement; mild diffuse parenchymal volume loss - secondary prevention with ASA + statin # possible EtOH abuse - unable to corroborate hx - no signs of withdrawal -?multivitamin + thiamine as above - status post treatment with phenobarbital # moderate protein/calorie malnutrition - continue Ensure tid, multivitamin # prominent polypoid soft tissue?seen within the right and left sided palatine tonsillar fossa for which direct visual inspection/ENT evaluation is recommended - unable to able to get this done inpatient and will need outpatient follow up for it. # dispo - seen by Psych. no capacity to make medical decisions. guardianship obtained, awaiting SNF placement # VTE ppx - [facility] Quality Stroke Does the patient have a stroke diagnosis?: Yes Reason for No Anti-thrombotic by Day Two: N/A - Med Ordered VTE Prior VTE?: No VTE Risk Level:: Medical - moderate - high VTE Device Contraindication: N/A - Device Ordered VTE Drug Contraindication: N/A - Med Ordered
[2021-01-31 15:17] VITALS: BP 118/53; PULSE 72; RESP 18; TEMP 36.8; O2SAT 100
[2021-01-31] MEDS: Atorvastatin Calcium 40 MG TABLET PO (22:25)
[2021-01-31] MEDS: Melatonin 3 MG TABLET PO (22:25)
[2021-02-01] VITALS: RESP 16
[2021-02-01 07:01] VITALS: BP 108/56; PULSE 54; RESP 19; TEMP 36; O2SAT 100
[2021-02-01] MEDS: QUEtiapine Fumarate 25 MG TABLET PO ×2 (10:49→20:58)
[2021-02-01] MEDS: Thiamine HCL 100 MG TABLET PO (10:49)
[2021-02-01] MEDS: Aspirin 81 MG TAB.CHEW PO (10:50)
--- NOTE | 2021-02-01 11:53 | PM.EVENT ---
Event Note Date of Service: 02/01/21 Event Note: I saw and examined patient today and reviewed her vitals, there is no clinical change. Continue current care.
[2021-02-01 15:20] VITALS: BP 100/56; PULSE 70; RESP 16; TEMP 36.6; O2SAT 98
[2021-02-01] MEDS: Enoxaparin Sodium 40 MG/0.4 ML SYRINGE SUBCUT (16:46)
--- NOTE | 2021-02-01 18:01 | PC.NURSE ---
FREQUENT RE-DIRECTING. TELESITTER REMAINS BEDSIDE FOR SAFETY. DENIES PAIN. MD AND CASE MANAGEMENT QUESTIONED IF PATIENT QUALIFIES FOR [facility]. PER MD TO BE ADDRESSED IN ROUNDS TOMORROW.
[2021-02-01] MEDS: Atorvastatin Calcium 40 MG TABLET PO (20:58)
[2021-02-01] MEDS: Melatonin 3 MG TABLET PO (20:58)
[2021-02-02] VITALS: RESP 17
[2021-02-02 06:58] VITALS: BP 100/55; PULSE 58; RESP 18; TEMP 35.5; O2SAT 97
[2021-02-02] MEDS: QUEtiapine Fumarate 25 MG TABLET PO ×2 (09:14→20:23)
[2021-02-02] MEDS: Thiamine HCL 100 MG TABLET PO (09:14)
[2021-02-02] MEDS: Aspirin 81 MG TAB.CHEW PO (09:14)
--- NOTE | 2021-02-02 11:04 | PM.EVENT ---
Event Note Date of Service: 02/02/21 Event Note: Patient seen and examined, no new events, vitals review and stable. exm: alert, cooperative, CV RRR, lung clear, Neuro--baseline confusion, Psych--normal affect A/P:Dementia with minor behavior issues Will explore posibility of transfer to [facility]
--- NOTE | 2021-02-02 11:33 | MHC.CM.PN ---
PER MD ROUNDS, CARE TEAM EVAL WILL BE REQUESTED TO DETERMINE IF PT IS APPROPRIATE FOR [facility]
[2021-02-02 13:00] VITALS: BMI 21.1
--- NOTE | 2021-02-02 13:16 | MHC.CLN ---
Addendum entered by Justine Gallardo, MASON 02/02/21 14:44: AGREE WITH PROVIDER'S ASSESSMENT BELOW Original Note: F/U PO INTAKE VARIABLE FROM 0-100% DIET RX: GRD M/S-APPROPRIATE PT RECEIVING ENSURE TID TO INCREASE KCALS PROVIDES 1050KCALS, 60G PROTEIN LAST KNOWN WT 01/26: 60.2 KG CONTINUE WEEKLY WEIGHTS R/T HIGH NUTRITION RISK FOLLOW UP WEEKLY TO CHECK WEIGHT R/T MALNUTRITION
[2021-02-02 15:14] VITALS: BP 150/65; PULSE 66; RESP 14; TEMP 37.1; O2SAT 93
[2021-02-02] MEDS: Enoxaparin Sodium 40 MG/0.4 ML SYRINGE SUBCUT (16:07)
[2021-02-02 19:19] VITALS: BP 116/58; PULSE 75; RESP 18; TEMP 36.3; O2SAT 98
[2021-02-02] MEDS: traZODone HCL 25 MG HALFTAB PO (20:23)
[2021-02-02] MEDS: Melatonin 3 MG TABLET PO (20:23)
[2021-02-02] MEDS: Atorvastatin Calcium 40 MG TABLET PO (20:23)
[2021-02-03 08:00] VITALS: BP 114/56; PULSE 61; RESP 18; TEMP 36.7; O2SAT 98
[2021-02-03] MEDS: QUEtiapine Fumarate 25 MG TABLET PO ×2 (08:14→20:46)
[2021-02-03] MEDS: Thiamine HCL 100 MG TABLET PO (08:14)
[2021-02-03] MEDS: Aspirin 81 MG TAB.CHEW PO (08:14)
--- NOTE | 2021-02-03 10:22 | PM.EVENT ---
Event Note Date of Service: 02/03/21 Event Note: Event Note:?Patient seen and? examined, no new events, vitals review and stable. exm: alert, cooperative, CV RRR, lung clear, Neuro--baseline confusion, Psych--normal affect A/P:Dementia with minor behavior issues, exploring posibility of transfer to [facility]
[2021-02-03 15:08] VITALS: BP 110/56; PULSE 55; RESP 20; TEMP 36.7; O2SAT 97
[2021-02-03] MEDS: Enoxaparin Sodium 40 MG/0.4 ML SYRINGE SUBCUT (15:23)
[2021-02-03] MEDS: 0.9 % Sodium Chloride Flush 3 ML SYRINGE IVFLUSH (15:23)
[2021-02-03] MEDS: Atorvastatin Calcium 40 MG TABLET PO (20:46)
[2021-02-03] MEDS: Melatonin 3 MG TABLET PO (20:46)
[2021-02-04 04:18] VITALS: BP 153/67; PULSE 64; RESP 18; TEMP 36.5; O2SAT 98
[2021-02-04] MEDS: Thiamine HCL 100 MG TABLET PO (07:57)
[2021-02-04] MEDS: QUEtiapine Fumarate 25 MG TABLET PO ×2 (07:57→19:45)
[2021-02-04] MEDS: Aspirin 81 MG TAB.CHEW PO (07:57)
[2021-02-04 08:00] VITALS: BP 110/59; PULSE 70; RESP 17; TEMP 36.3; O2SAT 100
[2021-02-04] MEDS: Enoxaparin Sodium 40 MG/0.4 ML SYRINGE SUBCUT (14:46)
[2021-02-04 15:58] VITALS: BP 114/58; PULSE 58; RESP 18; TEMP 36.6; O2SAT 100
[2021-02-04] MEDS: Melatonin 3 MG TABLET PO (19:44)
[2021-02-04] MEDS: Atorvastatin Calcium 40 MG TABLET PO (19:44)
[2021-02-04 23:08] VITALS: BP 105/53; PULSE 90; RESP 20; TEMP 36.7; O2SAT 99
[2021-02-05 07:02] VITALS: BP 142/64; PULSE 60; RESP 18; TEMP 36; O2SAT 98
[2021-02-05] MEDS: Thiamine HCL 100 MG TABLET PO (08:40)
[2021-02-05] MEDS: QUEtiapine Fumarate 25 MG TABLET PO ×2 (08:40→20:07)
[2021-02-05] MEDS: Aspirin 81 MG TAB.CHEW PO (08:40)
[2021-02-05 11:18] VITALS: BP 112/70; PULSE 58; RESP 18; TEMP 36.1; O2SAT 98
[2021-02-05 15:00] VITALS: BP 117/66; PULSE 85; RESP 20; TEMP 36.7; O2SAT 99
[2021-02-05] MEDS: Enoxaparin Sodium 40 MG/0.4 ML SYRINGE SUBCUT (16:03)
[2021-02-05 20:06] VITALS: BP 118/72; PULSE 66; RESP 18; TEMP 36.8; O2SAT 98
[2021-02-05] MEDS: Melatonin 3 MG TABLET PO (20:07)
[2021-02-05] MEDS: Atorvastatin Calcium 40 MG TABLET PO (20:07)
[2021-02-06 07:00] VITALS: BP 102/60; PULSE 58; RESP 18; TEMP 35.5; O2SAT 100
[2021-02-06] MEDS: QUEtiapine Fumarate 25 MG TABLET PO (10:07)
[2021-02-06] MEDS: Aspirin 81 MG TAB.CHEW PO (10:07)
[2021-02-06] MEDS: Thiamine HCL 100 MG TABLET PO (10:07)
[2021-02-06 11:00] VITALS: BP 112/58; PULSE 70; RESP 16; TEMP 36.1; O2SAT 97
[2021-02-06 15:34] VITALS: BP 130/60; PULSE 60; RESP 18; TEMP 36.6; O2SAT 98
--- NOTE | 2021-02-06 15:39 | MHC.CM.PN ---
Call placed to Almaz Tinsley pt's guardian: pt does not qualify for [employer] as it was just discovered that he has $120,000 in investments in addition to his house which will be listed in the next two weeks. Per Almaz, she is in the process of obtaining a release from the [employer] firm. She is able to provide forms to support these investments and his [employer] denial letter. CM to continue to follow.
[2021-02-06] MEDS: Enoxaparin Sodium 40 MG/0.4 ML SYRINGE SUBCUT (16:18)
--- NOTE | 2021-02-06 18:06 | HO.PM.IMPN ---
Subjective Subjective Date of Service: 02/06/21 Interval History: F/u on dementia, encephalopathy and awaiting placement, no new issue today Review of Systems no fevers or chills or nausea or vomiting Physical Exam Vital Signs: Vital Signs: Last Vital Signs Temp 98 F 02/06/21 15:34 Pulse 60 02/06/21 15:34 Resp 18 02/06/21 15:34 BP 130/60 02/06/21 15:34 Pulse Ox 98 02/06/21 15:34 Body Mass Index 21.1 General: alert, confused Resp:? CTA bilateral CVS: S1,S2,RRR GI: +BS, NT, no distention Skin: No rash Neuro:? motor grossly intact Psych: appropriate affect Objective Data Active Medications Acetaminophen (Acetaminophen 325 Mg Tablet) 650 mg PO Q6H PRN PRN Reason: Pain, Mild (Pain Scale 1-3) Aspirin (Aspirin 81 Mg Tab.Chew) 81 mg PO DAILY [facility] Last Admin: 02/06/21 10:07 Dose: 81 mg Documented by: AILYN Atorvastatin Calcium (Atorvastatin Calcium 40 Mg Tablet) 40 mg PO BEDTIME [facility] Last Admin: 02/05/21 20:07 Dose: 40 mg Documented by: HASMUKH Docusate Sodium (Docusate Sodium 100 Mg Capsule) 100 mg PO BID PRN PRN Reason: Constipation Enoxaparin Sodium (Enoxaparin Sodium 40 Mg/0.4 Ml Syringe) 40 mg SUBCUT Q24H [facility] Last Admin: 02/06/21 16:18 Dose: 40 mg Documented by: AILYN Melatonin (Melatonin 3 Mg Tablet) 3 mg PO BEDTIME [facility] Last Admin: 02/05/21 20:07 Dose: 3 mg Documented by: HASMUKH Pharmacy Consult (Consult Rx Perform Med Rec) 1 each MISCELLANE ONCE PRN PRN Reason: Consult order Quetiapine Fumarate (Quetiapine Fumarate 25 Mg Tablet) 25 mg PO BID [facility] Last Admin: 02/06/21 10:07 Dose: 25 mg Documented by: AILYN Sodium Chloride (0.9 % Sodium Chloride Flush 3 Ml Syringe) 3 ml IVFLUSH QSHIFT [facility] Last Admin: 02/06/21 16:20 Dose: Not Given Documented by: AILYN Non-Admin Reason: No Insulin Coverage Thiamine HCl (Thiamine Hcl 100 Mg Tablet) 100 mg PO DAILY [facility] Last Admin: 02/06/21 10:07 Dose: 100 mg Documented by: RIGO Trazodone HCl (Trazodone Hcl 25 Mg Halftab) 25 mg PO BEDTIME PRN PRN Reason: insomnia Last Admin: 02/02/21 20:23 Dose: 25 mg Documented by: HASMUKH Labs CBC & Chem 7: 01/19/21 10:59 01/19/21 10:59 Assessment and Plan (1) Thiamine deficiency: Status: Acute Assessment and Plan: hospital d#56 75yo M with no known medical history sent in for inadequate self-care, living in [facility], found to have CT evidence of subacute CVA though no neurologic deficit appreciated, deemed to not have capacity to make medical conditions, obtained court-appointed guardian and awaiting SNF placement, no change in care today 1. 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 - no acute behavioral issues in several days; prn quetiapine + trazodone, melatonin - TSH + B12 normal, T pallidum EIA + HIV negative - EEG 12/08 with no seizure - treated with parenteral -> PO thiamine and indeed vitamin B1 level was low at 6 2.subacute CVA - 1.2 cm area of decreased attenuation in the L external capsule/claustrum - no significant carotid disease on Dopplers - TTE 12/09 with preserved EF, akinetic basal inferior segment; no chest pain, no EKG changes; outpt Cardiology f/u - MRI 12/08 with no mass lesion, acute infarction, or abnormal enhancement; mild diffuse parenchymal volume loss - secondary prevention with ASA + statin 3. possible EtOH abuse - unable to corroborate hx - no signs of withdrawal -?multivitamin + thiamine as above - status post treatment with phenobarbital 4. moderate protein/calorie malnutrition - continue Ensure tid, multivitamin 5. prominent polypoid soft tissue?seen within the right and left sided palatine tonsillar fossa for which direct visual inspection/ENT evaluation is recommended - unable to able to get this done inpatient and will need outpatient follow up for it. 6. dispo - seen by Psych.? no capacity to make medical decisions.? guardianship obtained, awaiting SNF placement 7. VTE ppx - [facility] Quality Stroke Does the patient have a stroke diagnosis?: Yes Reason for No Anti-thrombotic by Day Two: N/A - Med Ordered VTE Prior VTE?: No VTE Risk Level:: Medical - moderate - high VTE Device Contraindication: N/A - Device Ordered VTE Drug Contraindication: N/A - Med Ordered
[2021-02-07 07:04] VITALS: BP 142/64; PULSE 60; RESP 19; TEMP 36.1; O2SAT 98
[2021-02-07] MEDS: QUEtiapine Fumarate 25 MG TABLET PO ×2 (09:57→21:40)
[2021-02-07] MEDS: Aspirin 81 MG TAB.CHEW PO (09:57)
[2021-02-07] MEDS: Thiamine HCL 100 MG TABLET PO (09:57)
--- NOTE | 2021-02-07 15:15 | P.PNIM_ITS ---
Subjective Subjective Date of Service: 02/07/21 Interval History: F/u on dementia, encephalopathy and awaiting placement, no new issue today Review of Systems no fevers or chills or nausea or vomiting Physical Exam Vital Signs: Vital Signs: Last Vital Signs Temp 97 F 02/07/21 07:04 Pulse 60 02/07/21 07:04 Resp 19 02/07/21 07:04 BP 142/64 H 02/07/21 07:04 Pulse Ox 98 02/07/21 07:04 Body Mass Index 21.1 General: alert, confused Resp:? CTA bilateral CVS: S1,S2,RRR GI: +BS, NT, no distention Skin: No rash Neuro:? motor grossly intact Psych: appropriate affect Objective Data Active Medications Acetaminophen (Acetaminophen 325 Mg Tablet) 650 mg PO Q6H PRN PRN Reason: Pain, Mild (Pain Scale 1-3) Aspirin (Aspirin 81 Mg Tab.Chew) 81 mg PO DAILY [facility] Last Admin: 02/07/21 09:57 Dose: 81 mg Documented by: ELENI Atorvastatin Calcium (Atorvastatin Calcium 40 Mg Tablet) 40 mg PO BEDTIME [facility] Last Admin: 02/06/21 23:55 Dose: Not Given Documented by: HASMUKH Non-Admin Reason: pt sleeping Docusate Sodium (Docusate Sodium 100 Mg Capsule) 100 mg PO BID PRN PRN Reason: Constipation Enoxaparin Sodium (Enoxaparin Sodium 40 Mg/0.4 Ml Syringe) 40 mg SUBCUT Q24H [facility] Last Admin: 02/06/21 16:18 Dose: 40 mg Documented by: AILYN Melatonin (Melatonin 3 Mg Tablet) 3 mg PO BEDTIME [facility] Last Admin: 02/06/21 23:56 Dose: Not Given Documented by: HASMUKH Non-Admin Reason: patient sleeping Pharmacy Consult (Consult Rx Perform Med Rec) 1 each MISCELLANE ONCE PRN PRN Reason: Consult order Quetiapine Fumarate (Quetiapine Fumarate 25 Mg Tablet) 25 mg PO BID [facility] Last Admin: 02/07/21 09:57 Dose: 25 mg Documented by: ELENI Sodium Chloride (0.9 % Sodium Chloride Flush 3 Ml Syringe) 3 ml IVFLUSH QSHIFT [facility] Last Admin: 02/07/21 10:02 Dose: Not Given Documented by: ELENI Non-Admin Reason: No Access Thiamine HCl (Thiamine Hcl 100 Mg Tablet) 100 mg PO DAILY [facility] Last Admin: 02/07/21 09:57 Dose: 100 mg Documented by: ELENI Trazodone HCl (Trazodone Hcl 25 Mg Halftab) 25 mg PO BEDTIME PRN PRN Reason: insomnia Last Admin: 02/02/21 20:23 Dose: 25 mg Documented by: HASMUKH Labs CBC & Chem 7: 01/19/21 10:59 01/19/21 10:59 Assessment and Plan (1) Thiamine deficiency: Status: Acute (2) Encephalopathy: Status: Acute Assessment and Plan: hospital d#57 75yo M with no known medical history sent in for inadequate self-care, living in [facility], found to have CT evidence of subacute CVA though no neurologic deficit appreciated, deemed to not have capacity to make medical conditions, obtained court-appointed guardian and awaiting SNF placement, no change in care today 1. 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 - no acute behavioral issues in several days; prn quetiapine + trazodone, melatonin - TSH + B12 normal, T pallidum EIA + HIV negative - EEG 12/08 with no seizure - treated with parenteral -> PO thiamine and indeed vitamin B1 level was low at 6 2.subacute CVA - 1.2 cm area of decreased attenuation in the L external capsule/claustrum - no significant carotid disease on Dopplers - TTE 12/09 with preserved EF, akinetic basal inferior segment; no chest pain, no EKG changes; outpt Cardiology f/u - MRI 12/08 with no mass lesion, acute infarction, or abnormal enhancement; mild diffuse parenchymal volume loss - secondary prevention with ASA + statin 3. possible EtOH abuse - unable to corroborate hx - no signs of withdrawal -?multivitamin + thiamine as above - status post treatment with phenobarbital 4. moderate protein/calorie malnutrition - continue Ensure tid, multivitamin 5. prominent polypoid soft tissue?seen within the right and left sided palatine tonsillar fossa for which direct visual inspection/ENT evaluation is recommended - unable to able to get this done inpatient and will need outpatient follow up for it. 6. dispo - seen by Psych.? no capacity to make medical decisions.? guardianship obtained, awaiting SNF placement 7. VTE ppx - [facility] Quality Stroke Does the patient have a stroke diagnosis?: Yes Reason for No Anti-thrombotic by Day Two: N/A - Med Ordered VTE Prior VTE?: No VTE Risk Level:: Medical - moderate - high VTE Device Contraindication: N/A - Device Ordered VTE Drug Contraindication: N/A - Med Ordered
[2021-02-07 15:49] VITALS: BP 114/57; PULSE 62; RESP 18; TEMP 36.5; O2SAT 100
[2021-02-07] MEDS: Enoxaparin Sodium 40 MG/0.4 ML SYRINGE SUBCUT (17:51)
[2021-02-07] MEDS: Melatonin 3 MG TABLET PO (21:40)
[2021-02-07] MEDS: Atorvastatin Calcium 40 MG TABLET PO (21:40)
[2021-02-07 23:43] VITALS: BP 119/63; PULSE 76; RESP 18; TEMP 36.8; O2SAT 98
[2021-02-08] MEDS: traZODone HCL 25 MG HALFTAB PO (01:38)
[2021-02-08 07:22] VITALS: BP 120/63; PULSE 73; RESP 18; TEMP 36.7; O2SAT 100
[2021-02-08] MEDS: Thiamine HCL 100 MG TABLET PO (09:56)
[2021-02-08] MEDS: Aspirin 81 MG TAB.CHEW PO (09:56)
[2021-02-08] MEDS: QUEtiapine Fumarate 25 MG TABLET PO (09:56)
--- NOTE | 2021-02-08 13:53 | PM.EVENT ---
Event Note Date of Service: 02/08/21 Event Note: Patient seen and? examined, no new events, vitals review and stable. exam: alert, cooperative, CV: RRR, s1s2 herad lung clear to aus b/l Neuro--baseline confusion, Psych--normal affect A/P:Dementia with minor behavior issues, exploring posibility of transfer to [facility]
[2021-02-08 15:30] VITALS: BP 119/60; PULSE 70; RESP 20; TEMP 36.6; O2SAT 96
[2021-02-08] MEDS: Enoxaparin Sodium 40 MG/0.4 ML SYRINGE SUBCUT (15:51)
--- NOTE | 2021-02-08 16:17 | PC.NURSE ---
At approximately 1530 today, pt noted to be exiting room multiple times resulting in multiple stat alarms from the monitor watcher room. Pt expressing desire to go outside for a fresh air break. Dr. Bailey notified and gave permission for a patient escort outside. This instructional writer coordinated with security and pt was escorted outside with this instructional writer, Kevin from security and Tamir from security. Pt walked outside with this team for about 30 minutes and returned to room at 1610. Pt tolerated walk well and expressed gratitude for fresh air. Gait was overall steady and pt was able to ambulate independently. He did require reminders to use caution at the curb and uneven surfaces. Pt was very conversive during walk. Monitor watchra, , and RN made aware of when patient returned to room 445.
[2021-02-09] VITALS: RESP 18
[2021-02-09 07:30] VITALS: BP 107/55; PULSE 50; RESP 18; TEMP 36.6; O2SAT 97
[2021-02-09] MEDS: Aspirin 81 MG TAB.CHEW PO (09:44)
[2021-02-09] MEDS: Thiamine HCL 100 MG TABLET PO (09:44)
[2021-02-09] MEDS: QUEtiapine Fumarate 25 MG TABLET PO ×2 (09:44→21:16)
--- NOTE | 2021-02-09 11:08 | MHC.CLN ---
F/U PO INTAKE REMAINS VARIABLE DIET RX: GRD M/S-APPROPRIATE PT RECEIVING ENSURE TID TO INCREASE KCALS PROVIDES 1050KCALS, 60G PROTEIN LAST KNOWN WT 02/02: 138.6# CONTINUE WEEKLY WEIGHTS R/T HIGH NUTRITION RISK FOLLOW UP WEEKLY TO CHECK WEIGHT R/T MALNUTRITION
[2021-02-09 13:00] VITALS: BMI 21.1
--- NOTE | 2021-02-09 13:36 | MHC.CM.PN ---
Male Patient 75. [facility] needs to be in place prior to placement. The pt has a court appointed guardian. Spend down in progress for [employer].
--- NOTE | 2021-02-09 15:06 | PM.EVENT ---
Event Note Date of Service: 02/09/21 Event Note: Event Note: Patient seen and? examined, no new events, vitals review and stable. exam: alert, cooperative, CV: RRR, s1s2 herad lung clear to aus b/l ?Neuro--baseline confusion, Psych--normal affect A/P:Dementia with minor behavior issues, exploring posibility of transfer to [facility]
[2021-02-09 16:00] VITALS: BP 102/48; PULSE 77; RESP 14; TEMP 36.7; O2SAT 99
[2021-02-09] MEDS: Enoxaparin Sodium 40 MG/0.4 ML SYRINGE SUBCUT (16:37)
--- NOTE | 2021-02-09 18:47 | PC.NURSE ---
pt had been asking to go outside mult times today - team discussed with behavioral unit about going outside when other pt taken outside - will possibly try over this weekend
[2021-02-09] MEDS: Atorvastatin Calcium 40 MG TABLET PO (21:16)
[2021-02-09] MEDS: Melatonin 3 MG TABLET PO (21:16)
[2021-02-10 07:17] VITALS: BP 133/68; PULSE 61; RESP 18; TEMP 36.6; O2SAT 98
[2021-02-10] MEDS: Aspirin 81 MG TAB.CHEW PO (09:00)
[2021-02-10] MEDS: Thiamine HCL 100 MG TABLET PO (09:00)
[2021-02-10] MEDS: QUEtiapine Fumarate 25 MG TABLET PO ×2 (09:00→21:05)
[2021-02-10 11:39] VITALS: BP 98/57; PULSE 65; RESP 15; TEMP 36.1; O2SAT 98
--- NOTE | 2021-02-10 13:59 | P.EN_ITS ---
Event Note Date of Service: 02/10/21 Event Note: ?Patient seen and? examined, no new events, vitals review and stab le. exam: alert, cooperative, CV: RRR, s1s2 herad lung clear to aus b/l ?Neuro--baseline confusion, abd : soft, nd, nt, bs present. Psych--normal affect A/P:Dementia with minor behavior issues, exploring posibility of transfer to [facility]
[2021-02-10 15:12] VITALS: BP 113/65; PULSE 64; RESP 18; TEMP 37.1; O2SAT 99
[2021-02-10] MEDS: Enoxaparin Sodium 40 MG/0.4 ML SYRINGE SUBCUT (15:31)
[2021-02-10] MEDS: Melatonin 3 MG TABLET PO (21:05)
[2021-02-10] MEDS: Atorvastatin Calcium 40 MG TABLET PO (21:05)
[2021-02-11 05:31] VITALS: BP 107/62; PULSE 68; RESP 18; TEMP 36.5; O2SAT 99
--- NOTE | 2021-02-11 10:18 | PM.EVENT ---
Event Note Date of Service: 02/11/21 Event Note: vent Note: ?Patient seen and? examined, no new events, vitals review and stable. exam: alert, cooperative, CV: RRR, s1s2 herad lung clear to aus b/l ?Neuro--baseline confusion, abd : soft, nd, nt, bs present. Psych--normal affect A/P:Dementia with minor behavior issues, exploring posibility of transfer to [facility]
[2021-02-11 10:44] VITALS: BP 105/63; PULSE 68; RESP 20; TEMP 36.6; O2SAT 100
[2021-02-11] MEDS: QUEtiapine Fumarate 25 MG TABLET PO ×2 (11:02→21:30)
[2021-02-11] MEDS: Thiamine HCL 100 MG TABLET PO (11:02)
[2021-02-11] MEDS: Aspirin 81 MG TAB.CHEW PO (11:02)
--- NOTE | 2021-02-11 15:21 | PC.NURSE ---
On Friday pt offered to go outside w/ first floor staff. Pt upset and refused, stating why would I want to do that? Pt does ask mult times per day about going outside but did not want to at this time.
[2021-02-11 15:28] VITALS: BP 119/63; PULSE 66; RESP 18; TEMP 37; O2SAT 100
[2021-02-11] MEDS: Enoxaparin Sodium 40 MG/0.4 ML SYRINGE SUBCUT (16:48)
[2021-02-11] MEDS: Melatonin 3 MG TABLET PO (21:30)
[2021-02-11] MEDS: Atorvastatin Calcium 40 MG TABLET PO (21:30)
[2021-02-12] VITALS: BP 98/54; PULSE 56; RESP 18; TEMP 37; O2SAT 99
[2021-02-12 07:02] VITALS: BP 132/64; PULSE 62; RESP 18; TEMP 36.6; O2SAT 98
[2021-02-12] MEDS: QUEtiapine Fumarate 25 MG TABLET PO (08:48)
[2021-02-12] MEDS: Thiamine HCL 100 MG TABLET PO (08:48)
[2021-02-12] MEDS: Aspirin 81 MG TAB.CHEW PO (08:48)
--- NOTE | 2021-02-12 10:38 | P.EN_ITS ---
Event Note Date of Service: 02/12/21 Event Note: Patient seen examined Denies any new complaints-sitting and eating breakfast. exam: alert, cooperative, CV: RRR, s1s2 herad lung clear to aus b/l ?Neuro--baseline confusion, abd : soft, nd, nt, bs present. Psych--normal affect A/P:Dementia with minor behavior issues, exploring posibility of transfer to [facility]
[2021-02-12 15:23] VITALS: BP 110/67; PULSE 67; RESP 18; TEMP 36.6; O2SAT 100
[2021-02-12] MEDS: Enoxaparin Sodium 40 MG/0.4 ML SYRINGE SUBCUT (16:03)
[2021-02-13] MEDS: Atorvastatin Calcium 40 MG TABLET PO ×2 (00:21→20:08)
[2021-02-13] MEDS: Melatonin 3 MG TABLET PO ×2 (00:21→20:08)
[2021-02-13] MEDS: QUEtiapine Fumarate 25 MG TABLET PO ×3 (00:21→20:08)
[2021-02-13 07:16] VITALS: BP 123/66; PULSE 70; RESP 18; TEMP 36.4; O2SAT 100
[2021-02-13] MEDS: Thiamine HCL 100 MG TABLET PO (07:22)
[2021-02-13] MEDS: Aspirin 81 MG TAB.CHEW PO (07:22)
--- NOTE | 2021-02-13 12:47 | PM.EVENT ---
Event Note Date of Service: 02/13/21 Event Note: Patient sleeping comfortably, no overnight events, no acute issues Vitals overnight reviewed no acute or significant findings Patient with dementia and With minor behavioral issues, pending transfer to placement to [facility] psych
[2021-02-13] MEDS: Enoxaparin Sodium 40 MG/0.4 ML SYRINGE SUBCUT (14:56)
[2021-02-13 15:14] VITALS: BP 110/59; PULSE 68; RESP 18; TEMP 36.6; O2SAT 100
[2021-02-13 23:34] VITALS: BP 99/61; PULSE 72; RESP 18; TEMP 36.4; O2SAT 98
--- NOTE | 2021-02-14 11:12 | P.PNIM_ITS ---
Subjective Subjective Date of Service: 02/14/21 Interval History: Patient seen and examined at bedside. He is alert awake, answers the questions appropriately. He has had no overnight events. Denies any acute complaints. Has no chest pain, no shortness of breath, no abdominal pain nausea or vomiting. No urinary symptoms. Review of Systems Review of Systems: Yes all other systems are reviewed and are negative Physical Exam Vital Signs: Vital Signs: Last Vital Signs Temp 97.5 F 02/13/21 23:34 Pulse 72 02/13/21 23:34 Resp 18 02/13/21 23:34 BP 99/61 02/13/21 23:34 Pulse Ox 98 02/13/21 23:34 Body Mass Index 21.1 Const: General: cooperative and no acute distress Orientation/consciousness: patient oriented x3 Resp: Effort & Inspection: normal respiratory effort, able to speak in complete sentences and abnormal respiratory pattern Auscultation: clear to auscultation bilaterally Cardio: Rate: regular rate Rhythm: regular rhythm GI: Palpation (GI): Soft to palpation Auscultation: normal bowel sounds Neuro: General: patient oriented x3 Extrem: General: Yes normal to inspection Objective Data Active Medications Acetaminophen (Acetaminophen 325 Mg Tablet) 650 mg PO Q6H PRN PRN Reason: Pain, Mild (Pain Scale 1-3) Aspirin (Aspirin 81 Mg Tab.Chew) 81 mg PO DAILY [facility] Last Admin: 02/13/21 07:22 Dose: 81 mg Documented by: REJI Atorvastatin Calcium (Atorvastatin Calcium 40 Mg Tablet) 40 mg PO BEDTIME [facility] Last Admin: 02/13/21 20:08 Dose: 40 mg Documented by: ABHISHEK Docusate Sodium (Docusate Sodium 100 Mg Capsule) 100 mg PO BID PRN PRN Reason: Constipation Enoxaparin Sodium (Enoxaparin Sodium 40 Mg/0.4 Ml Syringe) 40 mg SUBCUT Q24H [facility] Last Admin: 02/13/21 14:56 Dose: 40 mg Documented by: REJI Melatonin (Melatonin 3 Mg Tablet) 3 mg PO BEDTIME [facility] Last Admin: 02/13/21 20:08 Dose: 3 mg Documented by: ABHISHEK Pharmacy Consult (Consult Rx Perform Med Rec) 1 each MISCELLANE ONCE PRN PRN Reason: Consult order Quetiapine Fumarate (Quetiapine Fumarate 25 Mg Tablet) 25 mg PO BID [facility] Last Admin: 02/13/21 20:08 Dose: 25 mg Documented by: ABHISHEK Sodium Chloride (0.9 % Sodium Chloride Flush 3 Ml Syringe) 3 ml IVFLUSH QSHIFT [facility] Last Admin: 02/13/21 20:07 Dose: Not Given Documented by: ABHISHEK Non-Admin Reason: No Access Thiamine HCl (Thiamine Hcl 100 Mg Tablet) 100 mg PO DAILY [facility] Last Admin: 02/13/21 07:22 Dose: 100 mg Documented by: REJI Trazodone HCl (Trazodone Hcl 25 Mg Halftab) 25 mg PO BEDTIME PRN PRN Reason: insomnia Last Admin: 02/08/21 01:38 Dose: 25 mg Documented by: PENELOPE Labs CBC & Chem 7: 01/19/21 10:59 01/19/21 10:59 Assessment and Plan (1) Delirium due to another medical condition: Status: Acute (2) Unable to care for self: Status: Acute (3) Dementia: Status: Acute Assessment and Plan: 75yo M with no known medical history sent in for inadequate self-care, found to have CT evidence of subacute CVA though no neurologic deficit appreciated, de emed to not have capacity to make medical conditions, obtained court-appointed guardian and awaiting SNF placement, no change in care today 1. 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 - no acute behavioral issues in several days; prn quetiapine + trazodone, melatonin - TSH + B12 normal, T pallidum EIA + HIV negative - EEG 12/08 with no seizure - treated with parenteral -> PO thiamine and indeed vitamin B1 level was low at 6 - Awaiting placement at this time 2.subacute CVA - 1.2 cm area of decreased attenuation in the L external capsule/claustrum - no significant carotid disease on Dopplers - TTE 12/09 with preserved EF, akinetic basal inferior segment; no chest pain, no EKG changes; outpt Cardiology f/u - MRI 12/08 with no mass lesion, acute infarction, or abnormal enhancement; mild diffuse parenchymal volume loss - secondary prevention with ASA + statin 3. possible EtOH abuse - unable to corroborate hx - no signs of withdrawal -?multivitamin + thiamine as above - status post treatment with phenobarbital 4. moderate protein/calorie malnutrition - continue Ensure tid, multivitamin 5. prominent polypoid soft tissue?seen within the right and left sided palatine tonsillar fossa for which direct visual inspection/ENT evaluation is recommended - unable to able to get this done inpatient and will need outpatient follow up for it. 6. dispo - seen by Psych.? no capacity to make medical decisions.? guardianship obtained, awaiting SNF placement Quality Stroke Does the patient have a stroke diagnosis?: Yes Reason for No Anti-thrombotic by Day Two: N/A - Med Ordered VTE Prior VTE?: No VTE Risk Level:: Medical - moderate - high VTE Device Contraindication: N/A - Device Ordered VTE Drug Contraindication: N/A - Med Ordered
[2021-02-14] MEDS: Aspirin 81 MG TAB.CHEW PO (11:18)
[2021-02-14] MEDS: QUEtiapine Fumarate 25 MG TABLET PO ×2 (11:18→21:38)
[2021-02-14] MEDS: Thiamine HCL 100 MG TABLET PO (11:18)
[2021-02-14 11:39] VITALS: BP 95/65; PULSE 69; RESP 20; TEMP 36.9; O2SAT 99
--- NOTE | 2021-02-14 11:55 | MHC.CM.PN ---
PER ROUNDS PTS DC PENDING resolution of finances plan continues torey for placement
[2021-02-14 15:34] VITALS: BP 97/61; PULSE 70; RESP 18; TEMP 36.8; O2SAT 99
[2021-02-14] MEDS: Enoxaparin Sodium 40 MG/0.4 ML SYRINGE SUBCUT (15:40)
[2021-02-14] MEDS: Melatonin 3 MG TABLET PO (21:38)
[2021-02-14] MEDS: Atorvastatin Calcium 40 MG TABLET PO (21:38)
[2021-02-15 07:50] VITALS: BP 101/52; PULSE 64; RESP 18; TEMP 36.2; O2SAT 98
[2021-02-15] MEDS: Thiamine HCL 100 MG TABLET PO (10:16)
[2021-02-15] MEDS: QUEtiapine Fumarate 25 MG TABLET PO ×2 (10:16→19:32)
[2021-02-15] MEDS: Aspirin 81 MG TAB.CHEW PO (10:16)
[2021-02-15 11:13] VITALS: BP 102/58; PULSE 78; RESP 18; TEMP 36.6; O2SAT 98
--- NOTE | 2021-02-15 12:25 | P.PNIM_ITS ---
Subjective Subjective Date of Service: 02/15/21 Interval History: seen and examined this morning resting in bed comfortably No overnight events. No specific complaints this time Review of Systems Review of Systems: Yes all other systems are reviewed and are negative Constitutional Constitutional: Denies chills and Denies fever(s) Cardiovascular Cardiovascular: Denies chest pain Respiratory Respiratory: Denies cough Gastrointestinal Gastrointestinal: Denies abdominal pain Physical Exam Vital Signs: Vital Signs: Last Vital Signs Temp 97.8 F 02/15/21 11:13 Pulse 78 02/15/21 11:13 Resp 18 02/15/21 11:13 BP 102/58 L 02/15/21 11:13 Pulse Ox 98 02/15/21 11:13 Body Mass Index 21.1 Const: General: cooperative, healthy appearing, comfortable, alert, awake and Physically active Nutritional Appearance: well nourished HENMT: Head: Yes normocephalic and Yes atraumatic Eyes: Sclerae: sclerae normal Resp: Effort & Inspection: normal respiratory effort and no respiratory distress Cardio: Rate: regular rate Heart sounds: S1 normal heart sound present and S2 normal heart sound present GI: Palpation (GI): Soft to palpation and nontender Neuro: Cranial nerves: Yes CN's II-XII intact bilaterally and Yes Bilaterally intact EOM present Objective Data Active Medications Acetaminophen (Acetaminophen 325 Mg Tablet) 650 mg PO Q6H PRN PRN Reason: Pain, Mild (Pain Scale 1-3) Aspirin (Aspirin 81 Mg Tab.Chew) 81 mg PO DAILY [facility] Last Admin: 02/15/21 10:16 Dose: 81 mg Documented by: ROSCOE Atorvastatin Calcium (Atorvastatin Calcium 40 Mg Tablet) 40 mg PO BEDTIME [facility] Last Admin: 02/14/21 21:38 Dose: 40 mg Documented by: IGLESIA Docusate Sodium (Docusate Sodium 100 Mg Capsule) 100 mg PO BID PRN PRN Reason: Constipation Enoxaparin Sodium (Enoxaparin Sodium 40 Mg/0.4 Ml Syringe) 40 mg SUBCUT Q24H [facility] Last Admin: 02/14/21 15:40 Dose: 40 mg Documented by: REJI Melatonin (Melatonin 3 Mg Tablet) 3 mg PO BEDTIME [facility] Last Admin: 02/14/21 21:38 Dose: 3 mg Documented by: IGLESIA Pharmacy Consult (Consult Rx Perform Med Rec) 1 each MISCELLANE ONCE PRN PRN Reason: Consult order Quetiapine Fumarate (Quetiapine Fumarate 25 Mg Tablet) 25 mg PO BID [facility] Last Admin: 02/15/21 10:16 Dose: 25 mg Documented by: ROSCOE Sodium Chloride (0.9 % Sodium Chloride Flush 3 Ml Syringe) 3 ml IVFLUSH QSHIFT [facility] Last Admin: 02/15/21 10:17 Dose: Not Given Documented by: ROSCOE Non-Admin Reason: No Access Thiamine HCl (Thiamine Hcl 100 Mg Tablet) 100 mg PO DAILY [facility] Last Admin: 02/15/21 10:16 Dose: 100 mg Documented by: ROSCOE Trazodone HCl (Trazodone Hcl 25 Mg Halftab) 25 mg PO BEDTIME PRN PRN Reason: insomnia Last Admin: 02/08/21 01:38 Dose: 25 mg Documented by: PENELOPE Labs CBC & Chem 7: 01/19/21 10:59 01/19/21 10:59 Assessment and Plan (1) Thiamine deficiency: Status: Acute (2) Dementia: Status: Acute Assessment and Plan: 75yo M with no known medical history sent in for inadequate self-care, found to have CT evidence of subacute CVA though no neurologic deficit appreciated, deemed to not have capacity to make medical conditions, obtained court-appointed guardian and awaiting SNF placement, no change in care today 1. 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 - no acute behavioral issues; quetiapine + prn trazodone, melatonin - TSH + B12 normal, T pallidum EIA + HIV negative - EEG 12/08 with no seizure - treated with parenteral -> PO thiamine and indeed vitamin B1 level was low at 6 - Awaiting placement at this time 2.subacute CVA - 1.2 cm area of decreased attenuation in the L external capsule/claustrum - no significant carotid disease on Dopplers - TTE 12/09 with preserved EF, akinetic basal inferior segment; no chest pain, no EKG changes; outpt Cardiology f/u - MRI 12/08 with no mass lesion, acute infarction, or abnormal enhancement; mild diffuse parenchymal volume loss - secondary prevention with ASA + statin 3. possible EtOH abuse - unable to corroborate hx - no signs of withdrawal -?multivitamin + thiamine as above - status post treatment with phenobarbital 4. moderate protein/calorie malnutrition - continue Ensure tid, multivitamin 5. prominent polypoid soft tissue?seen within the right and left sided palatine tonsillar fossa for which direct visual inspection/ENT evaluation is recommended - unable to able to get this done inpatient and will need outpatient follow up for it. 6. dispo - seen by Psych.? no capacity to make medical decisions.? guardianship obtained, awaiting SNF placement dvt ppx - [facility] attending: dr. garcia Quality Stroke Does the patient have a stroke diagnosis?: Yes Reason for No Anti-thrombotic by Day Two: N/A - Med Ordered VTE Prior VTE?: No VTE Risk Level:: Medical - moderate - high VTE Device Contraindication: N/A - Device Ordered VTE Drug Contraindication: N/A - Med Ordered
[2021-02-15 15:11] VITALS: BP 112/54; PULSE 56; RESP 18; TEMP 36.6; O2SAT 98
[2021-02-15] MEDS: Enoxaparin Sodium 40 MG/0.4 ML SYRINGE SUBCUT (16:26)
[2021-02-15] MEDS: Atorvastatin Calcium 40 MG TABLET PO (19:32)
[2021-02-15] MEDS: Melatonin 3 MG TABLET PO (19:32)
[2021-02-16 03:31] VITALS: BP 108/64; PULSE 84; RESP 20; TEMP 36.7; O2SAT 93
[2021-02-16 08:00] VITALS: BP 114/64; PULSE 67; RESP 18; TEMP 36.4; O2SAT 99
--- NOTE | 2021-02-16 10:48 | MHC.CLN ---
Addendum entered by Justine Gallardo, MASON 02/16/21 13:13: AGREE WITH PROVIDER'S ASSESSMENT BELOW Original Note: F/U PO INTAKE IS GOOD, DOCUMENTED 25% X 2 MEALS, ALL OTHER MEALS 75-100% DIET RX: GRD M/S-APPROPRIATE PT RECEIVING ENSURE TID TO INCREASE KCALS PROVIDES 1050KCALS, 60G PROTEIN LAST KNOWN WT 02/09: 138.6# CONTINUE WEEKLY WEIGHTS R/T HIGH NUTRITION RISK FOLLOW UP WEEKLY TO CHECK WEIGHT R/T MALNUTRITION
--- NOTE | 2021-02-16 11:26 | HO.PM.IMPN ---
Subjective Subjective Date of Service: 02/16/21 Interval History: seen and examined this morning no ovrnight events observed ambulating in room, no complaints at this time Review of Systems Review of Systems: Yes all other systems are reviewed and are negative Constitutional Constitutional: Denies chills and Denies fever(s) Cardiovascular Cardiovascular: Denies chest pain Respiratory Respiratory: Denies cough Gastrointestinal Gastrointestinal: Denies abdominal pain Physical Exam Vital Signs: Vital Signs: Last Vital Signs Temp 97.6 F 02/16/21 08:00 Pulse 67 02/16/21 08:00 Resp 18 02/16/21 08:00 BP 114/64 02/16/21 08:00 Pulse Ox 99 02/16/21 08:00 Body Mass Index 21.1 Const: General: cooperative, healthy appearing, comfortable, alert, awake and Physically active Nutritional Appearance: well nourished and thin HENMT: Head: Yes normocephalic and Yes atraumatic Eyes: Sclerae: sclerae normal Chest: Chest palpation & inspection: normal inspection of the chest Resp: Effort & Inspection: normal respiratory effort and no respiratory distress Cardio: Rate: regular rate Rhythm: regular rhythm Heart sounds: S1 normal heart sound present and S2 normal heart sound present GI: Palpation (GI): Soft to palpation and nontender Neuro: Cranial nerves: Yes CN's II-XII intact bilaterally and Yes Bilaterally intact EOM present Extrem: Other: Able to move all 4 extremities spontaneously, ambulating without difficulty Objective Data Active Medications Acetaminophen (Acetaminophen 325 Mg Tablet) 650 mg PO Q6H PRN PRN Reason: Pain, Mild (Pain Scale 1-3) Aspirin (Aspirin 81 Mg Tab.Chew) 81 mg PO DAILY [facility] Last Admin: 02/15/21 10:16 Dose: 81 mg Documented by: ROSCOE Atorvastatin Calcium (Atorvastatin Calcium 40 Mg Tablet) 40 mg PO BEDTIME [facility] Last Admin: 02/15/21 19:32 Dose: 40 mg Documented by: IGLESIA Docusate Sodium (Docusate Sodium 100 Mg Capsule) 100 mg PO BID PRN PRN Reason: Constipation Enoxaparin Sodium (Enoxaparin Sodium 40 Mg/0.4 Ml Syringe) 40 mg SUBCUT Q24H [facility] Last Admin: 02/15/21 16:26 Dose: 40 mg Documented by: ROSCOE Melatonin (Melatonin 3 Mg Tablet) 3 mg PO BEDTIME [facility] Last Admin: 02/15/21 19:32 Dose: 3 mg Documented by: IGLESIA Pharmacy Consult (Consult Rx Perform Med Rec) 1 each MISCELLANE ONCE PRN PRN Reason: Consult order Quetiapine Fumarate (Quetiapine Fumarate 25 Mg Tablet) 25 mg PO BID [facility] Last Admin: 02/15/21 19:32 Dose: 25 mg Documented by: IGLESIA Sodium Chloride (0.9 % Sodium Chloride Flush 3 Ml Syringe) 3 ml IVFLUSH QSHIFT [facility] Last Admin: 02/16/21 09:35 Dose: Not Given Documented by: KULWINDER Non-Admin Reason: No Access Thiamine HCl (Thiamine Hcl 100 Mg Tablet) 100 mg PO DAILY [facility] Last Admin: 02/15/21 10:16 Dose: 100 mg Documented by: ROSCOE Trazodone HCl (Trazodone Hcl 25 Mg Halftab) 25 mg PO BEDTIME PRN PRN Reason: insomnia Last Admin: 02/08/21 01:38 Dose: 25 mg Documented by: PENELOPE Labs CBC & Chem 7: 01/19/21 10:59 01/19/21 10:59 Assessment and Plan (1) Thiamine deficiency: Status: Acute (2) Dementia: Status: Acute Assessment and Plan: 75yo M with no known medical history sent in for inadequate self-care, found to have CT evidence of subacute CVA though no neurologic deficit appreciated, deemed to not have capacity to make medical conditions, obtained court-appointed guardian and awaiting SNF placement, no change in care today 1. 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 - no acute behavioral issues; quetiapine + prn trazodone, melatonin - TSH + B12 normal, T pallidum EIA + HIV negative - EEG 12/08 with no seizure - treated with parenteral -> PO thiamine and indeed vitamin B1 level was low at 6 - Awaiting placement at this time 2.subacute CVA - 1.2 cm area of decreased attenuation in the L external capsule/claustrum - no significant carotid disease on Dopplers - TTE 12/09 with preserved EF, akinetic basal inferior segment; no chest pain, no EKG changes; outpt Cardiology f/u - MRI 9/3 with no mass lesion, acute infarction, or abnormal enhancement; mild diffuse parenchymal volume loss - secondary prevention with ASA + statin 3. possible EtOH abuse - unable to corroborate hx - no signs of withdrawal -?multivitamin + thiamine as above - status post treatment with phenobarbital 4. moderate protein/calorie malnutrition - continue Ensure tid, multivitamin 5. prominent polypoid soft tissue?seen within the right and left sided palatine tonsillar fossa for which direct visual inspection/ENT evaluation is recommended - unable to able to get this done inpatient and will need outpatient follow up for it. 6. dispo - seen by Psych.? no capacity to make medical decisions.? guardianship obtained, awaiting SNF placement dvt ppx - lovenox attending: dr. garcia Quality Stroke Does the patient have a stroke diagnosis?: Yes Reason for No Anti-thrombotic by Day Two: N/A - Med Ordered VTE Prior VTE?: No VTE Risk Level:: Medical - moderate - high VTE Device Contraindication: N/A - Device Ordered VTE Drug Contraindication: N/A - Med Ordered
[2021-02-16] MEDS: QUEtiapine Fumarate 25 MG TABLET PO ×2 (12:17→19:55)
[2021-02-16] MEDS: Aspirin 81 MG TAB.CHEW PO (12:17)
[2021-02-16] MEDS: Thiamine HCL 100 MG TABLET PO (12:17)
--- NOTE | 2021-02-16 13:44 | MHC.CM.PN ---
pts dc remaninbs pending onrersolving finacial staus of pt
[2021-02-16 16:00] VITALS: BP 94/60; PULSE 85; RESP 20; TEMP 36.1; O2SAT 98
[2021-02-16] MEDS: Enoxaparin Sodium 40 MG/0.4 ML SYRINGE SUBCUT (18:08)
[2021-02-16] MEDS: Atorvastatin Calcium 40 MG TABLET PO (19:55)
[2021-02-16] MEDS: Melatonin 3 MG TABLET PO (19:55)
[2021-02-17 08:00] VITALS: BP 117/64; PULSE 70; RESP 18; TEMP 36.8; O2SAT 95
[2021-02-17] MEDS: Aspirin 81 MG TAB.CHEW PO (10:26)
[2021-02-17] MEDS: QUEtiapine Fumarate 25 MG TABLET PO ×2 (10:26→19:59)
[2021-02-17] MEDS: Thiamine HCL 100 MG TABLET PO (10:26)
--- NOTE | 2021-02-17 11:11 | HO.PM.IMPN ---
Subjective Subjective Date of Service: 02/17/21 Interval History: No acute issues overnight Review of Systems Confused; per staff: Denies chest pain Denies shortness of breath Denies nausea vomiting diarrhea Physical Exam Vital Signs: Vital Signs: Last Vital Signs Temp 98.2 F 02/17/21 08:00 Pulse 70 02/17/21 08:00 Resp 18 02/17/21 08:00 BP 117/64 02/17/21 08:00 Pulse Ox 95 02/17/21 08:00 Body Mass Index 21.1 Const: Other: No acute distress Resp: Other: Clear to auscultation bilaterally no rales rhonchi or wheezes Cardio: Other: No S4; positive S1-S2; no S3 murmurs of gallops GI: Other: Soft nontender nondistended normoactive bowel sounds Extrem: Other: No edema bilaterally Objective Data Active Medications Acetaminophen (Acetaminophen 325 Mg Tablet) 650 mg PO Q6H PRN PRN Reason: Pain, Mild (Pain Scale 1-3) Aspirin (Aspirin 81 Mg Tab.Chew) 81 mg PO DAILY [facility] Last Admin: 02/17/21 10:26 Dose: 81 mg Documented by: EFRAIN Atorvastatin Calcium (Atorvastatin Calcium 40 Mg Tablet) 40 mg PO BEDTIME [facility] Last Admin: 02/16/21 19:55 Dose: 40 mg Documented by: HASMUKH Docusate Sodium (Docusate Sodium 100 Mg Capsule) 100 mg PO BID PRN PRN Reason: Constipation Enoxaparin Sodium (Enoxaparin Sodium 40 Mg/0.4 Ml Syringe) 40 mg SUBCUT Q24H [facility] Last Admin: 02/16/21 18:08 Dose: 40 mg Documented by: KULWINDER Melatonin (Melatonin 3 Mg Tablet) 3 mg PO BEDTIME [facility] Last Admin: 02/16/21 19:55 Dose: 3 mg Documented by: HASMUKH Pharmacy Consult (Consult Rx Perform Med Rec) 1 each MISCELLANE ONCE PRN PRN Reason: Consult order Quetiapine Fumarate (Quetiapine Fumarate 25 Mg Tablet) 25 mg PO BID [facility] Last Admin: 02/17/21 10:26 Dose: 25 mg Documented by: EFRAIN Sodium Chloride (0.9 % Sodium Chloride Flush 3 Ml Syringe) 3 ml IVFLUSH QSHIFT [facility] Last Admin: 02/17/21 10:09 Dose: Not Given Documented by: EFRAIN Non-Admin Reason: No Access Thiamine HCl (Thiamine Hcl 100 Mg Tablet) 100 mg PO DAILY [facility] Last Admin: 02/17/21 10:26 Dose: 100 mg Documented by: EFRAIN Trazodone HCl (Trazodone Hcl 25 Mg Halftab) 25 mg PO BEDTIME PRN PRN Reason: insomnia Last Admin: 02/08/21 01:38 Dose: 25 mg Documented by: PENELOPE Labs CBC & Chem 7: 01/19/21 10:59 01/19/21 10:59 Assessment and Plan (1) Stroke: Status: Acute (2) Dementia: Status: Acute Assessment and Plan: 75yo M with no known medical history sent in for inadequate self-care, found to have CT evidence of subacute CVA though no neurologic deficit appreciated, deemed to not have capacity to make medical conditions, obtained court-appointed guardian and awaiting SNF placement, no change in care today 1. 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 Moderate protein/calorie malnutrition Continue Ensure tid, multivitamin 4.Prominent polypoid soft tissue?seen within the right and left sided palatine tonsillar fossa for which direct visual inspection/ENT evaluation is recommended unable to able to get this done inpatient and will need outpatient follow up for it. 6. Dispo Guardianship obtained, awaiting SNF placement dvt ppx - lovenox Quality Stroke Does the patient have a stroke diagnosis?: Yes Reason for No Anti-thrombotic by Day Two: N/A - Med Ordered VTE Prior VTE?: No VTE Risk Level:: Medical - moderate - high VTE Device Contraindication: N/A - Device Ordered VTE Drug Contraindication: N/A - Med Ordered
[2021-02-17] MEDS: Melatonin 3 MG TABLET PO (19:59)
[2021-02-17] MEDS: Atorvastatin Calcium 40 MG TABLET PO (19:59)
[2021-02-17 23:00] VITALS: BP 110/54; PULSE 57; RESP 18; TEMP 36.4; O2SAT 98
[2021-02-18 08:00] VITALS: BP 111/64; PULSE 80; RESP 18; TEMP 36.7; O2SAT 99
--- NOTE | 2021-02-18 09:54 | PM.EVENT ---
Event Note Date of Service: 02/18/21 Event Note: Patient seen and? examined, no new events, vitals review and stable. exm: alert, cooperative, CV RRR, lung clear, Neuro--baseline confusion, Psych--normal affect A/P:Dementia with minor behavior issues, awaiting placement once guardianship secured
[2021-02-18] MEDS: Aspirin 81 MG TAB.CHEW PO (09:57)
[2021-02-18] MEDS: Thiamine HCL 100 MG TABLET PO (09:57)
[2021-02-18] MEDS: QUEtiapine Fumarate 25 MG TABLET PO ×2 (09:57→20:50)
[2021-02-18 15:25] VITALS: BP 97/64; PULSE 74; RESP 16; TEMP 36.3; O2SAT 96
[2021-02-18] MEDS: Enoxaparin Sodium 40 MG/0.4 ML SYRINGE SUBCUT (17:10)
[2021-02-18] MEDS: Melatonin 3 MG TABLET PO (20:50)
[2021-02-18] MEDS: Atorvastatin Calcium 40 MG TABLET PO (20:50)
[2021-02-18 23:40] VITALS: BP 119/64; PULSE 68; RESP 18; TEMP 36.8; O2SAT 98
[2021-02-19 07:22] VITALS: BP 106/63; PULSE 72; RESP 18; TEMP 36.4; O2SAT 98
--- NOTE | 2021-02-19 08:42 | P.PNIM_ITS ---
Subjective Subjective Date of Service: 02/19/21 Interval History: seen and examined has no complaints asks me if I came to see him at the request of the lady from [facility] Review of Systems no cp, joshi, sob, abd pain Physical Exam Vital Signs: Vital Signs: Last Vital Signs Temp 97.5 F 02/19/21 07:22 Pulse 72 02/19/21 07:22 Resp 18 02/19/21 07:22 BP 106/63 02/19/21 07:22 Pulse Ox 98 02/19/21 07:22 Body Mass Index 21.1 Const: Other: General - no acute distress, appears comfortable Cardiovascular - regular rate and rhythm, S1-S2 Lungs - normal respiratory effort, clear to auscultation bilaterally, no wheezi ng Abdomen - soft, nontender, no rebound or guarding Extremities - no edema bilaterally Neuro - awake and alert, no focal deficits Objective Data Active Medications Acetaminophen (Acetaminophen 325 Mg Tablet) 650 mg PO Q6H PRN PRN Reason: Pain, Mild (Pain Scale 1-3) Aspirin (Aspirin 81 Mg Tab.Chew) 81 mg PO DAILY [facility] Last Admin: 02/18/21 09:57 Dose: 81 mg Documented by: EFRAIN Atorvastatin Calcium (Atorvastatin Calcium 40 Mg Tablet) 40 mg PO BEDTIME [facility] Last Admin: 02/18/21 20:50 Dose: 40 mg Documented by: EFRAIN Docusate Sodium (Docusate Sodium 100 Mg Capsule) 100 mg PO BID PRN PRN Reason: Constipation Enoxaparin Sodium (Enoxaparin Sodium 40 Mg/0.4 Ml Syringe) 40 mg SUBCUT Q24H [facility] Last Admin: 02/18/21 17:10 Dose: 40 mg Documented by: EFRAIN Melatonin (Melatonin 3 Mg Tablet) 3 mg PO BEDTIME [facility] Last Admin: 02/18/21 20:50 Dose: 3 mg Documented by: EFRAIN Pharmacy Consult (Consult Rx Perform Med Rec) 1 each MISCELLANE ONCE PRN PRN Reason: Consult order Quetiapine Fumarate (Quetiapine Fumarate 25 Mg Tablet) 25 mg PO BID [facility] Last Admin: 02/18/21 20:50 Dose: 25 mg Documented by: EFRAIN Sodium Chloride (0.9 % Sodium Chloride Flush 3 Ml Syringe) 3 ml IVFLUSH QSHIFT [facility] Last Admin: 02/18/21 23:54 Dose: Not Given Documented by: MAVIS Non-Admin Reason: No Access Thiamine HCl (Thiamine Hcl 100 Mg Tablet) 100 mg PO DAILY [facility] Last Admin: 02/18/21 09:57 Dose: 100 mg Documented by: DOBROB Trazodone HCl (Trazodone Hcl 25 Mg Halftab) 25 mg PO BEDTIME PRN PRN Reason: insomnia Last Admin: 02/08/21 01:38 Dose: 25 mg Documented by: PENELOPE Labs CBC & Chem 7: 01/19/21 10:59 01/19/21 10:59 Assessment and Plan (1) Stroke: Status: Acute (2) Dementia: Status: Acute Assessment and Plan: 75yo M with no known medical history sent in for inadequate self-care, found to have CT evidence of subacute CVA though no neurologic deficit appreciated, deemed to not have capacity to make medical conditions, obtained court-appointed guardian and awaiting SNF placement, no change in care today 1. 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 Moderate protein/calorie malnutrition Continue Ensure tid, multivitamin 4.Prominent polypoid soft tissue?seen within the right and left sided palatine tonsillar fossa for which direct visual inspection/ENT evaluation is recommended unable to able to get this done inpatient and will need outpatient follow up for it. 6. Dispo Guardianship obtained, awaiting SNF placement dvt ppx - lovenox last labs about 1 month ago, will repeat tomorrow AM Quality Stroke Does the patient have a stroke diagnosis?: Yes Reason for No Anti-thrombotic by Day Two: N/A - Med Ordered VTE Prior VTE?: No VTE Risk Level:: Medical - moderate - high VTE Device Contraindication: N/A - Device Ordered VTE Drug Contraindication: N/A - Med Ordered
[2021-02-19] MEDS: Thiamine HCL 100 MG TABLET PO (10:23)
[2021-02-19] MEDS: Aspirin 81 MG TAB.CHEW PO (10:23)
[2021-02-19] MEDS: QUEtiapine Fumarate 25 MG TABLET PO ×2 (10:23→22:34)
--- NOTE | 2021-02-19 13:04 | MHC.CM.PN ---
cm contuinues to follow for ltc in [place] when finances are settled thgru the guardian court
[2021-02-19 15:11] VITALS: BP 110/61; PULSE 71; RESP 18; TEMP 36.6; O2SAT 100
[2021-02-19] MEDS: Enoxaparin Sodium 40 MG/0.4 ML SYRINGE SUBCUT (17:35)
[2021-02-19] MEDS: Atorvastatin Calcium 40 MG TABLET PO (22:34)
[2021-02-19] MEDS: Melatonin 3 MG TABLET PO (22:34)
[2021-02-20] VITALS: RESP 16
[2021-02-20 07:15] LABS: Hematocrit 36.7 % (42.0-52.0); Hemoglobin 11.8 g/dl (14.0-18.0); Mean Corpuscular HGB Conc 32.2 g/dl (31.0-36.0); Mean Corpuscular Hemoglobin 30.3 pg (27.0-33.0); Mean Corpuscular Volume 94.1 fL (80.0-98.0); Mean Platelet Volume 12.1 fL (9.4-12.4); Platelet Count 219 X10*3/uL (160-400); Red Cell Distribution Width 14.9 % (11.0-16.0); White Blood Count 7.7 X10*3/uL (4.8-10.8)
[2021-02-20 07:53] VITALS: BP 113/73; PULSE 88; RESP 18; TEMP 36.1; O2SAT 99
[2021-02-20 07:58] LABS: Anion Gap 8 (12-20); Blood Urea Nitrogen 26 mg/dL (9-16); Carbon Dioxide 26 mmol/L (22-29); Chloride 109 mmol/L (96-108); Creatinine Clr Calc Pharmacy 72.5; Estimated Glomerular Filt Rate > 60; Glucose Random 92 mg/dL (60-115); Potassium 4.2 mmol/L (3.3-5.1); Sodium 139 mmol/L (135-145)
--- NOTE | 2021-02-20 10:22 | HO.PM.IMPN ---
Subjective Subjective Date of Service: 02/20/21 Interval History: seen and examined has no complaints and tells me he is doing fine Review of Systems no cp, joshi, sob, abd pain Physical Exam Vital Signs: Vital Signs: Last Vital Signs Temp 97.0 F 02/20/21 07:53 Pulse 88 02/20/21 07:53 Resp 18 02/20/21 07:53 BP 113/73 02/20/21 07:53 Pulse Ox 99 02/20/21 07:53 Body Mass Index 21.1 Const: Other: General - no acute distress, appears comfortable Cardiovascular - regular rate and rhythm, S1-S2 Lungs - normal respiratory effort, clear to auscultation bilaterally, no wheezing Abdomen - soft, nontender, no rebound or guarding Extremities - no edema bilaterally Neuro - awake and alert, no focal deficits Objective Data Active Medications Acetaminophen (Acetaminophen 325 Mg Tablet) 650 mg PO Q6H PRN PRN Reason: Pain, Mild (Pain Scale 1-3) Aspirin (Aspirin 81 Mg Tab.Chew) 81 mg PO DAILY [facility] Last Admin: 02/19/21 10:23 Dose: 81 mg Documented by: SUSAN Atorvastatin Calcium (Atorvastatin Calcium 40 Mg Tablet) 40 mg PO BEDTIME [facility] Last Admin: 02/19/21 22:34 Dose: 40 mg Documented by: VENKATESH Docusate Sodium (Docusate Sodium 100 Mg Capsule) 100 mg PO BID PRN PRN Reason: Constipation Enoxaparin Sodium (Enoxaparin Sodium 40 Mg/0.4 Ml Syringe) 40 mg SUBCUT Q24H [facility] Last Admin: 02/19/21 17:35 Dose: 40 mg Documented by: VENKATESH Melatonin (Melatonin 3 Mg Tablet) 3 mg PO BEDTIME [facility] Last Admin: 02/19/21 22:34 Dose: 3 mg Documented by: VENKATESH Pharmacy Consult (Consult Rx Perform Med Rec) 1 each MISCELLANE ONCE PRN PRN Reason: Consult order Quetiapine Fumarate (Quetiapine Fumarate 25 Mg Tablet) 25 mg PO BID [facility] Last Admin: 02/19/21 22:34 Dose: 25 mg Documented by: VENKATESH Sodium Chloride (0.9 % Sodium Chloride Flush 3 Ml Syringe) 3 ml IVFLUSH QSHIFT [facility] Last Admin: 02/20/21 09:30 Dose: Not Given Documented by: HO.DOBROB Non-Admin Reason: No Access Thiamine HCl (Thiamine Hcl 100 Mg Tablet) 100 mg PO DAILY [facility] Last Admin: 02/19/21 10:23 Dose: 100 mg Documented by: SUSAN Trazodone HCl (Trazodone Hcl 25 Mg Halftab) 25 mg PO BEDTIME PRN PRN Reason: insomnia Last Admin: 02/08/21 01:38 Dose: 25 mg Documented by: PENELOPE Labs CBC & Chem 7: 02/20/21 05:35 02/20/21 05:35 Labs: Laboratory Results - last 24 hr 02/20/21 02/20/21 05:35 05:35 MCV 94.1 MCH 30.3 MCHC 32.2 RDW 14.9 Plt Count 219 MPV 12.1 Absolute Nucleated RBC 0.000 Nucleated RBC % (auto) 0.0 Anion Gap 8 L Estim Creat Clear Calc 72.5 Estimated GFR > 60 Random Glucose 92 Calcium 8.0 L D Assessment and Plan (1) Stroke: Status: Acute (2) Dementia: Status: Acute Assessment and Plan: 75yo M with no known medical history sent in for inadequate self-care, found to have CT evidence of subacute CVA though no neurologic deficit appreciated, deemed to not have capacity to make medical conditions, obtained court-appointed guardian and awaiting SNF placement No new issues reported. 1. 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 Moderate protein/calorie malnutrition Continue Ensure tid, multivitamin 4.Prominent polypoid soft tissue?seen within the right and left sided palatine tonsillar fossa for which direct visual inspection/ENT evaluation is recommended unable to able to get this done inpatient and will need outpatient follow up for it. 6. Dispo Guardianship obtained, awaiting SNF placement dvt ppx - lovenox last labs about 1 month ago, will repeat tomorrow AM Quality Stroke Does the patient have a stroke diagnosis?: Yes Reason for No Anti-thrombotic by Day Two: N/A - Med Ordered VTE Prior VTE?: No VTE Risk Level:: Medical - moderate - high VTE Device Contraindication: N/A - Device Ordered VTE Drug Contraindication: N/A - Med Ordered
[2021-02-20] MEDS: Thiamine HCL 100 MG TABLET PO (10:38)
[2021-02-20] MEDS: Aspirin 81 MG TAB.CHEW PO (10:38)
[2021-02-20] MEDS: QUEtiapine Fumarate 25 MG TABLET PO (10:38)
[2021-02-20 15:33] VITALS: BP 110/56; PULSE 70; RESP 18; TEMP 36.6; O2SAT 99
[2021-02-20] MEDS: Enoxaparin Sodium 40 MG/0.4 ML SYRINGE SUBCUT (17:09)
[2021-02-21] VITALS: RESP 16
[2021-02-21 08:00] VITALS: BP 106/57; PULSE 64; RESP 18; TEMP 36.1; O2SAT 100
--- NOTE | 2021-02-21 10:51 | HO.PM.IMPN ---
Subjective Subjective Date of Service: 02/21/21 Interval History: seen and examined this AM does not recognize me despite me seeing him multiple during his hospitalization has no complaints Review of Systems negative except HPI Physical Exam Vital Signs: Vital Signs: Last Vital Signs Temp 97.0 F 02/21/21 08:00 Pulse 64 02/21/21 08:00 Resp 18 02/21/21 08:00 BP 106/57 L 02/21/21 08:00 Pulse Ox 100 02/21/21 08:00 Body Mass Index 21.1 Const: Other: General - no acute distress, appears comfortable Cardiovascular - regular rate and rhythm, S1-S2 Lungs - normal respiratory effort, clear to auscultation bilaterally, no wheezing Abdomen - soft, nontender, no rebound or guarding Extremities - no edema bilaterally Neuro - awake and alert, no focal deficits Objective Data Active Medications Acetaminophen (Acetaminophen 325 Mg Tablet) 650 mg PO Q6H PRN PRN Reason: Pain, Mild (Pain Scale 1-3) Aspirin (Aspirin 81 Mg Tab.Chew) 81 mg PO DAILY [facility] Last Admin: 02/20/21 10:38 Dose: 81 mg Documented by: EFRAIN Atorvastatin Calcium (Atorvastatin Calcium 40 Mg Tablet) 40 mg PO BEDTIME [facility] Last Admin: 02/20/21 21:06 Dose: Not Given Documented by: HASMUKH Non-Admin Reason: Patient Refused Docusate Sodium (Docusate Sodium 100 Mg Capsule) 100 mg PO BID PRN PRN Reason: Constipation Enoxaparin Sodium (Enoxaparin Sodium 40 Mg/0.4 Ml Syringe) 40 mg SUBCUT Q24H [facility] Last Admin: 02/20/21 17:09 Dose: 40 mg Documented by: EFRAIN Melatonin (Melatonin 3 Mg Tablet) 3 mg PO BEDTIME [facility] Last Admin: 02/20/21 21:06 Dose: Not Given Documented by: HASMUKH Non-Admin Reason: Patient Refused Pharmacy Consult (Consult Rx Perform Med Rec) 1 each MISCELLANE ONCE PRN PRN Reason: Consult order Quetiapine Fumarate (Quetiapine Fumarate 25 Mg Tablet) 25 mg PO BID [facility] Last Admin: 02/20/21 21:06 Dose: Not Given Documented by: HASMUKH Non-Admin Reason: Patient Refused Sodium Chloride (0.9 % Sodium Chloride Flush 3 Ml Syringe) 3 ml IVFLUSH QSHIFT [facility] Last Admin: 02/20/21 21:07 Dose: Not Given Documented by: HASMUKH Non-Admin Reason: No Access Thiamine HCl (Thiamine Hcl 100 Mg Tablet) 100 mg PO DAILY [facility] Last Admin: 02/20/21 10:38 Dose: 100 mg Documented by: DOBROB Trazodone HCl (Trazodone Hcl 25 Mg Halftab) 25 mg PO BEDTIME PRN PRN Reason: insomnia Last Admin: 02/08/21 01:38 Dose: 25 mg Documented by: PENELOPE Labs CBC & Chem 7: 02/20/21 05:35 02/20/21 05:35 Assessment and Plan (1) Dementia: Status: Acute Assessment and Plan: 75yo M with no known medical history sent in for inadequate self-care, found to have CT evidence of subacute CVA though no neurologic deficit appreciated, deemed to not have capacity to make medical conditions, obtained court-appointed guardian and awaiting SNF placement Continue to have any acute issues. Chronic / Past issues: 1. 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 Moderate protein/calorie malnutrition Continue Ensure tid, multivitamin 4.Prominent polypoid soft tissue?seen within the right and left sided palatine tonsillar fossa for which direct visual inspection/ENT evaluation is recommended unable to able to get this done inpatient and will need outpatient follow up for it. 6. Dispo Guardianship obtained, awaiting SNF placement dvt ppx - lovenox Quality Stroke Does the patient have a stroke diagnosis?: Yes Reason for No Anti-thrombotic by Day Two: N/A - Med Ordered VTE Prior VTE?: No VTE Risk Level:: Medical - moderate - high VTE Device Contraindication: N/A - Device Ordered VTE Drug Contraindication: N/A - Med Ordered
[2021-02-21] MEDS: Aspirin 81 MG TAB.CHEW PO (13:44)
[2021-02-21] MEDS: Thiamine HCL 100 MG TABLET PO (13:44)
[2021-02-21] MEDS: QUEtiapine Fumarate 25 MG TABLET PO ×2 (13:44→21:39)
--- NOTE | 2021-02-21 15:00 | MHC.CM.PN ---
per rounds dc plan remanins olga locked unit in [place] pending finances
[2021-02-21 15:44] VITALS: BP 104/58; PULSE 70; RESP 15; TEMP 36.6; O2SAT 92
[2021-02-21] MEDS: Enoxaparin Sodium 40 MG/0.4 ML SYRINGE SUBCUT (19:00)
[2021-02-21] MEDS: Atorvastatin Calcium 40 MG TABLET PO (21:38)
[2021-02-21] MEDS: Melatonin 3 MG TABLET PO (21:39)
[2021-02-22 07:28] VITALS: BP 98/52; PULSE 67; RESP 18; TEMP 36.9; O2SAT 99
--- NOTE | 2021-02-22 09:01 | PC.NURSE ---
Skin assessment completed. Patient has no skin issues or open areas at this time.
[2021-02-22] MEDS: Thiamine HCL 100 MG TABLET PO (09:29)
[2021-02-22] MEDS: QUEtiapine Fumarate 25 MG TABLET PO ×2 (09:29→22:59)
[2021-02-22] MEDS: Aspirin 81 MG TAB.CHEW PO (09:30)
--- NOTE | 2021-02-22 09:52 | HO.PM.IMPN ---
Subjective Subjective Date of Service: 02/22/21 Interval History: seen and examined this AM sleeping this AM no issues reported by staff trainer Review of Systems negative except HPI Physical Exam Vital Signs: Vital Signs: Last Vital Signs Temp 98.5 F 02/22/21 07:28 Pulse 67 02/22/21 07:28 Resp 18 02/22/21 07:28 BP 98/52 L 02/22/21 07:28 Pulse Ox 99 02/22/21 07:28 Body Mass Index 21.1 Const: Other: General - no acute distress, appears comfortable Cardiovascular - regular rate and rhythm, S1-S2 Lungs - normal respiratory effort, clear to auscultation bilaterally, no wheezing Abdomen - soft, nontender, no rebound or guarding Extremities - no edema bilaterally Neuro - awake and alert, no focal deficits Objective Data Active Medications Acetaminophen (Acetaminophen 325 Mg Tablet) 650 mg PO Q6H PRN PRN Reason: Pain, Mild (Pain Scale 1-3) Aspirin (Aspirin 81 Mg Tab.Chew) 81 mg PO DAILY [facility] [place] Last Admin: 02/22/21 09:30 Dose: 81 mg Documented by: AWILDA Atorvastatin Calcium (Atorvastatin Calcium 40 Mg Tablet) 40 mg PO BEDTIME [facility] Last Admin: 02/21/21 21:38 Dose: 40 mg Documented by: BRYN Docusate Sodium (Docusate Sodium 100 Mg Capsule) 100 mg PO BID PRN PRN Reason: Constipation Enoxaparin Sodium (Enoxaparin Sodium 40 Mg/0.4 Ml Syringe) 40 mg SUBCUT Q24H [facility] [place] Last Admin: 02/21/21 19:00 Dose: 40 mg Documented by: AWILDA Melatonin (Melatonin 3 Mg Tablet) 3 mg PO BEDTIME [facility] [place] Last Admin: 02/21/21 21:39 Dose: 3 mg Documented by: BRYN Pharmacy Consult (Consult Rx Perform Med Rec) 1 each MISCELLANE ONCE PRN PRN Reason: Consult order Quetiapine Fumarate (Quetiapine Fumarate 25 Mg Tablet) 25 mg PO BID [facility] Last Admin: 02/22/21 09:29 Dose: 25 mg Documented by: AWILDA Sodium Chloride (0.9 % Sodium Chloride Flush 3 Ml Syringe) 3 ml IVFLUSH QSHIFT [facility] [place] Last Admin: 02/22/21 09:30 Dose: Not Given Documented by: AWILDA Non-Admin Reason: No Access Thiamine HCl (Thiamine Hcl 100 Mg Tablet) 100 mg PO DAILY [facility] Last Admin: 02/22/21 09:29 Dose: 100 mg Documented by: AWILDA Trazodone HCl (Trazodone Hcl 25 Mg Halftab) 25 mg PO BEDTIME PRN PRN Reason: insomnia Last Admin: 02/08/21 01:38 Dose: 25 mg Documented by: PENELOPE Labs CBC & Chem 7: 02/20/21 05:35 02/20/21 05:35 Assessment and Plan (1) Dementia: Status: Acute Assessment and Plan: 75yo M with no known medical history sent in for inadequate self-care, found to have CT evidence of subacute CVA though no neurologic deficit appreciated, deemed to not have capacity to make medical conditions, obtained court-appointed guardian and awaiting SNF placement Continue to have any acute issues. Chronic / Past issues: 1. 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 Moderate protein/calorie malnutrition Continue Ensure tid, multivitamin 4.Prominent polypoid soft tissue?seen within the right and left sided palatine tonsillar fossa for which direct visual inspection/ENT evaluation is recommended unable to able to get this done inpatient and will need outpatient follow up for it. 6. Dispo Guardianship obtained, awaiting SNF placement dvt ppx - lovenox Quality Stroke Does the patient have a stroke diagnosis?: Yes Reason for No Anti-thrombotic by Day Two: N/A - Med Ordered VTE Prior VTE?: No VTE Risk Level:: Medical - moderate - high VTE Device Contraindication: N/A - Device Ordered VTE Drug Contraindication: N/A - Med Ordered
[2021-02-22 15:32] VITALS: BP 114/76; PULSE 67; RESP 18; TEMP 36.8; O2SAT 100
[2021-02-22] MEDS: Atorvastatin Calcium 40 MG TABLET PO (22:59)
[2021-02-22] MEDS: Melatonin 3 MG TABLET PO (22:59)
[2021-02-23 08:00] VITALS: BP 123/60; PULSE 69; RESP 18; TEMP 36.2; O2SAT 100
[2021-02-23] MEDS: Aspirin 81 MG TAB.CHEW PO (08:40)
[2021-02-23] MEDS: Thiamine HCL 100 MG TABLET PO (08:40)
[2021-02-23] MEDS: QUEtiapine Fumarate 25 MG TABLET PO ×2 (08:40→21:44)
--- NOTE | 2021-02-23 09:19 | P.PNIM_ITS ---
Subjective Subjective Date of Service: 02/23/21 Interval History: seen and examined this AM no complaints remains pleasantly confused Review of Systems negative except HPI Physical Exam Vital Signs: Vital Signs: Last Vital Signs Temp 97.2 F 02/23/21 08:00 Pulse 69 02/23/21 08:00 Resp 18 02/23/21 08:00 BP 123/60 02/23/21 08:00 Pulse Ox 100 02/23/21 08:00 Body Mass Index 21.1 Const: Other: General - no acute distress, appears comfortable Cardiovascular - regular rate and rhythm, S1-S2 Lungs - normal respiratory effort, clear to auscultation bilaterally, no wheezing Abdomen - soft, nontender, no rebound or guarding Extremities - no edema bilaterally Neuro - awake and alert, no focal deficits Objective Data Active Medications Acetaminophen (Acetaminophen 325 Mg Tablet) 650 mg PO Q6H PRN PRN Reason: Pain, Mild (Pain Scale 1-3) Aspirin (Aspirin 81 Mg Tab.Chew) 81 mg PO DAILY [facility] Last Admin: 02/23/21 08:40 Dose: 81 mg Documented by: NEVAEH Atorvastatin Calcium (Atorvastatin Calcium 40 Mg Tablet) 40 mg PO BEDTIME [facility] Last Admin: 02/22/21 22:59 Dose: 40 mg Documented by: ARNALDO Docusate Sodium (Docusate Sodium 100 Mg Capsule) 100 mg PO BID PRN PRN Reason: Constipation Enoxaparin Sodium (Enoxaparin Sodium 40 Mg/0.4 Ml Syringe) 40 mg SUBCUT Q24H [facility] Last Admin: 02/22/21 19:39 Dose: Not Given Documented by: AWILDA Non-Admin Reason: Patient Refused Melatonin (Melatonin 3 Mg Tablet) 3 mg PO BEDTIME [facility] Last Admin: 02/22/21 22:59 Dose: 3 mg Documented by: ARNALDO Pharmacy Consult (Consult Rx Perform Med Rec) 1 each MISCELLANE ONCE PRN PRN Reason: Consult order Quetiapine Fumarate (Quetiapine Fumarate 25 Mg Tablet) 25 mg PO BID [facility] Last Admin: 02/23/21 08:40 Dose: 25 mg Documented by: NEVAEH Sodium Chloride (0.9 % Sodium Chloride Flush 3 Ml Syringe) 3 ml IVFLUSH QSHIFT [facility] Last Admin: 02/23/21 08:43 Dose: Not Given Documented by: NEVAEH Non-Admin Reason: No Access Thiamine HCl (Thiamine Hcl 100 Mg Tablet) 100 mg PO DAILY [facility] Last Admin: 02/23/21 08:40 Dose: 100 mg Documented by: NEVAEH Trazodone HCl (Trazodone Hcl 25 Mg Halftab) 25 mg PO BEDTIME PRN PRN Reason: insomnia Last Admin: 02/08/21 01:38 Dose: 25 mg Documented by: PENELOPE Labs CBC & Chem 7: 02/20/21 05:35 02/20/21 05:35 Assessment and Plan (1) Dementia: Status: Acute Assessment and Plan: 75yo M with no known medical history sent in for inadequate self-care, found to have CT evidence of subacute CVA though no neurologic deficit appreciated, deemed to not have capacity to make medical conditions, obtained court-appointed guardian and awaiting SNF placement No new issues Chronic / Past issues: 1. 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 Moderate protein/calorie malnutrition Continue Ensure tid, multivitamin 4.Prominent polypoid soft tissue?seen within the right and left sided palatine tonsillar fossa for which direct visual inspection/ENT evaluation is recommended unable to able to get this done inpatient and will need outpatient follow up for it. 6. Dispo Guardianship obtained, awaiting SNF placement dvt ppx - lov[facility] Quality Stroke Does the patient have a stroke diagnosis?: Yes Reason for No Anti-thrombotic by Day Two: N/A - Med Ordered VTE Prior VTE?: No VTE Risk Level:: Medical - moderate - high VTE Device Contraindication: N/A - Device Ordered VTE Drug Contraindication: N/A - Med Ordered
--- NOTE | 2021-02-23 11:53 | MHC.CM.PN ---
per rounds dc remains pending finaciaces for placement
--- NOTE | 2021-02-23 12:06 | MHC.CLN ---
F/U PO INTAKE IS GOOD, DOCUMENTED 100% 02/20-02/23 DIET RX: GRD M/S-APPROPRIATE PT RECEIVING ENSURE TID TO INCREASE KCALS PROVIDES 1050KCALS, 60G PROTEIN LAST KNOWN WT 02/10: 138.6# CONTINUE WEEKLY WEIGHTS R/T HIGH NUTRITION RISK
[2021-02-23 13:00] VITALS: BMI 20.7
[2021-02-23 15:41] VITALS: BP 149/62; PULSE 69; RESP 16; TEMP 36.6; O2SAT 99
[2021-02-23] MEDS: Enoxaparin Sodium 40 MG/0.4 ML SYRINGE SUBCUT (15:44)
[2021-02-23] MEDS: Atorvastatin Calcium 40 MG TABLET PO (21:44)
[2021-02-23] MEDS: Melatonin 3 MG TABLET PO (21:44)
--- NOTE | 2021-02-24 07:51 | P.PNIM_ITS ---
Subjective Subjective Date of Service: 02/24/21 Interval History: seen and examined this AM no complaints remains pleasantly confused with no new issues Review of Systems negative except HPI Physical Exam Vital Signs: Vital Signs: Last Vital Signs Temp 98 F 02/23/21 15:41 Pulse 69 02/23/21 15:41 Resp 16 02/23/21 15:41 BP 149/62 H 02/23/21 15:41 Pulse Ox 99 02/23/21 15:41 Body Mass Index 20.7 Const: Other: General - no acute distress, appears comfortable Cardiovascular - regular rate and rhythm, S1-S2 Lungs - normal respiratory effort, clear to auscultation bilaterally, no wheezing Abdomen - soft, nontender, no rebound or guarding Extremities - no edema bilaterally Neuro - awake and alert, no focal deficits Objective Data Active Medications Acetaminophen (Acetaminophen 325 Mg Tablet) 650 mg PO Q6H PRN PRN Reason: Pain, Mild (Pain Scale 1-3) Aspirin (Aspirin 81 Mg Tab.Chew) 81 mg PO DAILY [facility] Last Admin: 02/23/21 08:40 Dose: 81 mg Documented by: NEVAEH Atorvastatin Calcium (Atorvastatin Calcium 40 Mg Tablet) 40 mg PO BEDTIME [facility] Last Admin: 02/23/21 21:44 Dose: 40 mg Documented by: SONIDO Docusate Sodium (Docusate Sodium 100 Mg Capsule) 100 mg PO BID PRN PRN Reason: Constipation Enoxaparin Sodium (Enoxaparin Sodium 40 Mg/0.4 Ml Syringe) 40 mg SUBCUT Q24H [facility] Last Admin: 02/23/21 15:44 Dose: 40 mg Documented by: NEVAEH Melatonin (Melatonin 3 Mg Tablet) 3 mg PO BEDTIME [facility] Last Admin: 02/23/21 21:44 Dose: 3 mg Documented by: SONIDO Pharmacy Consult (Consult Rx Perform Med Rec) 1 each MISCELLANE ONCE PRN PRN Reason: Consult order Quetiapine Fumarate (Quetiapine Fumarate 25 Mg Tablet) 25 mg PO BID [facility] Last Admin: 02/23/21 21:44 Dose: 25 mg Documented by: SONIDO Sodium Chloride (0.9 % Sodium Chloride Flush 3 Ml Syringe) 3 ml IVFLUSH QSHIFT [facility] Last Admin: 02/23/21 21:45 Dose: Not Given Documented by: HO.DESROA Non-Admin Reason: IV Running Thiamine HCl (Thiamine Hcl 100 Mg Tablet) 100 mg PO DAILY [facility] Last Admin: 02/23/21 08:40 Dose: 100 mg Documented by: NEVAEH Trazodone HCl (Trazodone Hcl 25 Mg Halftab) 25 mg PO BEDTIME PRN PRN Reason: insomnia Last Admin: 02/08/21 01:38 Dose: 25 mg Documented by: PENELOPE Labs CBC & Chem 7: 02/20/21 05:35 02/20/21 05:35 Assessment and Plan (1) Dementia: Status: Acute Assessment and Plan: 75yo M with no known medical history sent in for inadequate self-care, found to have CT evidence of subacute CVA though no neurologic deficit appreciated, deemed to not have capacity to make medical conditions, obtained court-appointed guardian and awaiting SNF placement No new issues Chronic / Past issues: 1. 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 Moderate protein/calorie malnutrition Continue Ensure tid, multivitamin 4.Prominent polypoid soft tissue?seen within the right and left sided palatine tonsillar fossa for which direct visual inspection/ENT evaluation is recommended unable to able to get this done inpatient and will need outpatient follow up for it. 6. Dispo Guardianship obtained, awaiting SNF placement dvt ppx - lov[facility] Quality Stroke Does the patient have a stroke diagnosis?: Yes Reason for No Anti-thrombotic by Day Two: N/A - Med Ordered VTE Prior VTE?: No VTE Risk Level:: Medical - moderate - high VTE Device Contraindication: N/A - Device Ordered VTE Drug Contraindication: N/A - Med Ordered
[2021-02-24 08:00] VITALS: BP 115/50; PULSE 63; RESP 18; TEMP 36.7; O2SAT 100
[2021-02-24] MEDS: Thiamine HCL 100 MG TABLET PO (10:10)
[2021-02-24] MEDS: Aspirin 81 MG TAB.CHEW PO (10:11)
[2021-02-24] MEDS: QUEtiapine Fumarate 25 MG TABLET PO ×2 (10:11→19:41)
[2021-02-24 15:18] VITALS: BP 95/54; PULSE 66; RESP 18; TEMP 37.1; O2SAT 99
[2021-02-24] MEDS: Enoxaparin Sodium 40 MG/0.4 ML SYRINGE SUBCUT (16:35)
[2021-02-24] MEDS: Atorvastatin Calcium 40 MG TABLET PO (19:41)
[2021-02-24] MEDS: Melatonin 3 MG TABLET PO (19:42)
[2021-02-25 08:00] VITALS: BP 109/50; PULSE 60; RESP 18; TEMP 36.9; O2SAT 100
[2021-02-25] MEDS: Aspirin 81 MG TAB.CHEW PO (08:55)
[2021-02-25] MEDS: Thiamine HCL 100 MG TABLET PO (08:56)
[2021-02-25] MEDS: QUEtiapine Fumarate 25 MG TABLET PO ×2 (08:56→19:57)
--- NOTE | 2021-02-25 12:23 | HO.PM.IMPN ---
Subjective Subjective Date of Service: 02/25/21 Interval History: remains somewhat confused no complaints Review of Systems Review of Systems: Yes all other systems are reviewed and are negative Physical Exam Vital Signs: Vital Signs: Last Vital Signs Temp 98.5 F 02/25/21 08:00 Pulse 60 02/25/21 08:00 Resp 18 02/25/21 08:00 BP 109/50 L 02/25/21 08:00 Pulse Ox 100 02/25/21 08:00 Body Mass Index 20.7 Gen: in no acute distress HEENT: sclera anicteric, moist mucus membranes Neck: supple Lungs: clear to auscultation bilaterally Heart: regular rate and rhythm, no murmurs Abd: soft, non-tender, non-distended Ext: no edema Skin: warm/well-perfused Neuro: alert, disoriented Psych: appropriate affect Objective Data Active Medications Acetaminophen (Acetaminophen 325 Mg Tablet) 650 mg PO Q6H PRN PRN Reason: Pain, Mild (Pain Scale 1-3) Aspirin (Aspirin 81 Mg Tab.Chew) 81 mg PO DAILY [facility] Last Admin: 02/25/21 08:55 Dose: 81 mg Documented by: AILYN Atorvastatin Calcium (Atorvastatin Calcium 40 Mg Tablet) 40 mg PO BEDTIME [facility] Last Admin: 02/24/21 19:41 Dose: 40 mg Documented by: SONIDO Docusate Sodium (Docusate Sodium 100 Mg Capsule) 100 mg PO BID PRN PRN Reason: Constipation Enoxaparin Sodium (Enoxaparin Sodium 40 Mg/0.4 Ml Syringe) 40 mg SUBCUT Q24H [facility] Last Admin: 02/24/21 16:35 Dose: 40 mg Documented by: AILYN Melatonin (Melatonin 3 Mg Tablet) 3 mg PO BEDTIME [facility] Last Admin: 02/24/21 19:42 Dose: 3 mg Documented by: SONIDO Pharmacy Consult (Consult Rx Perform Med Rec) 1 each MISCELLANE ONCE PRN PRN Reason: Consult order Quetiapine Fumarate (Quetiapine Fumarate 25 Mg Tablet) 25 mg PO BID [facility] Last Admin: 02/25/21 08:56 Dose: 25 mg Documented by: AILYN Sodium Chloride (0.9 % Sodium Chloride Flush 3 Ml Syringe) 3 ml IVFLUSH QSHIFT [facility] Last Admin: 02/25/21 08:58 Dose: Not Given Documented by: AILYN Non-Admin Reason: No Access Thiamine HCl (Thiamine Hcl 100 Mg Tablet) 100 mg PO DAILY [facility] Last Admin: 02/25/21 08:56 Dose: 100 mg Documented by: IALYN Trazodone HCl (Trazodone Hcl 25 Mg Halftab) 25 mg PO BEDTIME PRN PRN Reason: insomnia Last Admin: 02/08/21 01:38 Dose: 25 mg Documented by: PENELOPE Labs CBC & Chem 7: 02/20/21 05:35 02/20/21 05:35 Assessment and Plan (1) Dementia: Status: Acute Assessment and Plan: hospital d#82 75yo M with no known medical history sent in for inadequate self-care, found to have CT evidence of subacute CVA though no neurologic deficit appreciated, deemed to not have capacity to make medical conditions, obtained court-appointed guardian and awaiting SNF placement No new issues Chronic / Past issues: 1. 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 Moderate protein/calorie malnutrition Continue Ensure tid, multivitamin 4.Prominent polypoid soft tissue?seen within the right and left sided palatine tonsillar fossa for which direct visual inspection/ENT evaluation is recommended unable to able to get this done inpatient and will need outpatient follow up for it. 6. Dispo Guardianship obtained, awaiting SNF placement dvt ppx - [facility] Quality Stroke Does the patient have a stroke diagnosis?: Yes Reason for No Anti-thrombotic by Day Two: N/A - Med Ordered VTE Prior VTE?: No VTE Risk Level:: Medical - moderate - high VTE Device Contraindication: N/A - Device Ordered VTE Drug Contraindication: N/A - Med Ordered
[2021-02-25 15:32] VITALS: BP 93/57; PULSE 83; RESP 18; TEMP 36.9; O2SAT 98
[2021-02-25] MEDS: Enoxaparin Sodium 40 MG/0.4 ML SYRINGE SUBCUT (15:59)
[2021-02-25] MEDS: Atorvastatin Calcium 40 MG TABLET PO (19:57)
[2021-02-25] MEDS: Melatonin 3 MG TABLET PO (19:57)
[2021-02-25 20:00] VITALS: BP 103/57; PULSE 61
[2021-02-26 07:38] VITALS: BP 104/56; PULSE 61; RESP 18; TEMP 36.6; O2SAT 100
[2021-02-26] MEDS: QUEtiapine Fumarate 25 MG TABLET PO ×2 (10:31→19:53)
[2021-02-26] MEDS: Aspirin 81 MG TAB.CHEW PO (10:31)
[2021-02-26] MEDS: Thiamine HCL 100 MG TABLET PO (10:31)
--- NOTE | 2021-02-26 11:45 | MHC.CM.PN ---
per rounds pt placemnt continuies to depends on pts financial status
--- NOTE | 2021-02-26 11:50 | HO.PM.IMPN ---
Subjective Subjective Date of Service: 02/26/21 Interval History: No complaints No pain Review of Systems Review of Systems: Yes all other systems are reviewed and are negative Physical Exam Vital Signs: Vital Signs: Last Vital Signs Temp 97.9 F 02/26/21 07:38 Pulse 61 02/26/21 07:38 Resp 18 02/26/21 07:38 BP 104/56 L 02/26/21 07:38 Pulse Ox 100 02/26/21 07:38 Body Mass Index 20.7 Gen: in no acute distress HEENT: sclera anicteric, moist mucus membranes Neck: supple Lungs: clear to auscultation bilaterally Heart: regular rate and rhythm, no murmurs Abd: soft, non-tender, non-distended Ext: no edema Skin: warm/well-perfused Neuro: alert, disoriented [thinks he's in an office, doesn't know the date] Psych: appropriate affect Objective Data Active Medications Acetaminophen (Acetaminophen 325 Mg Tablet) 650 mg PO Q6H PRN PRN Reason: Pain, Mild (Pain Scale 1-3) Aspirin (Aspirin 81 Mg Tab.Chew) 81 mg PO DAILY [facility] Last Admin: 02/26/21 10:31 Dose: 81 mg Documented by: AILYN Atorvastatin Calcium (Atorvastatin Calcium 40 Mg Tablet) 40 mg PO BEDTIME [facility] Last Admin: 02/25/21 19:57 Dose: 40 mg Documented by: CARLA Docusate Sodium (Docusate Sodium 100 Mg Capsule) 100 mg PO BID PRN PRN Reason: Constipation Enoxaparin Sodium (Enoxaparin Sodium 40 Mg/0.4 Ml Syringe) 40 mg SUBCUT Q24H [facility] Last Admin: 02/25/21 15:59 Dose: 40 mg Documented by: AILYN Melatonin (Melatonin 3 Mg Tablet) 3 mg PO BEDTIME [facility] Last Admin: 02/25/21 19:57 Dose: 3 mg Documented by: CARLA Pharmacy Consult (Consult Rx Perform Med Rec) 1 each MISCELLANE ONCE PRN PRN Reason: Consult order Quetiapine Fumarate (Quetiapine Fumarate 25 Mg Tablet) 25 mg PO BID [facility] Last Admin: 02/26/21 10:31 Dose: 25 mg Documented by: AILYN Sodium Chloride (0.9 % Sodium Chloride Flush 3 Ml Syringe) 3 ml IVFLUSH QSHIFT [facility] Last Admin: 02/26/21 10:31 Dose: Not Given Documented by: AILYN Non-Admin Reason: No Access Thiamine HCl (Thiamine Hcl 100 Mg Tablet) 100 mg PO DAILY [facility] Last Admin: 02/26/21 10:31 Dose: 100 mg Documented by: AILYN Trazodone HCl (Trazodone Hcl 25 Mg Halftab) 25 mg PO BEDTIME PRN PRN Reason: insomnia Last Admin: 02/08/21 01:38 Dose: 25 mg Documented by: PENELOPE Labs CBC & Chem 7: 02/20/21 05:35 02/20/21 05:35 Assessment and Plan (1) Dementia: Status: Acute Assessment and Plan: hospital d#83 75yo M with no known medical history sent in for inadequate self-care, found to have CT evidence of subacute CVA though no neurologic deficit appreciated, deemed to not have capacity to make medical conditions, obtained court-appointed guardian and awaiting SNF placement No new issues Chronic / Past issues: 1. 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 Moderate protein/calorie malnutrition Continue Ensure tid, multivitamin 4.Prominent polypoid soft tissue?seen within the right and left sided palatine tonsillar fossa for which direct visual inspection/ENT evaluation is recommended unable to able to get this done inpatient and will need outpatient follow up for it. 6. Dispo Guardianship obtained, awaiting SNF placement dvt ppx - lovenox Quality Stroke Does the patient have a stroke diagnosis?: Yes Reason for No Anti-thrombotic by Day Two: N/A - Med Ordered VTE Prior VTE?: No VTE Risk Level:: Medical - moderate - high VTE Device Contraindication: N/A - Device Ordered VTE Drug Contraindication: N/A - Med Ordered
[2021-02-26 15:08] VITALS: BP 107/67; PULSE 88; RESP 20; TEMP 36.5; O2SAT 98
[2021-02-26] MEDS: Enoxaparin Sodium 40 MG/0.4 ML SYRINGE SUBCUT (15:57)
[2021-02-26] MEDS: Atorvastatin Calcium 40 MG TABLET PO (19:53)
[2021-02-26] MEDS: Melatonin 3 MG TABLET PO (19:53)
[2021-02-26 22:57] VITALS: BP 103/57; PULSE 68; RESP 18; TEMP 37.1; O2SAT 100
[2021-02-27 07:21] VITALS: BP 101/55; PULSE 73; RESP 20; TEMP 37.3; O2SAT 99
[2021-02-27] MEDS: QUEtiapine Fumarate 25 MG TABLET PO ×2 (09:45→20:39)
[2021-02-27] MEDS: Thiamine HCL 100 MG TABLET PO (09:45)
[2021-02-27] MEDS: Aspirin 81 MG TAB.CHEW PO (09:45)
--- NOTE | 2021-02-27 11:33 | P.PNIM_ITS ---
Subjective Subjective Date of Service: 02/27/21 Interval History: confused but no complaints Review of Systems Review of Systems: Yes Unobtainable due to mental status Physical Exam Vital Signs: Vital Signs: Last Vital Signs Temp 99.2 F 02/27/21 07:21 Pulse 73 02/27/21 07:21 Resp 20 02/27/21 07:21 BP 101/55 L 02/27/21 07:21 Pulse Ox 99 02/27/21 07:21 Body Mass Index 20.7 Gen: in no acute distress HEENT: sclera anicteric, moist mucus membranes Neck: supple Lungs: clear to auscultation bilaterally Heart: regular rate and rhythm, no murmurs Abd: soft, non-tender, non-distended Ext: no edema Skin: warm/well-perfused Neuro: alert, disoriented Psych: appropriate affect Objective Data Active Medications Acetaminophen (Acetaminophen 325 Mg Tablet) 650 mg PO Q6H PRN PRN Reason: Pain, Mild (Pain Scale 1-3) Aspirin (Aspirin 81 Mg Tab.Chew) 81 mg PO DAILY [facility] Last Admin: 02/27/21 09:45 Dose: 81 mg Documented by: HUBER Atorvastatin Calcium (Atorvastatin Calcium 40 Mg Tablet) 40 mg PO BEDTIME [facility] Last Admin: 02/26/21 19:53 Dose: 40 mg Documented by: NICOLE Docusate Sodium (Docusate Sodium 100 Mg Capsule) 100 mg PO BID PRN PRN Reason: Constipation Enoxaparin Sodium (Enoxaparin Sodium 40 Mg/0.4 Ml Syringe) 40 mg SUBCUT Q24H [facility] [place] Last Admin: 02/26/21 15:57 Dose: 40 mg Documented by: AILYN Melatonin (Melatonin 3 Mg Tablet) 3 mg PO BEDTIME [facility] [place] Last Admin: 02/26/21 19:53 Dose: 3 mg Documented by: NICOLE Pharmacy Consult (Consult Rx Perform Med Rec) 1 each MISCELLANE ONCE PRN PRN Reason: Consult order Quetiapine Fumarate (Quetiapine Fumarate 25 Mg Tablet) 25 mg PO BID [facility] Last Admin: 02/27/21 09:45 Dose: 25 mg Documented by: HUBER Sodium Chloride (0.9 % Sodium Chloride Flush 3 Ml Syringe) 3 ml IVFLUSH QSHIFT [facility] Last Admin: 02/27/21 09:45 Dose: Not Given Documented by: HUBER Non-Admin Reason: No Access Thiamine HCl (Thiamine Hcl 100 Mg Tablet) 100 mg PO DAILY [facility] Last Admin: 02/27/21 09:45 Dose: 100 mg Documented by: HUBER Trazodone HCl (Trazodone Hcl 25 Mg Halftab) 25 mg PO BEDTIME PRN PRN Reason: insomnia Last Admin: 02/08/21 01:38 Dose: 25 mg Documented by: PENELOPE Labs CBC & Chem 7: 02/20/21 05:35 02/20/21 05:35 Assessment and Plan (1) Dementia: Status: Acute Assessment and Plan: hospital d#84 75yo M with no known medical history sent in for inadequate self-care, found to have CT evidence of subacute CVA though no neurologic deficit appreciated, deemed to not have capacity to make medical conditions, obtained court-appointed guardian and awaiting SNF placement No new issues Chronic / Past issues: 1. 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 Moderate protein/calorie malnutrition Continue Ensure tid, multivitamin 4.Prominent polypoid soft tissue?seen within the right and left sided palatine tonsillar fossa for which direct visual inspection/ENT evaluation is recommended unable to able to get this done inpatient and will need outpatient follow up for it. 6. Dispo Guardianship obtained, awaiting SNF placement dvt ppx - [facility]ox Quality Stroke Does the patient have a stroke diagnosis?: Yes Reason for No Anti-thrombotic by Day Two: N/A - Med Ordered VTE Prior VTE?: No VTE Risk Level:: Medical - moderate - high VTE Device Contraindication: N/A - Device Ordered VTE Drug Contraindication: N/A - Med Ordered
[2021-02-27 15:05] VITALS: BP 124/58; PULSE 77; RESP 18; TEMP 36.9; O2SAT 98
[2021-02-27] MEDS: Enoxaparin Sodium 40 MG/0.4 ML SYRINGE SUBCUT (18:35)
[2021-02-27] MEDS: Atorvastatin Calcium 40 MG TABLET PO (20:39)
[2021-02-27] MEDS: 0.9 % Sodium Chloride Flush 3 ML SYRINGE IVFLUSH (20:39)
[2021-02-27] MEDS: Melatonin 3 MG TABLET PO (20:39)
[2021-02-28] VITALS: BP 118/64; PULSE 64; RESP 18; TEMP 36.8; O2SAT 98
[2021-02-28 07:59] VITALS: BP 111/61; PULSE 61; RESP 18; TEMP 37.2; O2SAT 100
[2021-02-28] MEDS: Aspirin 81 MG TAB.CHEW PO (10:10)
[2021-02-28] MEDS: QUEtiapine Fumarate 25 MG TABLET PO ×2 (10:10→20:48)
[2021-02-28] MEDS: Thiamine HCL 100 MG TABLET PO (10:11)
--- NOTE | 2021-02-28 10:58 | HO.PM.IMPN ---
Subjective Subjective Date of Service: 02/28/21 Interval History: no complaints Cardiovascular Cardiovascular: Reports no additional cardiovascular complaints Respiratory Respiratory: Reports no additional respiratory complaints Physical Exam Vital Signs: Vital Signs: Last Vital Signs Temp 98.9 F 02/28/21 07:59 Pulse 61 02/28/21 07:59 Resp 18 02/28/21 07:59 BP 111/61 02/28/21 07:59 Pulse Ox 100 02/28/21 07:59 Body Mass Index 20.7 Gen: in no acute distress HEENT: sclera anicteric, moist mucus membranes Neck: supple Lungs: clear to auscultation bilaterally Heart: regular rate and rhythm, no murmurs Abd: soft, non-tender, non-distended Ext: no edema Skin: warm/well-perfused Neuro: alert, disoriented Psych: appropriate affect Objective Data Active Medications Acetaminophen (Acetaminophen 325 Mg Tablet) 650 mg PO Q6H PRN PRN Reason: Pain, Mild (Pain Scale 1-3) Aspirin (Aspirin 81 Mg Tab.Chew) 81 mg PO DAILY [facility] Last Admin: 02/28/21 10:10 Dose: 81 mg Documented by: ALON Atorvastatin Calcium (Atorvastatin Calcium 40 Mg Tablet) 40 mg PO BEDTIME [facility] Last Admin: 02/27/21 20:39 Dose: 40 mg Documented by: ANABELL Docusate Sodium (Docusate Sodium 100 Mg Capsule) 100 mg PO BID PRN PRN Reason: Constipation Enoxaparin Sodium (Enoxaparin Sodium 40 Mg/0.4 Ml Syringe) 40 mg SUBCUT Q24H [facility] Last Admin: 02/27/21 18:35 Dose: 40 mg Documented by: HUBER Melatonin (Melatonin 3 Mg Tablet) 3 mg PO BEDTIME [facility] Last Admin: 02/27/21 20:39 Dose: 3 mg Documented by: ANABELL Pharmacy Consult (Consult Rx Perform Med Rec) 1 each MISCELLANE ONCE PRN PRN Reason: Consult order Quetiapine Fumarate (Quetiapine Fumarate 25 Mg Tablet) 25 mg PO BID [facility] Last Admin: 02/28/21 10:10 Dose: 25 mg Documented by: ALON Sodium Chloride (0.9 % Sodium Chloride Flush 3 Ml Syringe) 3 ml IVFLUSH QSHIFT [facility] Last Admin: 02/28/21 09:28 Dose: Not Given Documented by: ALON Non-Admin Reason: No Access Thiamine HCl (Thiamine Hcl 100 Mg Tablet) 100 mg PO DAILY [facility] Last Admin: 02/28/21 10:11 Dose: 100 mg Documented by: ALON Trazodone HCl (Trazodone Hcl 25 Mg Halftab) 25 mg PO BEDTIME PRN PRN Reason: insomnia Last Admin: 02/08/21 01:38 Dose: 25 mg Documented by: PENELOPE Labs CBC & Chem 7: 02/20/21 05:35 02/20/21 05:35 Assessment and Plan (1) Dementia: Status: Acute Assessment and Plan: hospital d#85 75yo M with no known medical history sent in for inadequate self-care, found to have CT evidence of subacute CVA though no neurologic deficit appreciated, deemed to not have capacity to make medical conditions, obtained court-appointed guardian and awaiting SNF placement No new issues Chronic / Past issues: 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 Dispo Guardianship obtained, awaiting SNF placement dvt ppx - lovenox Quality Stroke Does the patient have a stroke diagnosis?: Yes Reason for No Anti-thrombotic by Day Two: N/A - Med Ordered VTE Prior VTE?: No VTE Risk Level:: Medical - moderate - high VTE Device Contraindication: N/A - Device Ordered VTE Drug Contraindication: N/A - Med Ordered
[2021-02-28 16:00] VITALS: BP 116/64; PULSE 60; RESP 18; TEMP 37.1; O2SAT 98
[2021-02-28] MEDS: Enoxaparin Sodium 40 MG/0.4 ML SYRINGE SUBCUT (17:05)
[2021-02-28] MEDS: Atorvastatin Calcium 40 MG TABLET PO (20:48)
[2021-02-28] MEDS: Melatonin 3 MG TABLET PO (20:48)
[2021-03-01] VITALS: PULSE 62; RESP 18; O2SAT 98
[2021-03-01 08:00] VITALS: BP 108/58; PULSE 70; RESP 18; TEMP 36.7; O2SAT 98
[2021-03-01] MEDS: QUEtiapine Fumarate 25 MG TABLET PO ×2 (09:16→20:20)
[2021-03-01] MEDS: Thiamine HCL 100 MG TABLET PO (09:16)
[2021-03-01] MEDS: Aspirin 81 MG TAB.CHEW PO (09:16)
--- NOTE | 2021-03-01 10:00 | HO.PM.IMPN ---
Subjective Subjective Date of Service: 03/01/21 Interval History: no complaints Cardiovascular Cardiovascular: Reports no additional cardiovascular complaints Respiratory Respiratory: Reports no additional respiratory complaints Physical Exam Vital Signs: Vital Signs: Last Vital Signs Temp 98.0 F 03/01/21 08:00 Pulse 70 03/01/21 08:00 Resp 18 03/01/21 08:00 BP 108/58 L 03/01/21 08:00 Pulse Ox 98 03/01/21 08:00 Body Mass Index 20.7 Gen: in no acute distress HEENT: sclera anicteric, moist mucus membranes Neck: supple Lungs: clear to auscultation bilaterally Heart: regular rate and rhythm, no murmurs Abd: soft, non-tender, non-distended Ext: no edema Skin: warm/well-perfused Neuro: alert, disoriented Psych: appropriate affect Objective Data Active Medications Acetaminophen (Acetaminophen 325 Mg Tablet) 650 mg PO Q6H PRN PRN Reason: Pain, Mild (Pain Scale 1-3) Aspirin (Aspirin 81 Mg Tab.Chew) 81 mg PO DAILY [facility] Last Admin: 03/01/21 09:16 Dose: 81 mg Documented by: ALON Atorvastatin Calcium (Atorvastatin Calcium 40 Mg Tablet) 40 mg PO BEDTIME [facility] Last Admin: 02/28/21 20:48 Dose: 40 mg Documented by: SONI Docusate Sodium (Docusate Sodium 100 Mg Capsule) 100 mg PO BID PRN PRN Reason: Constipation Enoxaparin Sodium (Enoxaparin Sodium 40 Mg/0.4 Ml Syringe) 40 mg SUBCUT Q24H [facility] Last Admin: 02/28/21 17:05 Dose: 40 mg Documented by: ALON Melatonin (Melatonin 3 Mg Tablet) 3 mg PO BEDTIME [facility] Last Admin: 02/28/21 20:48 Dose: 3 mg Documented by: SONI Pharmacy Consult (Consult Rx Perform Med Rec) 1 each MISCELLANE ONCE PRN PRN Reason: Consult order Quetiapine Fumarate (Quetiapine Fumarate 25 Mg Tablet) 25 mg PO BID [facility] Last Admin: 03/01/21 09:16 Dose: 25 mg Documented by: ALON Sodium Chloride (0.9 % Sodium Chloride Flush 3 Ml Syringe) 3 ml IVFLUSH QSHIFT [facility] Last Admin: 03/01/21 07:24 Dose: Not Given Documented by: ALON Non-Admin Reason: No Access Thiamine HCl (Thiamine Hcl 100 Mg Tablet) 100 mg PO DAILY [facility] Last Admin: 03/01/21 09:16 Dose: 100 mg Documented by: ALON Trazodone HCl (Trazodone Hcl 25 Mg Halftab) 25 mg PO BEDTIME PRN PRN Reason: insomnia Last Admin: 02/08/21 01:38 Dose: 25 mg Documented by: PENELOPE Labs CBC & Chem 7: 02/20/21 05:35 02/20/21 05:35 Assessment and Plan (1) Dementia: Status: Acute Assessment and Plan: hospital d#86 75yo M with no known medical history sent in for inadequate self-care, found to have CT evidence of subacute CVA though no neurologic deficit appreciated, deemed to not have capacity to make medical conditions, obtained court-appointed guardian and awaiting SNF placement No new issues Chronic / Past issues: 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 Dispo Guardianship obtained, awaiting SNF placement dvt ppx - lovenox Quality Stroke Does the patient have a stroke diagnosis?: Yes Reason for No Anti-thrombotic by Day Two: N/A - Med Ordered VTE Prior VTE?: No VTE Risk Level:: Medical - moderate - high VTE Device Contraindication: N/A - Device Ordered VTE Drug Contraindication: N/A - Med Ordered
[2021-03-01] MEDS: Enoxaparin Sodium 40 MG/0.4 ML SYRINGE SUBCUT (17:09)
[2021-03-01] MEDS: Melatonin 3 MG TABLET PO (20:20)
[2021-03-01] MEDS: Atorvastatin Calcium 40 MG TABLET PO (20:21)
[2021-03-02 00:05] VITALS: BP 116/58; PULSE 58; RESP 18; TEMP 37; O2SAT 96
[2021-03-02 08:00] VITALS: BP 105/66; PULSE 70; RESP 18; TEMP 36.2; O2SAT 100
--- NOTE | 2021-03-02 10:23 | MHC.CLN ---
F/U PATIENT REPORTS GOOD INTAKE AT MEALS. ACCEPTS ENSURE TID. SUPPLEMENT PROVIDES 1050 KCAL, 39 G PROTEIN. DIET CONTINUES NDD2 LAST WEIGHT 02/23=62 KG. WEIGHT APPEARS ESSENTIALLY STABLE SINCE 12/05/20. CONTINUE WEEKLY WEIGHTS DUE TO HIGH NUTRITION RISK WITH NUTRITION DX MODERATE MALNUTRITION. RD TO FOLLOW WEEKLY.
--- NOTE | 2021-03-02 11:03 | HO.PM.IMPN ---
Subjective Subjective Date of Service: 03/02/21 Interval History: no complaints Cardiovascular Cardiovascular: Reports no additional cardiovascular complaints Respiratory Respiratory: Reports no additional respiratory complaints Physical Exam Vital Signs: Vital Signs: Last Vital Signs Temp 97.1 F 03/02/21 08:00 Pulse 70 03/02/21 08:00 Resp 18 03/02/21 08:00 BP 105/66 03/02/21 08:00 Pulse Ox 100 03/02/21 08:00 Body Mass Index 20.7 Gen: in no acute distress HEENT: sclera anicteric, moist mucus membranes Neck: supple Lungs: clear to auscultation bilaterally Heart: regular rate and rhythm, no murmurs Abd: soft, non-tender, non-distended Ext: no edema Skin: warm/well-perfused Neuro: alert, disoriented Psych: appropriate affect Objective Data Active Medications Acetaminophen (Acetaminophen 325 Mg Tablet) 650 mg PO Q6H PRN PRN Reason: Pain, Mild (Pain Scale 1-3) Aspirin (Aspirin 81 Mg Tab.Chew) 81 mg PO DAILY [facility] Last Admin: 03/01/21 09:16 Dose: 81 mg Documented by: ALON Atorvastatin Calcium (Atorvastatin Calcium 40 Mg Tablet) 40 mg PO BEDTIME [facility] Last Admin: 03/01/21 20:21 Dose: 40 mg Documented by: SONI Docusate Sodium (Docusate Sodium 100 Mg Capsule) 100 mg PO BID PRN PRN Reason: Constipation Enoxaparin Sodium (Enoxaparin Sodium 40 Mg/0.4 Ml Syringe) 40 mg SUBCUT Q24H [facility] Last Admin: 03/01/21 17:09 Dose: 40 mg Documented by: ALON Melatonin (Melatonin 3 Mg Tablet) 3 mg PO BEDTIME [facility] Last Admin: 03/01/21 20:20 Dose: 3 mg Documented by: SONI Pharmacy Consult (Consult Rx Perform Med Rec) 1 each MISCELLANE ONCE PRN PRN Reason: Consult order Quetiapine Fumarate (Quetiapine Fumarate 25 Mg Tablet) 25 mg PO BID [facility] Last Admin: 03/01/21 20:20 Dose: 25 mg Documented by: SONI Sodium Chloride (0.9 % Sodium Chloride Flush 3 Ml Syringe) 3 ml IVFLUSH QSHIFT [facility] Last Admin: 03/02/21 03:11 Dose: Not Given Documented by: SONI Non-Admin Reason: No Access Thiamine HCl (Thiamine Hcl 100 Mg Tablet) 100 mg PO DAILY [facility] Last Admin: 03/01/21 09:16 Dose: 100 mg Documented by: ALON Trazodone HCl (Trazodone Hcl 25 Mg Halftab) 25 mg PO BEDTIME PRN PRN Reason: insomnia Last Admin: 02/08/21 01:38 Dose: 25 mg Documented by: PENELOPE Labs CBC & Chem 7: 02/20/21 05:35 02/20/21 05:35 Assessment and Plan (1) Dementia: Status: Acute Assessment and Plan: hospital d#87 75yo M with no known medical history sent in for inadequate self-care, found to have CT evidence of subacute CVA though no neurologic deficit appreciated, deemed to not have capacity to make medical conditions, obtained court-appointed guardian and awaiting SNF placement No new issues Chronic / Past issues: 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 Dispo Guardianship obtained, awaiting SNF placement dvt ppx - lovenox Quality Stroke Does the patient have a stroke diagnosis?: Yes Reason for No Anti-thrombotic by Day Two: N/A - Med Ordered VTE Prior VTE?: No VTE Risk Level:: Medical - moderate - high VTE Device Contraindication: N/A - Device Ordered VTE Drug Contraindication: N/A - Med Ordered
[2021-03-02] MEDS: Thiamine HCL 100 MG TABLET PO (11:10)
[2021-03-02] MEDS: Aspirin 81 MG TAB.CHEW PO (11:10)
[2021-03-02] MEDS: QUEtiapine Fumarate 25 MG TABLET PO ×2 (11:10→20:14)
[2021-03-02 15:21] VITALS: BP 112/60; PULSE 60; RESP 18; TEMP 37.2; O2SAT 97
[2021-03-02] MEDS: Enoxaparin Sodium 40 MG/0.4 ML SYRINGE SUBCUT (17:06)
[2021-03-02] MEDS: Atorvastatin Calcium 40 MG TABLET PO (20:14)
[2021-03-02] MEDS: Melatonin 3 MG TABLET PO (20:15)
[2021-03-02] MEDS: traZODone HCL 25 MG HALFTAB PO (20:15)
[2021-03-03 08:00] VITALS: BP 98/52; PULSE 59; RESP 18; TEMP 36.3; O2SAT 99
[2021-03-03] MEDS: Aspirin 81 MG TAB.CHEW PO (10:00)
[2021-03-03] MEDS: QUEtiapine Fumarate 25 MG TABLET PO ×2 (10:00→20:00)
[2021-03-03] MEDS: Thiamine HCL 100 MG TABLET PO (10:00)
--- NOTE | 2021-03-03 10:08 | P.PNIM_ITS ---
Subjective Subjective Date of Service: 03/03/21 Interval History: no complaints Cardiovascular Cardiovascular: Reports no additional cardiovascular complaints Respiratory Respiratory: Reports no additional respiratory complaints Physical Exam Vital Signs: Vital Signs: Last Vital Signs Temp 97.3 F 03/03/21 08:00 Pulse 59 03/03/21 08:00 Resp 18 03/03/21 08:00 BP 98/52 L 03/03/21 08:00 Pulse Ox 99 03/03/21 08:00 Body Mass Index 20.7 Gen: in no acute distress HEENT: sclera anicteric, moist mucus membranes Neck: supple Lungs: clear to auscultation bilaterally Heart: regular rate and rhythm, no murmurs Abd: soft, non-tender, non-distended Ext: no edema Skin: warm/well-perfused Neuro: alert, disoriented Psych: appropriate affect Objective Data Active Medications Acetaminophen (Acetaminophen 325 Mg Tablet) 650 mg PO Q6H PRN PRN Reason: Pain, Mild (Pain Scale 1-3) Aspirin (Aspirin 81 Mg Tab.Chew) 81 mg PO DAILY [facility] Last Admin: 03/03/21 10:00 Dose: 81 mg Documented by: EFRAIN Atorvastatin Calcium (Atorvastatin Calcium 40 Mg Tablet) 40 mg PO BEDTIME [facility] Last Admin: 03/02/21 20:14 Dose: 40 mg Documented by: STEFAN Docusate Sodium (Docusate Sodium 100 Mg Capsule) 100 mg PO BID PRN PRN Reason: Constipation Enoxaparin Sodium (Enoxaparin Sodium 40 Mg/0.4 Ml Syringe) 40 mg SUBCUT Q24H [facility] Last Admin: 03/02/21 17:06 Dose: 40 mg Documented by: HUBER Melatonin (Melatonin 3 Mg Tablet) 3 mg PO BEDTIME [facility] Last Admin: 03/02/21 20:15 Dose: 3 mg Documented by: STEFAN Pharmacy Consult (Consult Rx Perform Med Rec) 1 each MISCELLANE ONCE PRN PRN Reason: Consult order Quetiapine Fumarate (Quetiapine Fumarate 25 Mg Tablet) 25 mg PO BID [facility] Last Admin: 03/03/21 10:00 Dose: 25 mg Documented by: EFRAIN Sodium Chloride (0.9 % Sodium Chloride Flush 3 Ml Syringe) 3 ml IVFLUSH QSHIFT [facility] Last Admin: 03/03/21 07:47 Dose: Not Given Documented by: EFRAIN Non-Admin Reason: No Access Thiamine HCl (Thiamine Hcl 100 Mg Tablet) 100 mg PO DAILY [facility] Last Admin: 03/03/21 10:00 Dose: 100 mg Documented by: EFRAIN Trazodone HCl (Trazodone Hcl 25 Mg Halftab) 25 mg PO BEDTIME PRN PRN Reason: insomnia Last Admin: 03/02/21 20:15 Dose: 25 mg Documented by: STEFAN Labs CBC & Chem 7: 02/20/21 05:35 02/20/21 05:35 Assessment and Plan (1) Dementia: Status: Acute Assessment and Plan: hospital d#88 75yo M with no known medical history sent in for inadequate self-care, found to have CT evidence of subacute CVA though no neurologic deficit appreciated, deemed to not have capacity to make medical conditions, obtained court-appointed guardian and awaiting SNF placement No new issues Chronic / Past issues: 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 Dispo Guardianship obtained, awaiting SNF placement dvt ppx - lovenox Quality Stroke Does the patient have a stroke diagnosis?: Yes Reason for No Anti-thrombotic by Day Two: N/A - Med Ordered VTE Prior VTE?: No VTE Risk Level:: Medical - moderate - high VTE Device Contraindication: N/A - Device Ordered VTE Drug Contraindication: N/A - Med Ordered
[2021-03-03 15:05] VITALS: BP 107/63; PULSE 87; RESP 16; TEMP 36.6; O2SAT 100
[2021-03-03] MEDS: Enoxaparin Sodium 40 MG/0.4 ML SYRINGE SUBCUT (17:23)
[2021-03-03] MEDS: Atorvastatin Calcium 40 MG TABLET PO (20:00)
[2021-03-03] MEDS: Melatonin 3 MG TABLET PO (20:00)
[2021-03-04 08:00] VITALS: BP 103/67; PULSE 69; RESP 18; TEMP 36.6; O2SAT 99
--- NOTE | 2021-03-04 09:20 | P.PNIM_ITS ---
Subjective Subjective Date of Service: 03/04/21 Interval History: no complaints Cardiovascular Cardiovascular: Reports no additional cardiovascular complaints Respiratory Respiratory: Reports no additional respiratory complaints Physical Exam Vital Signs: Vital Signs: Last Vital Signs Temp 97.8 F 03/04/21 08:00 Pulse 69 03/04/21 08:00 Resp 18 03/04/21 08:00 BP 103/67 03/04/21 08:00 Pulse Ox 99 03/04/21 08:00 Body Mass Index 20.7 Gen: in no acute distress HEENT: sclera anicteric, moist mucus membranes Neck: supple Lungs: clear to auscultation bilaterally Heart: regular rate and rhythm, no murmurs Abd: soft, non-tender, non-distended Ext: no edema Skin: warm/well-perfused Neuro: alert, disoriented Psych: appropriate affect Objective Data Active Medications Acetaminophen (Acetaminophen 325 Mg Tablet) 650 mg PO Q6H PRN PRN Reason: Pain, Mild (Pain Scale 1-3) Aspirin (Aspirin 81 Mg Tab.Chew) 81 mg PO DAILY [facility] Last Admin: 03/03/21 10:00 Dose: 81 mg Documented by: EFRAIN Atorvastatin Calcium (Atorvastatin Calcium 40 Mg Tablet) 40 mg PO BEDTIME [facility] Last Admin: 03/03/21 20:00 Dose: 40 mg Documented by: FREDY Docusate Sodium (Docusate Sodium 100 Mg Capsule) 100 mg PO BID PRN PRN Reason: Constipation Enoxaparin Sodium (Enoxaparin Sodium 40 Mg/0.4 Ml Syringe) 40 mg SUBCUT Q24H [facility] Last Admin: 03/03/21 17:23 Dose: 40 mg Documented by: EFRAIN Melatonin (Melatonin 3 Mg Tablet) 3 mg PO BEDTIME [facility] Last Admin: 03/03/21 20:00 Dose: 3 mg Documented by: FREDY Pharmacy Consult (Consult Rx Perform Med Rec) 1 each MISCELLANE ONCE PRN PRN Reason: Consult order Quetiapine Fumarate (Quetiapine Fumarate 25 Mg Tablet) 25 mg PO BID [facility] Last Admin: 03/03/21 20:00 Dose: 25 mg Documented by: FREDY Sodium Chloride (0.9 % Sodium Chloride Flush 3 Ml Syringe) 3 ml IVFLUSH QSHIFT [facility] Last Admin: 03/04/21 07:41 Dose: Not Given Documented by: HO.DOBROB Non-Admin Reason: No Access Thiamine HCl (Thiamine Hcl 100 Mg Tablet) 100 mg PO DAILY [facility] Last Admin: 03/03/21 10:00 Dose: 100 mg Documented by: BROYuri Trazodone HCl (Trazodone Hcl 25 Mg Halftab) 25 mg PO BEDTIME PRN PRN Reason: insomnia Last Admin: 03/02/21 20:15 Dose: 25 mg Documented by: STEFAN Labs CBC & Chem 7: 02/20/21 05:35 02/20/21 05:35 Assessment and Plan (1) Dementia: Status: Acute Assessment and Plan: hospital d#89 75yo M with no known medical history sent in for inadequate self-care, found to have CT evidence of subacute CVA though no neurologic deficit appreciated, de emed to not have capacity to make medical conditions, obtained court-appointed guardian and awaiting SNF placement No new issues Chronic / Past issues: 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 Dispo Guardianship obtained, awaiting SNF placement dvt ppx - lovenox Quality Stroke Does the patient have a stroke diagnosis?: Yes Reason for No Anti-thrombotic by Day Two: N/A - Med Ordered VTE Prior VTE?: No VTE Risk Level:: Medical - moderate - high VTE Device Contraindication: N/A - Device Ordered VTE Drug Contraindication: N/A - Med Ordered
[2021-03-04] MEDS: Thiamine HCL 100 MG TABLET PO (10:13)
[2021-03-04] MEDS: Aspirin 81 MG TAB.CHEW PO (10:13)
[2021-03-04] MEDS: QUEtiapine Fumarate 25 MG TABLET PO ×2 (10:13→19:42)
[2021-03-04 15:49] VITALS: BP 125/61; PULSE 62; RESP 20; TEMP 36.4; O2SAT 98
[2021-03-04] MEDS: Melatonin 3 MG TABLET PO (19:42)
[2021-03-04] MEDS: Atorvastatin Calcium 40 MG TABLET PO (19:42)
[2021-03-04 23:08] VITALS: BP 101/51; PULSE 61; RESP 20; TEMP 36.4; O2SAT 94
[2021-03-05 08:00] VITALS: BP 97/62; PULSE 62; RESP 20; TEMP 36.6; O2SAT 100
[2021-03-05] MEDS: QUEtiapine Fumarate 25 MG TABLET PO ×2 (09:37→20:53)
[2021-03-05] MEDS: Aspirin 81 MG TAB.CHEW PO (09:37)
[2021-03-05] MEDS: Thiamine HCL 100 MG TABLET PO (09:37)
--- NOTE | 2021-03-05 10:41 | P.PNIM_ITS ---
Subjective Subjective Date of Service: 03/05/21 Interval History: no complaints Cardiovascular Cardiovascular: Reports no additional cardiovascular complaints Respiratory Respiratory: Reports no additional respiratory complaints Physical Exam Vital Signs: Vital Signs: Last Vital Signs Temp 97.9 F 03/05/21 08:00 Pulse 62 03/05/21 08:00 Resp 20 03/05/21 08:00 BP 97/62 03/05/21 08:00 Pulse Ox 100 03/05/21 08:00 Body Mass Index 20.7 Gen: in no acute distress HEENT: sclera anicteric, moist mucus membranes Neck: supple Lungs: clear to auscultation bilaterally Heart: regular rate and rhythm, no murmurs Abd: soft, non-tender, non-distended Ext: no edema Skin: warm/well-perfused Neuro: alert, disoriented Psych: appropriate affect Objective Data Active Medications Acetaminophen (Acetaminophen 325 Mg Tablet) 650 mg PO Q6H PRN PRN Reason: Pain, Mild (Pain Scale 1-3) Aspirin (Aspirin 81 Mg Tab.Chew) 81 mg PO DAILY [facility] Last Admin: 03/05/21 09:37 Dose: 81 mg Documented by: CUONG Atorvastatin Calcium (Atorvastatin Calcium 40 Mg Tablet) 40 mg PO BEDTIME [facility] Last Admin: 03/04/21 19:42 Dose: 40 mg Documented by: IGLESIA Docusate Sodium (Docusate Sodium 100 Mg Capsule) 100 mg PO BID PRN PRN Reason: Constipation Enoxaparin Sodium (Enoxaparin Sodium 40 Mg/0.4 Ml Syringe) 40 mg SUBCUT Q24H [facility] Last Admin: 03/04/21 17:20 Dose: Not Given Documented by: EFRAIN Non-Admin Reason: Patient Refused Melatonin (Melatonin 3 Mg Tablet) 3 mg PO BEDTIME [facility] Last Admin: 03/04/21 19:42 Dose: 3 mg Documented by: IGLESIA Pharmacy Consult (Consult Rx Perform Med Rec) 1 each MISCELLANE ONCE PRN PRN Reason: Consult order Quetiapine Fumarate (Quetiapine Fumarate 25 Mg Tablet) 25 mg PO BID [facility] Last Admin: 03/05/21 09:37 Dose: 25 mg Documented by: CUONG Sodium Chloride (0.9 % Sodium Chloride Flush 3 Ml Syringe) 3 ml IVFLUSH QSHIFT [facility] Last Admin: 03/05/21 09:29 Dose: Not Given Documented by: ALON Non-Admin Reason: No Access Thiamine HCl (Thiamine Hcl 100 Mg Tablet) 100 mg PO DAILY [facility] Last Admin: 03/05/21 09:37 Dose: 100 mg Documented by: CUONG Trazodone HCl (Trazodone Hcl 25 Mg Halftab) 25 mg PO BEDTIME PRN PRN Reason: insomnia Last Admin: 03/02/21 20:15 Dose: 25 mg Documented by: STEFAN Labs CBC & Chem 7: 02/20/21 05:35 02/20/21 05:35 Assessment and Plan (1) Dementia: Status: Acute Assessment and Plan: hospital d#90 75yo M with no known medical history sent in for inadequate self-care, found to have CT evidence of subacute CVA though no neurologic deficit appreciated, deemed to not have capacity to make medical conditions, obtained court-appointed guardian and awaiting SNF placement No new issues Chronic / Past issues: 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 Dispo Guardianship obtained, awaiting SNF placement dvt ppx - lovenox Quality Stroke Does the patient have a stroke diagnosis?: Yes Reason for No Anti-thrombotic by Day Two: N/A - Med Ordered VTE Prior VTE?: No VTE Risk Level:: Medical - moderate - high VTE Device Contraindication: N/A - Device Ordered VTE Drug Contraindication: N/A - Med Ordered
[2021-03-05 15:11] VITALS: BP 122/56; PULSE 64; RESP 16; TEMP 36.6; O2SAT 100
[2021-03-05] MEDS: Enoxaparin Sodium 40 MG/0.4 ML SYRINGE SUBCUT (16:29)
[2021-03-05] MEDS: Atorvastatin Calcium 40 MG TABLET PO (20:53)
[2021-03-05] MEDS: Melatonin 3 MG TABLET PO (20:53)
[2021-03-06 07:49] VITALS: BP 109/61; PULSE 57; RESP 18; TEMP 36.5; O2SAT 96
--- NOTE | 2021-03-06 09:12 | P.PNIM_ITS ---
Subjective Subjective Date of Service: 03/06/21 Interval History: no complaints Cardiovascular Cardiovascular: Reports no additional cardiovascular complaints Respiratory Respiratory: Reports no additional respiratory complaints Physical Exam Vital Signs: Vital Signs: Last Vital Signs Temp 97.7 F 03/06/21 07:49 Pulse 57 03/06/21 07:49 Resp 18 03/06/21 07:49 BP 109/61 03/06/21 07:49 Pulse Ox 96 03/06/21 07:49 Body Mass Index 20.7 Gen: in no acute distress HEENT: sclera anicteric, moist mucus membranes Neck: supple Lungs: clear to auscultation bilaterally Heart: regular rate and rhythm, no murmurs Abd: soft, non-tender, non-distended Ext: no edema Skin: warm/well-perfused Neuro: alert, disoriented Psych: appropriate affect Objective Data Active Medications Acetaminophen (Acetaminophen 325 Mg Tablet) 650 mg PO Q6H PRN PRN Reason: Pain, Mild (Pain Scale 1-3) Aspirin (Aspirin 81 Mg Tab.Chew) 81 mg PO DAILY [facility] Last Admin: 03/05/21 09:37 Dose: 81 mg Documented by: CUONG Atorvastatin Calcium (Atorvastatin Calcium 40 Mg Tablet) 40 mg PO BEDTIME [facility] Last Admin: 03/05/21 20:53 Dose: 40 mg Documented by: IGLESIA Docusate Sodium (Docusate Sodium 100 Mg Capsule) 100 mg PO BID PRN PRN Reason: Constipation Enoxaparin Sodium (Enoxaparin Sodium 40 Mg/0.4 Ml Syringe) 40 mg SUBCUT Q24H [facility] Last Admin: 03/05/21 16:29 Dose: 40 mg Documented by: CUONG Melatonin (Melatonin 3 Mg Tablet) 3 mg PO BEDTIME [facility] Last Admin: 03/05/21 20:53 Dose: 3 mg Documented by: IGLESIA Pharmacy Consult (Consult Rx Perform Med Rec) 1 each MISCELLANE ONCE PRN PRN Reason: Consult order Sodium Chloride (0.9 % Sodium Chloride Flush 3 Ml Syringe) 3 ml IVFLUSH QSHIFT [facility] Last Admin: 03/06/21 09:10 Dose: Not Given Documented by: ALON Non-Admin Reason: No Access Thiamine HCl (Thiamine Hcl 100 Mg Tablet) 100 mg PO DAILY [facility] Last Admin: 03/05/21 09:37 Dose: 100 mg Documented by: CUONG Trazodone HCl (Trazodone Hcl 25 Mg Halftab) 25 mg PO BEDTIME PRN PRN Reason: insomnia Last Admin: 03/02/21 20:15 Dose: 25 mg Documented by: STEFAN Labs CBC & Chem 7: 02/20/21 05:35 02/20/21 05:35 Assessment and Plan (1) Dementia: Status: Acute Assessment and Plan: hospital d#91 75yo M with no known medical history sent in for inadequate self-care, found to have CT evidence of subacute CVA though no neurologic deficit appreciated, deemed to not have capacity to make medical conditions, obtained court-appointed guardian and awaiting SNF placement No new issues Chronic / Past issues: 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 Dispo Guardianship obtained, awaiting SNF placement dvt ppx - lovenox Quality Stroke Does the patient have a stroke diagnosis?: Yes Reason for No Anti-thrombotic by Day Two: N/A - Med Ordered VTE Prior VTE?: No VTE Risk Level:: Medical - moderate - high VTE Device Contraindication: N/A - Device Ordered VTE Drug Contraindication: N/A - Med Ordered
[2021-03-06] MEDS: Aspirin 81 MG TAB.CHEW PO (09:30)
[2021-03-06] MEDS: Thiamine HCL 100 MG TABLET PO (09:30)
[2021-03-06] MEDS: QUEtiapine Fumarate 25 MG TABLET PO ×2 (09:56→22:26)
[2021-03-06 15:25] VITALS: BP 112/66; PULSE 60; RESP 16; TEMP 36.9; O2SAT 100
[2021-03-06] MEDS: Enoxaparin Sodium 40 MG/0.4 ML SYRINGE SUBCUT (15:27)
[2021-03-06] MEDS: traZODone HCL 25 MG HALFTAB PO (22:26)
[2021-03-06] MEDS: Melatonin 3 MG TABLET PO (22:26)
[2021-03-06 23:32] VITALS: BP 110/59; PULSE 62; RESP 18; TEMP 36.4; O2SAT 98
[2021-03-07 08:00] VITALS: BP 122/65; PULSE 62; RESP 18; TEMP 37.3; O2SAT 96
[2021-03-07] MEDS: Thiamine HCL 100 MG TABLET PO (09:22)
[2021-03-07] MEDS: QUEtiapine Fumarate 25 MG TABLET PO ×2 (09:23→20:21)
--- NOTE | 2021-03-07 11:28 | HO.PM.IMPN ---
Subjective Subjective Date of Service: 03/07/21 Interval History: the patient was seen and evaluated this morning Standing up and walking in his room Talkative and interactive, looking to leave the hospital but enjoying his time here Denies any fever, chills or shortness of breath No reported other overnight events. Systemic review: No fever, chills or weakness No chest pain, palpitation No shortness of breath or coughing No abdominal pain, nausea or vomiting No urinary symptoms No reported rash or wounds Physical Exam Vital Signs: Vital Signs: Last Vital Signs Temp 99.2 F 03/07/21 08:00 Pulse 62 03/07/21 08:00 Resp 18 03/07/21 08:00 BP 122/65 03/07/21 08:00 Pulse Ox 96 03/07/21 08:00 BMI result Body Mass Index 20.7 Const: Other: General - no acute distress, appears comfortable, walking and talking Cardiovascular - regular rate and rhythm, S1-S2, no edema Lungs - normal respiratory effort, clear to auscultation bilaterally, no wheezing Abdomen - soft, nontender, no rebound or guarding Extremities - no edema bilaterally Neuro - awake and alert, no focal deficits Objective Data Active Medications Melatonin (Melatonin 3 Mg Tablet) 3 mg PO BEDTIME [facility] Last Admin: 03/06/21 22:26 Dose: 3 mg Documented by: YENNI Quetiapine Fumarate (Quetiapine Fumarate 25 Mg Tablet) 25 mg PO BID [facility] Last Admin: 03/07/21 09:23 Dose: 25 mg Documented by: CAMMY Thiamine HCl (Thiamine Hcl 100 Mg Tablet) 100 mg PO DAILY [facility] Last Admin: 03/07/21 09:22 Dose: 100 mg Documented by: CAMMY Trazodone HCl (Trazodone Hcl 25 Mg Halftab) 25 mg PO BEDTIME PRN PRN Reason: insomnia Last Admin: 03/06/21 22:26 Dose: 25 mg Documented by: YENNI Labs CBC & Chem 7: 02/20/21 05:35 02/20/21 05:35 Assessment and Plan (1) Dementia: Status: Acute (2) Mental confusion: Status: Acute Assessment and Plan: hospital d#92 75yo M with no known medical history sent in for inadequate self-care, found to have CT evidence of subacute CVA though no neurologic deficit appreciated, deemed to not have capacity to make medical conditions, obtained court-appointed guardian and awaiting SNF placement No new issues Chronic / Past issues: 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 Dispo Guardianship obtained, awaiting SNF placement dvt ppx lovenox Quality Stroke Does the patient have a stroke diagnosis?: Yes Reason for No Anti-thrombotic by Day Two: N/A - Med Ordered VTE Prior VTE?: No VTE Risk Level:: Medical - moderate - high VTE Device Contraindication: N/A - Device Ordered VTE Drug Contraindication: N/A - Med Ordered
--- NOTE | 2021-03-07 14:46 | MHC.CM.PN ---
PER ROUNDS PT READY FOR DC SOON FINANCIAL SITUATION RESOLVED
[2021-03-07 15:49] VITALS: BP 110/55; PULSE 64; RESP 18; TEMP 36.6; O2SAT 98
--- NOTE | 2021-03-07 16:12 | MHC.CM.PN ---
spoke with dr macdonald who did order a care team consult spoke with adrianna mcbride who will see pt and recommends psychiatry to see pt also
--- NOTE | 2021-03-07 17:06 | MHC.CARE ---
Pt is a 75 y/o single, Maltese speaking, male who is previously unknown to The CARE Team.? On 12/05/20 pt arrives at the ED from home which by EMS and police reports is very unkempt.?? Police have responded to that home approximately 3 - 4 times in past 1 year to conduct wellness checks.? On this occasion, a large amount of cat litter was found in the garage and 2 bodies of cats.? Patient did not have any running water, by neighbor?s report was throwing feces in his back yard.? Patient was reported to be confabulating by ED provider that saw him.? Patient denies all the above and stated that everything is fine at home.? No known hx of mental illness.? Pt, upon arrival, stated he used marijuana occasionally but has not used any such substance since he has been at this facility.? No known hx of suicide attempts. Pt is alert and oriented to person only.? He believes that he is in an apartment building that is owned by the parents of the patient observer sitting with him.? He is aware of his age saying he is ?[age]?? He stated he is waiting to inherit his Mother?s home in [place] (He listed the address of the home which corresponds with the address he has listed in his chart.) when she passes.? 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 He could not accurately state where he was and why. 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 His speech, eye contact, and affect all appear within normal limits.? He reports good appetite and sleep.? He denies AVH, SI, HI, and self-harm urges.? Pt does not appear to be delusional or experiencing symptoms of psychosis.? Insight, judgement, memory, concentration, and impulse control are impaired. Pt has no contacts or family that can be contacted for collateral information to accurately ascertain a baseline behavior. Pt has a dx of dementia, no indication of mental illness or hx of.? Pt does not appear to meet the criteria for inpatient admission to a psychiatric unit.? CARE Team recommends a consult to psychiatry to further rule out the need for an inpatient psychiatric admission.
[2021-03-07] MEDS: Melatonin 3 MG TABLET PO (20:21)
[2021-03-08 08:00] VITALS: BP 106/66; PULSE 72; RESP 20; TEMP 36.6; O2SAT 100
[2021-03-08] MEDS: Thiamine HCL 100 MG TABLET PO (09:01)
[2021-03-08] MEDS: QUEtiapine Fumarate 25 MG TABLET PO ×2 (09:01→20:51)
--- NOTE | 2021-03-08 09:52 | HO.PM.IMPN ---
Subjective Subjective Date of Service: 03/08/21 Interval History: the patient was seen and evaluated this morning Standing up and walking in his room Talkative and interactive Denies any fever, chills or shortness of breath No reported other overnight events. Systemic review: No fever, chills or weakness No chest pain, palpitation No shortness of breath or coughing No abdominal pain, nausea or vomiting No urinary symptoms No reported rash or wounds Physical Exam Vital Signs: Vital Signs: Last Vital Signs Temp 97.9 F 03/08/21 08:00 Pulse 72 03/08/21 08:00 Resp 20 03/08/21 08:00 BP 106/66 03/08/21 08:00 Pulse Ox 100 03/08/21 08:00 BMI result Body Mass Index 20.7 Const: Other: General - no acute distress, appears comfortable, walking and talking Cardiovascular - regular rate and rhythm, S1-S2, no edema Lungs - normal respiratory effort, clear to auscultation bilaterally, no wheezing Abdomen - soft, nontender, no rebound or guarding Extremities - no edema bilaterally Neuro - awake and alert, no focal deficits Objective Data Active Medications Quetiapine Fumarate (Quetiapine Fumarate 25 Mg Tablet) 25 mg PO BID [facility] Last Admin: 03/08/21 09:01 Dose: 25 mg Documented by: RYAN Thiamine HCl (Thiamine Hcl 100 Mg Tablet) 100 mg PO DAILY [facility] Last Admin: 03/08/21 09:01 Dose: 100 mg Documented by: RYAN Labs CBC & Chem 7: 02/20/21 05:35 02/20/21 05:35 Assessment and Plan (1) Encephalopathy: Status: Acute (2) Thiamine deficiency: Status: Acute (3) Delirium due to another medical condition: Status: Acute Assessment and Plan: hospital d#93 75yo M with no known medical history sent in for inadequate self-care, found to have CT evidence of subacute CVA though no neurologic deficit appreciated, deemed to not have capacity to make medical conditions, obtained court-appointed guardian and awaiting SNF placement No new issues Chronic / Past issues: 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 Dispo Guardianship obtained, awaiting SNF placement dvt ppx lovenox Quality Stroke Does the patient have a stroke diagnosis?: Yes Reason for No Anti-thrombotic by Day Two: N/A - Med Ordered VTE Prior VTE?: No VTE Risk Level:: Medical - moderate - high VTE Device Contraindication: N/A - Device Ordered VTE Drug Contraindication: N/A - Med Ordered
[2021-03-08 16:00] VITALS: BP 129/61; PULSE 88; RESP 18; TEMP 36.2; O2SAT 98
[2021-03-08 23:53] VITALS: BP 124/64; PULSE 72; RESP 18; TEMP 36.9; O2SAT 98
[2021-03-09 08:00] VITALS: BP 100/56; PULSE 57; RESP 20; TEMP 36.9; O2SAT 98
--- NOTE | 2021-03-09 09:38 | MHC.CLN ---
F/U PATIENT REPORTS GOOD INTAKE AT MEALS 75-100% DIET RX: GROUND M/S-APPROPRIATE ACCEPTS ENSURE TID. SUPPLEMENT PROVIDES 1050 KCAL, 39 G PROTEIN. LAST WEIGHT 02/23=62 KG. WEIGHT APPEARS ESSENTIALLY STABLE SINCE 12/05/20. CONTINUE WEEKLY WEIGHTS DUE TO HIGH NUTRITION RISK WITH NUTRITION DX MODERATE MALNUTRITION. RD FOLLOWING WEEKLY RECOMMEND OBTAIN CURRENT WEIGHT
[2021-03-09] MEDS: Thiamine HCL 100 MG TABLET PO (09:48)
[2021-03-09] MEDS: QUEtiapine Fumarate 25 MG TABLET PO ×2 (09:48→21:04)
--- NOTE | 2021-03-09 10:39 | P.PNIM_ITS ---
Subjective Subjective Date of Service: 03/09/21 Interval History: the patient was seen and evaluated this morning Sleeping this morning, interactive though Denies any fever, chills or shortness of breath No reported other overnight events. Systemic review: No fever, chills or weakness No chest pain, palpitation No shortness of breath or coughing No abdominal pain, nausea or vomiting Physical Exam Vital Signs: Vital Signs: Last Vital Signs Temp 98.4 F 03/09/21 08:00 Pulse 57 03/09/21 08:00 Resp 20 03/09/21 08:00 BP 100/56 L 03/09/21 08:00 Pulse Ox 98 03/09/21 08:00 BMI result Body Mass Index 20.7 Const: Other: General - no acute distress, appears comfortable Cardiovascular - regular rate and rhythm, S1-S2, no edema Lungs - normal respiratory effort, clear to auscultation bilaterally, no wheezing Abdomen - soft, nontender, no rebound or guarding Extremities - no edema bilaterally Objective Data Active Medications Quetiapine Fumarate (Quetiapine Fumarate 25 Mg Tablet) 25 mg PO BID [facility] Last Admin: 03/09/21 09:48 Dose: 25 mg Documented by: ELENI Thiamine HCl (Thiamine Hcl 100 Mg Tablet) 100 mg PO DAILY [facility] Last Admin: 03/09/21 09:48 Dose: 100 mg Documented by: ELENI Labs CBC & Chem 7: 02/20/21 05:35 02/20/21 05:35 Assessment and Plan (1) Delirium due to another medical condition: Status: Acute (2) Encephalopathy: Status: Acute Assessment and Plan: hospital d#94 75yo M with no known medical history sent in for inadequate self-care, found to have CT evidence of subacute CVA though no neurologic deficit appreciated, deemed to not have capacity to make medical conditions, obtained court-appointed guardian and awaiting SNF placement No new issues Chronic / Past issues: 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 Dispo Guardianship obtained, awaiting SNF placement dvt ppx lovenox Quality Stroke Does the patient have a stroke diagnosis?: Yes Reason for No Anti-thrombotic by Day Two: N/A - Med Ordered VTE Prior VTE?: No VTE Risk Level:: Medical - moderate - high VTE Device Contraindication: N/A - Device Ordered VTE Drug Contraindication: N/A - Med Ordered
--- NOTE | 2021-03-09 12:52 | MHC.CM.PN ---
call placed to carlos bullard for ,mpt [phone] her mail box is full unable to leave message will try again
[2021-03-09 13:00] VITALS: BMI 20.7
[2021-03-10 00:23] VITALS: BP 130/60; PULSE 63; RESP 18; TEMP 36.4; O2SAT 97
[2021-03-10 07:30] VITALS: BP 112/72; PULSE 72; RESP 18; TEMP 36.7; O2SAT 98
--- NOTE | 2021-03-10 09:13 | P.PNIM_ITS ---
Subjective Subjective Date of Service: 03/10/21 Interval History: the patient was seen and evaluated this morning Alert and interactive Denies any fever, chills or shortness of breath No reported other overnight events. Systemic review: No fever, chills or weakness No chest pain, palpitation No shortness of breath or coughing No abdominal pain, nausea or vomiting Physical Exam Vital Signs: Vital Signs: Last Vital Signs Temp 98.1 F 03/10/21 07:30 Pulse 72 03/10/21 07:30 Resp 18 03/10/21 07:30 BP 112/72 03/10/21 07:30 Pulse Ox 98 03/10/21 07:30 BMI result Body Mass Index 20.7 Const: Other: General - no acute distress, appears comfortable Cardiovascular - regular rate and rhythm, S1-S2, no edema Lungs - normal respiratory effort, clear to auscultation bilaterally, no wheezing Abdomen - soft, nontender, no rebound or guarding Extremities - no edema bilaterally Objective Data Active Medications Quetiapine Fumarate (Quetiapine Fumarate 25 Mg Tablet) 25 mg PO BID [facility] Last Admin: 03/09/21 21:04 Dose: 25 mg Documented by: SONI Thiamine HCl (Thiamine Hcl 100 Mg Tablet) 100 mg PO DAILY [facility] Last Admin: 03/09/21 09:48 Dose: 100 mg Documented by: ELENI Labs CBC & Chem 7: 02/20/21 05:35 02/20/21 05:35 Assessment and Plan (1) Encephalopathy: Status: Acute (2) Delirium due to another medical condition: Status: Acute Assessment and Plan: hospital d#95 75yo M with no known medical history sent in for inadequate self-care, found to have CT evidence of subacute CVA though no neurologic deficit appreciated, deemed to not have capacity to make medical conditions, obtained court-appointed guardian and awaiting SNF placement No new issues Chronic / Past issues: 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 Dispo Guardianship obtained, awaiting SNF placement dvt ppx lovenox Quality Stroke Does the patient have a stroke diagnosis?: Yes Reason for No Anti-thrombotic by Day Two: N/A - Med Ordered VTE Prior VTE?: No VTE Risk Level:: Medical - moderate - high VTE Device Contraindication: N/A - Device Ordered VTE Drug Contraindication: N/A - Med Ordered
[2021-03-10] MEDS: Thiamine HCL 100 MG TABLET PO (11:01)
[2021-03-10] MEDS: QUEtiapine Fumarate 25 MG TABLET PO ×2 (11:01→22:05)
[2021-03-10 15:34] VITALS: BP 112/65; PULSE 66; RESP 18; TEMP 37.1; O2SAT 100
[2021-03-11 08:00] VITALS: BP 112/62; PULSE 70; RESP 18; TEMP 36.4; O2SAT 99
[2021-03-11] MEDS: Thiamine HCL 100 MG TABLET PO (09:09)
[2021-03-11] MEDS: QUEtiapine Fumarate 25 MG TABLET PO ×2 (09:09→22:52)
--- NOTE | 2021-03-11 11:18 | P.PNIM_ITS ---
Subjective Subjective Date of Service: 03/11/21 Interval History: the patient was seen and evaluated this morning Alert and interactive Denies any fever, chills or shortness of breath No reported other overnight events. Systemic review: No fever, chills or weakness No chest pain, palpitation No shortness of breath or coughing No abdominal pain, nausea or vomiting Physical Exam Vital Signs: Vital Signs: Last Vital Signs Temp 97.5 F 03/11/21 08:00 Pulse 70 03/11/21 08:00 Resp 18 03/11/21 08:00 BP 112/62 03/11/21 08:00 Pulse Ox 99 03/11/21 08:00 BMI result Body Mass Index 20.7 Const: Other: General - no acute distress, appears comfortable Cardiovascular - regular rate and rhythm, S1-S2, no edema Lungs - normal respiratory effort, clear to auscultation bilaterally, no wheezing Abdomen - soft, nontender, no rebound or guarding Extremities - no edema bilaterally Objective Data Active Medications Quetiapine Fumarate (Quetiapine Fumarate 25 Mg Tablet) 25 mg PO BID [facility] Last Admin: 03/11/21 09:09 Dose: 25 mg Documented by: DENYS Thiamine HCl (Thiamine Hcl 100 Mg Tablet) 100 mg PO DAILY [facility] Last Admin: 03/11/21 09:09 Dose: 100 mg Documented by: DENYS Labs CBC & Chem 7: 02/20/21 05:35 02/20/21 05:35 Assessment and Plan (1) Dementia: Status: Acute Assessment and Plan: hospital d#96 75yo M with no known medical history sent in for inadequate self-care, found to have CT evidence of subacute CVA though no neurologic deficit appreciated, deemed to not have capacity to make medical conditions, obtained court-appointed guardian and awaiting SNF placement No new issues Chronic / Past issues: 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 Dispo Guardianship obtained, awaiting SNF placement dvt ppx lovenox Quality Stroke Does the patient have a stroke diagnosis?: Yes Reason for No Anti-thrombotic by Day Two: N/A - Med Ordered VTE Prior VTE?: No VTE Risk Level:: Medical - moderate - high VTE Device Contraindication: N/A - Device Ordered VTE Drug Contraindication: N/A - Med Ordered
[2021-03-11 16:00] VITALS: BP 109/66; PULSE 66; RESP 18; TEMP 36.9; O2SAT 100
[2021-03-11 23:29] VITALS: BP 109/65; PULSE 61; RESP 18; TEMP 36.8; O2SAT 98
[2021-03-12 08:00] VITALS: BP 115/64; PULSE 65; RESP 18; TEMP 36.5; O2SAT 99
[2021-03-12] MEDS: Thiamine HCL 100 MG TABLET PO (08:30)
[2021-03-12] MEDS: QUEtiapine Fumarate 25 MG TABLET PO ×2 (08:30→20:47)
--- NOTE | 2021-03-12 11:46 | P.PNIM_ITS ---
Subjective Subjective Date of Service: 03/12/21 Interval History: the patient was seen and evaluated this morning Alert and interactive Denies any fever, chills or shortness of breath No reported other overnight events. Systemic review: No fever, chills or weakness No chest pain, palpitation No shortness of breath or coughing No abdominal pain, nausea or vomiting Physical Exam Vital Signs: Vital Signs: Last Vital Signs Temp 97.7 F 03/12/21 08:00 Pulse 65 03/12/21 08:00 Resp 18 03/12/21 08:00 BP 115/64 03/12/21 08:00 Pulse Ox 99 03/12/21 08:00 BMI result Body Mass Index 20.7 Const: Other: General - no acute distress, appears comfortable Cardiovascular - regular rate and rhythm, S1-S2, no edema Lungs - normal respiratory effort, clear to auscultation bilaterally, no wheezing Abdomen - soft, nontender, no rebound or guarding Extremities - no edema bilaterally Objective Data Active Medications Quetiapine Fumarate (Quetiapine Fumarate 25 Mg Tablet) 25 mg PO BID [facility] Last Admin: 03/12/21 08:30 Dose: 25 mg Documented by: ELENI Thiamine HCl (Thiamine Hcl 100 Mg Tablet) 100 mg PO DAILY [facility] Last Admin: 03/12/21 08:30 Dose: 100 mg Documented by: ELENI Labs CBC & Chem 7: 02/20/21 05:35 02/20/21 05:35 Assessment and Plan (1) Thiamine deficiency: Status: Acute (2) Dementia: Status: Acute Assessment and Plan: hospital d#97 75yo M with no known medical history sent in for inadequate self-care, found to have CT evidence of subacute CVA though no neurologic deficit appreciated, deemed to not have capacity to make medical conditions, obtained court-appointed guardian and awaiting SNF placement No new issues Chronic / Past issues: 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 Dispo Guardianship obtained, awaiting SNF placement dvt ppx lovenox Quality Stroke Does the patient have a stroke diagnosis?: Yes Reason for No Anti-thrombotic by Day Two: N/A - Med Ordered VTE Prior VTE?: No VTE Risk Level:: Medical - moderate - high VTE Device Contraindication: N/A - Device Ordered VTE Drug Contraindication: N/A - Med Ordered
--- NOTE | 2021-03-12 13:40 | MHC.CM.PN ---
spoke with carlos ying pts appointed guardian [phone] who explins that he has 10o,000 investments pt would be pp he also has a house which should be listed in 2 weeks referrals re cast with this imfo she would prefer the [place] area as she visits her clients
[2021-03-12 15:42] VITALS: BP 116/59; PULSE 53; RESP 20; TEMP 36.7; O2SAT 97
[2021-03-13 08:00] VITALS: BP 106/63; PULSE 62; RESP 18; TEMP 36.2; O2SAT 98
[2021-03-13] MEDS: Thiamine HCL 100 MG TABLET PO (09:51)
[2021-03-13] MEDS: QUEtiapine Fumarate 25 MG TABLET PO ×2 (09:51→21:10)
--- NOTE | 2021-03-13 11:01 | P.PNIM_ITS ---
Subjective Subjective Date of Service: 03/13/21 Interval History: the patient was seen and evaluated this morning Alert and interactive Denies any fever, chills or shortness of breath No reported other overnight events. Systemic review: No fever, chills or weakness No chest pain, palpitation No shortness of breath or coughing No abdominal pain, nausea or vomiting Physical Exam Vital Signs: Vital Signs: Last Vital Signs Temp 97.1 F 03/13/21 08:00 Pulse 62 03/13/21 08:00 Resp 18 03/13/21 08:00 BP 106/63 03/13/21 08:00 Pulse Ox 98 03/13/21 08:00 BMI result Body Mass Index 20.7 Const: Other: General - no acute distress, appears comfortable Cardiovascular - regular rate and rhythm, S1-S2, no edema Lungs - normal respiratory effort, clear to auscultation bilaterally, no wheezing Abdomen - soft, nontender, no rebound or guarding Extremities - no edema bilaterally Objective Data Active Medications Quetiapine Fumarate (Quetiapine Fumarate 25 Mg Tablet) 25 mg PO BID [facility] Last Admin: 03/13/21 09:51 Dose: 25 mg Documented by: EFRAIN Thiamine HCl (Thiamine Hcl 100 Mg Tablet) 100 mg PO DAILY [facility] Last Admin: 03/13/21 09:51 Dose: 100 mg Documented by: EFRAIN Labs CBC & Chem 7: 02/20/21 05:35 02/20/21 05:35 Assessment and Plan (1) Dementia: Status: Acute Assessment and Plan: hospital d#98 75yo M with no known medical history sent in for inadequate self-care, found to have CT evidence of subacute CVA though no neurologic deficit appreciated, deemed to not have capacity to make medical conditions, obtained court-appointed guardian and awaiting SNF placement No new issues Chronic / Past issues: 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 Dispo Guardianship obtained, awaiting SNF placement dvt ppx lovenox Quality Stroke Does the patient have a stroke diagnosis?: Yes Reason for No Anti-thrombotic by Day Two: N/A - Med Ordered VTE Prior VTE?: No VTE Risk Level:: Medical - moderate - high VTE Device Contraindication: N/A - Device Ordered VTE Drug Contraindication: N/A - Med Ordered
--- NOTE | 2021-03-13 15:14 | MHC.CM.PN ---
Addendum entered by Kalie Orantes 03/13/21 15:56: A Liason, Vijay, from [facility] was asked to come in to assess patient for admit. We met with the patient in his room. We stated out name and purpose for the meeting. The patient was very polite. He said why would I leave here? He considers the room to be his apartment. He went into detail with the reasons he wouldnt leave. He rebutted all of the reasons why he should move on. We thanked him and left his room. [facility] does not have an appropriate bed per the Liason. Original Note: Male 75 DX Sub acute CVA DP updated referral info sent today. A call was placed to [facility]. A detailed vm was left. Contact info for [facility] was provided. An alert to check [employer] for referral.
[2021-03-13 16:00] VITALS: BP 101/66; PULSE 61; RESP 16; TEMP 36.6; O2SAT 97
[2021-03-14] VITALS: RESP 18
[2021-03-14 07:21] VITALS: BP 125/65; PULSE 66; RESP 18; TEMP 36.4; O2SAT 98
[2021-03-14] MEDS: QUEtiapine Fumarate 25 MG TABLET PO ×2 (09:29→19:57)
[2021-03-14] MEDS: Thiamine HCL 100 MG TABLET PO (09:29)
--- NOTE | 2021-03-14 10:42 | HO.PM.IMPN ---
Subjective Subjective Date of Service: 03/14/21 Interval History: seen and examined this AM no complaints remains pleasantly confused with no new issues Review of Systems negative except HPI Physical Exam Vital Signs: Vital Signs: Last Vital Signs Temp 97.5 F 03/14/21 07:21 Pulse 66 03/14/21 07:21 Resp 18 03/14/21 07:21 BP 125/65 03/14/21 07:21 Pulse Ox 98 03/14/21 07:21 BMI result Body Mass Index 20.7 Const: Other: General - no acute distress, appears comfortable Cardiovascular - regular rate and rhythm, S1-S2, no edema Lungs - normal respiratory effort, clear to auscultation bilaterally, no wheezing Abdomen - soft, nontender, no rebound or guarding Extremities - no edema bilaterally Objective Data Active Medications Quetiapine Fumarate (Quetiapine Fumarate 25 Mg Tablet) 25 mg PO BID [facility] Last Admin: 03/14/21 09:29 Dose: 25 mg Documented by: AWILDA Thiamine HCl (Thiamine Hcl 100 Mg Tablet) 100 mg PO DAILY [facility] Last Admin: 03/14/21 09:29 Dose: 100 mg Documented by: AWILDA Labs CBC & Chem 7: 02/20/21 05:35 02/20/21 05:35 Assessment and Plan (1) Mental confusion: Status: Acute (2) Thiamine deficiency: Status: Acute Assessment and Plan: hospital d#98 75yo M with no known medical history sent in for inadequate self-care, found to have CT evidence of subacute CVA though no neurologic deficit appreciated, deemed to not have capacity to make medical conditions, obtained court-appointed guardian and awaiting SNF placement No new issues Chronic / Past issues: 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 Dispo Guardianship obtained, awaiting SNF placement dvt ppx lovenox Quality Stroke Does the patient have a stroke diagnosis?: Yes Reason for No Anti-thrombotic by Day Two: N/A - Med Ordered VTE Prior VTE?: No VTE Risk Level:: Medical - moderate - high VTE Device Contraindication: N/A - Device Ordered VTE Drug Contraindication: N/A - Med Ordered
[2021-03-14 15:29] VITALS: BP 108/60; PULSE 62; RESP 15; TEMP 36.6; O2SAT 98
[2021-03-15 07:47] VITALS: BP 137/65; PULSE 57; RESP 20; TEMP 36.8; O2SAT 100
--- NOTE | 2021-03-15 09:38 | HO.PM.IMPN ---
Subjective Subjective Date of Service: 03/15/21 Interval History: Seen in f/u, no new issues, cooperative Review of Systems baseline confusion, nothing else Physical Exam Vital Signs: Vital Signs: Last Vital Signs Temp 98.3 F 03/15/21 07:47 Pulse 57 03/15/21 07:47 Resp 20 03/15/21 07:47 BP 137/65 03/15/21 07:47 Pulse Ox 100 03/15/21 07:47 BMI result Body Mass Index 20.7 Const: Other: alert, oriented to self, no distress, up and walking around, CV rrr s1s2, lungs cta, neuro: nf Objective Data Active Medications Quetiapine Fumarate (Quetiapine Fumarate 25 Mg Tablet) 25 mg PO BID [facility] Last Admin: 03/14/21 19:57 Dose: 25 mg Documented by: IGLESIA Labs CBC & Chem 7: 02/20/21 05:35 02/20/21 05:35 Assessment and Plan (1) Dementia: Status: Acute (2) Thiamine deficiency: Status: Acute Assessment and Plan: 75yo M with no known medical history sent in for inadequate self-care, found to have CT evidence of subacute CVA though no neurologic deficit appreciated, deemed to not have capacity to make medical conditions, obtained court-appointed guardian and awaiting SNF placement No new issues Chronic / Past issues: 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 Dispo Guardianship obtained, awaiting SNF placement dvt ppx lovenox Quality Stroke Does the patient have a stroke diagnosis?: Yes Reason for No Anti-thrombotic by Day Two: N/A - Med Ordered VTE Prior VTE?: No VTE Risk Level:: Medical - moderate - high VTE Device Contraindication: N/A - Device Ordered VTE Drug Contraindication: N/A - Med Ordered
[2021-03-15] MEDS: QUEtiapine Fumarate 25 MG TABLET PO ×2 (11:51→20:11)
[2021-03-15 15:18] VITALS: BP 99/64; PULSE 81; RESP 18; TEMP 36.6; O2SAT 100
[2021-03-15 23:31] VITALS: BP 99/52; PULSE 72; RESP 17; TEMP 36.3; O2SAT 98
[2021-03-16] MEDS: QUEtiapine Fumarate 25 MG TABLET PO ×2 (08:45→22:06)
--- NOTE | 2021-03-16 10:00 | HO.PM.IMPN ---
Subjective Subjective Date of Service: 03/16/21 Interval History: Seen in f/u, no new issues reported Review of Systems baseline confusion, nothing else Physical Exam Vital Signs: Vital Signs: Last Vital Signs Temp 97.4 F 03/15/21 23:31 Pulse 72 03/15/21 23:31 Resp 17 03/15/21 23:31 BP 99/52 L 03/15/21 23:31 Pulse Ox 98 03/15/21 23:31 BMI result Body Mass Index 20.7 Const: Other: alert, oriented to self, no distress, up and walking around, CV rrr s1s2, lungs cta, neuro: nf Objective Data Active Medications Quetiapine Fumarate (Quetiapine Fumarate 25 Mg Tablet) 25 mg PO BID [facility] Last Admin: 03/16/21 08:45 Dose: 25 mg Documented by: ASYA Labs CBC & Chem 7: 02/20/21 05:35 02/20/21 05:35 Assessment and Plan (1) Dementia: Status: Acute (2) Thiamine deficiency: Status: Acute (3) Encephalopathy: Status: Acute Assessment and Plan: 75yo M with no known medical history sent in for inadequate self-care, found to have CT evidence of subacute CVA though no neurologic deficit appreciated, deemed to not have capacity to make medical conditions, obtained court-appointed guardian and awaiting SNF placement No new issues Chronic / Past issues: 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 Dispo Guardianship obtained, awaiting SNF placement dvt ppx lovenox Quality Stroke Does the patient have a stroke diagnosis?: Yes Reason for No Anti-thrombotic by Day Two: N/A - Med Ordered VTE Prior VTE?: No VTE Risk Level:: Medical - moderate - high VTE Device Contraindication: N/A - Device Ordered VTE Drug Contraindication: N/A - Med Ordered
[2021-03-16 11:37] VITALS: BP 104/54; PULSE 66; RESP 20; TEMP 37; O2SAT 97
--- NOTE | 2021-03-16 11:37 | MHC.CLN ---
F/U PO INTAKE SLIGHT DECLINE-CURRENTLY VARIABLE DIET RX: GROUND M/S-APPROPRIATE ACCEPTS ENSURE TID. SUPPLEMENT PROVIDES 1050 KCAL, 39 G PROTEIN. LAST KNOWN WT 61.9 KG (03/09/21). WEIGHT APPEARS ESSENTIALLY STABLE SINCE 12/05/20. CONTINUE WEEKLY WEIGHTS DUE TO HIGH NUTRITION RISK WITH NUTRITION DX MODERATE MALNUTRITION. RD FOLLOWING WEEKLY
--- NOTE | 2021-03-16 12:45 | MHC.CM.PN ---
per rounds finacial status of pt continues to be unclear pt remains ready frordc
[2021-03-16 16:00] VITALS: RESP 20
[2021-03-16 17:46] VITALS: BP 109/57; PULSE 74; RESP 15; TEMP 36.9; O2SAT 95
[2021-03-17 06:04] VITALS: BP 98/55; PULSE 70; RESP 18; TEMP 37.1; O2SAT 98
[2021-03-17 08:00] VITALS: BP 109/67; PULSE 111; RESP 18; TEMP 36.6
[2021-03-17] MEDS: QUEtiapine Fumarate 25 MG TABLET PO ×2 (09:22→21:24)
--- NOTE | 2021-03-17 09:40 | HO.PM.IMPN ---
Subjective Subjective Date of Service: 03/17/21 Interval History: Seen in f/u, awaiting placement, no new issues Review of Systems baseline confusion, nothing else Physical Exam Vital Signs: Vital Signs: Last Vital Signs Temp 97.9 F 03/17/21 08:00 Pulse 111 H 03/17/21 08:00 Resp 18 03/17/21 08:00 BP 109/67 03/17/21 08:00 Pulse Ox 98 03/17/21 06:04 BMI result Body Mass Index 20.7 Const: Other: alert, oriented to self, no distress, up and walking around, CV rrr s1s2, lungs cta, neuro: nf Objective Data Active Medications Quetiapine Fumarate (Quetiapine Fumarate 25 Mg Tablet) 25 mg PO BID [facility] Last Admin: 03/17/21 09:22 Dose: 25 mg Documented by: REJI Labs CBC & Chem 7: 02/20/21 05:35 02/20/21 05:35 Assessment and Plan (1) Thiamine deficiency: Status: Acute (2) Stroke: Status: Acute (3) Dementia: Status: Acute Assessment and Plan: 75yo M with no known medical history sent in for inadequate self-care, found to have CT evidence of subacute CVA though no neurologic deficit appreciated, deemed to not have capacity to make medical conditions, obtained court-appointed guardian and awaiting SNF placement No new issues Chronic / Past issues: 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 Dispo Guardianship obtained, awaiting SNF placement, should get vital once or twice daily only dvt ppx lovenox Quality Stroke Does the patient have a stroke diagnosis?: Yes Reason for No Anti-thrombotic by Day Two: N/A - Med Ordered VTE Prior VTE?: No VTE Risk Level:: Medical - moderate - high VTE Device Contraindication: N/A - Device Ordered VTE Drug Contraindication: N/A - Med Ordered
[2021-03-17] MEDS: Thiamine HCL 100 MG TABLET PO (11:17)
[2021-03-17 15:36] VITALS: BP 112/72; PULSE 102; RESP 22; TEMP 36.7; O2SAT 95
[2021-03-17 23:42] VITALS: BP 110/65; PULSE 73; RESP 18; TEMP 36.8; O2SAT 97
[2021-03-18 08:00] VITALS: BP 115/71; PULSE 67; RESP 18; TEMP 36.3; O2SAT 97
[2021-03-18] MEDS: QUEtiapine Fumarate 25 MG TABLET PO ×2 (09:07→21:50)
[2021-03-18] MEDS: Thiamine HCL 100 MG TABLET PO (09:07)
--- NOTE | 2021-03-18 09:11 | HO.PM.IMPN ---
Subjective Subjective Date of Service: 03/18/21 Interval History: Patient reports no new issuies, no change in condition Vitals are stable Review of Systems baseline confusion, nothing else Physical Exam Vital Signs: Vital Signs: Last Vital Signs Temp 97.4 F 03/18/21 08:00 Pulse 67 03/18/21 08:00 Resp 18 03/18/21 08:00 BP 115/71 03/18/21 08:00 Pulse Ox 97 03/18/21 08:00 BMI result Body Mass Index 20.7 Const: Other: alert, oriented to self, no distress, up and walking around, CV rrr s1s2, lungs cta, neuro: nf Objective Data Active Medications Quetiapine Fumarate (Quetiapine Fumarate 25 Mg Tablet) 25 mg PO BID [facility] Last Admin: 03/18/21 09:07 Dose: 25 mg Documented by: ELENI Thiamine HCl (Thiamine Hcl 100 Mg Tablet) 100 mg PO DAILY [facility] Stop: 03/19/21 09:01 Last Admin: 03/18/21 09:07 Dose: 100 mg Documented by: ELENI Labs CBC & Chem 7: 02/20/21 05:35 02/20/21 05:35 Assessment and Plan (1) Thiamine deficiency: Status: Acute (2) Stroke: Status: Acute (3) Dementia: Status: Acute Assessment and Plan: 75yo M with no known medical history sent in for inadequate self-care, found to have CT evidence of subacute CVA though no neurologic deficit appreciated, deemed to not have capacity to make medical conditions, obtained court-appointed guardian and awaiting SNF placement, essentially no changes Chronic / Past issues: 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 Dispo Guardianship obtained, awaiting SNF placement, should get vital once or twice daily only Check vitals daily given no BP meds, no change in codition and only here for placment and no acute issues, if conditional change we check vitals more frequently dvt ppx lovenox Quality Stroke Does the patient have a stroke diagnosis?: Yes Reason for No Anti-thrombotic by Day Two: N/A - Med Ordered VTE Prior VTE?: No VTE Risk Level:: Medical - moderate - high VTE Device Contraindication: N/A - Device Ordered VTE Drug Contraindication: N/A - Med Ordered
[2021-03-18 15:44] VITALS: BP 116/62; PULSE 64; RESP 18; TEMP 36.4; O2SAT 100
[2021-03-19] VITALS: RESP 18
[2021-03-19 08:00] VITALS: BP 121/55; PULSE 59; RESP 20; TEMP 36.9; O2SAT 99
[2021-03-19] MEDS: Thiamine HCL 100 MG TABLET PO (08:17)
[2021-03-19] MEDS: QUEtiapine Fumarate 25 MG TABLET PO ×2 (08:17→21:02)
--- NOTE | 2021-03-19 10:21 | HO.PM.IMPN ---
Subjective Subjective Date of Service: 03/19/21 Interval History: Patient reports no new issuies, no change in condition Vitals are stable Review of Systems baseline confusion, nothing else Physical Exam Vital Signs: Vital Signs: Last Vital Signs Temp 98.5 F 03/19/21 08:00 Pulse 59 03/19/21 08:00 Resp 20 03/19/21 08:00 BP 121/55 L 03/19/21 08:00 Pulse Ox 99 03/19/21 08:00 BMI result Body Mass Index 20.7 Const: Other: alert, oriented to self, no distress, up and walking around, CV rrr s1s2, lungs cta, neuro: nf Objective Data Active Medications Quetiapine Fumarate (Quetiapine Fumarate 25 Mg Tablet) 25 mg PO BID [facility] Last Admin: 03/19/21 08:17 Dose: 25 mg Documented by: SUSAN Labs CBC & Chem 7: 02/20/21 05:35 02/20/21 05:35 Assessment and Plan (1) Thiamine deficiency: Status: Acute (2) Stroke: Status: Acute (3) Dementia: Status: Acute Assessment and Plan: 75yo M with no known medical history sent in for inadequate self-care, found to have CT evidence of subacute CVA though no neurologic deficit appreciated, deemed to not have capacity to make medical conditions, obtained court-appointed guardian and awaiting SNF placement, essentially no changes Chronic / Past issues: 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 Dispo Guardianship obtained, awaiting SNF placement, should get vital once or twice daily only Check vitals daily given no BP meds, no change in codition and only here for placment and no acute issues, if conditional change we check vitals more frequently dvt ppx lovenox Quality Stroke Does the patient have a stroke diagnosis?: Yes Reason for No Anti-thrombotic by Day Two: N/A - Med Ordered VTE Prior VTE?: No VTE Risk Level:: Medical - moderate - high VTE Device Contraindication: N/A - Device Ordered VTE Drug Contraindication: N/A - Med Ordered
--- NOTE | 2021-03-19 13:10 | MHC.CM.PN ---
per rounds still waiting financial assesibility to pay for nhome
[2021-03-19 15:28] VITALS: BP 103/61; PULSE 65; RESP 18; TEMP 37.1; O2SAT 98
[2021-03-19 23:38] VITALS: BP 105/56; PULSE 55; RESP 20; TEMP 36.5; O2SAT 96
[2021-03-20 07:50] VITALS: BP 112/57; PULSE 64; RESP 20; TEMP 36.8; O2SAT 98
[2021-03-20] MEDS: QUEtiapine Fumarate 25 MG TABLET PO ×2 (10:32→20:46)
--- NOTE | 2021-03-20 15:10 | MHC.CM.PN ---
called and spoke with carlos king who now reports thats pts Chrends dee dalia says that it will take 2 to 3 monyhs for mthem to review legal documents ,carlos will be going to court mar 22 to be changed to permanent guardian from [facility] ..house will be listed beginning apr it has been made uncondemned and cleaned up a license to sell will take 2 to 3 weeks plan is for assited living in [facility] carlos reports knowing some that will accept pt
[2021-03-20 15:18] VITALS: BP 99/58; PULSE 66; RESP 20; TEMP 36.3; O2SAT 93
--- NOTE | 2021-03-20 16:51 | HO.PM.IMPN ---
Subjective Subjective Date of Service: 03/21/21 Interval History: No new complaints Review of Systems baseline confusion, no pain Physical Exam Vital Signs: Vital Signs: Last Vital Signs Temp 97.3 F 03/20/21 15:18 Pulse 66 03/20/21 15:18 Resp 20 03/20/21 15:18 BP 99/58 L 03/20/21 15:18 Pulse Ox 93 03/20/21 15:18 BMI result Body Mass Index 20.7 constitutional:alert, oriented to self, no distress, up and walking around, CVs: rrr s1s2, pulmonary: lungs cta, neuro: non focal Objective Data Active Medications Quetiapine Fumarate (Quetiapine Fumarate 25 Mg Tablet) 25 mg PO BID [facility] Last Admin: 03/20/21 10:32 Dose: 25 mg Documented by: AWILDA Labs CBC & Chem 7: 02/20/21 05:35 02/20/21 05:35 Assessment and Plan (1) Dementia: Status: Acute (2) Encephalopathy: Status: Acute Assessment and Plan: 75yo M with no known medical history sent in for inadequate self-care, found to have CT evidence of subacute CVA though no neurologic deficit appreciated, deemed to not have capacity to make medical conditions, obtained court-appointed guardian and awaiting SNF placement, essentially no changes Chronic / Past issues: Wernicke-Korskoaff encephalopathy/EtOH dementia ? ? no acute behavioral issues; quetiapine + prn trazodone, melatonin ? ? Awaiting placement at this time Subacute CVA ?? 1.2 cm area of decreased attenuation in the L external capsule/claustrum ?? Secondary prevention with ASA + statin ?Moderate protein/calorie malnutrition ? ? Continue Ensure tid, multivitamin Prominent polypoid soft tissue?seen within the right and left sided palatine tonsillar fossa for which direct visual inspection/ENT evaluation is recommended ? ? unable to able to get this done inpatient and will need outpatient follow up for it. ?Dispo ? ? Guardianship obtained, awaiting SNF placement,? should get vital once or twice daily only Check vitals daily given no BP meds, no change in codition and only here for placment and no acute issues, if conditional change we check vitals more frequently dvt ppx lovenox Quality Stroke Does the patient have a stroke diagnosis?: Yes Reason for No Anti-thrombotic by Day Two: N/A - Med Ordered VTE Prior VTE?: No VTE Risk Level:: Medical - moderate - high VTE Device Contraindication: N/A - Device Ordered VTE Drug Contraindication: N/A - Med Ordered
[2021-03-20 23:24] VITALS: BP 116/59; PULSE 65; RESP 16; TEMP 36.3; O2SAT 99
[2021-03-21 07:11] VITALS: BP 104/55; PULSE 69; RESP 18; TEMP 36.7; O2SAT 99
[2021-03-21] MEDS: QUEtiapine Fumarate 25 MG TABLET PO ×2 (09:47→20:00)
--- NOTE | 2021-03-21 13:27 | MHC.CM.PN ---
per rounds pt is ready for dc financial availability remains the barrier
--- NOTE | 2021-03-21 14:28 | HO.PM.IMPN ---
Subjective Subjective Date of Service: 03/21/21 Interval History: no new issues, no change in condition Review of Systems baseline confusion, no pain Physical Exam Vital Signs: Vital Signs: Last Vital Signs Temp 98.1 F 03/21/21 07:11 Pulse 69 03/21/21 07:11 Resp 18 03/21/21 07:11 BP 104/55 L 03/21/21 07:11 Pulse Ox 99 03/21/21 07:11 BMI result Body Mass Index 20.7 ?? constitutional:alert, oriented to self, no distress, up and walking around, ?CVs: rrr s1s2, ? pulmonary: lungs cta, ?neuro: non focal Objective Data Active Medications Quetiapine Fumarate (Quetiapine Fumarate 25 Mg Tablet) 25 mg PO BID [facility] Last Admin: 03/21/21 09:47 Dose: 25 mg Documented by: WINIFRED Labs CBC & Chem 7: 02/20/21 05:35 02/20/21 05:35 Assessment and Plan (1) Encephalopathy: Status: Acute (2) Dementia: Status: Acute Assessment and Plan: 75yo M with no known medical history sent in for inadequate self-care, found to have CT evidence of subacute CVA though no neurologic deficit appreciated, deemed to not have capacity to make medical conditions, obtained court-appointed guardian and awaiting SNF placement, essentially no changes Chronic / Past issues: Wernicke-Korskoaff encephalopathy/EtOH dementia ? ? no acute behavioral issues; quetiapine + prn trazodone, melatonin ? ? Awaiting placement at this time Subacute CVA ?? 1.2 cm area of decreased attenuation in the L external capsule/claustrum ?? Secondary prevention with ASA + statin ?Moderate protein/calorie malnutrition ? ? Continue Ensure tid, multivitamin Prominent polypoid soft tissue?seen within the right and left sided palatine tonsillar fossa for which direct visual inspection/ENT evaluation is recommended ? ? unable to able to get this done inpatient and will need outpatient follow up for it. ?Dispo ? ? Guardianship obtained, awaiting SNF placement,? should get vital once or twice daily only Check vitals daily given no BP meds, no change in codition and only here for placment and no acute issues, if conditional change we check vitals more frequently dvt ppx lovenox Quality Stroke Does the patient have a stroke diagnosis?: Yes Reason for No Anti-thrombotic by Day Two: N/A - Med Ordered VTE Prior VTE?: No VTE Risk Level:: Medical - moderate - high VTE Device Contraindication: N/A - Device Ordered VTE Drug Contraindication: N/A - Med Ordered
[2021-03-21 15:19] VITALS: BP 126/70; PULSE 66; RESP 14; TEMP 36.6; O2SAT 95
[2021-03-22] VITALS: RESP 16
[2021-03-22 07:25] VITALS: BP 140/63; PULSE 55; RESP 18; TEMP 36.6; O2SAT 97
[2021-03-22] MEDS: QUEtiapine Fumarate 25 MG TABLET PO ×2 (08:20→20:00)
[2021-03-22 15:50] VITALS: BP 114/76; PULSE 61; RESP 18; TEMP 36.5; O2SAT 99
[2021-03-23 07:28] VITALS: BP 115/56; PULSE 55; O2SAT 96
[2021-03-23 08:00] VITALS: BP 115/56; PULSE 55; RESP 15; TEMP 37.2; O2SAT 96
--- NOTE | 2021-03-23 08:19 | HO.PM.IMPN ---
Subjective Subjective Date of Service: 03/23/21 Interval History: no new issues, no change in condition Review of Systems baseline confusion, no pain Physical Exam Vital Signs: Vital Signs: Last Vital Signs Temp 97.7 F 03/22/21 15:50 Pulse 55 03/23/21 07:28 Resp 18 03/22/21 15:50 BP 115/56 L 03/23/21 07:28 Pulse Ox 96 03/23/21 07:28 BMI result Body Mass Index 20.7 constitutional:alert, oriented to self, no distress, up and walking around, ?CVs: rrr s1s2, ? pulmonary: lungs cta, ?neuro: non focal Objective Data Active Medications Quetiapine Fumarate (Quetiapine Fumarate 25 Mg Tablet) 25 mg PO BID AGGIE Last Admin: 03/22/21 20:00 Dose: 25 mg Documented by: ESTELLA Labs CBC & Chem 7: 02/20/21 05:35 02/20/21 05:35 Assessment and Plan (1) Encephalopathy: Status: Acute (2) Dementia: Status: Acute Assessment and Plan: 75yo M with no known medical history sent in for inadequate self-care, found to have CT evidence of subacute CVA though no neurologic deficit appreciated, deemed to not have capacity to make medical conditions, obtained court-appointed guardian and awaiting SNF placement, essentially no changes Chronic / Past issues: Wernicke-Korskoaff encephalopathy/EtOH dementia ? ? no acute behavioral issues; quetiapine + prn trazodone, melatonin ? ? Awaiting placement at this time Subacute CVA ?? 1.2 cm area of decreased attenuation in the L external capsule/claustrum ?? Secondary prevention with ASA + statin ?Moderate protein/calorie malnutrition ? ? Continue Ensure tid, multivitamin Prominent polypoid soft tissue?seen within the right and left sided palatine tonsillar fossa for which direct visual inspection/ENT evaluation is recommended ? ? unable to able to get this done inpatient and will need outpatient follow up for it. ?Dispo ? ? Guardianship obtained, awaiting SNF placement,? should get vital once or twice daily only Check vitals daily given no BP meds, no change in codition and only here for placment and no acute issues, if conditional change we check vitals more frequently dvt ppx lovenox Quality Stroke Does the patient have a stroke diagnosis?: Yes Reason for No Anti-thrombotic by Day Two: N/A - Med Ordered VTE Prior VTE?: No VTE Risk Level:: Medical - moderate - high VTE Device Contraindication: N/A - Device Ordered VTE Drug Contraindication: N/A - Med Ordered
[2021-03-23] MEDS: QUEtiapine Fumarate 25 MG TABLET PO ×2 (09:32→19:47)
--- NOTE | 2021-03-23 11:52 | MHC.CLN ---
F/U PO INTAKE 75-100% DIET RX: GROUND M/S-APPROPRIATE ACCEPTS ENSURE TID. SUPPLEMENT PROVIDES 1050 KCAL, 39 G PROTEIN. LAST KNOWN WT 61.9 KG (03/09/21). WEIGHT APPEARS ESSENTIALLY STABLE SINCE 12/05/20. CONTINUE WEEKLY WEIGHTS DUE TO HIGH NUTRITION RISK WITH NUTRITION DX MODERATE MALNUTRITION. RD FOLLOWING WEEKLY
[2021-03-23 13:00] VITALS: BMI 20.7
[2021-03-23 15:31] VITALS: BP 157/71; PULSE 61; RESP 20; TEMP 36.6; O2SAT 97
--- NOTE | 2021-03-24 06:25 | PC.NURSE ---
Pt came out of the room to the nurses station very agitated asking why are you spying on me? why is there a camera in my room? When explained that it is for his safety, mostly when he leaves the room. I was alerted by the T that his camera was unplugged. When I knocked to enter the room he slammed the door in my face and wouldn't let me into the room. After knocking again he opened the door and had the camera in the doorway. I asked him if I could plug it back in and he said I'm going to do it. After some coaxing he plugged the camera back in, continuing to be agitated. Pt has exited the room multiple times asking staff are we done here? without staff doing anything to prompt this response.
[2021-03-24 07:13] VITALS: BP 108/68; PULSE 72; RESP 18; TEMP 36.3; O2SAT 98
--- NOTE | 2021-03-24 07:57 | HO.PM.IMPN ---
Subjective Subjective Date of Service: 03/24/21 Interval History: follow up Review of Systems denies any pain or nausea or vomiting or fever or chills. Physical Exam Vital Signs: Vital Signs: Last Vital Signs Temp 97.3 F 03/24/21 07:13 Pulse 72 03/24/21 07:13 Resp 18 03/24/21 07:13 BP 108/68 03/24/21 07:13 Pulse Ox 98 03/24/21 07:13 BMI result Body Mass Index 20.7 constitutional:alert, oriented to self, no distress, up and walking around, ?CVs: rrr s1s2, ? pulmonary: lungs cta, ?neuro: non focal Objective Data Active Medications Quetiapine Fumarate (Quetiapine Fumarate 25 Mg Tablet) 25 mg PO BID AGGIE Last Admin: 03/23/21 19:47 Dose: 25 mg Documented by: IGLESIA Labs CBC & Chem 7: 02/20/21 05:35 02/20/21 05:35 Assessment and Plan (1) Encephalopathy: Status: Acute (2) Dementia: Status: Acute Assessment and Plan: 75yo M with no known medical history sent in for inadequate self-care, found to have CT evidence of subacute CVA though no neurologic deficit appreciated, deemed to not have capacity to make medical conditions, obtained court-appointed guardian and awaiting SNF placement, essentially no changes Chronic / Past issues: Wernicke-Korskoaff encephalopathy/EtOH dementia ? ? no acute behavioral issues; quetiapine + prn trazodone, melatonin ? ? Awaiting placement at this time Subacute CVA ?? 1.2 cm area of decreased attenuation in the L external capsule/claustrum ?? Secondary prevention with ASA + statin ?Moderate protein/calorie malnutrition ? ? Continue Ensure tid, multivitamin Prominent polypoid soft tissue?seen within the right and left sided palatine tonsillar fossa for which direct visual inspection/ENT evaluation is recommended ? ? unable to able to get this done inpatient and will need outpatient follow up for it. ?Dispo ? ? Guardianship obtained, awaiting SNF placement,? should get vital once or twice daily only Check vitals daily given no BP meds, no change in codition and only here for placment and no acute issues, if conditional change we check vitals more frequently dvt ppx lovenox Quality Stroke Does the patient have a stroke diagnosis?: Yes Reason for No Anti-thrombotic by Day Two: N/A - Med Ordered VTE Prior VTE?: No VTE Risk Level:: Medical - moderate - high VTE Device Contraindication: N/A - Device Ordered VTE Drug Contraindication: N/A - Med Ordered
[2021-03-24] MEDS: QUEtiapine Fumarate 25 MG TABLET PO ×2 (09:48→20:48)
[2021-03-24 16:00] VITALS: BP 110/43; PULSE 72; RESP 17; TEMP 37.1; O2SAT 100
[2021-03-25 07:46] VITALS: BP 118/69; PULSE 62; RESP 18; TEMP 37.1; O2SAT 99
--- NOTE | 2021-03-25 08:02 | HO.PM.IMPN ---
Subjective Subjective Date of Service: 03/25/21 Interval History: followup Review of Systems denies any pain or shortness of breath or cough or phlegm Physical Exam Vital Signs: Vital Signs: Last Vital Signs Temp 98.8 F 03/25/21 07:46 Pulse 62 03/25/21 07:46 Resp 18 03/25/21 07:46 BP 118/69 03/25/21 07:46 Pulse Ox 99 03/25/21 07:46 BMI result Body Mass Index 20.7 constitutional:alert, oriented to self, no distress, up and walking around, ?CVs: rrr s1s2, ? pulmonary: lungs cta, ?neuro: non focal Objective Data Active Medications Quetiapine Fumarate (Quetiapine Fumarate 25 Mg Tablet) 25 mg PO BID AGGIE Last Admin: 03/24/21 20:48 Dose: 25 mg Documented by: PANKAJ Labs CBC & Chem 7: 02/20/21 05:35 02/20/21 05:35 Assessment and Plan (1) Encephalopathy: Status: Acute (2) Dementia: Status: Acute Assessment and Plan: 75yo M with no known medical history sent in for inadequate self-care, found to have CT evidence of subacute CVA though no neurologic deficit appreciated, deemed to not have capacity to make medical conditions, obtained court-appointed guardian and awaiting SNF placement, essentially no changes Chronic / Past issues: Wernicke-Korskoaff encephalopathy/EtOH dementia ? ? no acute behavioral issues; quetiapine + prn trazodone, melatonin ? ? Awaiting placement at this time Subacute CVA ?? 1.2 cm area of decreased attenuation in the L external capsule/claustrum ?? Secondary prevention with ASA + statin ?Moderate protein/calorie malnutrition ? ? Continue Ensure tid, multivitamin Prominent polypoid soft tissue?seen within the right and left sided palatine tonsillar fossa for which direct visual inspection/ENT evaluation is recommended ? ? unable to able to get this done inpatient and will need outpatient follow up for it. ?Dispo ? ? Guardianship obtained, awaiting SNF placement,? should get vital once or twice daily only Check vitals daily given no BP meds, no change in codition and only here for placment and no acute issues, if conditional change we check vitals more frequently dvt ppx lovenox Quality Stroke Does the patient have a stroke diagnosis?: Yes Reason for No Anti-thrombotic by Day Two: N/A - Med Ordered VTE Prior VTE?: No VTE Risk Level:: Medical - moderate - high VTE Device Contraindication: N/A - Device Ordered VTE Drug Contraindication: N/A - Med Ordered
[2021-03-25] MEDS: QUEtiapine Fumarate 25 MG TABLET PO ×2 (09:29→20:07)
[2021-03-25 15:20] VITALS: BP 120/72; PULSE 65; RESP 18; TEMP 37; O2SAT 98
[2021-03-26] VITALS: RESP 16
[2021-03-26 07:23] VITALS: BP 102/56; PULSE 61; RESP 20; TEMP 37.3; O2SAT 100
[2021-03-26] MEDS: QUEtiapine Fumarate 25 MG TABLET PO ×2 (08:05→20:31)
--- NOTE | 2021-03-26 08:10 | HO.PM.IMPN ---
Subjective Subjective Date of Service: 03/26/21 Interval History: follow up Review of Systems denies any pain or? shortness of breath or cough? Physical Exam Vital Signs: Vital Signs: Last Vital Signs Temp 99.2 F 03/26/21 07:23 Pulse 61 03/26/21 07:23 Resp 20 03/26/21 07:23 BP 102/56 L 03/26/21 07:23 Pulse Ox 100 03/26/21 07:23 BMI result Body Mass Index 20.7 constitutional:alert, oriented to self, no distress, up and walking around, ?CVs: rrr s1s2, ? pulmonary: lungs cta, no rales ?neuro: non focal Objective Data Active Medications Quetiapine Fumarate (Quetiapine Fumarate 25 Mg Tablet) 25 mg PO BID AGGIE Last Admin: 03/26/21 08:05 Dose: 25 mg Documented by: SHAYNE Labs CBC & Chem 7: 02/20/21 05:35 02/20/21 05:35 Assessment and Plan (1) Encephalopathy: Status: Acute (2) Dementia: Status: Acute Assessment and Plan: 75yo M with no known medical history sent in for inadequate self-care, found to have CT evidence of subacute CVA though no neurologic deficit appreciated, deemed to not have capacity to make medical conditions, obtained court-appointed guardian and awaiting SNF placement, essentially no changes Chronic / Past issues: Wernicke-Korskoaff encephalopathy/EtOH dementia ? ? no acute behavioral issues; quetiapine + prn trazodone, melatonin ? ? Awaiting placement at this time Subacute CVA ?? 1.2 cm area of decreased attenuation in the L external capsule/claustrum ?? Secondary prevention with ASA + statin ?Moderate protein/calorie malnutrition ? ? Continue Ensure tid, multivitamin Prominent polypoid soft tissue?seen within the right and left sided palatine tonsillar fossa for which direct visual inspection/ENT evaluation is recommended ? ? unable to able to get this done inpatient and will need outpatient follow up for it. ?Dispo ? ? Guardianship obtained, awaiting SNF placement,? should get vital once or twice daily only Check vitals daily given no BP meds, no change in codition and only here for placment and no acute issues, if conditional change we check vitals more frequently dvt ppx walking around fine Quality Stroke Does the patient have a stroke diagnosis?: Yes Reason for No Anti-thrombotic by Day Two: N/A - Med Ordered VTE Prior VTE?: No VTE Risk Level:: Medical - moderate - high VTE Device Contraindication: N/A - Device Ordered VTE Drug Contraindication: N/A - Med Ordered
[2021-03-26] MEDS: Multivitamin TABLET 1 TAB PO (10:57)
[2021-03-26] MEDS: Aspirin Enteric Coated 81 MG TABLET.DR PO (10:58)
--- NOTE | 2021-03-26 14:57 | MHC.CM.PN ---
per rounds dc barriers remain the same
[2021-03-26 15:37] VITALS: BP 100/50; PULSE 58; RESP 16; TEMP 36.6; O2SAT 99
[2021-03-26] MEDS: Atorvastatin Calcium 40 MG TABLET PO (20:31)
[2021-03-26] MEDS: Melatonin 3 MG TABLET PO (20:31)
[2021-03-26 20:35] VITALS: BP 109/57; PULSE 55; RESP 16
[2021-03-27] VITALS: RESP 16
[2021-03-27 08:00] VITALS: BP 118/66; PULSE 65; RESP 18; TEMP 36.6; O2SAT 98
[2021-03-27] MEDS: Multivitamin TABLET 1 TAB PO (09:30)
[2021-03-27] MEDS: QUEtiapine Fumarate 25 MG TABLET PO ×2 (09:30→22:13)
[2021-03-27] MEDS: Aspirin Enteric Coated 81 MG TABLET.DR PO (09:30)
--- NOTE | 2021-03-27 09:52 | HO.PM.IMPN ---
Subjective Subjective Date of Service: 03/27/21 Interval History: f/u dementia, placement no new issues Review of Systems no change Physical Exam Vital Signs: Vital Signs: Last Vital Signs Temp 98 F 03/27/21 08:00 Pulse 65 03/27/21 08:00 Resp 18 03/27/21 08:00 BP 118/66 03/27/21 08:00 Pulse Ox 98 03/27/21 08:00 BMI result Body Mass Index 20.7 Const: Other: alert, oriented to self, no distress, up and walking around, CV rrr s1s2, lungs cta, neuro: nf Objective Data Active Medications Aspirin (Aspirin Enteric Coated 81 Mg Tablet.) 81 mg PO DAILY [facility] Last Admin: 03/27/21 09:30 Dose: 81 mg Documented by: NEVAEH Atorvastatin Calcium (Atorvastatin Calcium 40 Mg Tablet) 40 mg PO BEDTIME [facility] Last Admin: 03/26/21 20:31 Dose: 40 mg Documented by: CARLA Docusate Sodium (Docusate Sodium 100 Mg Capsule) 100 mg PO BEDTIME PRN PRN Reason: Constipation Melatonin (Melatonin 3 Mg Tablet) 3 mg PO BEDTIME [facility] Last Admin: 03/26/21 20:31 Dose: 3 mg Documented by: CARLA Multivitamins/Vitamin C (Multivitamin Tablet) 1 tab PO DAILY [facility] Last Admin: 03/27/21 09:30 Dose: 1 tab Documented by: NEVAEH Quetiapine Fumarate (Quetiapine Fumarate 25 Mg Tablet) 25 mg PO BID [facility] Last Admin: 03/27/21 09:30 Dose: 25 mg Documented by: NEVAEH Trazodone HCl (Trazodone Hcl 25 Mg Halftab) 25 mg PO BEDTIME PRN PRN Reason: insomnia Labs CBC & Chem 7: 02/20/21 05:35 02/20/21 05:35 Assessment and Plan (1) Encephalopathy: Status: Acute (2) Dementia: Status: Acute Assessment and Plan: 75yo M with no known medical history sent in for inadequate self-care, found to have CT evidence of subacute CVA though no neurologic deficit appreciated, deemed to not have capacity to make medical conditions, obtained court-appointed guardian and awaiting SNF placement, essentially no changes Chronic / Past issues: Wernicke-Korskoaff encephalopathy/EtOH dementia ? ? no acute behavioral issues; quetiapine + prn trazodone, melatonin ? ? Awaiting placement at this time Subacute CVA ?? 1.2 cm area of decreased attenuation in the L external capsule/claustrum ?? Secondary prevention with ASA + statin ?Moderate protein/calorie malnutrition ? ? Continue Ensure tid, multivitamin Prominent polypoid soft tissue?seen within the right and left sided palatine tonsillar fossa for which direct visual inspection/ENT evaluation is recommended ? ? unable to able to get this done inpatient and will need outpatient follow up for it. ?Dispo ? ? Guardianship obtained, awaiting SNF placement,? should get vital once or twice daily only Check vitals daily given no BP meds, no change in codition and only here for placment and no acute issues, if conditional change we check vitals more frequently dvt ppx walking around fine Quality Stroke Does the patient have a stroke diagnosis?: Yes Reason for No Anti-thrombotic by Day Two: N/A - Med Ordered VTE Prior VTE?: No VTE Risk Level:: Medical - moderate - high VTE Device Contraindication: N/A - Device Ordered VTE Drug Contraindication: N/A - Med Ordered
[2021-03-27] MEDS: Atorvastatin Calcium 40 MG TABLET PO (22:12)
[2021-03-27] MEDS: Melatonin 3 MG TABLET PO (22:13)
[2021-03-28 07:17] VITALS: BP 99/52; PULSE 63; RESP 20; TEMP 37.2; O2SAT 100
--- NOTE | 2021-03-28 10:10 | HO.PM.IMPN ---
Subjective Subjective Date of Service: 03/28/21 Interval History: f/u dementia, placement no new issues Review of Systems no change Physical Exam Vital Signs: Vital Signs: Last Vital Signs Temp 98.9 F 03/28/21 07:17 Pulse 63 03/28/21 07:17 Resp 20 03/28/21 07:17 BP 99/52 L 03/28/21 07:17 Pulse Ox 100 03/28/21 07:17 BMI result Body Mass Index 20.7 Const: Other: alert, oriented to self, no distress, up and walking around, CV rrr s1s2, lungs cta, neuro: nf Objective Data Active Medications Aspirin (Aspirin Enteric Coated 81 Mg Tablet.) 81 mg PO DAILY [facility] Last Admin: 03/27/21 09:30 Dose: 81 mg Documented by: NEVAEH Atorvastatin Calcium (Atorvastatin Calcium 40 Mg Tablet) 40 mg PO BEDTIME [facility] Last Admin: 03/27/21 22:12 Dose: 40 mg Documented by: MEAGHAN Docusate Sodium (Docusate Sodium 100 Mg Capsule) 100 mg PO BEDTIME PRN PRN Reason: Constipation Melatonin (Melatonin 3 Mg Tablet) 3 mg PO BEDTIME [facility] Last Admin: 03/27/21 22:13 Dose: 3 mg Documented by: MEAGHAN Multivitamins/Vitamin C (Multivitamin Tablet) 1 tab PO DAILY [facility] Last Admin: 03/27/21 09:30 Dose: 1 tab Documented by: NEVAEH Quetiapine Fumarate (Quetiapine Fumarate 25 Mg Tablet) 25 mg PO BID [facility] Last Admin: 03/27/21 22:13 Dose: 25 mg Documented by: MEAGHAN Trazodone HCl (Trazodone Hcl 25 Mg Halftab) 25 mg PO BEDTIME PRN PRN Reason: insomnia Labs CBC & Chem 7: 02/20/21 05:35 02/20/21 05:35 Assessment and Plan (1) Encephalopathy: Status: Acute (2) Dementia: Status: Acute Assessment and Plan: 75yo M with no known medical history sent in for inadequate self-care, found to have CT evidence of subacute CVA though no neurologic deficit appreciated, deemed to not have capacity to make medical conditions, obtained court-appointed guardian and awaiting SNF placement, essentially no changes Chronic / Past issues: Wernicke-Korskoaff encephalopathy/EtOH dementia ? ? no acute behavioral issues; quetiapine + prn trazodone, melatonin ? ? Awaiting placement at this time Subacute CVA ?? 1.2 cm area of decreased attenuation in the L external capsule/claustrum ?? Secondary prevention with ASA + statin ?Moderate protein/calorie malnutrition ? ? Continue Ensure tid, multivitamin Prominent polypoid soft tissue?seen within the right and left sided palatine tonsillar fossa for which direct visual inspection/ENT evaluation is recommended ? ? unable to able to get this done inpatient and will need outpatient follow up for it. ?Dispo ? ? Guardianship obtained, awaiting SNF placement,? should get vital once or twice daily only Check vitals daily given no BP meds, no change in codition and only here for placment and no acute issues, if conditional change we check vitals more frequently dvt ppx walking around fine Quality Stroke Does the patient have a stroke diagnosis?: Yes Reason for No Anti-thrombotic by Day Two: N/A - Med Ordered VTE Prior VTE?: No VTE Risk Level:: Medical - moderate - high VTE Device Contraindication: N/A - Device Ordered VTE Drug Contraindication: N/A - Med Ordered
[2021-03-28] MEDS: Multivitamin TABLET 1 TAB PO (12:27)
[2021-03-28] MEDS: Aspirin Enteric Coated 81 MG TABLET.DR PO (12:27)
[2021-03-28] MEDS: QUEtiapine Fumarate 25 MG TABLET PO ×2 (12:27→20:18)
[2021-03-28 15:13] VITALS: BP 105/73; PULSE 69; RESP 17; TEMP 36.6; O2SAT 98
[2021-03-28] MEDS: Atorvastatin Calcium 40 MG TABLET PO (20:18)
[2021-03-28] MEDS: Melatonin 3 MG TABLET PO (20:18)
[2021-03-29 07:02] VITALS: BP 114/62; PULSE 60; RESP 18; TEMP 36.9; O2SAT 98
[2021-03-29] MEDS: Multivitamin TABLET 1 TAB PO (08:14)
[2021-03-29] MEDS: Aspirin Enteric Coated 81 MG TABLET.DR PO (08:14)
[2021-03-29] MEDS: QUEtiapine Fumarate 25 MG TABLET PO ×2 (08:14→21:43)
--- NOTE | 2021-03-29 10:51 | P.PNIM_ITS ---
Subjective Subjective Date of Service: 03/29/21 Interval History: f/u dementia, placement no new issues Review of Systems no change Physical Exam Vital Signs: Vital Signs: Last Vital Signs Temp 98.5 F 03/29/21 07:02 Pulse 60 03/29/21 07:02 Resp 18 03/29/21 07:02 BP 114/62 03/29/21 07:02 Pulse Ox 98 03/29/21 07:02 BMI result Body Mass Index 20.7 Const: Other: alert, oriented to self, no distress, up and walking around, CV rrr s1s2, lungs cta, neuro: nf Objective Data Active Medications Aspirin (Aspirin Enteric Coated 81 Mg Tablet.) 81 mg PO DAILY [facility] Last Admin: 03/29/21 08:14 Dose: 81 mg Documented by: VON Atorvastatin Calcium (Atorvastatin Calcium 40 Mg Tablet) 40 mg PO BEDTIME [facility] Last Admin: 03/28/21 20:18 Dose: 40 mg Documented by: SONI Docusate Sodium (Docusate Sodium 100 Mg Capsule) 100 mg PO BEDTIME PRN PRN Reason: Constipation Melatonin (Melatonin 3 Mg Tablet) 3 mg PO BEDTIME [facility] Last Admin: 03/28/21 20:18 Dose: 3 mg Documented by: SONI Multivitamins/Vitamin C (Multivitamin Tablet) 1 tab PO DAILY [facility] Last Admin: 03/29/21 08:14 Dose: 1 tab Documented by: VON Quetiapine Fumarate (Quetiapine Fumarate 25 Mg Tablet) 25 mg PO BID [facility] Last Admin: 03/29/21 08:14 Dose: 25 mg Documented by: VON Trazodone HCl (Trazodone Hcl 25 Mg Halftab) 25 mg PO BEDTIME PRN PRN Reason: insomnia Labs CBC & Chem 7: 02/20/21 05:35 02/20/21 05:35 Assessment and Plan (1) Encephalopathy: Status: Acute (2) Dementia: Status: Acute Assessment and Plan: 75yo M with no known medical history sent in for inadequate self-care, found to have CT evidence of subacute CVA though no neurologic deficit appreciated, deemed to not have capacity to make medical conditions, obtained court-appointed guardian and awaiting SNF placement, essentially no changes today Chronic / Past issues: Wernicke-Korskoaff encephalopathy/EtOH dementia ? ? no acute behavioral issues; quetiapine + prn trazodone, melatonin ? ? Awaiting placement at this time Subacute CVA ?? 1.2 cm area of decreased attenuation in the L external capsule/claustrum ?? Secondary prevention with ASA + statin ?Moderate protein/calorie malnutrition ? ? Continue Ensure tid, multivitamin Prominent polypoid soft tissue?seen within the right and left sided palatine tonsillar fossa for which direct visual inspection/ENT evaluation is recommended ? ? unable to able to get this done inpatient and will need outpatient follow up for it. ?Dispo ? ? Guardianship obtained, awaiting SNF placement,? should get vital once or twice daily only Check vitals daily given no BP meds, no change in codition and only here for placment and no acute issues, if conditional change we check vitals more frequently dvt ppx walking around fine Quality Stroke Does the patient have a stroke diagnosis?: Yes Reason for No Anti-thrombotic by Day Two: N/A - Med Ordered VTE Prior VTE?: No VTE Risk Level:: Medical - moderate - high VTE Device Contraindication: N/A - Device Ordered VTE Drug Contraindication: N/A - Med Ordered
[2021-03-29 14:54] VITALS: BP 104/48; PULSE 80; RESP 20; TEMP 36.7; O2SAT 98
[2021-03-29] MEDS: Melatonin 3 MG TABLET PO (21:43)
[2021-03-29] MEDS: Atorvastatin Calcium 40 MG TABLET PO (21:43)
[2021-03-30 08:00] VITALS: BP 129/94; PULSE 77; RESP 20; TEMP 36.6; O2SAT 99
[2021-03-30] MEDS: Aspirin Enteric Coated 81 MG TABLET.DR PO (08:10)
[2021-03-30] MEDS: Multivitamin TABLET 1 TAB PO (08:10)
[2021-03-30] MEDS: QUEtiapine Fumarate 25 MG TABLET PO ×2 (08:10→20:11)
--- NOTE | 2021-03-30 10:41 | P.EN_ITS ---
Event Note Date of Service: 03/30/21 Event Note: patient seen and examined. No new issues, reviewed vitals, discus sed with RN and no change in management. Awaiting placement.
--- NOTE | 2021-03-30 10:41 | PM.EVENT ---
Event Note Date of Service: 03/30/21 Event Note: patient seen and examined. No new issues, reviewed vitals, discussed with RN and no change in management. Awaiting placement.
--- NOTE | 2021-03-30 11:34 | MHC.CLN ---
F/U PO INTAKE 75-100% DIET CONTINUES NDD2 WITH ENSURE SUPPLEMENT TID. ENSURE PROVIDES 1050 KCAL, 39 G PROTEIN. LAST WEIGHT 03/23/21=62 KG; WEIGHT APPEARS STABLE. HIGH NUTRITION RISK WITH NUTRITION DX MODERATE MALNUTRITION. RD FOLLOWING WEEKLY.
[2021-03-30 13:00] VITALS: BMI 20.8
[2021-03-30 15:05] VITALS: BP 114/64; PULSE 68; RESP 17; TEMP 36.6; O2SAT 100
[2021-03-30] MEDS: Atorvastatin Calcium 40 MG TABLET PO (20:11)
[2021-03-30] MEDS: Melatonin 3 MG TABLET PO (20:11)
[2021-03-31 07:51] VITALS: BP 115/55; PULSE 67; RESP 18; TEMP 36.9; O2SAT 94
[2021-03-31] MEDS: Multivitamin TABLET 1 TAB PO (08:27)
[2021-03-31] MEDS: Aspirin Enteric Coated 81 MG TABLET.DR PO (08:27)
[2021-03-31] MEDS: QUEtiapine Fumarate 25 MG TABLET PO ×2 (08:27→19:11)
--- NOTE | 2021-03-31 08:51 | P.PNIM_ITS ---
Subjective Subjective Date of Service: 03/31/21 <Renata Lovell NP - Last Filed: 03/31/21 12:29> 04/01/21 <Dmitriy Dubois MD - Last Filed: 04/01/21 09:45> Review of Systems Follow up dementia awaiting placement no new issues <Renata Lovell NP - Last Filed: 03/31/21 12:29> Physical Exam Vital Signs: Vital Signs: Last Vital Signs Temp 98.4 F 03/31/21 07:51 Pulse 67 03/31/21 07:51 Resp 18 03/31/21 07:51 BP 115/55 L 03/31/21 07:51 Pulse Ox 94 03/31/21 07:51 BMI result Body Mass Index 20.8 <Renata Lovell NP - Last Filed: 03/31/21 12:29> Appearing in no acute distress lung sounds are clear to auscultation heart regular rate rhythm, clear S1, S2 positive bowel sounds, abdomen is soft, nontender neuro patient is alert x3, no focal deficits <Renata Lovell NP - Last Filed: 03/31/21 12:29> Objective Data Active Medications Aspirin (Aspirin Enteric Coated 81 Mg Tablet.) 81 mg PO DAILY [facility] Last Admin: 03/31/21 08:27 Dose: 81 mg Documented by: SHAYNE Atorvastatin Calcium (Atorvastatin Calcium 40 Mg Tablet) 40 mg PO BEDTIME [facility] Last Admin: 03/30/21 20:11 Dose: 40 mg Documented by: AMMY Docusate Sodium (Docusate Sodium 100 Mg Capsule) 100 mg PO BEDTIME PRN PRN Reason: Constipation Melatonin (Melatonin 3 Mg Tablet) 3 mg PO BEDTIME [facility] Last Admin: 03/30/21 20:11 Dose: 3 mg Documented by: AMMY Multivitamins/Vitamin C (Multivitamin Tablet) 1 tab PO DAILY [facility] Last Admin: 03/31/21 08:27 Dose: 1 tab Documented by: SHAYNE Quetiapine Fumarate (Quetiapine Fumarate 25 Mg Tablet) 25 mg PO BID [facility] Last Admin: 03/31/21 08:27 Dose: 25 mg Documented by: SHAYNE Trazodone HCl (Trazodone Hcl 25 Mg Halftab) 25 mg PO BEDTIME PRN PRN Reason: insomnia <Renata Lovell NP - Last Filed: 03/31/21 12:29> Labs CBC & Chem 7: : 04/01/21 06:42 04/01/21 06:42 <Renata Lovell NP - Last Filed: 03/31/21 12:29> Assessment and Plan (1) Encephalopathy: Status: Acute <Renata Lovell NP - Last Filed: 03/31/21 12:29> Assessment and Plan: 75yo M with no known medical history sent in for inadequate self- care, found to have CT evidence of subacute CVA though no neurologic deficit appreciated, deemed to not have capacity to make medical conditions, obtained court-appointed guardian and awaiting SNF placement, essentially no changes today No new issues, awaiting snf placement Chronic / Past issues: Wernicke-Korskoaff encephalopathy/EtOH dementia no acute behavioral issues; quetiapine + prn trazodone, melatonin Awaiting placement at this time Subacute CVA 1.2 cm area of decreased attenuation in the L external capsule/claustrum Secondary prevention with ASA + statin ?Moderate protein/calorie malnutrition ?Continue Ensure tid, multivitamin Prominent polypoid soft tissue?seen within the right and left sided palatine tonsillar fossa for which direct visual inspection/ENT evaluation is recommended unable to able to get this done inpatient and will need outpatient follow up for it. ?Dispo Guardianship obtained, awaiting SNF placement Check vitals daily given no BP meds, no change in condition and only here for placement and no acute issues, if conditional change we check vitals more frequently dvt ppx ambulation Attending Dr. Dubois <Renata Lovell NP - Last Filed: 03/31/21 12:29> Quality Stroke Does the patient have a stroke diagnosis?: Yes <Renata Lovell NP - Last Filed: 03/31/21 12:29> Reason for No Anti-thrombotic by Day Two: N/A - Med Ordered <Renata Lovell NP - Last Filed: 03/31/21 12:29> VTE Prior VTE?: No <Renata Lovell NP - Last Filed: 03/31/21 12:29> VTE Risk Level:: Medical - moderate - high <MILDRED Glass Last Filed: 03/31/21 12:29> VTE Device Contraindication: N/A - Device Ordered <Renata Lovell NP - Last Filed: 12/25/21 12:29> VTE Drug Contraindication: N/A - Med Ordered <Renata Lovell NP - Last Filed: 03/31/21 12:29>
[2021-03-31 15:52] VITALS: BP 119/68; PULSE 68; RESP 18; TEMP 36.7; O2SAT 96
[2021-03-31] MEDS: Melatonin 3 MG TABLET PO (19:10)
[2021-03-31] MEDS: Atorvastatin Calcium 40 MG TABLET PO (19:11)
[2021-03-31 19:16] VITALS: BP 129/59; PULSE 78; RESP 18; TEMP 36.6; O2SAT 100
[2021-04-01 07:14] LABS: Hematocrit 38.7 % (42.0-52.0); Hemoglobin 12.3 g/dl (14.0-18.0); Mean Corpuscular HGB Conc 31.8 g/dl (31.0-36.0); Mean Corpuscular Hemoglobin 29.4 pg (27.0-33.0); Mean Corpuscular Volume 92.6 fL (80.0-98.0); Mean Platelet Volume 11.7 fL (9.4-12.4); Platelet Count 219 X10*3/uL (160-400); Red Blood Count 4.18 X10*6/uL (4.60-5.80); Red Cell Distribution Width 14.5 % (11.0-16.0); White Blood Count 9.1 X10*3/uL (4.8-10.8)
[2021-04-01 07:41] LABS: Anion Gap 8 (12-20); Blood Urea Nitrogen 31 mg/dL (9-16); Calcium 8.5 mg/dL (8.4-10.2); Carbon Dioxide 25 mmol/L (22-29); Chloride 111 mmol/L (96-108); Creatinine Clr Calc Pharmacy 73.4; Estimated Glomerular Filt Rate > 60; Glucose Random 99 mg/dL (60-115); Potassium 4.3 mmol/L (3.3-5.1); Sodium 140 mmol/L (135-145)
[2021-04-01 08:00] VITALS: BP 102/61; PULSE 70; RESP 18; TEMP 36.5; O2SAT 99
[2021-04-01] MEDS: Aspirin Enteric Coated 81 MG TABLET.DR PO (08:14)
[2021-04-01] MEDS: Multivitamin TABLET 1 TAB PO (08:14)
[2021-04-01] MEDS: QUEtiapine Fumarate 25 MG TABLET PO ×2 (08:14→19:42)
--- NOTE | 2021-04-01 10:04 | PM.EVENT ---
Event Note Date of Service: 04/01/21 Event Note: ?I personally saw and examined the patient revewed vitals, BP 102/61 P 70, normal oxygen saturation. There is no medical necessity for full exam. There is no change in management today, continue current care.
[2021-04-01 15:31] VITALS: BP 101/57; PULSE 60; RESP 18; TEMP 36.5; O2SAT 100
[2021-04-01] MEDS: Atorvastatin Calcium 40 MG TABLET PO (19:42)
[2021-04-01] MEDS: Melatonin 3 MG TABLET PO (19:42)
[2021-04-02 07:09] VITALS: BP 117/59; PULSE 63; RESP 18; TEMP 36.7; O2SAT 99
[2021-04-02] MEDS: Multivitamin TABLET 1 TAB PO (08:42)
[2021-04-02] MEDS: QUEtiapine Fumarate 25 MG TABLET PO ×2 (08:42→20:14)
[2021-04-02] MEDS: Aspirin Enteric Coated 81 MG TABLET.DR PO (08:42)
[2021-04-02 15:08] VITALS: BP 115/54; PULSE 60; RESP 18; TEMP 36.6; O2SAT 100
--- NOTE | 2021-04-02 15:14 | MHC.CM.PN ---
barrier to dc is finacial situation is unresolved
[2021-04-02] MEDS: Atorvastatin Calcium 40 MG TABLET PO (20:14)
[2021-04-02] MEDS: Melatonin 3 MG TABLET PO (20:14)
[2021-04-03 07:30] VITALS: BP 143/63; PULSE 64; RESP 18; TEMP 36.4; O2SAT 98
[2021-04-03] MEDS: QUEtiapine Fumarate 25 MG TABLET PO ×2 (07:42→19:45)
[2021-04-03] MEDS: Aspirin Enteric Coated 81 MG TABLET.DR PO (07:42)
[2021-04-03] MEDS: Multivitamin TABLET 1 TAB PO (07:42)
--- NOTE | 2021-04-03 08:40 | P.EN_ITS ---
Event Note Date of Service: 04/03/21 Event Note: ??I personally saw and examined the patient revewed vitals, BP 143 /63 P 64, normal oxygen saturation. physical exam: Appearance: not in distress. cvs: rrr, [id number] , no murmur res: clear to auscultation ,no rhonchii or wheezing abd: no rebound or guarding ,nt, bs present. ext pulses present , no cyanosis ,Gait well balanced well coordinated. neuro: nonfocal. There is no change in management today, continue current care.
[2021-04-03 15:04] VITALS: BP 103/71; PULSE 76; RESP 20; TEMP 36.7; O2SAT 99
[2021-04-03] MEDS: Melatonin 3 MG TABLET PO (19:45)
[2021-04-03] MEDS: Atorvastatin Calcium 40 MG TABLET PO (19:45)
[2021-04-04 07:05] VITALS: BP 106/52; PULSE 62; RESP 18; TEMP 36; O2SAT 99
[2021-04-04] MEDS: Multivitamin TABLET 1 TAB PO (12:29)
[2021-04-04] MEDS: Aspirin Enteric Coated 81 MG TABLET.DR PO (12:29)
[2021-04-04] MEDS: QUEtiapine Fumarate 25 MG TABLET PO ×2 (12:29→21:08)
--- NOTE | 2021-04-04 14:26 | P.EN_ITS ---
Event Note Date of Service: 04/04/21 Event Note: ?I personally saw and examined the patient revewed vitals, BP: 106 /52mmhg P 62/min, normal oxygen saturation. physical exam: ? Appearance: not in distress. cvs: rrr, [id number] , no murmur res: clear to auscultation ,no rhonchii or wheezing abd: no rebound or guarding ,nt, bs present. ext pulses present , no cyanosis ,Gait well balanced well coordinated. neuro: nonfocal. ?There is no change in management today, continue current care.
[2021-04-04] MEDS: Atorvastatin Calcium 40 MG TABLET PO (21:08)
[2021-04-04] MEDS: Melatonin 3 MG TABLET PO (21:09)
[2021-04-05 07:42] VITALS: BP 101/62; PULSE 50; RESP 18; TEMP 36.8; O2SAT 97
--- NOTE | 2021-04-05 08:23 | P.EN_ITS ---
Event Note Date of Service: 04/05/21 Event Note: I personally saw and examined the patient revewed vitals, BP: 101/ 62mmhg P 50/min, normal oxygen saturation. physical exam: ? Appearance: not in distress. cvs: rrr, [id number] , no murmur res: clear to auscultation ,no rhonchii or wheezing abd: no rebound or guarding ,nt, bs present. ext pulses present , no cyanosis ,Gait well balanced well coordinated. neuro: nonfocal. ?There is no change in management today, continue current care.
[2021-04-05] MEDS: Aspirin Enteric Coated 81 MG TABLET.DR PO (09:07)
[2021-04-05] MEDS: Multivitamin TABLET 1 TAB PO (09:07)
[2021-04-05] MEDS: QUEtiapine Fumarate 25 MG TABLET PO ×2 (09:07→21:38)
[2021-04-05 15:15] VITALS: BP 91/71; PULSE 63; RESP 16; TEMP 36.8; O2SAT 99
[2021-04-05] MEDS: Melatonin 3 MG TABLET PO (21:38)
[2021-04-05] MEDS: Atorvastatin Calcium 40 MG TABLET PO (21:38)
[2021-04-06 08:00] VITALS: BP 108/59; PULSE 61; RESP 18; TEMP 36.4; O2SAT 98
[2021-04-06] MEDS: Aspirin Enteric Coated 81 MG TABLET.DR PO (09:58)
[2021-04-06] MEDS: Multivitamin TABLET 1 TAB PO (09:58)
[2021-04-06] MEDS: QUEtiapine Fumarate 25 MG TABLET PO ×2 (09:58→20:28)
--- NOTE | 2021-04-06 11:37 | P.EN_ITS ---
Event Note Date of Service: 04/06/21 Event Note: ?I personally saw and examined the patient revewed vitals, BP: 108 /59 mmhg P 61/min, normal oxygen saturation. physical exam: ? Appearance: not in distress. cvs: rrr, [id number] , no murmur res: clear to auscultation ,no rhonchii or wheezing abd: no rebound or guarding ,nt, bs present. ext pulses present , no cyanosis ,Gait well balanced well coordinated. neuro: nonfocal. ?There is no change in management today, continue current care.
[2021-04-06 15:00] VITALS: BP 113/64; PULSE 60; RESP 20; TEMP 36.5; O2SAT 97
--- NOTE | 2021-04-06 15:33 | MHC.CLN ---
F/U INTAKE AT MEALS VARIABLE 25-100%, WITH MANY MEALS 100%. DIET CONTINUES NDD2 WITH ENSURE SUPPLEMENT TID. ENSURE PROVIDES 1050 KCAL, 39 G PROTEIN. LAST WEIGHT 03/30/21=62.1 KG; WEIGHT APPEARS STABLE. HIGH NUTRITION RISK WITH NUTRITION DX MODERATE MALNUTRITION. RD FOLLOWING WEEKLY.
[2021-04-06 17:17] VITALS: BP 105/52; PULSE 60; RESP 16; TEMP 36.6; O2SAT 96
--- NOTE | 2021-04-06 18:18 | PC.NURSE ---
Took over patient care around 1500 for 4 hours. . Pt alert and oriented to self. Cooperative at beginning of the shift but later became resistive to care. Ambulating in ramsay and did not like to be redirected back to his room. VSS. LS-CTA. No cough and no sob noted. BS+. No N/V/D. Pt has good appetite. Skin-patient has a foam dressing on his right arm that is dry and intact. Pt denies pain/sob. Will continue to monitor.
[2021-04-06] MEDS: Atorvastatin Calcium 40 MG TABLET PO (20:28)
[2021-04-06] MEDS: Melatonin 3 MG TABLET PO (20:28)
[2021-04-07 07:37] VITALS: BP 108/51; PULSE 53; RESP 18; TEMP 36.9; O2SAT 99
[2021-04-07] MEDS: Aspirin Enteric Coated 81 MG TABLET.DR PO (10:53)
[2021-04-07] MEDS: Multivitamin TABLET 1 TAB PO (10:53)
[2021-04-07] MEDS: QUEtiapine Fumarate 25 MG TABLET PO ×2 (10:53→20:32)
--- NOTE | 2021-04-07 12:02 | PM.EVENT ---
Event Note Date of Service: 04/07/21 Event Note: I personally saw and examined the patient revewed vitals, BP: 108/51 mmhg P 53/min, normal oxygen saturation. physical exam: ? Appearance: not in distress. cvs: rrr, [id number] , no murmur res: clear to auscultation ,no rhonchii or wheezing abd: no rebound or guarding ,nt, bs present. ext pulses present , no cyanosis ,Gait well balanced well coordinated. neuro: nonfocal. ?There is no change in management today, continue current care.
[2021-04-07 15:03] VITALS: BP 114/57; PULSE 57; RESP 20; TEMP 36.7; O2SAT 100
[2021-04-07] MEDS: Atorvastatin Calcium 40 MG TABLET PO (20:32)
[2021-04-07] MEDS: Melatonin 3 MG TABLET PO (20:32)
[2021-04-07 22:58] VITALS: BP 133/66; PULSE 53; RESP 20; TEMP 36.4; O2SAT 98
[2021-04-08 08:00] VITALS: BP 112/61; PULSE 72; RESP 18; TEMP 36; O2SAT 97
[2021-04-08] MEDS: Multivitamin TABLET 1 TAB PO (10:50)
[2021-04-08] MEDS: QUEtiapine Fumarate 25 MG TABLET PO ×2 (10:50→21:02)
[2021-04-08] MEDS: Aspirin Enteric Coated 81 MG TABLET.DR PO (10:50)
--- NOTE | 2021-04-08 11:10 | PM.EVENT ---
Event Note Date of Service: 04/08/21 Event Note: I personally saw and examined the patient revewed vitals, BP: 112/61 mmhg P 72/min, normal oxygen saturation. physical exam: ? Appearance: not in distress. cvs: rrr, [id number] , no murmur res: clear to auscultation ,no rhonchii or wheezing abd: no rebound or guarding ,nt, bs present. ext pulses present , no cyanosis ,Gait well balanced well coordinated. neuro: nonfocal. ?There is no change in management today, continue current care.
[2021-04-08 15:02] VITALS: BP 105/62; PULSE 80; RESP 20; TEMP 36.3; O2SAT 99
[2021-04-08] MEDS: Melatonin 3 MG TABLET PO (21:02)
[2021-04-08] MEDS: Atorvastatin Calcium 40 MG TABLET PO (21:02)
[2021-04-08 23:06] VITALS: BP 115/60; PULSE 73; RESP 20; TEMP 36.7; O2SAT 99
[2021-04-09 07:41] VITALS: BP 124/68; PULSE 68; RESP 19; TEMP 36.1; O2SAT 98
[2021-04-09] MEDS: Aspirin Enteric Coated 81 MG TABLET.DR PO (08:45)
[2021-04-09] MEDS: QUEtiapine Fumarate 25 MG TABLET PO ×2 (08:45→20:01)
[2021-04-09] MEDS: Multivitamin TABLET 1 TAB PO (08:45)
--- NOTE | 2021-04-09 10:55 | P.EN_ITS ---
Event Note Date of Service: 04/09/21 Event Note: ?I personally saw and examined the patient revewed vitals, BP: 124 /68 mmhg P 68/min, normal oxygen saturation. physical exam: ? Appearance: not in distress. cvs: rrr, [id number] , no murmur res: clear to auscultation ,no rhonchii or wheezing abd: no rebound or guarding ,nt, bs present. ext pulses present , no cyanosis ,Gait well balanced well coordinated. neuro: nonfocal. ?There is no change in management today, continue current care.
[2021-04-09] MEDS: Atorvastatin Calcium 40 MG TABLET PO (20:01)
[2021-04-09] MEDS: Melatonin 3 MG TABLET PO (20:01)
[2021-04-10 08:00] VITALS: BP 132/62; PULSE 63; RESP 17; TEMP 36.7; O2SAT 100
[2021-04-10] MEDS: Aspirin Enteric Coated 81 MG TABLET.DR PO (09:35)
[2021-04-10] MEDS: Multivitamin TABLET 1 TAB PO (09:35)
[2021-04-10] MEDS: QUEtiapine Fumarate 25 MG TABLET PO ×2 (09:35→21:08)
--- NOTE | 2021-04-10 11:19 | PM.EVENT ---
Event Note Date of Service: 04/10/21 Event Note: I personally saw and examined the patient revewed vitals, BP: 132/62 mmhg P 68/min, normal oxygen saturation. physical exam: General: AO X 1, no acute distress Resp: CTA bilateral CVS: S1,S2,RRR GI: +BS, NT, no distention Skin: No rash Neuro: motor grossly intact Psych: appropriate affect A/P: 75yo M with no known medical history sent in for inadequate self-care, found to have CT evidence of subacute CVA though no neurologic deficit appreciated, deemed to not have capacity to make medical conditions, obtained court-appointed guardian and awaiting SNF placement, essentially no changes today Wernicke-Korskoaff encephalopathy/EtOH dementia ? ? no acute behavioral issues; quetiapine + prn trazodone, melatonin ? ? Awaiting placement at this time Subacute CVA ?? 1.2 cm area of decreased attenuation in the L external capsule/claustrum ?? Secondary prevention with ASA + statin ?Moderate protein/calorie malnutrition ? ? Continue Ensure tid, multivitamin Prominent polypoid soft tissue?seen within the right and left sided palatine tonsillar fossa for which direct visual inspection/ENT evaluation is recommended ? ? unable to able to get this done inpatient and will need outpatient follow up for it. ?Dispo ? ? Guardianship obtained, awaiting SNF placement,? should get vital once or twice daily only Check vitals daily given no BP meds, no change in codition and only here for placment and no acute issues, if conditional change we check vitals more frequently dvt ppx walking around the unit all day. CM working on placment
[2021-04-10 14:58] VITALS: BP 116/74; PULSE 86; RESP 20; TEMP 37.3; O2SAT 99
[2021-04-10] MEDS: Atorvastatin Calcium 40 MG TABLET PO (21:08)
[2021-04-10] MEDS: Melatonin 3 MG TABLET PO (21:08)
[2021-04-11 07:58] VITALS: BP 116/56; PULSE 57; RESP 20; TEMP 36.7; O2SAT 98
[2021-04-11] MEDS: QUEtiapine Fumarate 25 MG TABLET PO ×2 (09:20→20:05)
[2021-04-11] MEDS: Multivitamin TABLET 1 TAB PO (09:20)
[2021-04-11] MEDS: Aspirin Enteric Coated 81 MG TABLET.DR PO (09:20)
--- NOTE | 2021-04-11 10:04 | MHC.CM.PN ---
This screen writer placed call to [facility] for update on patient's financial outline. She has made significant progress. The patient now has liquid assets to fund and [facility] stay. She is accepting an offer today on his home. She also has calls to [facility] in [facility] area for the patient to transfer to. This screen writer communicated that we are more than willing to facilitate a visit or facetime for the [facility]. Will continue to monitor for d/c needs.
--- NOTE | 2021-04-11 10:58 | P.EN_ITS ---
Event Note Date of Service: 04/11/21 Event Note: I saw and examined the patient revewed vitals, BP: 132/62 mmhg P 57/min, normal oxygen saturation. physical exam: General: AO X 1, no acute distress Resp:? CTA bilateral CVS: S1,S2,RRR GI: +BS, NT, no distention Skin: No rash Neuro:? motor grossly intact Psych: appropriate affect A/P: 75yo M with no known medical history sent in for inadequate self-care, found to have CT evidence of subacute CVA though no neurologic deficit appreciated, deemed to not have capacity to make medical conditions, obtained court-appointed guardian and awaiting SNF placement, essentially no changes today Wernicke-Korskoaff encephalopathy/EtOH dementia ? ? no acute behavioral issues; quetiapine + prn trazodone, melatonin ? ? Awaiting placement at this time Subacute CVA ?? 1.2 cm area of decreased attenuation in the L external capsule/claustrum ?? Secondary prevention with ASA + statin ?Moderate protein/calorie malnutrition ? ? Continue Ensure tid, multivitamin Prominent polypoid soft tissue?seen within the right and left sided palatine ton sillar fossa for which direct visual inspection/ENT evaluation is recommended ? ? unable to able to get this done inpatient and will need outpatient follow up for it. ?Dispo ? ? Guardianship obtained, awaiting SNF placement,? should get vital once or twice daily only Check vitals daily given no BP meds, no change in codition and only here for placment and no acute issues, if conditional change we check vitals more frequently dvt ppx walking around the unit all day.? NORMA working on placment Has court hearing for guardianship on 04/24
[2021-04-11 15:36] VITALS: BP 100/58; PULSE 78; RESP 18; TEMP 36.6; O2SAT 100
[2021-04-11] MEDS: Melatonin 3 MG TABLET PO (20:05)
[2021-04-11] MEDS: Atorvastatin Calcium 40 MG TABLET PO (20:05)
[2021-04-12 07:02] VITALS: BP 122/64; PULSE 68; RESP 19; TEMP 35.5; O2SAT 99
[2021-04-12] MEDS: Aspirin Enteric Coated 81 MG TABLET.DR PO (10:36)
[2021-04-12] MEDS: Multivitamin TABLET 1 TAB PO (10:36)
[2021-04-12] MEDS: QUEtiapine Fumarate 25 MG TABLET PO ×2 (10:36→20:34)
--- NOTE | 2021-04-12 11:50 | PM.EVENT ---
Event Note Date of Service: 04/12/21 Event Note: I? saw and examined the patient revewed vital 04/12/21 07:02 Pulse Rate 68 Respiratory Rate 19 Blood Pressure 122/64 Pulse Oximetry 99 Oxygen Delivery Method Room Air physical exam: General: AO X 1, no acute distress Resp:? CTA bilateral CVS: S1,S2,RRR GI: +BS, NT, no distention Skin: No rash Neuro:? motor grossly intact Psych: appropriate affect A/P: 75yo M with no known medical history sent in for inadequate self-care, found to have CT evidence of subacute CVA though no neurologic deficit appreciated, deemed to not have capacity to make medical conditions, obtained court-appointed guardian and awaiting SNF placement, essentially no changes today Wernicke-Korskoaff encephalopathy/EtOH dementia ? ? no acute behavioral issues; quetiapine + prn trazodone, melatonin ? ? Awaiting placement at this time Subacute CVA ?? 1.2 cm area of decreased attenuation in the L external capsule/claustrum ?? Secondary prevention with ASA + statin ?Moderate protein/calorie malnutrition ? ? Continue Ensure tid, multivitamin Prominent polypoid soft tissue?seen within the right and left sided palatine tonsillar fossa for which direct visual inspection/ENT evaluation is recommended ? ? unable to able to get this done inpatient and will need outpatient follow up for it. ?Dispo ? ? Guardianship obtained, awaiting SNF placement,? should get vital once or twice daily only Check vitals daily given no BP meds, no change in codition and only here for placment and no acute issues, if conditional change we check vitals more frequently dvt ppx walking around the unit all day.? NORMA working on placment Has court hearing for guardianship on 04/24 he got out of the unit yesterday and so needs to be closely monitored
--- NOTE | 2021-04-12 14:17 | MHC.CM.PN ---
Addendum entered by Kalie Orantes 04/13/21 10:17: Pavithra Duenas Jeanie is the Liason her cell PHONE for [facility] Facility Facility phone [phone]. Face time 1pm with Jeanie scheduled today 04/13/21 Original Note: A call was received from Jeanie @ [facility] Brizuela. She stated that she had received a request for admission from [facility]'s Guardian. Jeanie requested clinical information for review. She also faxed a form for the MD to complete. Clinical info was faxed as requested. The MD completed the documentation requested from the facility. The document has been faxed. Waiting to hear back, after review of information.
[2021-04-12] MEDS: Melatonin 3 MG TABLET PO (20:34)
[2021-04-12] MEDS: Atorvastatin Calcium 40 MG TABLET PO (20:34)
[2021-04-13 08:00] VITALS: BP 101/62; PULSE 79; RESP 17; TEMP 36.6; O2SAT 99
[2021-04-13] MEDS: QUEtiapine Fumarate 25 MG TABLET PO ×2 (08:07→21:27)
[2021-04-13] MEDS: Aspirin Enteric Coated 81 MG TABLET.DR PO (08:07)
[2021-04-13] MEDS: Multivitamin TABLET 1 TAB PO (08:07)
--- NOTE | 2021-04-13 09:29 | PM.EVENT ---
Event Note Date of Service: 04/13/21 Event Note: Seen f/u for dementia and awiating placement, no new changes. physical exam: Selected Entries 04/13/21 08:00 Temperature 97.9 F Pulse Rate 79 Respiratory Rate 17 Blood Pressure 101/62 Pulse Oximetry 99 Oxygen Delivery Method Room Air General: AO X 1, no acute distress Resp:? CTA bilateral CVS: S1,S2,RRR GI: +BS, NT, no distention Skin: No rash Neuro:? motor grossly intact Psych: appropriate affect A/P: 75yo M with no known medical history sent in for inadequate self-care, found to have CT evidence of subacute CVA though no neurologic deficit appreciated, deemed to not have capacity to make medical conditions, obtained court-appointed guardian and awaiting SNF placement, essentially no changes today Wernicke-Korskoaff encephalopathy/EtOH dementia ? ? no acute behavioral issues; quetiapine + prn trazodone, melatonin ? ? Awaiting placement at this time Subacute CVA ?? 1.2 cm area of decreased attenuation in the L external capsule/claustrum ?? Secondary prevention with ASA + statin ?Moderate protein/calorie malnutrition ? ? Continue Ensure tid, multivitamin Prominent polypoid soft tissue?seen within the right and left sided palatine tonsillar fossa for which direct visual inspection/ENT evaluation is recommended ? ? unable to able to get this done inpatient and will need outpatient follow up for it. ?Dispo ? ? Guardianship obtained, awaiting SNF placement,? should get vital once or twice daily only Check vitals daily given no BP meds, no change in codition and only here for placment and no acute issues, if conditional change we check vitals more frequently dvt ppx walking around the unit all day.? CM working on placment Has court hearing for guardianship agin on 04/24, outside facilities seriously considering taking him he got out of the unit yesterday and so needs to be closely monitored
--- NOTE | 2021-04-13 10:36 | MHC.CLN ---
F/U INTAKE AT MEALS VARIABLE 25-100%, WITH MANY MEALS 100%. DIET RX: GRD M/S-APPROPRIATE WITH ENSURE SUPPLEMENT TID. ENSURE PROVIDES 1050 KCAL, 39 G PROTEIN. LAST WEIGHT 03/30/21=62.1 KG; WEIGHT APPEARS STABLE. HIGH NUTRITION RISK WITH NUTRITION DX MODERATE MALNUTRITION. RD FOLLOWING WEEKLY.
[2021-04-13 15:18] VITALS: BP 113/72; PULSE 60; RESP 18; TEMP 36.4; O2SAT 96
[2021-04-13] MEDS: Melatonin 3 MG TABLET PO (21:27)
[2021-04-13] MEDS: Atorvastatin Calcium 40 MG TABLET PO (21:27)
[2021-04-14 07:00] VITALS: BMI 20.7
[2021-04-14 07:45] VITALS: BP 125/63; PULSE 59; RESP 18; TEMP 36.2; O2SAT 98
[2021-04-14] MEDS: Multivitamin TABLET 1 TAB PO (08:30)
[2021-04-14] MEDS: Aspirin Enteric Coated 81 MG TABLET.DR PO (08:30)
[2021-04-14] MEDS: QUEtiapine Fumarate 25 MG TABLET PO ×2 (08:30→20:37)
--- NOTE | 2021-04-14 09:18 | PM.EVENT ---
Event Note Date of Service: 04/14/21 Event Note: ?Seen f/u for dementia and awiating placement, no new changes. physical exam: Selected Entries 04/14/21 07:45 Temperature 97.1 F Pulse Rate 59 Respiratory Rate 18 Blood Pressure 125/63 Pulse Oximetry 98 Oxygen Delivery Method Room Air General: AO X 1, no acute distress Resp:? CTA bilateral CVS: S1,S2,RRR GI: +BS, NT, no distention Skin: No rash Neuro:? motor grossly intact Psych: appropriate affect A/P: 75yo M with no known medical history sent in for inadequate self-care, found to have CT evidence of subacute CVA though no neurologic deficit appreciated, deemed to not have capacity to make medical conditions, obtained court-appointed guardian and awaiting SNF placement, essentially no changes today Wernicke-Korskoaff encephalopathy/EtOH dementia ? ? no acute behavioral issues; quetiapine + prn trazodone, melatonin ? ? Awaiting placement at this time Subacute CVA ?? 1.2 cm area of decreased attenuation in the L external capsule/claustrum ?? Secondary prevention with ASA + statin ?Moderate protein/calorie malnutrition ? ? Continue Ensure tid, multivitamin Prominent polypoid soft tissue?seen within the right and left sided palatine tonsillar fossa for which direct visual inspection/ENT evaluation is recommended ? ? unable to able to get this done inpatient and will need outpatient follow up for it. ?Dispo ? ? Guardianship obtained, awaiting SNF placement,? should get vital once or twice daily only Check vitals daily given no BP meds, no change in codition and only here for placment and no acute issues, if conditional change we check vitals more frequently dvt ppx walking around the unit all day.? CM working on placment Has court hearing for guardianship [place] on 04/24, outside facilities seriously considering taking him he got out of the unit yesterday and so needs to be closely monitored
[2021-04-14] MEDS: Atorvastatin Calcium 40 MG TABLET PO (20:37)
[2021-04-14] MEDS: Melatonin 3 MG TABLET PO (20:37)
[2021-04-15 07:41] VITALS: BP 130/59; PULSE 59; RESP 19; TEMP 36.1; O2SAT 98
[2021-04-15] MEDS: Multivitamin TABLET 1 TAB PO (08:27)
[2021-04-15] MEDS: QUEtiapine Fumarate 25 MG TABLET PO ×2 (08:27→20:44)
[2021-04-15] MEDS: Aspirin Enteric Coated 81 MG TABLET.DR PO (08:27)
--- NOTE | 2021-04-15 09:25 | PM.EVENT ---
Event Note Date of Service: 04/15/21 Event Note: f/u on dementia and awaiting SNF bed, no new issue Selected Entries 04/15/21 07:41 Temperature 97.0 F Pulse Rate 59 Respiratory Rate 19 Blood Pressure 130/59 L Pulse Oximetry 98 Oxygen Delivery Method Room Air General: AO X 1, no acute distress Resp:? CTA bilateral CVS: S1,S2,RRR GI: +BS, NT, no distention Skin: No rash Neuro:? motor grossly intact Psych: appropriate affect A/P: 75yo M with no known medical history sent in for inadequate self-care, found to have CT evidence of subacute CVA though no neurologic deficit appreciated, deemed to not have capacity to make medical conditions, obtained court-appointed guardian and awaiting SNF placement, essentially no changes today Wernicke-Korskoaff encephalopathy/EtOH dementia ? ? no acute behavioral issues; quetiapine + prn trazodone, melatonin ? ? Awaiting placement at this time Subacute CVA ?? 1.2 cm area of decreased attenuation in the L external capsule/claustrum ?? Secondary prevention with ASA + statin ?Moderate protein/calorie malnutrition ? ? Continue Ensure tid, multivitamin Prominent polypoid soft tissue?seen within the right and left sided palatine tonsillar fossa for which direct visual inspection/ENT evaluation is recommended ? ? unable to able to get this done inpatient and will need outpatient follow up for it. ?Dispo ? ? Guardianship obtained, awaiting SNF placement,? should get vital once or twice daily only Check vitals daily given no BP meds, no change in codition and only here for placment and no acute issues, if conditional change we check vitals more frequently dvt ppx walking around the unit all day.? CM working on placment Has court hearing for guardianship betty on 04/24, outside facilities seriously considering taking him he got out of the unit yesterday and so needs to be closely monitored
[2021-04-15] MEDS: Atorvastatin Calcium 40 MG TABLET PO (20:43)
[2021-04-15] MEDS: Melatonin 3 MG TABLET PO (20:43)
[2021-04-15 23:47] VITALS: BP 114/58; PULSE 67; RESP 20; TEMP 36.3; O2SAT 98
[2021-04-16 07:14] VITALS: BP 109/58; PULSE 68; RESP 19; TEMP 36.1; O2SAT 98
[2021-04-16] MEDS: Multivitamin TABLET 1 TAB PO (08:20)
[2021-04-16] MEDS: Aspirin Enteric Coated 81 MG TABLET.DR PO (08:20)
[2021-04-16] MEDS: QUEtiapine Fumarate 25 MG TABLET PO ×2 (08:20→21:15)
--- NOTE | 2021-04-16 09:49 | PM.EVENT ---
Event Note Date of Service: 04/16/21 Event Note: f/u on dementia and awaiting SNF bed, no new issu Selected Entries 04/16/21 07:14 Temperature 97 F Pulse Rate 68 Respiratory Rate 19 Blood Pressure 109/58 L Pulse Oximetry 98 Oxygen Delivery Method Room Air General: AO X 1, no acute distress Resp:? CTA bilateral CVS: S1,S2,RRR GI: +BS, NT, no distention Skin: No rash Neuro:? motor grossly intact Psych: appropriate affect A/P: 75yo M with no known medical history sent in for inadequate self-care, found to have CT evidence of subacute CVA though no neurologic deficit appreciated, deemed to not have capacity to make medical conditions, obtained court-appointed guardian and awaiting SNF placement, essentially no changes today Wernicke-Korskoaff encephalopathy/EtOH dementia ? ? no acute behavioral issues; quetiapine + prn trazodone, melatonin ? ? Awaiting placement at this time Subacute CVA ?? 1.2 cm area of decreased attenuation in the L external capsule/claustrum ?? Secondary prevention with ASA + statin ?Moderate protein/calorie malnutrition ? ? Continue Ensure tid, multivitamin Prominent polypoid soft tissue?seen within the right and left sided palatine tonsillar fossa for which direct visual inspection/ENT evaluation is recommended ? ? unable to able to get this done inpatient and will need outpatient follow up for it. ?Dispo ? ? Guardianship obtained, awaiting SNF placement,? should get vital once or twice daily only Check vitals daily given no BP meds, no change in codition and only here for placment and no acute issues, if conditional change we check vitals more frequently dvt ppx walking around the unit all day.? CM working on placment Has court hearing for guardianship [place] on 04/24, outside facilities seriously considering taking him he got out of the unit yesterday and so needs to be closely monitored
--- NOTE | 2021-04-16 12:35 | MHC.CM.PN ---
Addendum entered by Maia Flowers 04/16/21 13:12: attempts being made to get patient vaccinated against covid-19 in-house. Original Note: MESSAGE LEFT FOR GUARDIAN NAWAF Tinsley AT [phone] REQUESTING PERMISSION FOR PATIENT (*WHO IS AGREEABLE) TO RECEIVING THE COVID-19 VACCINE. THIS DRUG ROOM CLERK AWAITING CALL BACK
[2021-04-16 15:10] VITALS: BP 105/65; PULSE 65; RESP 18; TEMP 37; O2SAT 100
[2021-04-16 19:16] VITALS: BP 132/62; PULSE 58; RESP 18; TEMP 37.2; O2SAT 97
[2021-04-16] MEDS: Atorvastatin Calcium 40 MG TABLET PO (21:15)
[2021-04-16] MEDS: Melatonin 3 MG TABLET PO (21:15)
[2021-04-16 23:32] VITALS: BP 118/53; PULSE 62; RESP 16; TEMP 36.7; O2SAT 99
[2021-04-17 07:39] VITALS: BP 109/59; PULSE 73; RESP 20; TEMP 36.3; O2SAT 97
[2021-04-17] MEDS: Multivitamin TABLET 1 TAB PO (08:12)
[2021-04-17] MEDS: Aspirin Enteric Coated 81 MG TABLET.DR PO (08:12)
[2021-04-17] MEDS: QUEtiapine Fumarate 25 MG TABLET PO ×2 (08:12→22:03)
--- NOTE | 2021-04-17 10:05 | P.PNIM_ITS ---
Subjective Subjective Date of Service: 04/17/21 Interval History: f/u dementia, placement no new issues Review of Systems no new issues no fever baseline confusion Physical Exam Vital Signs: Vital Signs: Last Vital Signs Temp 97.3 F 04/17/21 07:39 Pulse 73 04/17/21 07:39 Resp 20 04/17/21 07:39 BP 109/59 L 04/17/21 07:39 Pulse Ox 97 04/17/21 07:39 BMI result Body Mass Index 20.7 Objective Data Active Medications Aspirin (Aspirin Enteric Coated 81 Mg Tablet.) 81 mg PO DAILY [facility] Last Admin: 04/17/21 08:12 Dose: 81 mg Documented by: SCOTTY Atorvastatin Calcium (Atorvastatin Calcium 40 Mg Tablet) 40 mg PO BEDTIME [facility] Last Admin: 04/16/21 21:15 Dose: 40 mg Documented by: ESTELLA Docusate Sodium (Docusate Sodium 100 Mg Capsule) 100 mg PO BEDTIME PRN PRN Reason: Constipation Melatonin (Melatonin 3 Mg Tablet) 3 mg PO BEDTIME [facility] Last Admin: 04/16/21 21:15 Dose: 3 mg Documented by: ESTELLA Multivitamins/Vitamin C (Multivitamin Tablet) 1 tab PO DAILY [facility] Last Admin: 04/17/21 08:12 Dose: 1 tab Documented by: SCOTTY Quetiapine Fumarate (Quetiapine Fumarate 25 Mg Tablet) 25 mg PO BID [facility] Last Admin: 04/17/21 08:12 Dose: 25 mg Documented by: SCOTTY Trazodone HCl (Trazodone Hcl 25 Mg Halftab) 25 mg PO BEDTIME PRN PRN Reason: insomnia Labs CBC & Chem 7: 04/01/21 06:42 04/01/21 06:42 Assessment and Plan (1) Encephalopathy: Status: Acute Assessment and Plan: 75yo M with no known medical history sent in for inadequate self-care, found to have CT evidence of subacute CVA though no neurologic deficit appreciated, deemed to not have capacity to make medical conditions, obtained court-appointed guardian and awaiting SNF placement, essentially no changes today No new issues, still awaiting snf placement Chronic / Past issues: Wernicke-Korskoaff encephalopathy/EtOH dementia no acute behavioral issues; quetiapine + prn trazodone, melatonin Awaiting placement at this time Subacute CVA 1.2 cm area of decreased attenuation in the L external capsule/claustrum Secondary prevention with ASA + statin ?Moderate protein/calorie malnutrition ?Continue Ensure tid, multivitamin Prominent polypoid soft tissue?seen within the right and left sided palatine tonsillar fossa for which direct visual inspection/ENT evaluation is recommended unable to able to get this done inpatient and will need outpatient follow up for it. ?Dispo Guardianship obtained, awaiting SNF placement Check vitals daily given no BP meds, no change in condition and only here for placement and no acute issues, if conditional change we check vitals more frequently dvt ppx ambulation Attending Dr. Dubois Quality Stroke Does the patient have a stroke diagnosis?: Yes Reason for No Anti-thrombotic by Day Two: N/A - Med Ordered VTE Prior VTE?: No VTE Risk Level:: Medical - moderate - high VTE Device Contraindication: N/A - Device Ordered VTE Drug Contraindication: N/A - Med Ordered
--- NOTE | 2021-04-17 14:11 | MHC.CM.PN ---
CURRENT MED LIST FAXED TO ATTENTION:KENNY AT [facility].([phone] PENDING COVID RESULTS WILL ALSO BE SENT DOCUMENTS ALSO EMAILED (PER REQUEST) TO [facility] PER REQUEST. CASE MANAGEMENT ATTEMPTING TO GET PATIENT VACCINATED WITH FIRST DOSE OF MODERNA PRIOR TO DC. CM TO FOLLOW UP WITH NOTE REGARDING PROGRESS TOWARDS THIS PLAN
[2021-04-17 14:38] LABS: COVID-19 Test Negative (Negative); IDNOW Serial# 9DD0AD1C
[2021-04-17 15:09] LABS: Influenza A PCR NEGATIVE (Negative); Influenza B PCR NEGATIVE (Negative); Resp Syncy Virus RNA Qual PCR NEGATIVE (Negative); SARS COV2 PCR INHOUSE NEGATIVE (Negative)
[2021-04-17] MEDS: Melatonin 3 MG TABLET PO (22:03)
[2021-04-17] MEDS: Atorvastatin Calcium 40 MG TABLET PO (22:03)
[2021-04-17 23:49] VITALS: BP 96/53; PULSE 59; RESP 17; TEMP 36.2; O2SAT 97
[2021-04-18 07:39] VITALS: BP 123/53; PULSE 68; RESP 18; TEMP 36; O2SAT 98
[2021-04-18] MEDS: Multivitamin TABLET 1 TAB PO (08:18)
[2021-04-18] MEDS: Aspirin Enteric Coated 81 MG TABLET.DR PO (08:18)
[2021-04-18] MEDS: QUEtiapine Fumarate 25 MG TABLET PO ×2 (08:18→20:02)
[2021-04-18 11:36] VITALS: BP 119/47; PULSE 76; RESP 18; TEMP 36.6; O2SAT 94
--- NOTE | 2021-04-18 12:33 | MHC.CM.PN ---
Addendum entered by Maia Flowers 04/18/21 13:56: MODERNA VACCINE TO BE ADMINSITERED TONIGHT BETWEEN 20:00-20:30. RN, HOSPITALIST, AND UNIT AWARE Original Note: PLAN IS FOR DISCHARGE TO [facility] ON FRIDAY VIA [facility]. FACILITY IS ASKING FOR A 1000 TRANSPORT FROM [facility]. CASE DISCUSSED WITH CLERK TRAVEL RESERVATIONS, HOSPITALIST, [facility] LIAISON, [facility], AND [facility] [address] [place] [address] [address] [place] [id number]
--- NOTE | 2021-04-18 13:51 | P.PNIM_ITS ---
Subjective Subjective Date of Service: 04/18/21 Interval History: no acute issues overnight Review of Systems denies chest pain Denies shortness of breath Denies nausea vomiting diarrhea Physical Exam Vital Signs: Vital Signs: Last Vital Signs Temp 97.8 F 04/18/21 11:36 Pulse 76 04/18/21 11:36 Resp 18 04/18/21 11:36 BP 119/47 L 04/18/21 11:36 Pulse Ox 94 04/18/21 11:36 BMI result Body Mass Index 20.7 Const: Other: no acute distress Resp: Other: clear to auscultation bilaterally no ra Cardio: Other: no S4; positive S1-S2; no S3 murmurs rubs gallops GI: Other: soft nontender nondistended with normoactive bowel sounds Extrem: Other: no edema bilaterally Objective Data Active Medications Aspirin (Aspirin Enteric Coated 81 Mg Tablet.) 81 mg PO DAILY [facility] Last Admin: 04/18/21 08:18 Dose: 81 mg Documented by: CAMMY Atorvastatin Calcium (Atorvastatin Calcium 40 Mg Tablet) 40 mg PO BEDTIME [facility] Last Admin: 04/17/21 22:03 Dose: 40 mg Documented by: NIDA Docusate Sodium (Docusate Sodium 100 Mg Capsule) 100 mg PO BEDTIME PRN PRN Reason: Constipation Melatonin (Melatonin 3 Mg Tablet) 3 mg PO BEDTIME [facility] Last Admin: 04/17/21 22:03 Dose: 3 mg Documented by: NIDA Multivitamins/Vitamin C (Multivitamin Tablet) 1 tab PO DAILY [facility] Last Admin: 04/18/21 08:18 Dose: 1 tab Documented by: CAMMY Quetiapine Fumarate (Quetiapine Fumarate 25 Mg Tablet) 25 mg PO BID [facility] Last Admin: 04/18/21 08:18 Dose: 25 mg Documented by: CAMMY Trazodone HCl (Trazodone Hcl 25 Mg Halftab) 25 mg PO BEDTIME PRN PRN Reason: insomnia Labs CBC & Chem 7: 04/01/21 06:42 04/01/21 06:42 Labs: Laboratory Results - last 24 hr 04/17/21 04/17/21 13:55 Unknown COVID-19 ([facility]) Negative COVID-19 Clin Com See Note Influenza Type A (PCR) NEGATIVE Influenza Type B (PCR) NEGATIVE RSV RNA Qual (PCR) NEGATIVE SARS-CoV-2 RNA (RT-PCR) NEGATIVE Assessment and Plan (1) Encephalopathy: Status: Acute (2) Dementia: Status: Acute Assessment and Plan: 75yo M with no known medical history sent in for inadequate self-care, found to have CT evidence of subacute CVA though no neurologic deficit appreciated, deemed to not have capacity to make medical conditions, obtained court-appointed guardian and awaiting SNF placement, essentially no changes today No new issues, still awaiting snf placement Chronic / Past issues: Wernicke-Korskoaff encephalopathy/EtOH dementia no acute behavioral issues; quetiapine + prn trazodone, melatonin Awaiting placement at this time Subacute CVA 1.2 cm area of decreased attenuation in the L external capsule/claustrum Secondary prevention with ASA + statin ?Moderate protein/calorie malnutrition ?Continue Ensure tid, multivitamin Prominent polypoid soft tissue?seen within the right and left sided palatine tonsillar fossa for which direct visual inspection/ENT evaluation is recommended unable to able to get this done inpatient and will need outpatient follow up for it. ?Dispo Guardianship obtained, awaiting SNF placement Check vitals daily given no BP meds, no change in condition and only here for placement and no acute issues, if conditional change we check vitals more frequently dvt ppx ambulation Quality Stroke Does the patient have a stroke diagnosis?: Yes Reason for No Anti-thrombotic by Day Two: N/A - Med Ordered VTE Prior VTE?: No VTE Risk Level:: Medical - moderate - high VTE Device Contraindication: N/A - Device Ordered VTE Drug Contraindication: N/A - Med Ordered
[2021-04-18 15:29] VITALS: BP 108/52; PULSE 72; RESP 18; TEMP 36.2; O2SAT 99
[2021-04-18] MEDS: Atorvastatin Calcium 40 MG TABLET PO (20:02)
[2021-04-18] MEDS: Melatonin 3 MG TABLET PO (20:02)
[2021-04-19] MEDS: LORazepam 1 MG TABLET PO (07:28)
[2021-04-19] MEDS: Aspirin Enteric Coated 81 MG TABLET.DR PO (07:28)
[2021-04-19] MEDS: Multivitamin TABLET 1 TAB PO (07:28)
[2021-04-19] MEDS: QUEtiapine Fumarate 25 MG TABLET PO (07:28)
[2021-04-19] MEDS: HaloperidoL 5 MG TABLET PO (07:28)
[2021-04-19 07:54] VITALS: BP 104/56; PULSE 75; RESP 17; TEMP 36.3; O2SAT 98
--- NOTE | 2021-04-19 08:29 | P.DS_ITS ---
DS: Providers Provider Date of Service: 04/19/21 Date of admission: 12/06/20 11:56 Date of discharge: 04/19/21 Primary care physician: None Physician Consults: 12/05/20 22:42 Consult to Psychiatry Routine Consulting Provider: Jose Aguero Reason for consultation: mental capacity Has provider been notified: Yes 12/06/20 10:41 Consult to Care Team Stat Comment: Reason for consultation: confusion, decisional capacity 12/06/20 11:18 Consult to Neurology Routine Consulting Provider: [facility] Reason for consultation: subacute CVA, dementia 12/06/20 11:54 Consult to Psychiatry Routine Consulting Provider: Psych Covering Reason for consultation: dementia with behavioral disturbance, no capacity 12/21/20 13:07 Consult to Psychiatry Routine Consulting Provider: [facility] Reason for consultation: competency reeval 02/02/21 11:06 Consult to Care Team Routine Comment: Reason for consultation: assess for geric psych placement 03/07/21 15:38 Consult to Care Team Routine Comment: Reason for consultation: dementia, confused, eval for michelle-psych admit DS: Diagnosis Discharge Diagnosis (1) Encephalopathy: Status: Acute (2) Dementia: Status: Acute DS: Summary Hospital Course Hospital Course: Patient is an unreliable historian due to his mental status.? When I interview him, he is unsure as to why is here and wants to leave.? He knows his name, states he is in a scientific facility , and thinks it is July 2020 . ? He has no relatives per CM report.? He tells me he has a stepmother but refuses to give me her phone number. as per ED provider documentation 12/05-12/06/20: Patient is 75 years old male with no diagnosis of dementia or mental problems lives in a house which is very unkept police been to their house at least 3 - 4 times in last 1 year for patient's wellness found 1 month of cat's litter in the garage, 2 bodies of cats patient does not have any running water,throwing the feces in his back yard according to his neighbor please have tried elderly care services so for no placement.? Patient is confabulating denies such stories says everything is fine at home... ...Physician observation started last night at 9pm. He is confused and disoriented. He is focused on getting a price. He was reoriented twice and still cannot recall where he is. His VS are stable. He is steady on his feet, speaking in complete sentences. UA was negative for infection last night. Will get basic labs, COVID swab, CT head and CXR. Patient is pending psych evaluation. He was given Benadryl & Ativan overnight with apparent worsening of his confusion. Will avoid Benadryl and Ativan for now. Will start Seroquel 25 BID. Case management pending but patient needs to be medically cleared first... ... Labs are unremarkable. CT head done showing 1.2 cm area of decreased attenuation seen in the left external capsule/claustrum questionable for subacute infarct. Mild generalized atrophy and nonspecific periventricular white matter disease.? Will plan to admit for further workup and monitoring. Hospital Course seen by Neurology on 12/07/2020; workup including MRI demonstrated a small CVA that would not account for the change in his mental status. Further workup reviewed and this with thought by Neurology to be a natural progression of dementia; Seen subsequently by Psychiatry on on 12/06/2020 for initial consultation and 12/22/20 for follow-up consult: pt is severely cognitively impaired.? he is unable to retain any information even for a few minutes and is therefore incapable of making any complex decisions.? he is unable to make medical decisions for himself or any decisions about disposition.? he is unable to appreciate his current medical circumstance and is therefore necessarily lacking in capacity to manage it.? he is unable to appreciate his previous living circumstances and lacks any insight into his disability.? this man requires an alternative decision maker, most likely permanently, as his condition has not changed at all since admission and he has no active medical problems has been awaiting placement since that time; new acute events in interval at this point in time he has placement and will be transferred to receiving facility. Time Spent with Patient Time attestation: Total time spent providing and/or coordinating discharge services: Discharge coordination time: Greater than 30 minutes Quality: Stroke Does the patient have a stroke diagnosis?: No Physical Exam Vital Signs: Vital Signs: Last Vital Signs Temp 97.4 F 04/19/21 07:54 Pulse 75 04/19/21 07:54 Resp 17 04/19/21 07:54 BP 104/56 L 04/19/21 07:54 Pulse Ox 98 04/19/21 07:54 BMI result Body Mass Index 20.7 Const: Other: no acute distress Resp: Other: clear to auscultation bilaterally no ra Cardio: Other: no S4; positive S1-S2; no S3 murmurs rubs gallops GI: Other: soft nontender nondistended with normoactive bowel sounds Extrem: Other: no edema bilaterally Discharge Plan Discharge Patient Disposition: Xfer Inpatient Rehab Fac Discharge Diagnosis: Dementia Referrals: Physician,None [Primary Care Provider] - 1 Week Discharge Medications: New multivitamin [Daily-Jessica] Tablet 1 tab PO DAILY Qty: 30 RF: 0 quetiapine 25 mg Tablet 25 mg PO BID Qty: 60 RF: 0 atorvastatin 40 mg Tablet 40 mg PO BEDTIME Qty: 30 RF: 0 aspirin 81 mg Tablet,Delayed Release (Dr/Ec) 81 mg PO DAILY Qty: 30 RF: 0 Discharge Orders: Discharge Order (Routine); Ordered 04/19/21 Ordered By: Freddy Pope Diet: regular diet Activity on Discharge: As tolerated Stand Alone Forms: Patient Portal Discharge page Care Plan Goals: safety Health Concerns: Safety Plan of Treatment: As per receiving facility Assessment: as per dc summary
--- NOTE | 2021-04-19 09:42 | MHC.CM.PN ---
PATIENT IS TRANSFERRING TO [facility] AT [facility] TODAY [facility] IS PROVIDING TRANSPORT. COVID VACCINE SHOT RECORD FAXED TO [facility] ATT: KENNY @ [phone] RN AND UNIT AWARE OF PLAN. IMM 04/18 IN CHART
== END 2021-04-19 10:12 | DRG 640 ==
LOC: HO.ED 19:37 → HO.EDOVER 12-06 12:04 → HO.IMC 12-06 14:02 → HO.S3 01-17 17:22 → HO.IMC 01-17 17:48 → HO.S3 04-13 11:20
PROVIDERS: Family Medicine; Internal Medicine; Nurse Practitioner Acute Care; Physician Assistant; Physician Assistant Medical; Admitting Provider Family Medicine; Emergency Provider Internal Medicine; Visit Provider Hospitalist
DX: E51.2 Wernicke's encephalopathy (principal); I63.9 Cerebral infarction, unspecified; F05 Delirium due to known physiological condition; E44.0 Moderate protein-calorie malnutrition; F10.27 Alcohol dependence with alcohol-induced persisting dementia; F10.239 Alcohol dependence with withdrawal, unspecified; E51.9 Thiamine deficiency, unspecified; F17.210 Nicotine dependence, cigarettes, uncomplicated; J35.8 Other chronic diseases of tonsils and adenoids; Z71.6 Tobacco abuse counseling; F03.90 Unspecified dementia, unspecified severity, without behavioral disturbance, psychotic disturbance, mood disturbance, and anxiety; Z20.822 Contact with and (suspected) exposure to COVID-19; Z68.20 Body mass index [BMI] 20.0-20.9, adult; Z74.1 Need for assistance with personal care; Z79.82 Long term (current) use of aspirin; Z79.899 Other long term (current) drug therapy
CPT/HCPCS: 0241U; 36415; 70450; 70553; 71045; 72170; 74018; 80048; 80061; 80076; 80307; 81003; 82607; 83036; 83735; 84425; 84443; 85007; 85025; 85027; 86038; 86039; 86617; 86618; 86780; 87389; 87635; 92610; 93005; 93306; 93880; 95816; 97161; 97165; 99284; 99285; A9585; J1650; J2560; J3411; Q0163